=== PATIENT | female | born 1960 | race Caucasian/White ===

== ENCOUNTER 2017-07-05 14:11 | Inpatient (IN) ==
[~2017-07-05 14:11] MED LIST: Adenosine 90 MG/30 ML MLS IV ONE; SODIUM CHLORIDE IV ONE
--- NOTE | 2017-07-05 14:42 | Emergency Department Note ---
Addendum entered and electronically signed by Gautam Montesinos DO 07/05/17 17:04: Insert in medical decision making as repeat electrocardiogram at 16:37 This electrocardiogram is unchanged from the previous one performed today. Also place and medical decision making: Aspirin was not given as this patient has a previous episode of throat swelling. She has taken her Plavix today Original Note: Disposition Clinical Impression: CHF (congestive heart failure) Qualifiers: Congestive heart failure type: unspecified congestive heart failure type Congestive heart failure chronicity: unspecified congestive heart failure chronicity Qualified Code(s): I50.9 - Heart failure, unspecified Chest pain Qualifiers: Chest pain type: unspecified Qualified Code(s): R07.9 - Chest pain, unspecified Disposition: Admitted As Inpatient Chest Pain HPI - General Chief Complaint: ED Chest Pain Stated Complaint: CP Time Seen by Provider: 07/05/17 14:17 Source: patient Limitations: no limitations Vital Signs Reviewed: Yes Nursing Notes Reviewed: Yes - History of Present Illness HPI Narrative: 57 year old female passenger pressure breast cancer COPD, type 2 diabetes mellitus, history of heart attacks, presents to the presents to the emergency department with chest pressure and shortness of breath for the past 3 days. Patient states that she was on the phone with her physician this morning discussing a previous infection in her left hand, and he told her to come to the emergency department with her chest pressure and shortness of breath. Patient states that she has never had a COPD exacerbation before, but she is on a lot of inhalers. She denies being on any oxygen via nasal cannula at home. Patient admits to cough, but denies fever, sputum production, hemoptysis. Patient denies any unilateral leg swelling, previous DVT. Severity scale (1-10): 5 - Related Data Home Medications Medication Instructions Recorded Confirmed Albuterol Sulfate [Albuterol 2 puff IH Q4H PRN 03/21/15 07/05/17 Inhaler] Cholecalciferol (Vitamin D3) 50,000 unit PO WE 03/21/15 07/05/17 [Optimal D3] Ipratropium/Albuterol Sulfate 2 puff IH DAILY 03/21/15 07/05/17 [Combivent Respimat Inhal [place]] Loratadine [Claritin] 10 mg PO DAILY 03/21/15 07/05/17 Nitroglycerin [Nitrostat] 0.4 mg SL Q5M PRN 03/21/15 07/05/17 Sertraline [Zoloft] 50 mg PO DAILY 03/21/15 07/05/17 Albuterol Neb [Proventil Neb] 2.5 mg IH Q6H PRN 03/30/16 07/05/17 Cholecalciferol (D-3) [Vitamin D] 1,000 unit PO DAILY 03/30/16 07/05/17 Nicotine Patch [Nicoderm] 21 mg TD DAILY 03/30/16 07/05/17 Topiramate [Topamax] 50 mg PO HS 03/30/16 07/05/17 Budesonide/Formoterol 160/4.5 2 puff IH BIDR 08/06/16 07/05/17 [Symbicort 160/4.5] Clopidogrel [Plavix] 75 mg PO DAILY 08/06/16 07/05/17 EPINEPHrine [Epipen] 0.3 mg IM ONCE PRN 08/06/16 07/05/17 Lisinopril/Hydrochlorothiazide 1 each PO DAILY 08/06/16 07/05/17 [Zestoretic 20-12.5 mg Tablet] Pregabalin [Lyrica] 150 mg PO BID 08/06/16 07/05/17 Alogliptin Benzoate [Alogliptin] 25 mg PO DAILY 07/05/17 07/05/17 Fluticasone/Vilanterol [Breo 1 each IH DAILY 07/05/17 07/05/17 Ellipta 100-25 Mcg INH] Insulin Glargine,Hum.rec.anlog 80 units SQ BID 07/05/17 07/05/17 [Toujeshayna Solostar] Insulin LISPRO [Humalog Kwikpen 35 unit SQ TIDWM 07/05/17 07/05/17 U-100] Levothyroxine [Synthroid] 50 mcg PO DAILY 07/05/17 07/05/17 Lidocaine Patch [Lidoderm 5% patch] 1 each TP DAILY 07/05/17 07/05/17 Metformin HCl [Metformin HCl ER] 500 mg PO BID 07/05/17 07/05/17 Metoprolol Succinate 100 mg PO DAILY 07/05/17 07/05/17 Nortriptyline HCl 75 mg PO HS 07/05/17 07/05/17 OxyCODONE/APAP 5/325 [Percocet 1 each PO DAILY PRN 07/05/17 07/05/17 5/325 MG] Sulfamethoxazole/Trimeth DS 1 each PO BID 07/05/17 07/05/17 [Bactrim DS] Previous Rx's Medication Instructions Recorded Omeprazole [PriLOSEC] 20 mg PO DAILY #30 capsule. 05/08/15 Cyclobenzaprine HCl 10 mg PO TID PRN #30 tablet 08/08/16 Promethazine [Phenergan] 12.5 mg PO Q6HR PRN #20 tablet 08/08/16 Exemestane [Aromasin] 25 mg PO DAILY #30 tablet 06/03/17 Allergies Allergy/AdvReac Type Severity Reaction Status Date / Time aspirin Allergy Hives Verified 06/03/17 10:33 Penicillins [PCN] Allergy Hives Verified 06/03/17 10:33 venom-honey bee Allergy Anaphylaxis Verified 06/03/17 10:33 [bee venom (honey bee)] Chest Pain PMH - Past Medical History Medical history: Reports: cancer, diabetes, TIA Surgical history: Reports: cancer surgery, non-contributory, other, hysterectomy , breast surgery Psychiatric history: Reports: anxiety, depression DEPARTMENT SUPERVISOR history: Reports: no DEPARTMENT SUPERVISOR history - Social History Smoking Status: Current every day smoker Alcohol use: Reports: none Drug use: Reports: none Physical Exam General: 57-year-old elderly female who appears to be mildly dyspneic Head: autraumatic, EOMI, no conjuncitval pallor, no scleral icterus, Mouth: oral mucous membranes moist Neck: neck soft, trachea midline Chest:: Equal chest wall rise Lungs: Mild rales and wheezes throughout Heart: normal heart sounds, tachycardic and normal rhythm, Abdomen: soft, non-tender, no rigidity, no guarding, no rebdound tenderness Lower Extremities: no pedal edema, calves non-tender Integumentary: Skin warm, dry, and intact Neuro: Alert Psych: normal affect, normal mood - General Limitations: no limitations General appearance: alert, in no apparent distress Course Vital Signs Temperature 97.5 F L 07/05/17 14:13 Pulse Rate 124 07/05/17 14:13 Respiratory Rate 18 07/05/17 14:13 Blood Pressure 111/77 07/05/17 14:13 O2 Sat by Pulse Oximetry 98 07/05/17 14:13 Temperature 97.5 F L 07/05/17 14:13 Pulse Rate 131 07/05/17 17:54 Respiratory Rate 25 07/05/17 17:54 Blood Pressure 135/86 07/05/17 17:54 O2 Sat by Pulse Oximetry 96 07/05/17 17:54 Oxygen Delivery Oxygen Delivery Nasal Cannula Chest Pain - MDM Narrative Medical decision making narrative: 57-year-old female presents to the emergency department with concern for worsening chest pain or shortness of breath for the last 3 days. Electrocardiogram was obtained and revealed nonspecific ST changes noted in the lateral leads that were new from her previous electrocardiogram performed in July 2016. Patient does have a leukocytosis of 16. Patient did have a recent infection in her left hand, but it looks well on exam. She also is tachycardic here as well, But that afebrile I cannot explain this. Chest x- ray reveals bilateral pleural effusions consistent with congestive heart failure. On exam, patient did not have any bilateral pitting edema. However, she did have a hepatojugular reflux consistent with CHF. Lung exam for wi revealed mild wheezes. I have administered 125 mg of Solu-Medrol as well as 3 duo nebs for this patient as she has COPD and there may be a component of exacerbation.. Patient is not on nasal cannula at home. She had an oxygen saturation here of 94% on room air. We have provided 20 mg of Lasix IV for this patient as she is not on any diuresis at home. There was initial concern for pulmonary embolus as this patient has a distant history of breast cancer in 2012, she was tachycardic, and had some component of pleuritic chest pain. However, she was low risk according to the well's criteria so we obtained a d- dimer. This d-dimer was less than the age adjusted as it was 89. There is some concern that there may be an element of viral myocarditis here as his patient has had a viral syndrome over the last few days, was tachycardic and has some nonspecific ST-T changes with the chest pressure. I cannot confirm that diagnosis at this time. I discussed this with the hospitalist and she agreed to accept the admission. I spoke with the patient and daughter at bedside and they agreed as well. Patient did mention some possible thyroid nodules. We are obtaining a TSH. This lab is still pending at time of admission Chest X-Ray 07/05/17 14:16 IMPRESSION: Findings suggest congestive heart failure D/ / Angel Mckeon MD / Angel Mckeon MD Interpreting Provider: Angel Mckeon MD Vital Signs Temperature 97.5 F L 07/05/17 14:13 Pulse Rate 124 07/05/17 14:13 Respiratory Rate 18 07/05/17 14:13 Blood Pressure 111/77 07/05/17 14:13 O2 Sat by Pulse Oximetry 98 07/05/17 14:13 Temperature 97.5 F L 07/05/17 14:13 Pulse Rate 126 07/05/17 15:21 Respiratory Rate 24 07/05/17 15:53 Blood Pressure 120/89 07/05/17 15:21 O2 Sat by Pulse Oximetry 94 07/05/17 15:53 Oxygen Delivery Oxygen Delivery Nasal Cannula - Medical Records Medical records reviewed: Yes I reviewed the patient's medical records. - Lab Data Lab results reviewed: Yes I reviewed the patient's lab results. Result diagrams: 07/05/17 15:00 07/05/17 15:00 Lab Results 07/05/17 07/05/17 07/05/17 Range/Units 15:00 15:00 15:00 WBC 8.9 (4.3-11.1) K/mcL RBC 5.00 H (3.82-4.97) M/mcL Hgb 16.0 H (11.5-15.4) g/dL Hct 47.9 H (35.3-44.9) % MCV 95.8 (83.0-100.0) fL MCH 32.0 (28.0-33.3) pg MCHC 33.4 (31.6-35.5) g/dL RDW 12.9 (11.5-14.5) % Plt Count 199 (140-400) K/mcL MPV 10.6 (9.4-12.4) fL Immature Gran % 0.4 (0-4) % Seg Neutrophils % 78.2 % Lymphocytes % 17.3 % Monocytes % 3.6 % Eosinophils % 0.2 % Basophils % 0.3 % Neutrophils # 7.0 (1.6-8.9) K/mcL Lymphocytes # 1.5 (0.6-4.6) K/mcL Monocytes # 0.3 (0.0-1.3) K/mcL Eosinophils # 0.0 (0.0-0.6) K/mcL Basophils # 0.0 (0.0-0.2) K/mcL D-Dimer (0-500) ng/mLFEU Sodium 137 (136-145) mEq/L Potassium 4.0 (3.5-4.5) mEq/L Chloride 103 (98-109) mEq/L Carbon Dioxide 21 (19-29) mEq/L BUN 13 (7-20) mg/dL Creatinine 0.74 (0.57-1.11) mg/dL Est GFR ( Amer) > 60 (> 60) Est GFR (Non-Af Amer) > 60 (> 60) BUN/Creatinine Ratio 18 (6-26) Glucose 267 H (70-99) mg/dL Calculated Osmolality 293 (280-300) Calcium 10.2 (8.6-10.8) mg/dL Troponin I 0.02 (0-0.03) ng/mL B-Natriuretic Peptide (0-100) pg/mL TSH 3.124 (0.350-4.840) mcIU/mL 07/05/17 07/05/17 Range/Units 15:00 15:00 WBC (4.3-11.1) K/mcL RBC (3.82-4.97) M/mcL Hgb (11.5-15.4) g/dL Hct (35.3-44.9) % MCV (83.0-100.0) fL MCH (28.0-33.3) pg MCHC (31.6-35.5) g/dL RDW (11.5-14.5) % Plt Count (140-400) K/mcL MPV (9.4-12.4) fL Immature Gran % (0-4) % Seg Neutrophils % % Lymphocytes % % Monocytes % % Eosinophils % % Basophils % % Neutrophils # (1.6-8.9) K/mcL Lymphocytes # (0.6-4.6) K/mcL Monocytes # (0.0-1.3) K/mcL Eosinophils # (0.0-0.6) K/mcL Basophils # (0.0-0.2) K/mcL D-Dimer 572 H (0-500) ng/mLFEU Sodium (136-145) mEq/L Potassium (3.5-4.5) mEq/L Chloride (98-109) mEq/L Carbon Dioxide (19-29) mEq/L BUN (7-20) mg/dL Creatinine (0.57-1.11) mg/dL Est GFR ( Amer) (> 60) Est GFR (Non-Af Amer) (> 60) BUN/Creatinine Ratio (6-26) Glucose (70-99) mg/dL Calculated Osmolality (280-300) Calcium (8.6-10.8) mg/dL Troponin I (0-0.03) ng/mL B-Natriuretic Peptide 581 H (0-100) pg/mL TSH (0.350-4.840) mcIU/mL - EKG Data EKG attestation: Yes I reviewed and interpreted this EKG. EKG results narrative: 14:35 Ventricular rate 126 beats per minute, MI interval 139 ms, QRS duration 100 106 , QT 370 ms, QTC 382 ms, left axis deviation. Sinus tachycardia with a ventricular rate of 126 bpm. T-wave flattening in lead 1, mild ST depression in V6 of 1 mm. Heart Score - Score History: Moderately Suspicious EKG: Non Specific repolarisation Disturbance Age: 45-65 Risk Factors: Equal/Greater than 3 risk factor or history of atherosclerotic disease Troponin: Less than normal limit HEART Score Total: 5 Attestation Statement - Attestation Attestation: I examined this patient and my medical decision-making was reviewed with the Resident Physician. I agree with the documented findings, disposition and treatment plan as described.
[2017-07-05] MEDS ORDERED: 0.9 % Sodium Chloride 1,000 ML IVC ONE (14:44)
[2017-07-05 15:21] LABS: BUN/Creatinine Ratio 18 (6-26); Blood Urea Nitrogen 13 mg/dL (7-20); Calcium 10.2 mg/dL (8.6-10.8); Carbon Dioxide 21 mEq/L (19-29); Chloride 103 mEq/L (98-109); Glucose 267 mg/dL (70-99); Osmolality,Calculated 293 (280-300); Sodium 137 mEq/L (136-145); eGFR For African Americans > 60 (> 60); eGFR For Non-African Americans > 60 (> 60)
[2017-07-05 15:23] LABS: Basophils % 0.3 %; Eosinophils % 0.2 %; Hematocrit 47.9 % (35.3-44.9); Immature Granulocytes % 0.4 % (0-4); Lymphocytes # 1.5 K/mcL (0.6-4.6); Lymphocytes % 17.3 %; Mean Corpuscular HGB Conc 33.4 g/dL (31.6-35.5); Mean Corpuscular Volume 95.8 fL (83.0-100.0); Mean Platelet Volume 10.6 fL (9.4-12.4); Monocytes # 0.3 K/mcL (0.0-1.3); Monocytes % 3.6 %; Platelet Count 199 K/mcL (140-400); Red Cell Distribution Width 12.9 % (11.5-14.5); Segmented Neutrophils % 78.2 %
[2017-07-05] MEDS ORDERED: Ipratropium/Albuterol Neb 3 ML IH ONE ×2 (15:23→15:43)
[2017-07-05] MEDS ORDERED: methylPREDNISolone 125 MG/2 ML VIAL IVP ONE (15:44)
[2017-07-05] MEDS ORDERED: Furosemide 20 MG/2 ML VIAL IVP ONE (16:05)
[2017-07-05 17:19] LABS: Thyroid Stimulating Hormone 3.124 mcIU/mL (0.350-4.840)
[2017-07-05] MEDS ORDERED: *HR* LORazepam 2 MG/ML VIAL IVP STA (17:56)
[2017-07-05] MEDS ORDERED: Nitroglycerin 0.4 MG TAB.SUBL SL PRN (19:31)
[2017-07-05] MEDS ORDERED: D5% in Water 1,000 ML IVC PRN (19:40)
[2017-07-05] MEDS ORDERED: Dextrose Gel 15 GM PO PRN ×2 (19:40)
[2017-07-05] MEDS ORDERED: *HR* Dextrose 50 % in Water (Syg) 50 ML SYRINGE IVP PRN (19:40)
[2017-07-05] MEDS ORDERED: Albuterol 2.5 MG/3 ML NEBULIZER IH PRN (19:42)
[2017-07-05] MEDS ORDERED: *HR* Enoxaparin 80 MG/0.8 ML SYRINGE SQ SCH (20:00)
[2017-07-05] MEDS ORDERED: Naloxone 0.4 MG/ML INJ IVP PRN (20:03)
[2017-07-05] MEDS ORDERED: Ondansetron 4 MG/2 ML VIAL IVP PRN (20:03)
[2017-07-05] MEDS ORDERED: Acetaminophen 325 MG TABLET PO PRN (20:03)
--- NOTE | 2017-07-05 20:18 | Internal Med History&Physical ---
<Erica Perez - Last Filed: 07/05/17 20:36> Date of Encounter: 07/05/17 Time of Encounter: 20:13 Assessment and Plan (1) CHF (congestive heart failure) Current visit: Yes Status: Acute 1 patient has had 3 days of increasing shortness of breath despite the use of her inhalers states she has had history of coronary disease, with cardiac catheterization several years ago. Chest x-ray does show some pulmonary vascular congestion as well as cardiomegaly. BNP is elevated at 581 patient's of orthopnea and hypoxia. We will continue cardiac monitoring We will diurese patient overnight Continuous oxygen Monitor intake output daily weight Low-sodium diet Food restriction 1500 mL's Obtain cardiac echo Consult cardiology Qualifiers: Congestive heart failure type: unspecified congestive heart failure type Congestive heart failure chronicity: unspecified congestive heart failure chronicity Qualified Code(s): I50.9 - Heart failure, unspecified (2) Chest pain Current visit: Yes Status: Acute 1 patient has been experiencing substernal chest pain radiates to her left breast. First troponin was 0.02 we will continue to trend 2 continue cardiac monitoring 3 continue with Plavix statin beta manuel 4 check lipid profile in a.m. 5 obtain cardiac echo 2 we will start patient on Lovenox 1 mg/kg-PE precautionary unable to obtain a VQ scan or CTA due to patient unable to lie flat-once respiratory status improves we will obtain CTA rule out PE Qualifiers: Chest pain type: unspecified Qualified Code(s): R07.9 - Chest pain, unspecified (3) COPD (chronic obstructive pulmonary disease) Current visit: No Status: Chronic 1 . Patient has been experiencing shortness of breath with past 3 days despite the use of her inhalers. 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 Rivera is a 57 year old female past medical history of breast cancer or COPD type 2 diabetes CAD no stent placements. According to the patient she has been experiencing increasing shortness of breath as well as midsternal chest pressure that radiates to her left breast. Chest pressure there is no aggravating or relieving factors. Shortness of breath is worse on exertion. She does admit to orthopnea She does use inhalers however she is not on any home oxygen. She admits to a cough but denies any sputum production or hemoptysis fevers chills nausea vomiting or diarrhea. She denies any lower extremity swelling or previous history of DVT. She presented to the ER with the above complaints lap work did reveal a BNP of 581 Restoril lap work this unremarkable. Chest x-ray does show cardiomegaly with vascular congestion and bilateral pleural effusions. She has been admitted for further workup and evaluation presently patient appears anxious with SPO2 94% on 2 L she is tachycardic I did review this case with Dr. Yeh agrees with plan. Past Med Surg Social Fam HX - Past Medical History Medical history: cancer, diabetes, TIA Psychiatric history: anxiety, depression - Past Surgical History Surgical History: cancer surgery, non-contributory, other, hysterectomy, breast surgery - Social History Smoking Status: Current every day smoker Smokeless Tobacco Status: No Alcohol use: none Drug use: none - Family History Mother Hx Family Cardiac Disorders: Yes Hx Family Cancer: Yes Internal Medicine - H&P: Meds Albuterol Sulfate [Albuterol Inhaler] 2 puff IH Q4H PRN 03/21/15 [History] Cholecalciferol (Vitamin D3) [Optimal D3] 50,000 unit PO WE 03/21/15 [History] Ipratropium/Albuterol Sulfate [Combivent Respimat Inhal [place]] 2 puff IH DAILY 03/21/15 [History] Loratadine [Claritin] 10 mg PO DAILY 03/21/15 [History] Nitroglycerin [Nitrostat] 0.4 mg SL Q5M PRN 03/21/15 [History] Sertraline [Zoloft] 50 mg PO DAILY 03/21/15 [History] Omeprazole [PriLOSEC] 20 mg PO DAILY #30 capsule. 05/08/15 [Rx] Albuterol Neb [Proventil Neb] 2.5 mg IH Q6H PRN 03/30/16 [History] Cholecalciferol (D-3) [Vitamin D] 1,000 unit PO DAILY 03/30/16 [History] Nicotine Patch [Nicoderm] 21 mg TD DAILY 03/30/16 [History] Topiramate [Topamax] 50 mg PO HS 03/30/16 [History] Budesonide/Formoterol 160/4.5 [Symbicort 160/4.5] 2 puff IH BIDR 08/06/16 [ History] Clopidogrel [Plavix] 75 mg PO DAILY 08/06/16 [History] EPINEPHrine [Epipen] 0.3 mg IM ONCE PRN 08/06/16 [History] Lisinopril/Hydrochlorothiazide [Zestoretic 20-12.5 mg Tablet] 1 each PO DAILY [History] Pregabalin [Lyrica] 150 mg PO BID 08/06/16 [History] Cyclobenzaprine HCl 10 mg PO TID PRN #30 tablet 08/08/16 [Rx] Promethazine [Phenergan] 12.5 mg PO Q6HR PRN #20 tablet 08/08/16 [Rx] Exemestane [Aromasin] 25 mg PO DAILY #30 tablet 06/03/17 [Rx] Alogliptin Benzoate [Alogliptin] 25 mg PO DAILY 07/05/17 [History] Fluticasone/Vilanterol [Breo Ellipta 100-25 Mcg INH] 1 each IH DAILY 07/05/17 [ History] Insulin Glargine,Hum.rec.anlog [Toujeo Solostar] 80 units SQ BID 07/05/17 [ History] Insulin LISPRO [Humalog Kwikpen U-100] 35 unit SQ TIDWM 07/05/17 [History] Levothyroxine [Synthroid] 50 mcg PO DAILY 07/05/17 [History] Lidocaine Patch [Lidoderm 5% patch] 1 each TP DAILY 07/05/17 [History] Metformin HCl [Metformin HCl ER] 500 mg PO BID 07/05/17 [History] Metoprolol Succinate 100 mg PO DAILY 07/05/17 [History] Nortriptyline HCl 75 mg PO HS 07/05/17 [History] OxyCODONE/APAP 5/325 [Percocet 5/325 MG] 1 each PO DAILY PRN 07/05/17 [History] Sulfamethoxazole/Trimeth DS [Bactrim DS] 1 each PO BID 07/05/17 [History] 3 Allergy/AdvReac Type Severity Reaction Status Date / Time aspirin Allergy Hives Verified 06/03/17 10:33 Penicillins [PCN] Allergy Hives Verified 06/03/17 10:33 venom-honey bee Allergy Anaphylaxis Verified 06/03/17 10:33 [bee venom (honey bee)] All Systems PM: A 10-system review of systems was performed and is negative for pertinent findings except as documented above in the HPI. - Constitutional Constitutional: no chills, no fever(s), no night sweats - EENT Eyes: no change in vision, no discharge, no pain, no photophobia Nose, mouth and throat: no dysphagia, no nasal discharge, no neck pain, no sore throat - Cardiovascular Cardiovascular ROS IM: chest pain, dyspnea, dyspnea on exertion - Respiratory Respiratory: cough, dyspnea - Gastrointestinal Gastrointestinal: no abdominal pain, no diarrhea, no hematemesis, no hematochezia, no melena, no nausea, no vomiting - Genitourinary Genitourinary: no change in urinary stream, no dysuria, no flank pain, no hematuria - Musculoskeletal Musculoskeletal ROS IM: no numbness, no tingling - Integumentary Integumentary IM: as per HPI - Neurological Neurological ROS: no confusion, no convulsions, no focal weakness, no numbness, no tingling, no tremor(s) - Hematologic/Lymphatic Hematologic/Lymphatic: no easy bruising - Constitutional Vitals: Temp Pulse Resp BP Pulse Ox 97.5 F L 123 24 118/84 92 07/05/17 14:13 07/05/17 19:13 07/05/17 19:13 07/05/17 19:13 07/05/17 19:13 General appearance: Present: A&O X 3, answers questions appropriately - Head Head exam: Present: atraumatic, normocephalic - Eye Eye exam: Present: PERRL, conjuntiva pink, sclera anicteric Pupils: Present: PERRL - Neck Neck exam general surgery: Present: supple, trachea midline. Absent: lymphadenopathy - Respiratory Respiratory exam: Present: rales. Absent: accessory muscle use, rhonchi, wheezes - Cardiovascular Cardiovascular exam: Present: RRR, +S1, +S2. Absent: diastolic murmur, gallop, rubs, systolic murmur - GI/Abdominal GI/Abdominal exam: Present: normal bowel sounds, soft, no peritoneal signs. Absent: distended, tenderness - Extremities Exam Extremities exam: Present: warm, radial pulses palpable and symmetrical. Absent : calf tenderness, cyanotic, pedal edema - Neurological Exam Neurological exam: Present: CN II-XII intact, oriented X3, no focal deficits. Absent: pronater drift, facial droop, speech deficit - Skin Skin exam: Present: dry, intact Internal Med - H&P Results - Labs CBC & Chem 7: 07/05/17 15:00 07/05/17 15:00 - EKG Data EKG shows normal: sinus rhythm Rate: tachycardia - EKG Data Prior EKG available for review: yes When compared to previous EKG: there is no significant change - Diagnostic Studies Chest x-ray Additional comments: Chest X-Ray 07/05/17 14:16 IMPRESSION: Findings suggest congestive heart failure D/ / Angel Mckeon MD / Angel Mckeon MD Interpreting Provider: Angel Mckeon MD <Guevara Yeh - Last Filed: 07/05/17 22:15> Date of Encounter: 07/05/17 Internal Medicine - H&P: HPI History of present illness: Ms. Rivera is a 57 year old female All Systems PM: A 10-system review of systems was performed and is negative for pertinent findings except as documented above in the HPI. - Constitutional Vitals: Temp Pulse Resp BP Pulse Ox 97.8 F 123 17 127/85 92 07/05/17 20:38 07/05/17 20:38 07/05/17 20:38 07/05/17 20:38 07/05/17 20:38 Internal Med - H&P Results - Labs CBC & Chem 7: 07/05/17 15:00 07/05/17 15:00 Labs: Cardiac Enzymes 07/05/17 Range/Units 20:41 Troponin I 0.02 (0-0.03) ng/mL - Attending Attestation I have personally performed a face to face evaluation on this patient. I have reviewed and agree with the care plan. History and Exam by me shows: 57 y/o female presents with worsening dyspnea. Unable to lie flat. No prior history. Also having some tachycardia. Exam Moderate distress upright Unable to lie flat Heart tachy Crackles noted Agree with assessment and plan as above.
[2017-07-05] MEDS ORDERED: Insulin LISPRO 300 UNITS/3 ML VIAL SQ SCH (21:00)
[2017-07-05] MEDS ORDERED: Insulin DETEMIR 100 UNIT/ML X5UNITS SQ SCH (21:00)
[2017-07-05] MEDS: Furosemide 20 MG/2 ML VIAL IVP SCH (22:42)
[2017-07-05] MEDS: *HR* HYDROcodone/Acet 5/325 mg TABLET PO PRN (23:37)
[2017-07-05] MEDS: Topiramate 25 MG TABLET PO SCH (23:37)
[2017-07-05] MEDS: Pregabalin 75 MG CAPSULE PO SCH (23:37)
[2017-07-05] MEDS: Budesonide/Formoterol 160/4.5 MDI IH SCH (23:42)
[2017-07-05] MEDS: Ipratropium/Albuterol Neb 3 ML IH SCH (23:42)
[2017-07-06] MEDS: *HR* Enoxaparin 80 MG/0.8 ML SYRINGE SQ SCH ×3 (00:33→16:53)
[2017-07-06] MEDS ORDERED: Insulin LISPRO 300 UNITS/3 ML VIAL SQ ONE ×2 (02:21→03:59)
[2017-07-06] MEDS: Ipratropium/Albuterol Neb 3 ML IH SCH ×6 (03:48→23:26)
[2017-07-06 04:01] LABS: Basophils % 0.4 %; Immature Granulocytes % 0.6 % (0-4); Lymphocytes # 0.7 K/mcL (0.6-4.6); Lymphocytes % 14.3 %; Monocytes # 0.1 K/mcL (0.0-1.3); Monocytes % 2.4 %; Neutrophils # 4.2 K/mcL (1.6-8.9); Platelet Count 171 K/mcL (140-400); Red Blood Count 4.47 M/mcL (3.82-4.97); Red Cell Distribution Width 12.6 % (11.5-14.5); Segmented Neutrophils % 82.3 %
[2017-07-06 04:02] LABS: Hemoglobin 14.3 g/dL (11.5-15.4)
[2017-07-06 04:21] LABS: BUN/Creatinine Ratio 19 (6-26); Blood Urea Nitrogen 15 mg/dL (7-20); Calcium 9.1 mg/dL (8.6-10.8); Carbon Dioxide 19 mEq/L (19-29); Chloride 104 mEq/L (98-109); Chol/HDL Ratio 5.3 (0-4.9); Cholesterol 213 mg/dL (< 200); Glucose 465 mg/dL (70-99); HDL Cholesterol 40 mg/dL (40-59); LDL Cholesterol,Calculated 124 mg/dL (0-99); Magnesium 1.9 mg/dL (1.6-2.6); Osmolality,Calculated 305 (280-300); Sodium 137 mEq/L (136-145); Triglycerides 246 mg/dL (< 150); eGFR For African Americans > 60 (> 60); eGFR For Non-African Americans > 60 (> 60)
[2017-07-06 04:25] LABS: Potassium 4.2 mEq/L (3.5-4.5)
[2017-07-06] MEDS ORDERED: Insulin LISPRO 300 UNITS/3 ML VIAL SQ SCH (07:30)
[2017-07-06] MEDS: Budesonide/Formoterol 160/4.5 MDI IH SCH ×2 (07:39→19:35)
[2017-07-06] MEDS: Cholecalciferol (D-3) 1,000 UNIT TABLET PO SCH (08:16)
--- NOTE | 2017-07-06 08:16 | Cardiology Consult Note ---
<Juliette Hahn - Last Filed: 07/06/17 12:11> Date of Encounter: 07/06/17 Time of Encounter: 09:00 Assessment and Plan (1) Dyspnea Current Visit: Yes Status: Acute Presented with chest pressure, sob, coughing for 3 days. Admits to increase sweating but denies fever, chills, N/V, arm pain, jaw pain. Patient f/u with a longitudinal float operator Dr. Faulkner in [place]. Vitals: tachycardia, afebrile. Labs: negative Troponin negative x 3, BNP 581 CXR: Cardiomegaly. Pulmonary vascular congestion and pulmonary edema. Evidence for bilateral pleural effusions. EKG shows nonspecific ST changes that are seen on previous EKG 07/2016. Echo 12/2015: LVEF 50%. Low normal LV systolic function. The basal and mid inferior overton appear mildly hypokinetic although not all myocardial segments were well visualized. Consider repeat Limited study with Definity for further evaluation.Cath 2001: no PCI. Questionable etiology for dyspnea, most likely multifactorial of CHF and COPD exacerbation. Echo results are pending, will await results for further recommendations. Continue Lasix 20mg BID daily. Patient has not seen a longitudinal float operator for at least 5 years. His name was Dr. Faulkner but she is unsure at which hospital her previous cath was at. Discussed with medical office secretary to see if we can obtain records. Plan: -awaiting echo results -continue Lasix 20mg BID -continue telemetry -continue BB - adding lipitor 40mg po daily - awaiting records. Qualifiers: Dyspnea type: shortness of breath Qualified Code(s): R06.02 - Shortness of breath; R06.00 - Dyspnea, unspecified; R06.01 - Orthopnea (2) Chest pain Current Visit: Yes Status: Acute Presented with chest pressure, sob, coughing for 3 days. Troponin negative x 3. EKG unchanged from previous EKG 07/2016. Awaiting echo no need for further cardiac testing at this time. Qualifiers: Chest pain type: unspecified Qualified Code(s): R07.9 - Chest pain, unspecified (3) Tachycardia Current Visit: Yes Status: Acute Chronic tachycardia dating back in eCW records to 2012. Most likely from pulmonary medications. Continue current dose of BB. Will continue to telemetry. (4) Hyperlipidemia Current Visit: Yes Status: Acute Mixed hyperlipidemia. ASCVD risk 17.8% in the next [address] patient on Lipitor 40mg. Qualifiers: Hyperlipidemia type: mixed hyperlipidemia Qualified Code(s): E78.2 - Mixed hyperlipidemia Discussion w patient/family: The assessment and plan as outlined above was discussed with the patient and/or family members who expressed understanding and agreement. All questions were answered. Thank you for involving us in the care of your patient. Please call with any questions. History of Present Illness Consult date: 07/05/17 Requesting physician: Erica Perez Consult reason: CHF Chief complaint: chest pressure and SOB History of present illness: Ms. Rivera is a 57 year old female pmh of breast cancer, COPD, DM2, CAD without stents (last cath in [place] ~6 years ago), TIA on plavix, presented to the ED with chest pressure, sob, coughing for 3 days. Admits to increase sweating but denies fever, chills, N/V, arm pain, jaw pain. Patient admits to orthopnea with 6 pillows, typically uses 3 pillows and PND. Patient does not check weight daily but there has been no change in weight per last e[facility] weight and now. Patient has COPD and has not missed any medications. Home medications include BB and ASHISH/HCTZ. Cardiac testing: Carotid duplex 07/2016: bilateral carotid arteries normal throughout. Echo 12/2015: LVEF 50%. Low normal LV systolic function. The basal and mid inferior overton appear mildly hypokinetic although not all myocardial segments were well visualized. Consider repeat Limited study with Definity for further evaluation. Nuc Stress 10/2012: Perfusion imaging was negative for ischemia or infarct. There is a small sized persistent perfusion defect which is mild in severity in the anterior wall with normal wall motion. This is consistent with breast attenuation artifact. Cath 2002: no PCI. Past Med Surg Social Fam HX - Past Medical History Medical history: cancer, diabetes, TIA Psychiatric history: anxiety, depression - Past Surgical History Surgical History: cancer surgery, non-contributory, other, hysterectomy, breast surgery - Social History Smoking Status: Current every day smoker Smokeless Tobacco Status: No Alcohol use: none Drug use: none - Family History Mother Living Status: Cause of : Fall at senior living Hx Family Cardiac Disorders: Yes Hx Family Respiratory Disorders: Yes (COPD, Emphysema, Asthma) Hx Family Cancer: Yes Hx Family GI Disorders: No Hx Family Genitourinary Disorders: No Hx Family Endocrine Disorder: Yes (DM, Thyroid) Hx Family Musculoskeletal Disorders: No Hx Family Neuromuscular Disorders: No Hx Family Neurologic Disorders: No Hx Family HEENT Disorders: No Hx Family Autoimmune Disorders: No Hx Family Reproductive Disorders: No Hx Family Psychosocial Disorders: No Hx Family Medical Disorders: No Medications and Allergies Albuterol Sulfate [Albuterol Inhaler] 2 puff IH Q4H PRN 03/21/15 [History] Cholecalciferol (Vitamin D3) [Optimal D3] 50,000 unit PO WE 03/21/15 [History] Ipratropium/Albuterol Sulfate [Combivent Respimat Inhal [place]] 2 puff IH DAILY 03/21/15 [History] Loratadine [Claritin] 10 mg PO DAILY 03/21/15 [History] Nitroglycerin [Nitrostat] 0.4 mg SL Q5M PRN 03/21/15 [History] Sertraline [Zoloft] 50 mg PO DAILY 03/21/15 [History] Omeprazole [PriLOSEC] 20 mg PO DAILY #30 capsule. 05/08/15 [Rx] Albuterol Neb [Proventil Neb] 2.5 mg IH Q6H PRN 03/30/16 [History] Cholecalciferol (D-3) [Vitamin D] 1,000 unit PO DAILY 03/30/16 [History] Nicotine Patch [Nicoderm] 21 mg TD DAILY 03/30/16 [History] Topiramate [Topamax] 50 mg PO HS 03/30/16 [History] Budesonide/Formoterol 160/4.5 [Symbicort 160/4.5] 2 puff IH BIDR 08/06/16 [ History] Clopidogrel [Plavix] 75 mg PO DAILY 08/06/16 [History] EPINEPHrine [Epipen] 0.3 mg IM ONCE PRN 08/06/16 [History] Lisinopril/Hydrochlorothiazide [Zestoretic 20-12.5 mg Tablet] 1 each PO DAILY [History] Pregabalin [Lyrica] 150 mg PO BID 08/06/16 [History] Cyclobenzaprine HCl 10 mg PO TID PRN #30 tablet 08/08/16 [Rx] Promethazine [Phenergan] 12.5 mg PO Q6HR PRN #20 tablet 08/08/16 [Rx] Exemestane [Aromasin] 25 mg PO DAILY #30 tablet 06/03/17 [Rx] Alogliptin Benzoate [Alogliptin] 25 mg PO DAILY 07/05/17 [History] Fluticasone/Vilanterol [Breo Ellipta 100-25 Mcg INH] 1 each IH DAILY 07/05/17 [ History] Insulin Glargine,Hum.rec.anlog [Toujeo Solostar] 80 units SQ BID 07/05/17 [ History] Insulin LISPRO [Humalog Kwikpen U-100] 35 unit SQ TIDWM 07/05/17 [History] Levothyroxine [Synthroid] 50 mcg PO DAILY 07/05/17 [History] Lidocaine Patch [Lidoderm 5% patch] 1 each TP DAILY 07/05/17 [History] Metformin HCl [Metformin HCl ER] 500 mg PO BID 07/05/17 [History] Metoprolol Succinate 100 mg PO DAILY 07/05/17 [History] Nortriptyline HCl 75 mg PO HS 07/05/17 [History] OxyCODONE/APAP 5/325 [Percocet 5/325 MG] 1 each PO DAILY PRN 07/05/17 [History] Sulfamethoxazole/Trimeth DS [Bactrim DS] 1 each PO BID 07/05/17 [History] 3 Allergy/AdvReac Type Severity Reaction Status Date / Time aspirin Allergy Hives Verified 06/03/17 10:33 Penicillins [PCN] Allergy Hives Verified 06/03/17 10:33 venom-honey bee Allergy Anaphylaxis Verified 06/03/17 10:33 [bee venom (honey bee)] All Systems Review: A 10-system review of systems was performed and is negative for pertinent findings except as documented above in the HPI. Physical Examination Vital Signs, Last 4 Hours Temp Pulse Resp BP Pulse Ox 07/06/17 08:03 97.4 F L 116 24 108/70 94 07/06/17 07:39 20 94 Results 07/06/17 03:47 07/06/17 03:47 Lab Results 07/05/17 07/06/17 07/06/17 20:41 03:47 03:47 WBC 5.1 Hgb 14.3 D Hct 42.0 Plt Count 171 Sodium Potassium Chloride Carbon Dioxide BUN Creatinine Glucose Calcium Magnesium Troponin I 0.02 0.01 07/06/17 03:47 WBC Hgb Hct Plt Count Sodium 137 Potassium 4.2 Chloride 104 Carbon Dioxide 19 BUN 15 Creatinine 0.80 Glucose 465 H Calcium 9.1 Magnesium 1.9 Troponin I Consult Discharge Plan - Plan Referrals: Angel Jimenez DO [Primary Care Provider] - <Yumiko Moulton - Last Filed: 07/06/17 12:38> Date of Encounter: 07/06/17 - Attending Attestation I examined this patient and my medical decision-making was reviewed with the Resident Physician. I agree with the documented findings, disposition and treatment plan. Ms. Rivera presented with CP, SOB and cough. She admits to having a fever at home but has been afebrile here. Troponins negative x3. ECG with nonspecific ST abnormalities, no significant change from prior. PLAN: 1. Dyspnea: Recommend IV lasix, check echo. Probably multifactorial. Prior EF from 2015 was normal with wall motion abnormality. 2. Chest Pain: Check echo, start statin and continue aspirin. Consider stress testing when clinical status improves - can be done as outpatient. 3. Tachycardia: Long history of elevated heart rates - seen in outpatient medical records as far back as 2012. Suspect secondary to pulmonary inhalers. Continue telemetry. Patient on BB. Consider outpatient holter. Assessment and Plan Discussion w patient/family: The assessment and plan as outlined above was discussed with the patient and/or family members who expressed understanding and agreement. All questions were answered. Thank you for involving us in the care of your patient. Please call with any questions. History of Present Illness History of present illness: Ms. Rivera is a 57 year old female All Systems Review: A 10-system review of systems was performed and is negative for pertinent findings except as documented above in the HPI. Physical Examination Vital Signs, Last 4 Hours Temp Pulse Resp BP Pulse Ox 07/06/17 11:41 97.4 F L 120 20 113/78 95 07/06/17 11:08 20 94 Results 07/06/17 03:47 07/06/17 03:47 Lab Results 07/05/17 07/06/17 07/06/17 20:41 03:47 03:47 WBC 5.1 Hgb 14.3 D Hct 42.0 Plt Count 171 Sodium Potassium Chloride Carbon Dioxide BUN Creatinine Glucose Calcium Magnesium Troponin I 0.02 0.01 07/06/17 03:47 WBC Hgb Hct Plt Count Sodium 137 Potassium 4.2 Chloride 104 Carbon Dioxide 19 BUN 15 Creatinine 0.80 Glucose 465 H Calcium 9.1 Magnesium 1.9 Troponin I
[2017-07-06] MEDS: Nicotine 21 MG PATCH.TD24 TD SCH (08:17)
[2017-07-06] MEDS: Loratadine 10 MG TABLET PO SCH (08:17)
[2017-07-06] MEDS: Pregabalin 75 MG CAPSULE PO SCH ×2 (08:17→22:02)
[2017-07-06] MEDS: predniSONE 20 MG TABLET PO SCH (08:17)
[2017-07-06] MEDS: Insulin LISPRO 300 UNITS/3 ML VIAL SQ SCH ×5 (08:18→22:00)
[2017-07-06] MEDS: Furosemide 20 MG/2 ML VIAL IVP SCH ×3 (08:18→16:59)
[2017-07-06] MEDS ORDERED: (Exemestane [Aromasin] 25 MG) PO SCH (09:00)
[2017-07-06] MEDS ORDERED: NON-FORMULARY MEDICATION 1 EACH EACH (Ipratropium/Albuterol Sulfate [Combivent Respimat In IH SCH (09:00)
[2017-07-06] MEDS ORDERED: Fluticasone/Vilanterol [Breo Ellipta 100-25 Mcg Inh IH SCH (09:00)
[2017-07-06] MEDS ORDERED: EXEMESTANE 25 MG PO SCH (09:00)
[2017-07-06] MEDS: Metoprolol XL (24 HR) Succ 50 MG TAB.ER.24H PO SCH (09:21)
[2017-07-06] MEDS: Insulin DETEMIR 100 UNIT/ML X5UNITS SQ SCH ×2 (10:36→22:02)
--- NOTE | 2017-07-06 13:07 | Electrocardiograph Report ---
[place] [address] Test Date: 2017-07-05 Pat Name: Virginia Rivera Department: 103 Room: 2A24 Gender: F [employer] Supervisor: : 1960 Requested By: Esau Edwards Order Number: [id number] Reading MD: Osbaldo Perkins MD Measurements Intervals [place] Rate: 126 P: 63 UT: 139 QRS: -3 QRSD: 101 T: 88 QT: 307 QTc: 382 Interpretive Statements SINUS TACHYCARDIA Poor R wave progression Electronically Signed On 07-06-2017 13:05:10 EST by Osbaldo Perkins MD
--- NOTE | 2017-07-06 13:11 | Electrocardiograph Report ---
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
[2017-07-06] MEDS ORDERED: Perflutren Lipid Microsphere 1.3 ML in 0.9 % Sodium Chloride 8.7 ML IVP ONE (13:47)
[2017-07-06] MEDS ORDERED: Perflutren Lipid Microsphere 2 ML VIAL ONE (13:59)
--- NOTE | 2017-07-06 17:09 | Internal Med Progress Note ---
Date of Encounter: 07/06/17 Time of Encounter: 17:07 - Assessment and plan (1) Acute systolic (congestive) heart failure Current Visit: Yes Status: Acute Assessment and plan: Reviewed 2 D Echo showed severe LV dysfunction with LVEF 15 %, as well global hypokinesia Spoke to Dr. Pace..Placed pt on NPO after mid night.. for possible LHC In AM Cont IV lasix Cont Metoprolol, Statin, Plavix (2) Acute respiratory failure with hypoxia Current Visit: Yes Status: Acute Assessment and plan: Due to CHF exacerbation Improving Cont O2 + Duoneb (3) Dyslipidemia Current Visit: No Status: Chronic Assessment and plan: on statin (4) COPD (chronic obstructive pulmonary disease) Current Visit: No Status: Chronic Assessment and plan: Not in exacerbation Cont duoneb and O2 Qualifiers: COPD type: unspecified COPD Qualified Code(s): J44.9 - Chronic obstructive pulmonary disease, unspecified (5) Diabetes mellitus Current Visit: No Status: Chronic Assessment and plan: on ISS + Levemir still uncontrolled BS.. 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 transplanted heart: knik heart Associated angina: without angina Qualified Code(s): I25.10 - Atherosclerotic heart disease of knik coronary artery without angina pectoris - Subjective Interval history: Ms. Rivera is a 57 year old female past medical history of breast cancer or COPD type 2 diabetes CAD no stent placements. According to the patient she has been experiencing increasing shortness of breath as well as midsternal chest pressure that radiates to her left breast. Pt was admitted here for acute CHF exacerbation. She was started on IV lasix, her SOB seems to be better now. Still on 2 lit O2. Denied any CP now - Constitutional Vitals: Temp Pulse Resp BP Pulse Ox 97.3 F L 95 20 124/61 95 07/06/17 14:56 07/06/17 14:56 07/06/17 15:42 07/06/17 14:56 07/06/17 15:42 General appearance: Present: A&O X 3, answers questions appropriately - Head Head exam: Present: atraumatic, normal inspection - Respiratory Respiratory exam: Present: decreased breath sounds, rales (Mild), wheezes. Absent: respiratory distress, rhonchi - Cardiovascular Cardiovascular exam: Present: RRR, +S1, +S2. Absent: systolic murmur - GI/Abdominal GI/Abdominal exam: Present: normal bowel sounds, soft. Absent: rebound, rigid, tenderness - Extremities Exam Extremities exam: Absent: calf tenderness, pedal edema, tenderness - Back Exam Back exam: Absent: CVA tenderness (L), CVA tenderness (R) Internal Medicine: Result - Labs CBC & Chem 7: 07/06/17 03:47 07/06/17 03:47 Labs: Short CBC 07/06/17 Range/Units 03:47 WBC 5.1 (4.3-11.1) K/mcL Hgb 14.3 D (11.5-15.4) g/dL Hct 42.0 (35.3-44.9) % Plt Count 171 (140-400) K/mcL Neutrophils # 4.2 (1.6-8.9) K/mcL BMP 07/06/17 03:47 Sodium 137 Potassium 4.2 Chloride 104 Carbon Dioxide 19 BUN 15 Creatinine 0.80 Glucose 465 H Calcium 9.1 Cardiac Enzymes 07/05/17 07/06/17 Range/Units 20:41 03:47 Troponin I 0.02 0.01 (0-0.03) ng/mL - ABG Interpretation ABG results: PT/INR, D-dimer D-Dimer 572 ng/mLFEU (0-500) H 07/05/17 15:00 - Impressions Impressions Echocardiogram 07/06/17 20:06 Impressions: LVEF 15%. Severely dilated left ventricle. Severe global left ventricular systolic dysfunction. There is no LV thrombus. Indeterminate diastolic function. Mildly dilated right ventricle with hypokinesis. Severely dilated left atrium. Mild mitral regurgitation. Mild-moderate pulmonary hypertension. Estimated RVSP is 42-47 mmHg, including an estimated RA pressure of 15-20 mmHg. Ordering provider notified via [place]. Left Ventricular Wall Motion: Rest Echo Findings The apex, apical inferior, mid inferior, basal inferior, apical anterior, mid anterior, basal anterior, apical septal, mid inferior septal, basal inferior septal, apical lateral, mid anterior lateral, basal anterior lateral, mid anterior septal, mid inferior lateral, basal anterior septal and basal inferior lateral overton were hypokinetic. Findings: Study Quality * Technically adequate exam. ECG Findings * Sinus tachycardia. Left Ventricle * LVEF 15%. * Severely dilated left ventricle. * Severe global left ventricular systolic dysfunction. * There is no LV thrombus. * Indeterminate diastolic function. Right Ventricle * Mildly dilated right ventricle. * Mild right ventricular hypokinesis. Left Atrium * Severely dilated left atrium. Right Atrium * Mildly dilated right atrium. Aortic Valve * Trileaflet aortic valve with normal function. * No aortic regurgitation. * No aortic stenosis. Mitral Valve * No mitral stenosis. * Mild mitral regurgitation. * Normal mitral valve structure. Tricuspid Valve * Normal tricuspid valve structure and function. * Trace tricuspid regurgitation. * Mild-moderate pulmonary hypertension. * Estimated RVSP is 42-47 mmHg. * Estimated RA pressure is 15-20 mmHg. Pulmonic Valve * Normal pulmonic valve structure and function. * Trace pulmonic regurgitation. Aorta * Normally sized aortic root. Pericardium * The pericardium appears normal. IVC * Dilated inferior vena cava with < 50% collapse. Pulmonary Artery * Normal visualized portions of the main pulmonary artery. Consult Discharge Plan - Plan Referrals: Angel Jimenez DO [Primary Care Provider] -
[2017-07-06] MEDS: Topiramate 25 MG TABLET PO SCH (22:03)
[2017-07-07] MEDS: Ipratropium/Albuterol Neb 3 ML IH SCH ×6 (03:42→23:15)
[2017-07-07] MEDS: *HR* Enoxaparin 80 MG/0.8 ML SYRINGE SQ SCH ×2 (05:38→17:50)
[2017-07-07 05:59] LABS: BUN/Creatinine Ratio 47 (6-26); Calcium 9.1 mg/dL (8.6-10.8); Carbon Dioxide 26 mEq/L (19-29); Chloride 105 mEq/L (98-109); Glucose 118 mg/dL (70-99); Magnesium 1.7 mg/dL (1.6-2.6); Osmolality,Calculated 299 (280-300); Sodium 141 mEq/L (136-145); eGFR For African Americans > 60 (> 60); eGFR For Non-African Americans > 60 (> 60)
[2017-07-07 06:00] LABS: Blood Urea Nitrogen 29 mg/dL (7-20); Potassium 3.1 mEq/L (3.5-4.5)
[2017-07-07] MEDS: Budesonide/Formoterol 160/4.5 MDI IH SCH ×2 (07:24→20:39)
[2017-07-07] MEDS: Pregabalin 75 MG CAPSULE PO SCH ×2 (09:25→20:04)
[2017-07-07] MEDS: predniSONE 20 MG TABLET PO SCH (09:25)
[2017-07-07] MEDS: Furosemide 20 MG/2 ML VIAL IVP SCH ×2 (09:25→17:51)
[2017-07-07] MEDS: Loratadine 10 MG TABLET PO SCH (09:25)
[2017-07-07] MEDS: Insulin DETEMIR 100 UNIT/ML X5UNITS SQ SCH ×2 (09:26→20:04)
[2017-07-07] MEDS: Cholecalciferol (D-3) 1,000 UNIT TABLET PO SCH (09:26)
[2017-07-07] MEDS: Nicotine 21 MG PATCH.TD24 TD SCH (09:26)
[2017-07-07] MEDS: Insulin LISPRO 300 UNITS/3 ML VIAL SQ SCH ×7 (09:27→20:05)
[2017-07-07] MEDS: Metoprolol XL (24 HR) Succ 50 MG TAB.ER.24H PO SCH ×2 (09:48→20:04)
[2017-07-07] MEDS: Patient Taking Own Medication 1 EACH PO SCH (09:48)
[2017-07-07 10:42] LABS: INR 1.1; Prothrombin Time 11.8 Seconds (9.4-12.1)
[2017-07-07] MEDS ORDERED: 0.9 % Sodium Chloride 1,000 ML ONE ×3 (11:24→12:51)
[2017-07-07] MEDS ORDERED: *HR* Midazolam HCl 2 MG/2 ML VIAL ONE (11:24)
[2017-07-07] MEDS ORDERED: *HR* Heparin 10,000 UNIT/10 ML VIAL ONE (11:24)
[2017-07-07] MEDS ORDERED: Heparin 1,000 UNITS/500 mL NS 500 ML ONE (11:24)
[2017-07-07] MEDS ORDERED: *HR* Dextrose 50 % in Water (Syg) 50 ML SYRINGE ONE (11:24)
[2017-07-07] MEDS ORDERED: Nitroglycerin 1,000 MCG/10 ML VIAL IV ONE (11:25)
--- NOTE | 2017-07-07 11:28 | Cardiology Progress Note ---
<Juliette Hahn - Last Filed: 07/07/17 11:22> Date of Encounter: 07/07/17 Time of Encounter: 09:00 Assessment and Plan (1) Acute systolic (congestive) heart failure Current Visit: Yes Status: Acute Presented with chest pressure, sob, coughing for 3 days. Admits to increase sweating but denies fever, chills, N/V, arm pain, jaw pain. Patient f/u with a eyeglass lens grinder Dr. Faulkner in [place]. Vitals: tachycardia, afebrile. Labs: negative Troponin negative x 3, BNP 581 CXR: Cardiomegaly. Pulmonary vascular congestion and pulmonary edema. Evidence for bilateral pleural effusions. EKG shows nonspecific ST changes that are seen on previous EKG 07/2016. Echo 12/2015: LVEF 50%. Low normal LV systolic function. The basal and mid inferior overton appear mildly hypokinetic although not all myocardial segments were well visualized. Consider repeat Limited study with Definity for further evaluation.Cath 2001: no PCI. Patient has not seen a eyeglass lens grinder for at least 5 years. His name was Dr. Faulkner but she is unsure at which hospital her previous cath was at. Discussed with assistant corporate secretary to see if we can obtain records but records are still not here. New echo results show LVEF 15%.Severely dilated left ventricle.Severe global left ventricular systolic dysfunction.There is no LV thrombus.Indeterminate diastolic function. Mildly dilated right ventricle with hypokinesis.Severely dilated left atrium.Mild mitral regurgitation.Mild-moderate pulmonary hypertension. Estimated RVSP is 42-47 mmHg, including an estimated RA pressure of 15-20 mmHg. New onset systolic CHF as echo showed EF 15% which is a change from EF 50% in 2016. Will obtain LHC today. Plan: - LHC today, pending further recommendations -continue Lasix 20mg BID -continue telemetry -continue BB and ASA - adding lipitor 40mg po daily - awaiting records - will need f/u with cardiology in 2-3 weeks (2) Chest pain Current Visit: Yes Status: Acute Presented with chest pressure, sob, coughing for 3 days. Troponin negative x 3. EKG unchanged from previous EKG 07/2016. LHC today as echo showed EF =15% and global hypokinesis. Qualifiers: Chest pain type: unspecified Qualified Code(s): R07.9 - Chest pain, unspecified (3) Tachycardia Current Visit: Yes Status: Acute Chronic tachycardia dating back in e[facility] records to 2012. Most likely from pulmonary medications. Continue current dose of BB. Will continue to telemetry. (4) Hyperlipidemia Current Visit: Yes Status: Acute Mixed hyperlipidemia. ASCVD risk 17.8% in the next [address] patient on Lipitor 40mg. Qualifiers: Hyperlipidemia type: mixed hyperlipidemia Qualified Code(s): E78.2 - Mixed hyperlipidemia Discussion w patient/family: The assessment and plan as outlined above was discussed with the patient and/or family members who expressed understanding and agreement. All questions were answered. Thank you for involving us in the care of your patient. Please call with any questions. Subjective Principal diagnosis: CHF Interval history: Patient states that she is still having SOB and chest pressure today. Objective Vital Signs, Last 4 Hours Resp Pulse Ox 07/07/17 07:24 18 97 General: Conversant, No Apparent Distress HEENT: Atraumatic, Normocephaly, Mucus Membranes Moist Cardiac: Reg Rate and Rhythm, Normal S1 and S2, No Murmur Lungs: Normal Breath Sounds Neuro: Alert and responsive, No focal deficits noted Abdomen: Soft, Non-Tender Skin: No rashes noted on visualized skin Musculoskeletal: No Chest Wall Tenderness Extremities: No Cyanosis, No Edema, Normal Pulses, Other (+ clubbing ) Results 07/06/17 03:47 07/07/17 05:35 Lab Results 07/07/17 07/07/17 05:35 10:15 INR 1.1 Sodium 141 Potassium 3.1 L D Chloride 105 Carbon Dioxide 26 BUN 29 H D Creatinine 0.62 Glucose 118 H Calcium 9.1 Magnesium 1.7 Consult Discharge Plan - Plan Referrals: Angel Jimenez DO [Primary Care Provider] - <Yumiko Moulton - Last Filed: 07/07/17 13:42> Date of Encounter: 07/07/17 Assessment and Plan Discussion w patient/family: I examined this patient and my medical decision-making was reviewed with the Resident Physician. I agree with the documented findings, disposition and treatment plan. Ms. Rivera's echo demonstrated newly reduced LV systolic function, EF 15% with a severely dilated LV. Given new findings, a LHC was recommended. Patient has since undergone LHC which demonstrated (preliminary) nonobstructive CAD, essentially a nonischemic cardiomyopathy. DDx may include tachycardia induced. Looking back, HR's have been elevated in the 110-120's range since 2013. Average heart rate over last 24h is 117bpm. Presuming this may be from her beta agonists for COPD. Given borderline blood pressures, would not recommend uptitrating her beta manuel. May consider pulmonary consult for help in management. Will also discuss with EP. Recommend continuing diuresis with careful watch on blood pressure and renal function. Continue antiplatelet agent and statin. Results 07/06/17 03:47 07/07/17 05:35 Lab Results 07/07/17 07/07/17 05:35 10:15 INR 1.1 Sodium 141 Potassium 3.1 L D Chloride 105 Carbon Dioxide 26 BUN 29 H D Creatinine 0.62 Glucose 118 H Calcium 9.1 Magnesium 1.7
--- NOTE | 2017-07-07 12:23 | Pre-Sedation Evaluation ---
Pre-sedation evaluation - Pre-sedation checklist Date of procedure: 07/07/17 Procedure: left heart cath possible Recent Vitals: Last Vital Signs Temp 97.7 F 07/07/17 07:16 Pulse 115 07/07/17 07:16 Resp 18 07/07/17 07:24 BP 101/62 07/07/17 07:16 Pulse Ox 97 07/07/17 07:24 H&P (including ROS) documented in medical record: Yes Previous reaction to sedatives/anesthetics: No Dietary Status: NPO 6 hours prior to procedure Airway Assessment: Patient can open mouth completely, TMJ function normal Dentition: No loose teeth or bridges Possible difficult airway: No ASA Classification *see protocol: CLASS III-Severe systemic disease Plan of Care: Pt appropriate candidate for procedure/moderate/conscious sedation , Risks/benefits of procedure/sedation discussed w/ patient/family, If not NPO; Risk of intake outweiged by necessity to perform procedure
[2017-07-07] MEDS ORDERED: *HR* Bivalirudin 250 MG VIAL IVC ONE (12:39)
[2017-07-07] MEDS ORDERED: NACL 0.2% IVC SCH (14:00)
[2017-07-07] MEDS ORDERED: D10 IVC SCH (14:00)
--- NOTE | 2017-07-07 14:57 | Internal Med Progress Note ---
Date of Encounter: 07/07/17 Time of Encounter: 14:54 - Assessment and plan (1) Acute systolic (congestive) heart failure Current Visit: Yes Status: Acute Assessment and plan: Reviewed 2 D Echo showed severe LV dysfunction with LVEF 15 %, as well global hypokinesia Went for [facility] today..will f/u on final report will hold tonight Lasix Cont Metoprolol, Statin, Plavix (2) Acute respiratory failure with hypoxia Current Visit: Yes Status: Acute Assessment and plan: Due to CHF exacerbation and mild COPD exacerbation Improving Cont O2 + Duoneb May need home O2 eval before she goes home (3) Dyslipidemia Current Visit: No Status: Chronic Assessment and plan: on statin (4) COPD (chronic obstructive pulmonary disease) Current Visit: No Status: Chronic Assessment and plan: in Mild exacerbation start tapering PO steroids Cont duoneb and O2 May need home O2 eval Qualifiers: COPD type: unspecified COPD Qualified Code(s): J44.9 - Chronic obstructive pulmonary disease, unspecified (5) Diabetes mellitus Current Visit: No Status: Chronic Assessment and plan: on ISS + Levemir Added meal time Insulin coverage y/d Qualifiers: Diabetes mellitus type: type 2 Diabetes mellitus complication status: with unspecified complications Diabetes mellitus termite technician insulin use: with termite technician use Qualified Code(s): E11.8 - Type 2 diabetes mellitus with unspecified complications; Z79.4 - senior care (current) use of insulin (6) Hypoglycemia associated with diabetes Current Visit: Yes Status: Acute Assessment and plan: Accidentally she received around 37 U Regular Insulin this morning prior to cardiac cath and her BS are running little low so changed meal time dose D50 1 amp and D5 75 cc/hr x 4 hrs and cont frequent Accu checks Resumed diet (7) CAD (coronary artery disease) Current Visit: No Status: Chronic Assessment and plan: Resumed all home meds Qualifiers: Coronary Disease-Associated Artery/Lesion type: [place] artery [place] vs. transplanted heart: [place] heart Associated angina: without angina Qualified Code(s): I25.10 - Atherosclerotic heart disease of [place] coronary artery without angina pectoris - Subjective Interval history: Ms. Rivera is a 57 year old female past medical history of breast cancer or COPD type 2 diabetes CAD no stent placements. According to the patient she has been experiencing increasing shortness of breath as well as midsternal chest pressure that radiates to her left breast. Pt was admitted here for acute CHF exacerbation. She was started on IV lasix, her SOB seems to be better now. Still on 4 lit O2. Denied any CP now..Just came back from [facility] - Constitutional Vitals: Temp Pulse Resp BP Pulse Ox 97.7 F 115 18 101/62 97 07/07/17 07:16 07/07/17 07:16 07/07/17 07:24 07/07/17 07:16 07/07/17 07:24 General appearance: Present: A&O X 3, answers questions appropriately - Head Head exam: Present: atraumatic, normal inspection - Neck Neck exam general surgery: Present: supple - Respiratory Respiratory exam: Present: decreased breath sounds, wheezes (moderate). Absent : rales, respiratory distress, rhonchi - Cardiovascular Cardiovascular exam: Present: RRR, +S1, +S2. Absent: systolic murmur - GI/Abdominal GI/Abdominal exam: Present: normal bowel sounds, soft. Absent: rebound, rigid, tenderness - Extremities Exam Extremities exam: Absent: calf tenderness, pedal edema, tenderness - Back Exam Back exam: Absent: CVA tenderness (L), CVA tenderness (R) - Neurological Exam Neurological exam: Present: alert, oriented X3 Internal Medicine: Result - Labs CBC & Chem 7: 07/06/17 03:47 07/07/17 05:35 Labs: BMP 07/07/17 05:35 Sodium 141 Potassium 3.1 L D Chloride 105 Carbon Dioxide 26 BUN 29 H D Creatinine 0.62 Glucose 118 H Calcium 9.1 - ABG Interpretation ABG results: PT/INR, D-dimer PT 11.8 Seconds (9.4-12.1) 07/07/17 10:15 D-Dimer 572 ng/mLFEU (0-500) H 07/05/17 15:00 - Impressions Impressions Echocardiogram 07/06/17 20:06 Impressions: LVEF 15%. Severely dilated left ventricle. Severe global left ventricular systolic dysfunction. There is no LV thrombus. Indeterminate diastolic function. Mildly dilated right ventricle with hypokinesis. Severely dilated left atrium. Mild mitral regurgitation. Mild-moderate pulmonary hypertension. Estimated RVSP is 42-47 mmHg, including an estimated RA pressure of 15-20 mmHg. Ordering provider notified via Vocera. Left Ventricular Wall Motion: Rest Echo Findings The apex, apical inferior, mid inferior, basal inferior, apical anterior, mid anterior, basal anterior, apical septal, mid inferior septal, basal inferior septal, apical lateral, mid anterior lateral, basal anterior lateral, mid anterior septal, mid inferior lateral, basal anterior septal and basal inferior lateral overton were hypokinetic. Findings: Study Quality * Technically adequate exam. ECG Findings * Sinus tachycardia. Left Ventricle * LVEF 15%. * Severely dilated left ventricle. * Severe global left ventricular systolic dysfunction. * There is no LV thrombus. * Indeterminate diastolic function. Right Ventricle * Mildly dilated right ventricle. * Mild right ventricular hypokinesis. Left Atrium * Severely dilated left atrium. Right Atrium * Mildly dilated right atrium. Aortic Valve * Trileaflet aortic valve with normal function. * No aortic regurgitation. * No aortic stenosis. Mitral Valve * No mitral stenosis. * Mild mitral regurgitation. * Normal mitral valve structure. Tricuspid Valve * Normal tricuspid valve structure and function. * Trace tricuspid regurgitation. * Mild-moderate pulmonary hypertension. * Estimated RVSP is 42-47 mmHg. * Estimated RA pressure is 15-20 mmHg. Pulmonic Valve * Normal pulmonic valve structure and function. * Trace pulmonic regurgitation. Aorta * Normally sized aortic root. Pericardium * The pericardium appears normal. IVC * Dilated inferior vena cava with < 50% collapse. Pulmonary Artery * Normal visualized portions of the main pulmonary artery. Consult Discharge Plan - Plan Referrals: Angel Jimenez DO [Primary Care Provider] -
[2017-07-07] MEDS ORDERED: Insulin LISPRO 300 UNITS/3 ML VIAL SQ SCH (15:00)
[2017-07-07] MEDS: Topiramate 25 MG TABLET PO SCH (20:04)
[2017-07-08 03:42] LABS: BUN/Creatinine Ratio 38 (6-26); Blood Urea Nitrogen 27 mg/dL (7-20); Carbon Dioxide 26 mEq/L (19-29); Chloride 103 mEq/L (98-109); Glucose 174 mg/dL (70-99); Magnesium 1.9 mg/dL (1.6-2.6); Osmolality,Calculated 297 (280-300); Potassium 4.1 mEq/L (3.5-4.5); Sodium 139 mEq/L (136-145); eGFR For African Americans > 60 (> 60); eGFR For Non-African Americans > 60 (> 60)
[2017-07-08] MEDS: Ipratropium/Albuterol Neb 3 ML IH SCH ×6 (03:53→23:45)
[2017-07-08] MEDS: *HR* Enoxaparin 80 MG/0.8 ML SYRINGE SQ SCH (05:30)
--- NOTE | 2017-07-08 06:28 | Invasive Diagnostic Lab Proc ---
Name: Virginia Rivera Date of Study: 07/07/2017 Date: 1960 Ht: 66.9in Medical Record#: [id number] Age: 57 Wt: 172.84lb Gender: Female BSA: 1.9 Order #: [id number] BMI: 27.13 Physicians Procedure Physician: Ole Faulkner DO Referring MD: Referring MD: Staff Name Position Time In Jayro Judy RT (R) Monitor 12:23 PM Wilmer Dial RT (R) Scrub 12:23 PM Praneeth Parson RN Sales And Customer Relations Rep 12:23 PM Indications Indication Cardiomyopathy Procedures Performed Procedure L HRT ARTERY/VENTRICLE ANGIO IV Doppler BLD Flow 1st Vessel Pre-Procedure Checklist Informed consent is complete signed and on chart. H&P is on chart. ID band is on and ID verified with patient. Patient NPO for procedure The procedure was described for the patient and questions were answered. Blood Pressure: 101/62 ECG is on chart. Rhythm: NSR Plan of Care Patient will tolerate the procedure without complications. Adequate level of comfort will be maintained. Hemodynamics will remain stable Patient will recover from procedure without complications. Respiratory function will be maintained. Cardiac rhythm will remain stable. Patient temperature will be maintained. Patient and/or family have verbalized understanding of the procedure. Patient Education Chief Complaint/Reason for Test: Cardiac Cath Developmental Category: Adult (18-64 years) Developmentally Appropriate for Age: Yes Learning Barriers: None Education Needs: Procedure Education Method: Verbal Information Taught: Cardiac Cath Educational Evaluation: Able to repeat information Intravenous Access Time IV Size Location DC'd Fluid/Drip Rate Units RN 12:02 PM 20g 1 08/25" Patent On Arrival Lt Arm 0.9NaCl 25 ml/hr Nnaette Romero RN Allergies Penicillins PCN,CODIENE, ASA venom-honey bee bee venom (honey bee) PCN (penicillin) aspirin Codeine Morphine Vital Signs Time BP (mmHg) HR (bpm) O2 Sat. RR (bpm) LOC 12:03 PM 101 / 62 115 97 % 18 5 = Fully awake and oriented or at pre-proc level 12:24 PM / % 5 = Fully awake and oriented or at pre-proc level 12:24 PM / % 4 = Oriented but drowsy 12:40 PM / % 4 = Oriented but drowsy 12:22 PM 97 / 55 112 96 % 15 12:27 PM 95 / 60 109 96 % 14 12:32 PM 98 / 51 107 93 % 13 12:37 PM 87 / 46 108 93 % 14 12:42 PM 97 / 51 105 93 % 13 12:47 PM 83 / 51 105 93 % 13 12:48 PM 85 / 51 104 93 % 13 12:52 PM 99 / 56 108 95 % 20 12:57 PM 104 / 48 108 93 % 21 01:02 PM 96 / 57 109 94 % 13 Procedural Medications Time Medication Dose Units Method Given By 11:43 AM D50 11:50 AM D50 12:24 PM Oxygen 4 L/min nasal cannula Praneeth Parson RN 12:24 PM Versed 1 mg Intravenous Praneeth Parson RN 12:31 PM Lidocaine 2% 10 ml Subcutaneous Ole Faulkner DO 12:43 PM Angiomax 0.75mg/kg bolus: 12 ml Intravenous Praneeth Parson RN 12:44 PM Angiomax 1.75mg/kg/hr: 28 ml Intravenous Praneeth Parson RN 12:46 PM Adenosine 150 mcg/kg/min Intravenous Ole Faulkner DO 12:57 PM Angiomax 1.75mg/kg/hr: ml Dc'd Praneeth Parson RN ASA Classification: CLASS III- Severe systemic disease (i.e. prior AMI, diabetes with vascular complications, morbid obesity) Tamir Score Preprocedure Postprocedure Activity 2- Moves 4 extremities sustained head lift Activity 2- Moves 4 extremities sustained head lift Circulation 2- SBP +/= 20 points of pre-anesthetic level Circulation 2- SBP +/= 20 points of pre-anesthetic level Consciousness 2- Awake and alert oriented x 3 Consciousness 2- Awake and alert oriented x 3 O2 Saturation 1- Needs O2 inhalation to maintain O2 saturation of 90% O2 Saturation 2- Able to maintain O2 satruation of 92% on room air Respiratory 2- Able to deep breathe and cough well Respiratory 2- Able to deep breathe and cough well Total Score 9 Total Score 10 Contrast Agent: Isovue Fluoro Dose: 345 mGy Procedure Log Time Note Enter By 11:21 AM recieved call from Jodi ORTEZ that patient received her insulin this am and to recheck patients blood sugar. Checked blood sugar 53. Notified Dr. Faulkner and orders received roel 11:24 AM Time: 11:24 D50 1/2 amp Intravenous Given by Nanette Romero RN 11:45 AM rechecked blood sugar up to 87. roel 11:50 AM Time: 11:50 D50 1/2 amp Intravenous Given by Nanette Romero RN 12:17 PM Pt arrived to labor relations teacher 2 at 12:16 twilson 12:17 PM Physician arrived 12:17 twilson 12:17 PM Meet and greet completed twilson 12:17 PM Sign in performed according to hospital policy. twilson 12:17 PM Procedure start 12:17 twilson 12:17 PM CathStat 12:17 PM [ Start or Stop Vital ] 12:21 PM Vitals capture started with the following parameters, Patient=Adult, Interval=5 min, Initial Khmadpvt=122 mmHg, Deflation Rate=5 mmHg, Cuff placed on Right Arm 12:22 PM GW=619 bpm, NIBP=97/55 mmhg, SpO2=96.0 %, Resp=15 B/min 12:23 PM Recorded ECG: YG=517 Condition=Condition 1 12:23 PM Judy Dial RT (R) Position: Monitor Time in: 12:23 twilson 12:23 PM Wilmer Dial RT (R) Position: Scrub Time in: 12:23 twilson 12:23 PM Praneeth Parson RN Position: Sales And Customer Relations Rep Time in: 12:23 twilson 12:23 PM Patient charges- Angio tray pack, Navilyst 3mm J, Pulse Oximetry and ACIST tubing and transducer twilson 12:23 PM Case Delayed no twilson 12:24 PM Hair removed from procedure site in procedure lab using clippers. Bilateral groin prepped with Chloraprep by Judy Dial (R), safety strap applied then patient was draped. Skin intact. twilson 12:24 PM Time: 12:24 Oxygen on at 4 L/min per nasal cannula by Praneeth Parson RN twilson 12:24 PM Time: 12:24 Versed 1 mg Intravenous Given by Praneeth Parson RN twilson 12:24 PM Time: 12:24 Patient comfortable and pain free: Yes twilson 12:24 PM Time: 12:24LOC: 5 = Fully awake and oriented or at pre-proc level twilson 12:26 PM ASA Class CLASS III- Severe systemic disease (i.e. prior AMI, diabetes with vascular complications, morbid obesity) twilson 12:27 PM VE=889 bpm, NIBP=95/60 mmhg, SpO2=96.0 %, Resp=14 B/min 12:28 PM Pressure channel 1 zeroed. 12:28 PM Pressure channel 1 zeroed. 12:31 PM Sign in performed according to hospital policy. twilson 12:31 PM Time: 12:31 10 ml Lidocaine 2% to right groin Subcutaneous Given by Ole Faulkner DO twilson 12:32 PM VA=501 bpm, NIBP=98/51 mmhg, SpO2=93.0 %, Resp=13 B/min 12:33 PM Micro-Introducer Kit utilized for sheath placement twilson 12:34 PM Access obtained by percutaneous puncture. 6Fr 10cm Terumo [place] sheath placed in right Femoral artery. [id number] twilson 12:34 PM 6Fr FR 4 catheter inserted over the wire DNC twilson 12:35 PM Recorded Pressure: LV, HR=98, Condition=Condition 1 (Left Ventricle) LV 70/4/7 12:35 PM Recorded Pressure: LV, Ao, MS=206, Condition=Condition 1 (Left Ventricle) LV 89/12/19, (Aorta) Ao 84/46/65 12:35 PM Catheter selectively placed in left ventricle, wire removed, intact. twilson 12:35 PM Bolus angiogram of left Ventricle complete:hand injection twilson 12:36 PM RCA angiography performed in multiple views. twilson 12:36 PM Catheter removed twilson 12:36 PM 6Fr FL 4 catheter inserted over the wire DNC twilson 12:36 PM Wire removed, intact. twilson 12:37 PM Coronary Dominance: right twilson 12:37 PM UP=086 bpm, NIBP=87/46 mmhg, SpO2=93.0 %, Resp=14 B/min 12:37 PM Recorded Pressure: Ao, YK=668, Condition=Condition 1 (Aorta) Ao 72/49/57 12:37 PM Recorded Pressure: Ao, CR=621, Condition=Condition 1 (Aorta) Ao 75/50/60 12:38 PM Recorded Pressure: Ao, NT=907, Condition=Condition 1 (Aorta) Ao 77/48/60 12:39 PM LCA angiography performed in multiple views. twilson 12:39 PM Wire reinserted and catheter removed twilson 12:40 PM Time: 12:24LOC: 4 = Oriented but drowsy twilson 12:40 PM Time: 12:24 Patient comfortable and pain free: Yes twilson 12:40 PM preparing for FFR twilson 12:41 PM 6Fr JL4 Runway guide catheter was used to cannulate the PCI vessel successfully. reused? No twilson 12:41 PM .014 Choice Extra Support 300cm guide wire across target lesion- successful. reused? No twilson 12:42 PM BA=676 bpm, NIBP=97/51 mmhg, SpO2=93.0 %, Resp=13 B/min 12:43 PM 500cc saline bolus twilson 12:43 PM Recorded Pressure: Ao, OY=766, Condition=Condition 1 (Aorta) Ao 81/52/63 12:44 PM Time: 12:43 Angiomax 0.75mg/kg bolus: 12 ml Intravenous Given by Praneeth Parson RN Moe pump twilson 12:44 PM Time: 12:44 Angiomax 1.75mg/kg/hr: 28 ml Intravenous Given by Praneeth Parson RN Moe pump twilson 12:46 PM ACIST Navvus Catheter advanced to target lesion. twilson 12:47 PM AD=739 bpm, NIBP=83/51 mmhg, SpO2=93.0 %, Resp=13 B/min 12:47 PM NIBP STAT measurement started. 12:48 PM ZP=238 bpm, NIBP=85/51 mmhg, SpO2=93.0 %, Resp=13 B/min 12:48 PM Recorded Pressure: Ao, FP=375, Condition=Condition 1 (Aorta) Ao 82/58/68 12:49 PM Time: 12:46 Adenosine 150 mcg/kg/min administered Intravenous by Ole Faulkner DO twilson 12:51 PM NIBP STAT measurement started. 12:52 PM VH=736 bpm, NIBP=99/56 mmhg, SpO2=95.0 %, Resp=20 B/min 12:52 PM FFR Measurement: 0.84 twilson 12:54 PM Flow Wire removed intact twilson 12:54 PM Guidewire removed, intact. twilson 12:55 PM Bolus angiogram right femoral artery hand injection twilson 12:55 PM Time: 12:40 Patient comfortable and pain free: Yes twilson 12:55 PM Time: 12:40LOC: 4 = Oriented but drowsy twilson 12:55 PM Guide catheter removed, intact. twilson 12:56 PM Procedure completed at 12:56 twilson 12:56 PM Sign out completed: Radiation Dose 345 mGy Fluoro Time: 2.6 Isovue 370 - 200ml contrast ml given by Ole Faulkner DO. Complications: NoneCardiac Rehab Consult needed: NoConfirmed administered medications: Yes twilson 12:56 PM Isovue 370 - 200ml,1 Bottle(s) used. twilson 12:56 PM Arterial sheath pulled, Angio-seal closure device used and was Successful [id number] S/N. twilson 12:57 PM Post ECG NSR twilson 12:57 PM WB=253 bpm, SHUA=063/48 mmhg, SpO2=93.0 %, Resp=21 B/min 12:58 PM Time: 12:57 Angiomax 1.75mg/kg/hr: ml Dc'd Given by Praneeth Parson RN Moe pump twilson 12:58 PM 12:58 Post Pulses Bilateral DP & PT 2+ twilson 12:58 PM 12:58 Post Pulses Bilateral radial 2+ twilson 12:59 PM Information taught Cardiac Cath, Flowire, and Angioseal twilson 12:59 PM Education needs Procedure, Plan of Care, and Responsibilities of Patient in Care twilson 12:59 PM Learning barriers :None twilson 12:59 PM Education Methods Verbal twilson 12:59 PM Education evaluation Able to repeat information twilson 12:59 PM Site status No bleeding/hematoma - Rt Groin as reported by Wilmer Dial RT (R) at 12:59 twilson 12:59 PM Opsite applied twilson 12:59 PM Delay to floor No twilson 01:02 PM GV=679 bpm, NIBP=96/57 mmhg, SpO2=94.0 %, Resp=13 B/min 01:05 PM Lesion found in Mid LAD. Pre Stenosis: 60 Pre CIARA Flow: twilson 01:07 PM Mid/Distal Left Anterior Descending Coronary Artery and diagonal branches with 60% stenosis. If graft is supplying this area, 0 % stenosis twilson 01:08 PM Report given to Jodi ORTEZ Pt taken to 2A Room #24. 13:08 twilson 01:09 PM Patient out of room: 13:08 twilson 01:09 PM Family placed in consult room. twilson Complications Complication None Hemodynamics Pressures Site Systolic/A Wave Diastolic/V Wave Mean LV 70 4 7 LV 89 12 19 AO 84 46 65 AO 72 49 57 AO 75 50 60 AO 77 48 60 AO 81 52 63 AO 82 58 68 Post Procedure Information Rhythm: NSR Post procedural instructions were given Closure Device Time Device Success/Fail 07/07/2017 1:00:00 PM Angio-Seal VIP Successful Site Checks Time Location Status Staff Sheath In? Note 12:59 PM Rt Groin No bleeding/hematoma Wilmer Dial RT (R) Pulses Time Site Pre-Procedure Post-Procedure Note 07/07/2017 12:02:00 PM Bilateral radial 2+ 07/07/2017 12:03:00 PM Bilateral DP & PT 2+ 12:58:00 PM Bilateral DP & PT 2+ 12:58:00 PM Bilateral radial 2+ Updated by Judy Dial RT (R) on 07/07/2017 1:10:13 PM electronically signed on 07/07/2017 1:11:30 PM with status of Final
[2017-07-08] MEDS: Budesonide/Formoterol 160/4.5 MDI IH SCH ×2 (08:00→20:03)
[2017-07-08] MEDS: Furosemide 20 MG/2 ML VIAL IVP SCH ×2 (08:52→19:49)
[2017-07-08] MEDS: Pregabalin 75 MG CAPSULE PO SCH ×2 (08:52→21:41)
[2017-07-08] MEDS: Insulin LISPRO 300 UNITS/3 ML VIAL SQ SCH ×7 (08:52→21:41)
[2017-07-08] MEDS: Loratadine 10 MG TABLET PO SCH (08:53)
[2017-07-08] MEDS: predniSONE 20 MG TABLET PO SCH (08:53)
[2017-07-08] MEDS: Metoprolol XL (24 HR) Succ 50 MG TAB.ER.24H PO SCH (08:53)
[2017-07-08] MEDS: Cholecalciferol (D-3) 1,000 UNIT TABLET PO SCH (08:53)
[2017-07-08] MEDS: Nicotine 21 MG PATCH.TD24 TD SCH (08:54)
[2017-07-08] MEDS: Insulin DETEMIR 100 UNIT/ML X5UNITS SQ SCH ×2 (08:54→21:41)
[2017-07-08] MEDS: Patient Taking Own Medication 1 EACH PO SCH (09:17)
--- NOTE | 2017-07-08 10:04 | Cardiology Progress Note ---
<Juliette Hahn - Last Filed: 07/08/17 10:43> Date of Encounter: 07/08/17 Time of Encounter: 08:00 Assessment and Plan (1) Acute systolic (congestive) heart failure Current Visit: Yes Status: Acute Presented with chest pressure, sob, coughing for 3 days. Admits to increase sweating but denies fever, chills, N/V, arm pain, jaw pain. Patient f/u with a telecommunications field technician Dr. Faulkner in [place]. Vitals: tachycardia, afebrile. Labs: negative Troponin negative x 3, BNP 581 CXR: Cardiomegaly. Pulmonary vascular congestion and pulmonary edema. Evidence for bilateral pleural effusions. EKG shows nonspecific ST changes that are seen on previous EKG 07/2016. Echo 12/2015: LVEF 50%. Low normal LV systolic function. The basal and mid inferior overton appear mildly hypokinetic although not all myocardial segments were well visualized. Consider repeat Limited study with Definity for further evaluation.Cath 2001: no PCI. Patient has not seen a telecommunications field technician for at least 5 years. His name was Dr. Faulkner but she is unsure at which hospital her previous cath was at. Discussed with stenographer secretary to see if we can obtain records but records are still not here. New echo results show LVEF 15%.Severely dilated left ventricle.Severe global left ventricular systolic dysfunction.There is no LV thrombus.Indeterminate diastolic function. Mildly dilated right ventricle with hypokinesis.Severely dilated left atrium.Mild mitral regurgitation.Mild-moderate pulmonary hypertension. Estimated RVSP is 42-47 mmHg, including an estimated RA pressure of 15-20 mmHg. LHC showed EF 20%, 60% stenosis in the mid LAD. Medical management. LHC showed non-obstructive CAD, medical management recommended. Possible decrease in EF 2/2 prolonged tachycardia. Discussed with EP and considering starting Ivadbradine 5mg bid which can help lower HR without decreasing BP. Formal consult in for EP to see today. Plan: - CXR today to access pulmonary congestion - repeat BNP -consider decrease Lasix after CXR results -continue telemetry -continue BB and Plavix - adding lipitor 40mg po daily - will need f/u with cardiology in 2-3 weeks (2) Chest pain Current Visit: Yes Status: Acute Presented with chest pressure, sob, coughing for 3 days. Troponin negative x 3. EKG unchanged from previous EKG 07/2016. Echo showed EF =15% and global hypokinesis. [facility] non-obstructive CAD. Medical management. Chest pain currently resolved. Qualifiers: Chest pain type: unspecified Qualified Code(s): R07.9 - Chest pain, unspecified (3) Tachycardia Current Visit: Yes Status: Acute Chronic tachycardia dating back in [facility] records to 2012. Most likely from pulmonary medications. Continue current dose of BB. Will continue telemetry. EP consult today. (4) Hyperlipidemia Current Visit: Yes Status: Acute Mixed hyperlipidemia. ASCVD risk 17.8% in the next [address] patient on Lipitor 40mg. Qualifiers: Hyperlipidemia type: mixed hyperlipidemia Qualified Code(s): E78.2 - Mixed hyperlipidemia Discussion w patient/family: The assessment and plan as outlined above was discussed with the patient and/or family members who expressed understanding and agreement. All questions were answered. Thank you for involving us in the care of your patient. Please call with any questions. Subjective Principal diagnosis: CHF Interval history: Patient states that she is feeling better today. She states that she is not having chest pain any more and it is easier to breath. Objective Vital Signs, Last 4 Hours Temp Pulse Resp BP Pulse Ox 07/08/17 08:12 97.4 F L 116 20 114/58 96 07/08/17 08:01 17 99 General: Conversant, No Apparent Distress Cardiac: Reg Rate and Rhythm, Normal S1 and S2, No Murmur Lungs: Normal Breath Sounds, Other (+ wheezing ) Neuro: Alert and responsive, No focal deficits noted Abdomen: Non-Tender Skin: No rashes noted on visualized skin Musculoskeletal: No Chest Wall Tenderness Extremities: No Cyanosis, No Edema, Normal Pulses, Other (+ clubbing ) Results 07/06/17 03:47 07/08/17 03:00 Lab Results 07/07/17 07/08/17 10:15 03:00 INR 1.1 Sodium 139 Potassium 4.1 D Chloride 103 Carbon Dioxide 26 BUN 27 H Creatinine 0.71 Glucose 174 H Calcium 9.0 Magnesium 1.9 Consult Discharge Plan - Plan Referrals: Angel Jimenez DO [Primary Care Provider] - 07/18/17 10:00 am <Yumiko Moulton - Last Filed: 07/08/17 11:25> Date of Encounter: 07/08/17 Assessment and Plan Discussion w patient/family: I examined this patient and my medical decision-making was reviewed with the Resident Physician. I agree with the documented findings, disposition and treatment plan. Ms. Rivera presented with acute systolic heart failure, newly reduced LV systolic function and underwent LHC. This demonstrated nonobstructive CAD. She denies chest pain. She continues to be short of breath with walking to and from the bathroom and requiring supplemental oxygen (not previously on O2). In part, this could be related to COPD. She appears euvolemic on exam. Recommend checking CXR and obtaining BNP to help guide diuretic management. BUN starting to rise. Continue antiplatelet agent, statin and BB. Will add on low dose ACEI (careful watch on BP - running low). Otherwise, we have recommended EP consult due to persistent sinus tachycardia, noted elevated HR (100-130's) since 2012. Objective Vital Signs, Last 4 Hours Temp Pulse Resp BP Pulse Ox 07/08/17 08:12 97.4 F L 116 20 114/58 96 07/08/17 08:01 17 99 Results 07/06/17 03:47 07/08/17 03:00 Lab Results 07/08/17 03:00 Sodium 139 Potassium 4.1 D Chloride 103 Carbon Dioxide 26 BUN 27 H Creatinine 0.71 Glucose 174 H Calcium 9.0 Magnesium 1.9
--- NOTE | 2017-07-08 12:30 | Internal Med Progress Note ---
Date of Encounter: 07/08/17 Time of Encounter: 12:28 - Assessment and plan (1) Acute systolic (congestive) heart failure Current Visit: Yes Status: Acute Assessment and plan: Reviewed 2 D Echo showed severe LV dysfunction with LVEF 15 %, as well global hypokinesia LHC - showed 60% stenosis in mid LAD, EF 20% Her Cardiomyopathy mostly non ischemic, could be triggered by her chronic tachycardia too Cont Lasix..will switch to PO today BNP trending down Cont Metoprolol, Statin, Plavix For sinus tachycardia consulted EP cardiology also Card recommend to start her on Ivadbradine 5mg BID (2) Acute respiratory failure with hypoxia Current Visit: Yes Status: Acute Assessment and plan: Due to CHF exacerbation and mild COPD exacerbation Improving Cont O2 + Duoneb May need home O2 eval before she goes home No signs of PE.. No need of therapeutic lovenox. (3) Dyslipidemia Current Visit: No Status: Chronic Assessment and plan: on statin (4) COPD (chronic obstructive pulmonary disease) Current Visit: No Status: Chronic Assessment and plan: in Mild exacerbation start tapering PO steroids Cont duoneb and O2 May need home O2 eval Qualifiers: COPD type: unspecified COPD Qualified Code(s): J44.9 - Chronic obstructive pulmonary disease, unspecified (5) Diabetes mellitus Current Visit: No Status: Chronic Assessment and plan: on ISS + Levemir Added meal time Insulin coverage y/d Qualifiers: Diabetes mellitus type: type 2 Diabetes mellitus complication status: with unspecified complications Diabetes mellitus bed bug exterminator insulin use: with bed bug exterminator use Qualified Code(s): E11.8 - Type 2 diabetes mellitus with unspecified complications; Z79.4 - watermaster (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 transplanted heart: [place] heart Associated angina: without angina Qualified Code(s): I25.10 - Atherosclerotic heart disease of [place] coronary artery without angina pectoris - Subjective Interval history: Ms. Rivera is a 57 year old female past medical history of breast cancer or COPD type 2 diabetes CAD no stent placements. According to the patient she has been experiencing increasing shortness of breath as well as midsternal chest pressure that radiates to her left breast. Pt was admitted here for acute CHF exacerbation. She was started on IV lasix, her SOB seems to be better now. Now on 2 lit O2. Denied any CP now..No events over night. - Constitutional Vitals: Temp Pulse Resp BP Pulse Ox 97.7 F 116 24 118/81 97 07/08/17 11:32 07/08/17 11:32 07/08/17 11:32 07/08/17 11:32 07/08/17 11:32 General appearance: Present: A&O X 3, answers questions appropriately - Head Head exam: Present: atraumatic, normal inspection - Neck Neck exam general surgery: Present: supple - Respiratory Respiratory exam: Present: decreased breath sounds, wheezes (mild). Absent: rales, respiratory distress, rhonchi - Cardiovascular Cardiovascular exam: Present: +S1, +S2, tachycardia - GI/Abdominal GI/Abdominal exam: Present: soft. Absent: rebound, rigid, tenderness - Extremities Exam Extremities exam: Present: pedal edema (1+). Absent: calf tenderness, tenderness - Back Exam Back exam: Absent: CVA tenderness (L), CVA tenderness (R) - Neurological Exam Neurological exam: Present: alert, oriented X3 - Psychiatric Psychiatric exam: Present: normal affect, normal mood Internal Medicine: Result - Labs CBC & Chem 7: 07/06/17 03:47 07/08/17 03:00 Labs: BMP 07/08/17 03:00 Sodium 139 Potassium 4.1 D Chloride 103 Carbon Dioxide 26 BUN 27 H Creatinine 0.71 Glucose 174 H Calcium 9.0 - ABG Interpretation ABG results: PT/INR, D-dimer PT 11.8 Seconds (9.4-12.1) 07/07/17 10:15 D-Dimer 572 ng/mLFEU (0-500) H 07/05/17 15:00 - Impressions Impressions Chest X-Ray 07/08/17 10:43 IMPRESSION: CHF with moderate pleural effusions D/ / Rodri Graves MD / Rodri Graves MD Interpreting Provider: Rodri Graves MD Consult Discharge Plan - Plan Referrals: Angel Jimenez DO [Primary Care Provider] - 07/18/17 10:00 am
--- NOTE | 2017-07-08 12:34 | Electrophysiology Consult Note ---
Date of Encounter: 07/08/17 Time of Encounter: 12:32 Assessment and Plan (1) Non-ischemic cardiomyopathy Current Visit: Yes Status: Acute Per EP: -Admitted with acute CHF and noted to have non-ischemic cardiomyopathy. -LVEF 20%. -Being managed by cardiology and primary service. (2) Sinus tachycardia Current Visit: Yes Status: Chronic Per EP: -Has chronic sinus tachycardia. -ECW reviewed with HRs documented as 110-130s for the past several years. -ECG with sinus tachycardia, HR 129. -On toprol 100mg daily. -BP 110 systolic. -TTE with LVEF 15%. -Per discussion with Dr.John Kaur, do not suspect cardiomyopathy related to sinus tachycardia. -Unable to uptitrate beta manuel due to BP. -Per discussion with Dr.John Kaur, can consider addition of corlanor 5mg BID, however this medication is not available from inpatient pharmacy. Patient concerned regarding cost of medication. Batista check sent. Discussion w patient/family: The assessment and plan as outlined above was discussed with the patient who expressed understanding and agreement. All questions were answered. Thank you for involving us in the care of your patient. Please call with any questions. Discussed and reviewed with Dr.John Kaur History of Present Illness Consult date: 07/08/17 Requesting physician: Juliette Hahn Consult reason: sinus tachycardia Chief complaint: shortness of breath History of present illness: Ms. Rivera is a 57 year old female with a relevant past medical history of DM , new diagnosis of non-ischemic cardiomyopathy, CHF, and tachycardia. Patient was admitted to [facility] with complaints of increase shortness of breath. Patient noted to have new cardiomyopathy. EP has been asked to see and evaluate patient for persistent sinus tachycardia. Patient states she has been tachycardic "for several years." Patient states she feels palpitations and can feel her "heart racing." Past Med Surg Social Fam HX - Past Medical History Attestation: Yes The following information was validated with the patient. Source: patient, old records reviewed Medical history: cancer, diabetes, TIA Psychiatric history: anxiety, depression - Past Surgical History Surgical History: cancer surgery, non-contributory, other, hysterectomy, breast surgery - Social History Smoking Status: Current every day smoker Smokeless Tobacco Status: No Alcohol use: none Drug use: none - Family History Mother Living Status: Cause of : Fall at halfway Hx Family Cardiac Disorders: Yes Hx Family Respiratory Disorders: Yes (COPD, Emphysema, Asthma) Hx Family Cancer: Yes Hx Family GI Disorders: No Hx Family Genitourinary Disorders: No Hx Family Endocrine Disorder: Yes (DM, Thyroid) Hx Family Musculoskeletal Disorders: No Hx Family Neuromuscular Disorders: No Hx Family Neurologic Disorders: No Hx Family HEENT Disorders: No Hx Family Autoimmune Disorders: No Hx Family Reproductive Disorders: No Hx Family Psychosocial Disorders: No Hx Family Medical Disorders: No Medications and Allergies Albuterol Sulfate [Albuterol Inhaler] 2 puff IH Q4H PRN 03/21/15 [History] Cholecalciferol (Vitamin D3) [Optimal D3] 50,000 unit PO WE 03/21/15 [History] Ipratropium/Albuterol Sulfate [Combivent Respimat Inhal [place]] 2 puff IH DAILY 03/21/15 [History] Loratadine [Claritin] 10 mg PO DAILY 03/21/15 [History] Nitroglycerin [Nitrostat] 0.4 mg SL Q5M PRN 03/21/15 [History] Sertraline [Zoloft] 50 mg PO DAILY 03/21/15 [History] Omeprazole [PriLOSEC] 20 mg PO DAILY #30 capsule. 05/08/15 [Rx] Albuterol Neb [Proventil Neb] 2.5 mg IH Q6H PRN 03/30/16 [History] Cholecalciferol (D-3) [Vitamin D] 1,000 unit PO DAILY 03/30/16 [History] Nicotine Patch [Nicoderm] 21 mg TD DAILY 03/30/16 [History] Topiramate [Topamax] 50 mg PO HS 03/30/16 [History] Budesonide/Formoterol 160/4.5 [Symbicort 160/4.5] 2 puff IH BIDR 08/06/16 [ History] Clopidogrel [Plavix] 75 mg PO DAILY 08/06/16 [History] EPINEPHrine [Epipen] 0.3 mg IM ONCE PRN 08/06/16 [History] Lisinopril/Hydrochlorothiazide [Zestoretic 20-12.5 mg Tablet] 1 each PO DAILY [History] Pregabalin [Lyrica] 150 mg PO BID 08/06/16 [History] Cyclobenzaprine HCl 10 mg PO TID PRN #30 tablet 08/08/16 [Rx] Promethazine [Phenergan] 12.5 mg PO Q6HR PRN #20 tablet 08/08/16 [Rx] Exemestane [Aromasin] 25 mg PO DAILY #30 tablet 06/03/17 [Rx] Alogliptin Benzoate [Alogliptin] 25 mg PO DAILY 07/05/17 [History] Fluticasone/Vilanterol [Breo Ellipta 100-25 Mcg INH] 1 each IH DAILY 07/05/17 [ History] Insulin Glargine,Hum.rec.anlog [Toujeo Solostar] 80 units SQ BID 07/05/17 [ History] Insulin LISPRO [Humalog Kwikpen U-100] 35 unit SQ TIDWM 07/05/17 [History] Levothyroxine [Synthroid] 50 mcg PO DAILY 07/05/17 [History] Lidocaine Patch [Lidoderm 5% patch] 1 each TP DAILY 07/05/17 [History] Metformin HCl [Metformin HCl ER] 500 mg PO BID 07/05/17 [History] Metoprolol Succinate 100 mg PO DAILY 07/05/17 [History] Nortriptyline HCl 75 mg PO HS 07/05/17 [History] OxyCODONE/APAP 5/325 [Percocet 5/325 MG] 1 each PO DAILY PRN 07/05/17 [History] Sulfamethoxazole/Trimeth DS [Bactrim DS] 1 each PO BID 07/05/17 [History] 3 Allergy/AdvReac Type Severity Reaction Status Date / Time aspirin Allergy Hives Verified 06/03/17 10:33 Penicillins [PCN] Allergy Hives Verified 06/03/17 10:33 venom-honey bee Allergy Anaphylaxis Verified 06/03/17 10:33 [bee venom (honey bee)] All Systems Review: A 10-system review of systems was performed and is negative for pertinent findings except as documented above in the HPI. - Cardiovascular Cardiovascular: as per HPI, palpitations, rapid heart rate Physical Examination Vital Signs, Last 4 Hours Temp Pulse Resp BP Pulse Ox 07/08/17 11:32 97.7 F 116 24 118/81 97 07/08/17 11:23 18 95 General: Conversant, Other (Conversational dyspnea noted. ) HEENT: Atraumatic, Normocephaly, Mucus Membranes Moist Neck: No JVD, Normal carotid pulses Cardiac: Normal S1 and S2, No Murmur, Other (Tachycardic. ) Lungs: Other (Expiratory wheezes noted throughout) Neuro: Alert and responsive, No focal deficits noted Abdomen: Soft, Non-Tender Skin: No rashes noted on visualized skin Musculoskeletal: No Chest Wall Tenderness Extremities: No Clubbing, No Cyanosis, No Edema, Normal Pulses Results 07/06/17 03:47 07/08/17 03:00 Lab Results Impressions Chest X-Ray 07/08/17 10:43 IMPRESSION: CHF with moderate pleural effusions D/ / Rodri Graves MD / Rodri Graves MD Interpreting Provider: Rodri Graves MD Active Medications Acetaminophen (Tylenol) 650 mg PO Q6HR PRN PRN Reason: Mild Pain (1-3) Stop: 01/04/18 20:04 Hydrocodone Bitart/Acetaminophen ([place] 5-325 Mg) 1 tab PO Q4HR PRN PRN Reason: Moderate Pain (4-6) Stop: 01/04/18 20:04 Last Admin: 07/05/17 23:37 Dose: 1 tab Albuterol Sulfate (Proventil Neb) 2.5 mg IH Q2H PRN PRN Reason: Shortness Of Breath/Wheezing Stop: 01/04/18 19:43 Albuterol/Ipratropium (Duoneb) 3 ml IH [id number] LING Stop: 01/05/18 00:01 Last Admin: 07/08/17 11:23 Dose: 3 ml Atorvastatin Calcium (Lipitor) 40 mg PO HS [facility] Stop: 01/05/18 21:01 Last Admin: 07/07/17 20:04 Dose: 40 mg Budesonide/Formoterol Fumarate (Symbicort) 2 puff IH BIDR [facility]ING PRN Reason: Protocol Stop: 01/04/18 22:01 Last Admin: 07/08/17 08:00 Dose: 2 puff Clopidogrel Bisulfate (Plavix) 75 mg PO DAILY [facility] Stop: 01/05/18 09:01 Last Admin: 07/08/17 08:53 Dose: 75 mg Cyclobenzaprine HCl (Flexeril) 10 mg PO TID PRN PRN Reason: Muscle Spasm Stop: 01/04/18 19:32 Dextrose/Water (Dextrose 50% (Syg)) 25 ml IVP AD PRN PRN Reason: Hypoglycemia Stop: 01/04/18 19:41 Last Admin: 07/07/17 14:32 Dose: 25 ml Furosemide (Lasix) 20 mg IVP BIDDIURETIC [facility] Stop: 01/05/18 08:31 Last Admin: 07/08/17 08:52 Dose: 20 mg Glucagon (Glucagen) 1 mg IM ONCE PRN PRN Reason: Hypoglycemia Stop: 01/04/18 19:41 Glucose (Gluctose) 15 gm PO ONCE PRN PRN Reason: Hypoglycemia Stop: 01/04/18 19:41 Glucose (Gluctose) 30 gm PO ONCE PRN PRN Reason: Hypoglycemia Stop: 01/04/18 19:41 Dextrose (Dextrose 5%) 1,000 mls @ 100 mls/hr IVC .Q10H PRN PRN Reason: HYPOGLYCEMIA Stop: 01/04/18 19:41 Last Admin: 07/07/17 14:35 Dose: 100 mls/hr Insulin Detemir (Levemir) 50 unit SQ BID [facility] Stop: 01/05/18 09:01 Last Admin: 07/08/17 08:54 Dose: 50 unit Insulin Human Lispro (Humalog) 0 units SQ HS [facility] PRN Reason: Protocol Stop: 01/04/18 21:01 Last Admin: 07/07/17 20:05 Dose: 6 units Insulin Human Lispro (Humalog) 0 units SQ TIDAC [facility] PRN Reason: Protocol Stop: 01/05/18 07:31 Last Admin: 07/08/17 08:52 Dose: 8 units Insulin Human Lispro (Humalog) 15 units SQ TIDWM [facility] Stop: 01/06/18 17:01 Last Admin: 07/08/17 08:52 Dose: 15 units Levothyroxine Sodium (Synthroid) 50 mcg PO DAILY@0630 [facility] Stop: 01/05/18 08:18 Last Admin: 07/08/17 05:29 Dose: 50 mcg Lisinopril (Zestril) 2.5 mg PO DAILY [facility] PRN Reason: Protocol Stop: 01/08/18 09:01 Loratadine (Claritin) 10 mg PO DAILY [facility] PRN Reason: Protocol Stop: 01/05/18 09:01 Last Admin: 07/08/17 08:53 Dose: 10 mg Metoprolol Succinate (Toprol Xl) 100 mg PO DAILY [facility] Stop: 01/05/18 09:01 Last Admin: 07/08/17 08:53 Dose: 100 mg Naloxone HCl (Narcan) 0.4 mg IVP Q2MIN PRN PRN Reason: Opioid Reversal Stop: 01/04/18 20:04 Nicotine (Nicoderm) 21 mg TD DAILY [facility] PRN Reason: Protocol Stop: 01/05/18 09:01 Last Admin: 07/08/17 08:54 Dose: 21 mg Nitroglycerin (Nitroglycerin) 0.4 mg SL Q5M PRN PRN Reason: Chest Pain Stop: 01/04/18 19:32 Nortriptyline HCl (Pamelor) 75 mg PO HS [facility] Stop: 01/04/18 21:01 Last Admin: 07/07/17 20:04 Dose: 75 mg Omeprazole (Prilosec) 20 mg PO 0630 [facility] PRN Reason: Protocol Stop: 01/05/18 06:31 Last Admin: 07/08/17 05:29 Dose: 20 mg Ondansetron HCl (Zofran) 4 mg IVP Q8HR PRN PRN Reason: Nausea And Vomiting Stop: 01/04/18 20:04 Pharmacy Profile Note (Patient Taking Own Medication) 1 each PO DAILY [facility] Stop: 01/05/18 09:01 Last Admin: 07/08/17 09:17 Dose: Not Given Prednisone (Prednisone) 40 mg PO DAILY [facility] Stop: 01/05/18 09:01 Last Admin: 07/08/17 08:53 Dose: 40 mg Pregabalin (Lyrica) 150 mg PO BID [facility] Stop: 01/04/18 21:01 Last Admin: 07/08/17 08:52 Dose: 150 mg Sertraline HCl (Zoloft) 50 mg PO DAILY [facility] Stop: 01/05/18 09:01 Last Admin: 07/08/17 08:53 Dose: 50 mg Topiramate (Topamax) 50 mg PO [facility] Stop: 01/04/18 21:01 Last Admin: 07/07/17 20:04 Dose: 50 mg Vitamin D (Vitamin D) 1,000 unit PO DAILY [facility] Stop: 01/05/18 09:01 Last Admin: 07/08/17 08:53 Dose: 1,000 unit Laboratory Tests 07/05/17 07/08/17 15:00 03:00 Potassium 4.1 D Creatinine 0.71 Magnesium 1.9 TSH 3.124 - Imaging and Cardiology Chest Xray: report reviewed Echo: report reviewed Cardiac cath: report reviewed - EKG Interpretation EKG results cardiology: personally reviewed (ECG with sinus tachycardia.), other (Telemetry reviewed with average HR previous 12 hours noted to be 115, sinus tachycardia.) Consult Discharge Plan - Plan Referrals: Angel Jimenez DO [Primary Care Provider] - 07/18/17 10:00 am
--- NOTE | 2017-07-08 18:17 | Electrocardiograph Report ---
[place] [id number] Test Date: 2017-07-07 Pat Name: Virginia Rivera Department: 112 Room: 2A24 Gender: F Diet Therapist: LIZET : 1960 Requested By: Latanya Sánchez Order Number: [id number] Reading MD: Osbaldo Perkins MD Measurements Intervals [place] Rate: 129 P: 65 NH: 129 QRS: -5 QRSD: 102 T: 91 QT: 303 QTc: 379 Interpretive Statements SINUS TACHYCARDIA Poor R wave progression Electronically Signed On 07-08-2017 18:16:26 EST by Osbaldo Perkins MD
[2017-07-08] MEDS: Topiramate 25 MG TABLET PO SCH (21:41)
[2017-07-09] MEDS: *HR* HYDROcodone/Acet 5/325 mg TABLET PO PRN (00:05)
[2017-07-09 04:29] LABS: Basophils % 0.1 %; Eosinophils % 0.3 %; Hematocrit 39.4 % (35.3-44.9); Hemoglobin 13.1 g/dL (11.5-15.4); Immature Granulocytes % 0.6 % (0-4); Lymphocytes # 2.5 K/mcL (0.6-4.6); Lymphocytes % 35.5 %; Mean Corpuscular HGB Conc 33.2 g/dL (31.6-35.5); Mean Corpuscular Hemoglobin 32.2 pg (28.0-33.3); Mean Corpuscular Volume 96.8 fL (83.0-100.0); Mean Platelet Volume 11.1 fL (9.4-12.4); Monocytes # 0.5 K/mcL (0.0-1.3); Monocytes % 6.8 %; Neutrophils # 3.9 K/mcL (1.6-8.9); Platelet Count 157 K/mcL (140-400); Red Blood Count 4.07 M/mcL (3.82-4.97); Red Cell Distribution Width 12.9 % (11.5-14.5); Segmented Neutrophils % 56.7 %
[2017-07-09 04:41] LABS: BUN/Creatinine Ratio 49 (6-26); Carbon Dioxide 25 mEq/L (19-29); Chloride 105 mEq/L (98-109); Glucose 230 mg/dL (70-99); Magnesium 1.8 mg/dL (1.6-2.6); Osmolality,Calculated 302 (280-300); Potassium 3.8 mEq/L (3.5-4.5); Sodium 138 mEq/L (136-145); eGFR For African Americans > 60 (> 60); eGFR For Non-African Americans > 60 (> 60)
[2017-07-09 04:42] LABS: Blood Urea Nitrogen 38 mg/dL (7-20)
[2017-07-09] MEDS: Ipratropium/Albuterol Neb 3 ML IH SCH ×3 (04:51→11:08)
[2017-07-09] MEDS: Budesonide/Formoterol 160/4.5 MDI IH SCH (07:20)
[2017-07-09] MEDS: predniSONE 20 MG TABLET PO SCH (08:04)
[2017-07-09] MEDS: Metoprolol XL (24 HR) Succ 50 MG TAB.ER.24H PO SCH (08:04)
[2017-07-09] MEDS: Loratadine 10 MG TABLET PO SCH (08:04)
[2017-07-09] MEDS: Cholecalciferol (D-3) 1,000 UNIT TABLET PO SCH (08:05)
[2017-07-09] MEDS: Nicotine 21 MG PATCH.TD24 TD SCH (08:05)
[2017-07-09] MEDS: Pregabalin 75 MG CAPSULE PO SCH (08:05)
[2017-07-09] MEDS: Insulin LISPRO 300 UNITS/3 ML VIAL SQ SCH ×2 (08:06)
[2017-07-09] MEDS: Patient Taking Own Medication 1 EACH PO SCH (08:08)
[2017-07-09] MEDS: Insulin DETEMIR 100 UNIT/ML X5UNITS SQ SCH (08:08)
[2017-07-09] MEDS ORDERED: Furosemide 40 MG TABLET PO SCH (09:00)
--- NOTE | 2017-07-09 09:13 | Cardiology Progress Note ---
Date of Encounter: 07/09/17 Time of Encounter: 09:11 Assessment and Plan (1) Acute systolic (congestive) heart failure Current Visit: Yes Status: Acute On admission BNP 581. CXR with cardiomegaly, pulmonary vascular congestion and pulmonary edema. Evidence for bilateral pleural effusions. Echo during stay shows LVEF reduced to 15% (previously 50%).Severely dilated left ventricle.Severe global left ventricular systolic dysfunction.There is no LV thrombus.Indeterminate diastolic function. Mildly dilated right ventricle with hypokinesis.Severely dilated left atrium.Mild mitral regurgitation.Mild- moderate pulmonary hypertension. Estimated RVSP is 42-47 mmHg, including an estimated RA pressure of 15-20 mmHg. LHC showed EF 20%, 60% stenosis in the mid LAD. Medical management, no intervention warranted, nonobstructive CAD. Possible decrease in EF 2/2 prolonged tachycardia. Discussed with EP and considering starting Ivadbradine 5mg bid which can help lower HR without decreasing BP. However, not carried by inpt pharmacy and pt reports she is unable to afford any more medications. Sent to her outpt pharmacy. If affordable to her, can start. CXR repeated yesterday--moderate bilateral pleural effusions. BNP decreased to 395. Transitioned to PO Lasix 40mg daily. Cardiology signing off. Reconsult PRN. Follow-up in 1-2 weeks with cardiology. (2) Tachycardia Current Visit: Yes Status: Acute Chronic tachycardia dating back in [facility] records to 2012. Most likely from pulmonary medications. Continue current dose of BB. EP recommended Ivadbradine 5mg bid which can help lower HR without decreasing BP. However, not carried by inpt pharmacy and pt reports she is unable to afford any more medications. Sent to her outpt pharmacy. If affordable to her, can start. (3) Non-ischemic cardiomyopathy Current Visit: Yes Status: Acute Admitted with acute CHF and noted to have non-ischemic cardiomyopathy. LVEF 20% . Continue BB and ACEi. Recheck echo as outpt in 3 months. If EF remains <35%, consider ICD as outpt. Discussion w patient/family: The assessment and plan as outlined above was discussed with the patient and/or family members who expressed understanding and agreement. All questions were answered. Thank you for involving us in the care of your patient. Please call with any questions. I will discuss all the above with Dr. Zysek and make changes as necessary. Subjective Principal diagnosis: CHF Interval history: Pt reports dyspnea is improved. Denies chest pain. Objective Vital Signs, Last 4 Hours Temp Pulse Resp BP Pulse Ox 07/09/17 07:40 97.4 F L 110 16 94/63 96 07/09/17 07:20 17 95 07/09/17 05:15 97.6 F 111 20 97/68 94 Vital Signs Temp Pulse Resp BP Pulse Ox 07/09/17 07:40 97.4 F L 110 16 94/63 96 07/09/17 07:20 17 95 07/09/17 05:15 97.6 F 111 20 97/68 94 07/09/17 04:51 18 95 07/09/17 00:48 97.6 F 106 18 99/66 95 07/08/17 23:45 20 99 07/08/17 21:52 94 07/08/17 21:37 120/80 07/08/17 21:05 98.3 F 117 22 99/63 94 07/08/17 20:03 95 07/08/17 15:57 98.1 F 113 20 100/68 95 07/08/17 15:20 17 99 07/08/17 11:32 97.7 F 116 24 118/81 97 07/08/17 11:23 18 95 Intake and Output 07/08/17 07/09/17 07/09/17 23:59 07:59 15:59 Intake Total 720 / 720 120 / 120 360 / 360 Output Total 600 / 600 300 / 300 Balance 120 / 120 -180 / -180 360 / 360 Intake: Oral 720 / 720 120 / 120 360 / 360 Output: Urine 600 / 600 300 / 300 Other: Meal Coffee Breakfast Percent of Meal Consumed 75% 60% # Voids 0 0 Weight 78.4 kg Blood Glucose* 235 176 Patient Weight 07/09/17 23:59 Weight 78.4 kg General: Conversant, No Apparent Distress HEENT: Atraumatic, Normocephaly, Mucus Membranes Moist Neck: No JVD, Normal carotid pulses Cardiac: Reg Rate and Rhythm, Normal S1 and S2, No Murmur Lungs: Normal Breath Sounds, No Wheeze, Rales, Rhonchi Neuro: Alert and responsive, No focal deficits noted Abdomen: Soft, Non-Tender Skin: No rashes noted on visualized skin Musculoskeletal: No Chest Wall Tenderness Extremities: No Clubbing, No Cyanosis, No Edema, Normal Pulses Results 07/09/17 04:15 07/09/17 04:15 Lab Results 07/08/17 07/09/17 07/09/17 03:00 04:15 04:15 WBC 6.9 Hgb 13.1 Hct 39.4 Plt Count 157 Sodium 138 Potassium 3.8 Chloride 105 Carbon Dioxide 25 BUN 38 H D Creatinine 0.77 Glucose 230 H Calcium 9.0 Magnesium 1.8 B-Natriuretic Peptide 395 H Short CBC 07/09/17 Range/Units 04:15 WBC 6.9 (4.3-11.1) K/mcL Hgb 13.1 (11.5-15.4) g/dL Hct 39.4 (35.3-44.9) % Plt Count 157 (140-400) K/mcL Neutrophils # 3.9 (1.6-8.9) K/mcL BMP 07/09/17 Range/Units 04:15 Sodium 138 (136-145) mEq/L Potassium 3.8 (3.5-4.5) mEq/L Chloride 105 (98-109) mEq/L Carbon Dioxide 25 (19-29) mEq/L BUN 38 H D (7-20) mg/dL Creatinine 0.77 (0.57-1.11) mg/dL Glucose 230 H (70-99) mg/dL Calcium 9.0 (8.6-10.8) mg/dL Impressions Chest X-Ray 07/08/17 10:43 IMPRESSION: CHF with moderate pleural effusions D/ / Rodri Graves MD / Rodri Graves MD Interpreting Provider: Rodri Graves MD Active Medications Acetaminophen (Tylenol) 650 mg PO Q6HR PRN PRN Reason: Mild Pain (1-3) Stop: 01/04/18 20:04 Hydrocodone Bitart/Acetaminophen ([place] 5-325 Mg) 1 tab PO Q4HR PRN PRN Reason: Moderate Pain (4-6) Stop: 01/04/18 20:04 Last Admin: 07/09/17 00:05 Dose: 1 tab Albuterol Sulfate (Proventil Neb) 2.5 mg IH Q2H PRN PRN Reason: Shortness Of Breath/Wheezing Stop: 01/04/18 19:43 Albuterol/Ipratropium (Duoneb) 3 ml IH [id number] [facility] Stop: 01/05/18 00:01 Last Admin: 07/09/17 07:20 Dose: 3 ml Atorvastatin Calcium (Lipitor) 40 mg PO HS [facility] Stop: 01/05/18 21:01 Last Admin: 07/08/17 21:41 Dose: 40 mg Budesonide/Formoterol Fumarate (Symbicort) 2 puff IH BIDR [facility] PRN Reason: Protocol Stop: 01/04/18 22:01 Last Admin: 07/09/17 07:20 Dose: 2 puff Clopidogrel Bisulfate (Plavix) 75 mg PO DAILY [facility] Stop: 01/05/18 09:01 Last Admin: 07/09/17 08:05 Dose: 75 mg Cyclobenzaprine HCl (Flexeril) 10 mg PO TID PRN PRN Reason: Muscle Spasm Stop: 01/04/18 19:32 Dextrose/Water (Dextrose 50% (Syg)) 25 ml IVP AD PRN PRN Reason: Hypoglycemia Stop: 01/04/18 19:41 Last Admin: 07/07/17 14:32 Dose: 25 ml Furosemide (Lasix) 40 mg PO DAILY [facility] Stop: 01/08/18 09:01 Last Admin: 07/09/17 08:04 Dose: 40 mg Glucagon (Glucagen) 1 mg IM ONCE PRN PRN Reason: Hypoglycemia Stop: 01/04/18 19:41 Glucose (Gluctose) 15 gm PO ONCE PRN PRN Reason: Hypoglycemia Stop: 01/04/18 19:41 Glucose (Gluctose) 30 gm PO ONCE PRN PRN Reason: Hypoglycemia Stop: 01/04/18 19:41 Dextrose (Dextrose 5%) 1,000 mls @ 100 mls/hr IVC .Q10H PRN PRN Reason: HYPOGLYCEMIA Stop: 01/04/18 19:41 Last Admin: 07/07/17 14:35 Dose: 100 mls/hr Insulin Detemir (Levemir) 50 unit SQ BID [facility] Stop: 01/05/18 09:01 Last Admin: 07/09/17 08:08 Dose: 50 unit Insulin Human Lispro (Humalog) 0 units SQ HS [facility] PRN Reason: Protocol Stop: 01/04/18 21:01 Last Admin: 07/08/17 21:41 Dose: 5 units Insulin Human Lispro (Humalog) 0 units SQ TIDAC [facility] PRN Reason: Protocol Stop: 01/05/18 07:31 Last Admin: 07/09/17 08:06 Dose: 6 units Insulin Human Lispro (Humalog) 15 units SQ TIDWM [facility] Stop: 01/06/18 17:01 Last Admin: 07/09/17 08:06 Dose: 15 units Levothyroxine Sodium (Synthroid) 50 mcg PO DAILY@0630 [facility] Stop: 01/05/18 08:18 Last Admin: 07/09/17 05:38 Dose: 50 mcg Lisinopril (Zestril) 2.5 mg PO DAILY [facility] PRN Reason: Protocol Stop: 01/08/18 09:01 Last Admin: 07/09/17 08:05 Dose: 2.5 mg Loratadine (Claritin) 10 mg PO DAILY [facility] PRN Reason: Protocol Stop: 01/05/18 09:01 Last Admin: 07/09/17 08:04 Dose: 10 mg Metoprolol Succinate (Toprol Xl) 100 mg PO DAILY [facility] Stop: 01/05/18 09:01 Last Admin: 07/09/17 08:04 Dose: 100 mg Naloxone HCl (Narcan) 0.4 mg IVP Q2MIN PRN PRN Reason: Opioid Reversal Stop: 01/04/18 20:04 Nicotine (Nicoderm) 21 mg TD DAILY [facility] PRN Reason: Protocol Stop: 01/05/18 09:01 Last Admin: 07/09/17 08:05 Dose: 21 mg Nitroglycerin (Nitroglycerin) 0.4 mg SL Q5M PRN PRN Reason: Chest Pain Stop: 01/04/18 19:32 Nortriptyline HCl (Pamelor) 75 mg PO HS [facility] Stop: 01/04/18 21:01 Last Admin: 07/08/17 21:41 Dose: 75 mg Omeprazole (Prilosec) 20 mg PO 0630 [facility] PRN Reason: Protocol Stop: 01/05/18 06:31 Last Admin: 07/09/17 05:38 Dose: 20 mg Ondansetron HCl (Zofran) 4 mg IVP Q8HR PRN PRN Reason: Nausea And Vomiting Stop: 01/04/18 20:04 Pharmacy Profile Note (Patient Taking Own Medication) 1 each PO DAILY [facility] Stop: 01/05/18 09:01 Last Admin: 07/09/17 08:08 Dose: Not Given Prednisone (Prednisone) 40 mg PO DAILY [facility] Stop: 01/05/18 09:01 Last Admin: 07/09/17 08:04 Dose: 40 mg Pregabalin (Lyrica) 150 mg PO BID [facility] Stop: 01/04/18 21:01 Last Admin: 07/09/17 08:05 Dose: 150 mg Sertraline HCl (Zoloft) 50 mg PO DAILY [facility] Stop: 01/05/18 09:01 Last Admin: 07/09/17 08:04 Dose: 50 mg Topiramate (Topamax) 50 mg PO HS [facility] Stop: 01/04/18 21:01 Last Admin: 07/08/17 21:41 Dose: 50 mg Vitamin D (Vitamin D) 1,000 unit PO DAILY [facility] Stop: 01/05/18 09:01 Last Admin: 07/09/17 08:05 Dose: 1,000 unit Consult Discharge Plan - Plan Referrals: Angel Jimenez DO [Primary Care Provider] - 07/18/17 10:00 am
[2017-07-09] MEDS ORDERED: predniSONE 20 MG TABLET PO SCH (10:31)
--- NOTE | 2017-07-09 11:34 | Discharge Summary ---
Date of Encounter: 07/09/17 Time of Encounter: 11:29 - Discharge Diagnosis (1) Acute systolic (congestive) heart failure Priority: Primary Status: Acute (2) Acute respiratory failure with hypoxia Priority: Primary Status: Acute (3) Dyslipidemia Priority: Secondary Status: Chronic (4) COPD (chronic obstructive pulmonary disease) Priority: Secondary Status: Chronic Qualifiers: COPD type: unspecified COPD Qualified Code(s): J44.9 - Chronic obstructive pulmonary disease, unspecified (5) Diabetes mellitus Priority: Secondary Status: Chronic Qualifiers: Diabetes mellitus type: type 2 Diabetes mellitus complication status: with unspecified complications Diabetes mellitus assisted insulin use: with assisted use Qualified Code(s): E11.8 - Type 2 diabetes mellitus with unspecified complications; 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 transplanted heart: [place] heart Associated angina: without angina Qualified Code(s): I25.10 - Atherosclerotic heart disease of [place] coronary artery without angina pectoris (8) Sinus tachycardia Priority: Secondary Status: Chronic - Discharge Medications Prescriptions: Atorvastatin [Lipitor] 40 mg PO HS #30 tablet Furosemide [Lasix] 40 mg PO DAILY #30 tablet Ivabradine HCl [Corlanor] 5 mg PO BID #60 tablet Lisinopril [Zestril] 2.5 mg PO DAILY #30 tablet predniSONE [PredniSONE] 40 mg PO DAILY #10 tablet Home Medications: Albuterol Sulfate [Albuterol Inhaler] 2 puff IH Q4H PRN 03/21/15 [History] Cholecalciferol (Vitamin D3) [Optimal D3] 50,000 unit PO WE 03/21/15 [History] Ipratropium/Albuterol Sulfate [Combivent Respimat Inhal [place]] 2 puff IH DAILY 03/21/15 [History] Loratadine [Claritin] 10 mg PO DAILY 03/21/15 [History] Nitroglycerin [Nitrostat] 0.4 mg SL Q5M PRN 03/21/15 [History] Sertraline [Zoloft] 50 mg PO DAILY 03/21/15 [History] Omeprazole [PriLOSEC] 20 mg PO DAILY #30 capsule. 05/08/15 [Rx] Albuterol Neb [Proventil Neb] 2.5 mg IH Q6H PRN 03/30/16 [History] Cholecalciferol (D-3) [Vitamin D] 1,000 unit PO DAILY 03/30/16 [History] Nicotine Patch [Nicoderm] 21 mg TD DAILY 03/30/16 [History] Topiramate [Topamax] 50 mg PO HS 03/30/16 [History] Budesonide/Formoterol 160/4.5 [Symbicort 160/4.5] 2 puff IH BIDR 08/06/16 [ History] Clopidogrel [Plavix] 75 mg PO DAILY 08/06/16 [History] EPINEPHrine [Epipen] 0.3 mg IM ONCE PRN 08/06/16 [History] Pregabalin [Lyrica] 150 mg PO BID 08/06/16 [History] Cyclobenzaprine HCl 10 mg PO TID PRN #30 tablet 08/08/16 [Rx] Promethazine [Phenergan] 12.5 mg PO Q6HR PRN #20 tablet 08/08/16 [Rx] Exemestane [Aromasin] 25 mg PO DAILY #30 tablet 06/03/17 [Rx] Alogliptin Benzoate [Alogliptin] 25 mg PO DAILY 07/05/17 [History] Levothyroxine [Synthroid] 50 mcg PO DAILY 07/05/17 [History] Lidocaine Patch [Lidoderm 5% patch] 1 each TP DAILY 07/05/17 [History] Metformin HCl [Metformin HCl ER] 500 mg PO BID 07/05/17 [History] Metoprolol Succinate 100 mg PO DAILY 07/05/17 [History] Nortriptyline HCl 75 mg PO HS 07/05/17 [History] OxyCODONE/APAP 5/325 [Percocet 5/325 MG] 1 each PO DAILY PRN 07/05/17 [History] Atorvastatin [Lipitor] 40 mg PO HS #30 tablet 07/09/17 [Rx] Furosemide [Lasix] 40 mg PO DAILY #30 tablet 07/09/17 [Rx] Insulin Glargine,Hum.rec.anlog [Toujeo Solostar] 50 units SQ BID #0 07/09/17 [Rx ] Insulin LISPRO [Humalog Kwikpen U-100] 15 unit SQ TIDWM #0 07/09/17 [Rx] Ivabradine HCl [Corlanor] 5 mg PO BID #60 tablet 07/09/17 [Rx] Lisinopril [Zestril] 2.5 mg PO DAILY #30 tablet 07/09/17 [Rx] predniSONE [PredniSONE] 40 mg PO DAILY #10 tablet 07/09/17 [Rx] Allergies/Adverse Reactions: 3 Allergy/AdvReac Type Severity Reaction Status Date / Time aspirin Allergy Hives Verified 06/03/17 10:33 Penicillins [PCN] Allergy Hives Verified 06/03/17 10:33 venom-honey bee Allergy Anaphylaxis Verified 06/03/17 10:33 [bee venom (honey bee)] Procedures/tests Complete & Pending: Procedures Performed prior 72 hours Category Date Time Status CL Cardiac Catheterization [CL] Routine Quality Compliance Consultant 07/07/17 11:31 Completed ECG 12 lead ECG [ECG] Routine Y 07/07/17 18:58 Completed EV echocardiogram w enhance Routine Y 07/06/17 20:06 Completed Date of admission: 07/05/17 20:03 Primary care physician: Angel Jimenez DO Consults: 07/05/17 20:30 Consult to Cardiology [CONS] Routine Comment: Consulting Provider: Cardiology Isabelle Reason for Consult: chf Time Notified: 20:30 Call Completed: No 07/05/17 20:41 Consult to Monomer Purification Operator [CONS] Routine Reason for SW Consult: Family verbalizes they need help with O2 set up at home 07/08/17 10:20 Consult to Electrophysiology (EP) [CONS] Routine Consulting Provider: Electrophysiology Isabelle Reason for Consult: decrease EF with chronic tachycardia Time Notified: 10:21 Call Completed: Yes - Patient Status Disposition: Home Health Service Condition: Good Overall status at discharge: patient is back to baseline - Discharge Instructions Follow Up With: Angel Jimenez DO [Primary Care Provider] - 07/18/17 10:00 am Jason Kaur MD [Partnered Physician] - Additional Instructions: need to f/u with investment representative in 1 week - Diet and Activity Activity: increase activity as tolerated, wear oxygen at all times Diet: low salt diet Hospital course: Ms. Rivera is a 57 year old female past medical history of breast cancer or COPD type 2 diabetes CAD no stent placements. According to the patient she has been experiencing increasing shortness of breath as well as midsternal chest pressure that radiates to her left breast. Pt was admitted here for acute CHF exacerbation. She was started on IV lasix, her SOB seems to be improving slowly. She did have 2 D Echo which showed severe LV dysfunction with LVEF 15 % , as well global hypokinesia. She did go for LHC which came back as 60% stenosis in mid LAD, EF 20% . She does have non ischemic cardiomyopathy with unclear etiology. She does have chronic sinus tachycardia too, her EP investment representative does not think Tachycardia is causing her cardiomyopathy.however he recommend add another medication Cloranol 5mg PO bid for better HR control, since we are not able to advance her Metoprolol due to low BP issues. He recommend to f/u with them as an out pt in one week. If her LVEF does not improve, he may consider doing ACID implantation. He did not recommend any Life Vest at this moment. Now on 2 lit O2. Denied any CP now..No events over night. Will arrange for home O2 - Time Spent with Patient Total time spent providing and/or coordinating discharge services: - Constitutional Vitals: Temp Pulse Resp BP Pulse Ox 97.4 F L 110 16 94/63 96 07/09/17 07:40 07/09/17 07:40 07/09/17 07:40 07/09/17 07:40 07/09/17 07:40 General appearance: Present: A&O X 3, answers questions appropriately - Head Head exam: Present: atraumatic, normal inspection - Neck Neck exam general surgery: Present: supple - Respiratory Respiratory exam: Present: decreased breath sounds, wheezes (mild). Absent: rales, respiratory distress, rhonchi - Cardiovascular Cardiovascular exam: Present: +S1, +S2, tachycardia. Absent: systolic murmur - GI/Abdominal GI/Abdominal exam: Present: soft. Absent: rebound, rigid, tenderness - Extremities Exam Extremities exam: Absent: calf tenderness, pedal edema, tenderness - Back Exam Back exam: Absent: CVA tenderness (L), CVA tenderness (R) - Psychiatric Psychiatric exam: Present: normal affect, normal mood
--- NOTE | 2017-07-09 11:36 | Physician Discharge Referral ---
Home Health/Hosp Referral Info Transfer to: Home Health Provider in Charge Post Discharge: PCP - Diagnosis (1) Acute systolic (congestive) heart failure Status: Acute (2) Acute respiratory failure with hypoxia Status: Acute (3) Dyslipidemia Status: Chronic (4) COPD (chronic obstructive pulmonary disease) Status: Chronic (5) Diabetes mellitus Status: Chronic (6) Hypoglycemia associated with diabetes Status: Acute (7) CAD (coronary artery disease) Status: Chronic (8) Sinus tachycardia Status: Chronic - Respiratory Orders Smoking Cessation: Smoking cessation has been advised. For more information, call the [place] Tobacco Quit Line at 4-211-YVQK-NOW. - Services Needed Following services are medically necessary services: Nursing - Transfer Medications Prescriptions: Atorvastatin [Lipitor] 40 mg PO HS #30 tablet Furosemide [Lasix] 40 mg PO DAILY #30 tablet Ivabradine HCl [Corlanor] 5 mg PO BID #60 tablet Lisinopril [Zestril] 2.5 mg PO DAILY #30 tablet predniSONE [PredniSONE] 40 mg PO DAILY #10 tablet Home Medications: Albuterol Sulfate [Albuterol Inhaler] 2 puff IH Q4H PRN 03/21/15 [History] Cholecalciferol (Vitamin D3) [Optimal D3] 50,000 unit PO WE 03/21/15 [History] Ipratropium/Albuterol Sulfate [Combivent Respimat Inhal [place]] 2 puff IH DAILY 03/21/15 [History] Loratadine [Claritin] 10 mg PO DAILY 03/21/15 [History] Nitroglycerin [Nitrostat] 0.4 mg SL Q5M PRN 03/21/15 [History] Sertraline [Zoloft] 50 mg PO DAILY 03/21/15 [History] Omeprazole [PriLOSEC] 20 mg PO DAILY #30 capsule. 05/08/15 [Rx] Albuterol Neb [Proventil Neb] 2.5 mg IH Q6H PRN 03/30/16 [History] Cholecalciferol (D-3) [Vitamin D] 1,000 unit PO DAILY 03/30/16 [History] Nicotine Patch [Nicoderm] 21 mg TD DAILY 03/30/16 [History] Topiramate [Topamax] 50 mg PO HS 03/30/16 [History] Budesonide/Formoterol 160/4.5 [Symbicort 160/4.5] 2 puff IH BIDR 08/06/16 [ History] Clopidogrel [Plavix] 75 mg PO DAILY 08/06/16 [History] EPINEPHrine [Epipen] 0.3 mg IM ONCE PRN 08/06/16 [History] Pregabalin [Lyrica] 150 mg PO BID 08/06/16 [History] Cyclobenzaprine HCl 10 mg PO TID PRN #30 tablet 08/08/16 [Rx] Promethazine [Phenergan] 12.5 mg PO Q6HR PRN #20 tablet 08/08/16 [Rx] Exemestane [Aromasin] 25 mg PO DAILY #30 tablet 06/03/17 [Rx] Alogliptin Benzoate [Alogliptin] 25 mg PO DAILY 07/05/17 [History] Levothyroxine [Synthroid] 50 mcg PO DAILY 07/05/17 [History] Lidocaine Patch [Lidoderm 5% patch] 1 each TP DAILY 07/05/17 [History] Metformin HCl [Metformin HCl ER] 500 mg PO BID 07/05/17 [History] Metoprolol Succinate 100 mg PO DAILY 07/05/17 [History] Nortriptyline HCl 75 mg PO HS 07/05/17 [History] OxyCODONE/APAP 5/325 [Percocet 5/325 MG] 1 each PO DAILY PRN 07/05/17 [History] Atorvastatin [Lipitor] 40 mg PO HS #30 tablet 07/09/17 [Rx] Furosemide [Lasix] 40 mg PO DAILY #30 tablet 07/09/17 [Rx] Insulin Glargine,Hum.rec.anlog [Toujeo Solostar] 50 units SQ BID #0 07/09/17 [Rx ] Insulin LISPRO [Humalog Kwikpen U-100] 15 unit SQ TIDWM #0 07/09/17 [Rx] Ivabradine HCl [Corlanor] 5 mg PO BID #60 tablet 07/09/17 [Rx] Lisinopril [Zestril] 2.5 mg PO DAILY #30 tablet 07/09/17 [Rx] predniSONE [PredniSONE] 40 mg PO DAILY #10 tablet 07/09/17 [Rx] Allergies/Adverse Reactions: 3 Allergy/AdvReac Type Severity Reaction Status Date / Time aspirin Allergy Hives Verified 06/03/17 10:33 Penicillins [PCN] Allergy Hives Verified 06/03/17 10:33 venom-honey bee Allergy Anaphylaxis Verified 06/03/17 10:33 [bee venom (honey bee)] Certification: Further, I certify that my clinical findings support that this patient is homebound (i.e. absences from home require considerable and taxing effort and are for medical reasons or baptism services or infrequently or short duration when for other reasons) because: Homebound Reason: Patient requires assistance of a person or device to safely leave home Attestation: My signature below is to certify that this patient is under my care and that I, or nurse practitioner, or a physician's accounting assistant working with me, has a face-to -face encounter with this patient.
[2017-07-09 15:21] VITALS: BP 102/70
== END 2017-07-09 16:50 | disposition home health service (06) | DRG 192 ==
LOC: EMEROO 14:11 → 2ANU 14:11
PROVIDERS: ADMIT Internal Medicine; ATTEND Family Medicine

== ENCOUNTER 2017-07-11 16:10 | Inpatient (IN) ==
--- NOTE | 2017-07-11 17:17 | Emergency Department Note ---
Disposition Clinical Impression: Diabetes mellitus, CAD (coronary artery disease), CHF (congestive heart failure ), Acute kidney injury, Lactic acidosis, Pleural effusion, Abnormal EKG, Elevated troponin Disposition: Admitted As Inpatient Referrals: Angel Jimenez DO [Primary Care Provider] - Forms: ED Satisfaction Letter General Adult HPI - General Chief complaint: ED Weakness Stated complaint: AMS/weakness Source: patient Limitations: no limitations - History of Present Illness HPI Narrative: 57-year-old female reports emergency department with family members with concerns for general weakness. The patient was admitted to the hospital recently and had a cardiac catheterization in which no stents were placed. The patient was discharged last week and felt well until last evening where she became progressively weaker. There is no history of facial droop or slurred speech or unilateral arm or leg weakness or numbness. She reports she fell but did not hurt herself. There is no history of acute head pain neck pain or back pain. There has been no coldness blueness numbness or weakness of the arms or legs. No bleeding or swelling at the catheter site. No abdominal pain vomiting or diarrhea. No acute chest pain or shortness of breath. No syncope noted. The patient describes generalized weakness and cannot get up and go. She is a type II diabetic. There is no history of fever. No urinary symptoms noted. Pain Scale: 0 - Related Data Home Medications Medication Instructions Recorded Confirmed Albuterol Sulfate [Albuterol 2 puff IH Q4H PRN 03/21/15 07/11/17 Inhaler] Cholecalciferol (Vitamin D3) 50,000 unit PO WE 03/21/15 07/11/17 [Optimal D3] Ipratropium/Albuterol Sulfate 2 puff IH DAILY 03/21/15 07/11/17 [Combivent Respimat Inhal Ballinger] Loratadine [Claritin] 10 mg PO DAILY 03/21/15 07/11/17 Nitroglycerin [Nitrostat] 0.4 mg SL Q5M PRN 03/21/15 07/11/17 Sertraline [Zoloft] 50 mg PO DAILY 03/21/15 07/11/17 Albuterol Neb [Proventil Neb] 2.5 mg IH Q6H PRN 03/30/16 07/11/17 Cholecalciferol (D-3) [Vitamin D] 1,000 unit PO DAILY 03/30/16 07/11/17 Nicotine Patch [Nicoderm] 21 mg TD DAILY 03/30/16 07/11/17 Topiramate [Topamax] 50 mg PO HS 03/30/16 07/11/17 Budesonide/Formoterol 160/4.5 2 puff IH BIDR 08/06/16 07/11/17 [Symbicort 160/4.5] Clopidogrel [Plavix] 75 mg PO DAILY 08/06/16 07/11/17 EPINEPHrine [Epipen] 0.3 mg IM ONCE PRN 08/06/16 07/11/17 Pregabalin [Lyrica] 150 mg PO BID 08/06/16 07/11/17 Alogliptin Benzoate [Alogliptin] 25 mg PO DAILY 07/05/17 07/11/17 Levothyroxine [Synthroid] 50 mcg PO DAILY 07/05/17 07/11/17 Lidocaine Patch [Lidoderm 5% patch] 1 each TP DAILY 07/05/17 07/11/17 Metformin HCl [Metformin HCl ER] 500 mg PO BID 07/05/17 07/11/17 Metoprolol Succinate 100 mg PO DAILY 07/05/17 07/11/17 Nortriptyline HCl 75 mg PO HS 07/05/17 07/11/17 OxyCODONE/APAP 5/325 [Percocet 1 each PO DAILY PRN 07/05/17 07/11/17 5/325 MG] predniSONE [PredniSONE] See Taper PO DAILY 07/11/17 07/11/17 Previous Rx's Medication Instructions Recorded Omeprazole [PriLOSEC] 20 mg PO DAILY #30 capsule. 05/08/15 Cyclobenzaprine HCl 10 mg PO TID PRN #30 tablet 08/08/16 Promethazine [Phenergan] 12.5 mg PO Q6HR PRN #20 tablet 08/08/16 Exemestane [Aromasin] 25 mg PO DAILY #30 tablet 06/03/17 Atorvastatin [Lipitor] 40 mg PO HS #30 tablet 07/09/17 Furosemide [Lasix] 40 mg PO DAILY #30 tablet 07/09/17 Insulin Glargine,Hum.rec.anlog 50 units SQ BID #0 07/09/17 [Toumargo Solostar] Insulin LISPRO [Humalog Kwikpen 15 unit SQ TIDWM #0 07/09/17 U-100] Ivabradine HCl [Corlanor] 5 mg PO BID #60 tablet 07/09/17 Lisinopril [Zestril] 2.5 mg PO DAILY #30 tablet 07/09/17 Allergies Allergy/AdvReac Type Severity Reaction Status Date / Time aspirin Allergy Hives Verified 07/11/17 16:14 Penicillins [PCN] Allergy Hives Verified 07/11/17 16:14 venom-honey bee Allergy Anaphylaxis Verified 07/11/17 16:14 [bee venom (honey bee)] All systems ED: reviewed and negative except as stated. 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 history - Social History Smoking Status: Current every day smoker Smokeless Tobacco Status: No Alcohol use: Reports: none Drug use: Reports: none Physical Exam - General Limitations: no limitations General appearance: alert, in no apparent distress - Head Head exam: atraumatic, normocephalic, normal inspection - Eye Eye exam: Present: normal appearance, PERRL, EOMI - ENT ENT exam: normal exam, normal oropharynx, mucous membranes dry, TM's normal bilaterally, normal external ear exam - Neck Neck exam: Present: normal inspection, full ROM, trachea midline - Chest Chest inspection: Present: symmetric chest wall rise. Absent: tenderness - Respiratory Respiratory exam: Present: normal lung sounds bilaterally. Absent: respiratory distress, wheezes, accessory muscle use, prolonged expiratory phase - Cardiovascular Cardiovascular exam: Present: regular rate, normal rhythm, normal heart sounds - Abdominal Exam Abdominal exam: Present: soft, Non-Tender, normal bowel sounds. Absent: tenderness, distention, guarding, rebound, rigidity - Extremities Exam Extremities exam: Present: normal inspection, full ROM, normal capillary refill , other (Right femoral catheter site reveals no evidence of active bleeding or marked swelling. Not appreciate cellulitis). Absent: tenderness, pedal edema, joint swelling, calf tenderness - Expanded Lower Extremity Exam Lower leg exam: Absent: Homans' sign Neurovascular/Tendon exam: Present: normal capillary refill. Absent: pulse deficit, motor deficit, sensory deficit, tendon deficit, extremity cold to touch , pallor - Back Exam Back exam: Present: normal inspection, full ROM. Absent: tenderness, CVA tenderness (R), CVA tenderness (L), vertebral tenderness - Neurological Exam Neurological exam: Present: alert, oriented X3, CN II-XII intact. Absent: motor sensory deficit - Psychiatric Psychiatric exam: Present: normal affect, normal mood - Skin Skin exam: Present: warm, dry, intact, normal color. Absent: rash, cyanosis, diaphoresis, erythema, pallor, mottled Course Vital Signs Temperature 97.5 F L 07/11/17 16:14 Pulse Rate 99 07/11/17 16:14 Respiratory Rate 20 07/11/17 16:14 Blood Pressure 103/51 07/11/17 16:14 O2 Sat by Pulse Oximetry 97 07/11/17 16:14 Temperature 97.5 F L 07/11/17 16:14 Pulse Rate 79 07/11/17 17:39 Respiratory Rate 19 07/11/17 17:39 Blood Pressure 108/59 07/11/17 17:39 O2 Sat by Pulse Oximetry 99 07/11/17 17:39 Oxygen Delivery Oxygen Delivery Room Air Medical Decision Making - MDM Narrative Medical decision making narrative: Patient is elderly and appears to have acute kidney injury, her EKG is notably abnormal, she also has an abnormal elevation in her troponin level. She is allergic to aspirin. She has a history of CHF, her lactic acid is elevated, x- ray suggestive of pleural effusions but also mentions infiltrates. Blood cultures were sent. Antibiotics ordered. Judicious fluid replacement was ordered, concerns for CHF and overload are significant. The patient may be acidotic simply secondary to her diabetes or dehydration, sepsis with potential pneumonitis is also a consideration. The patient is currently stable not experiencing chest pain. She is allergic to aspirin. Based on the patient's multiple comorbidities, as well as multiple abnormal findings, I thought it be appropriate to admit the patient to the hospital. I discussed the case with the hospitalist on-call who has accepted the patient for admission. The patient is currently stable. - Lab Data Lab results reviewed: Yes I reviewed the patient's lab results. Result diagrams: 07/11/17 17:53 07/11/17 17:50 Lab Results 07/11/17 07/11/17 07/11/17 Range/Units 17:50 17:53 17:53 WBC 12.5 H D (4.3-11.1) K/mcL RBC 4.36 (3.82-4.97) M/mcL Hgb 13.8 (11.5-15.4) g/dL Hct 42.4 (35.3-44.9) % MCV 97.2 (83.0-100.0) fL MCH 31.7 (28.0-33.3) pg MCHC 32.5 (31.6-35.5) g/dL RDW 12.9 (11.5-14.5) % Plt Count 167 (140-400) K/mcL MPV 11.3 (9.4-12.4) fL Immature Gran % 0.4 (0-4) % Seg Neutrophils % 86.7 % Lymphocytes % 6.9 % Monocytes % 5.8 % Eosinophils % 0.0 % Basophils % 0.2 % Neutrophils # 10.8 H (1.6-8.9) K/mcL Lymphocytes # 0.9 (0.6-4.6) K/mcL Monocytes # 0.7 (0.0-1.3) K/mcL Eosinophils # 0.0 (0.0-0.6) K/mcL Basophils # 0.0 (0.0-0.2) K/mcL Sodium 136 (136-145) mEq/L Potassium 4.8 H D (3.5-4.5) mEq/L Chloride 99 (98-109) mEq/L Carbon Dioxide 21 (19-29) mEq/L BUN 55 H D (7-20) mg/dL Creatinine 2.20 H D (0.57-1.11) mg/dL Est GFR ( Amer) 28 L (> 60) Est GFR (Non-Af Amer) 23 L (> 60) BUN/Creatinine Ratio 25 (6-26) Glucose 300 H (70-99) mg/dL Calculated Osmolality 308 H (280-300) Lactic Acid 3.0 H (0.5-2.2) mmol/L Calcium 8.5 L (8.6-10.8) mg/dL Phosphorus 8.5 H (2.3-4.7) mg/dL Magnesium 1.9 (1.6-2.6) mg/dL Total Bilirubin 0.8 (0.2-1.2) mg/dL Direct Bilirubin 0.4 (0.0-0.5) mg/dL Indirect Bilirubin 0.4 (0.0-1.2) mg/dL AST 14 (5-34) Units/L ALT 23 (0-55) Units/L Alkaline Phosphatase 104 (38-126) Units/L Ammonia (18-72) mcmol/L Troponin I (0-0.03) ng/mL C-Reactive Protein 159 H (Less than 5) mg/L B-Natriuretic Peptide (0-100) pg/mL Serum Total Protein 6.3 (6.0-8.3) g/dL Albumin 3.1 L (3.5-5.0) g/dL Globulin 3.2 (2.4-3.5) g/dL Albumin/Globulin Ratio 1.0 L (1.1-2.2) Urine Color (Yellow) Urine Clarity (Clear) Urine pH (5.0-8.0) pH Units Ur Specific Gaffney (1.010-1.025) Urine Protein (Neg-Trace) mg/dL Urine Glucose (UA) (Normal) mg/dL Urine Ketones (Negative) mg/dL Urine Blood (Negative) Urine Nitrite (Negative) Urine Bilirubin (Negative) Urine Urobilinogen (Normal) mg/dL Ur Leukocyte Esterase (Negative) Ur Culture Indicated? (NO) Salicylates < 5.0 L (15-30) mg/dL Urine Opiates Screen (Jkrqbs=559) ng/mL Acetaminophen < 1.0 L (10-30) mcg/mL Ur Barbiturates Screen (Bzeyhk=766) ng/mL Ur Phencyclidine Scrn (Cutoff=25) ng/mL Ur Amphetamines Screen (Kkngif=2399) ng/mL U Benzodiazepines Scrn (Txcntx=036) ng/mL Urine Cocaine Screen (Cutoff= 300) ng/mL U Marijuana (THC) Screen (Cutoff = 50) ng/mL Ethyl Alcohol < 10 (0-10) mg/dL 07/11/17 07/11/17 07/11/17 Range/Units 17:53 17:53 17:53 WBC (4.3-11.1) K/mcL RBC (3.82-4.97) M/mcL Hgb (11.5-15.4) g/dL Hct (35.3-44.9) % MCV (83.0-100.0) fL MCH (28.0-33.3) pg MCHC (31.6-35.5) g/dL RDW (11.5-14.5) % Plt Count (140-400) K/mcL MPV (9.4-12.4) fL Immature Gran % (0-4) % Seg Neutrophils % % Lymphocytes % % Monocytes % % Eosinophils % % Basophils % % Neutrophils # (1.6-8.9) K/mcL Lymphocytes # (0.6-4.6) K/mcL Monocytes # (0.0-1.3) K/mcL Eosinophils # (0.0-0.6) K/mcL Basophils # (0.0-0.2) K/mcL Sodium (136-145) mEq/L Potassium (3.5-4.5) mEq/L Chloride (98-109) mEq/L Carbon Dioxide (19-29) mEq/L BUN (7-20) mg/dL Creatinine (0.57-1.11) mg/dL Est GFR ( Amer) (> 60) Est GFR (Non-Af Amer) (> 60) BUN/Creatinine Ratio (6-26) Glucose (70-99) mg/dL Calculated Osmolality (280-300) Lactic Acid (0.5-2.2) mmol/L Calcium (8.6-10.8) mg/dL Phosphorus (2.3-4.7) mg/dL Magnesium (1.6-2.6) mg/dL Total Bilirubin (0.2-1.2) mg/dL Direct Bilirubin (0.0-0.5) mg/dL Indirect Bilirubin (0.0-1.2) mg/dL AST (5-34) Units/L ALT (0-55) Units/L Alkaline Phosphatase (38-126) Units/L Ammonia 26 (18-72) mcmol/L Troponin I 0.22 H* (0-0.03) ng/mL C-Reactive Protein (Less than 5) mg/L B-Natriuretic Peptide 652 H (0-100) pg/mL Serum Total Protein (6.0-8.3) g/dL Albumin (3.5-5.0) g/dL Globulin (2.4-3.5) g/dL Albumin/Globulin Ratio (1.1-2.2) Urine Color (Yellow) Urine Clarity (Clear) Urine pH (5.0-8.0) pH Units Ur Specific Gaffney (1.010-1.025) Urine Protein (Neg-Trace) mg/dL Urine Glucose (UA) (Normal) mg/dL Urine Ketones (Negative) mg/dL Urine Blood (Negative) Urine Nitrite (Negative) Urine Bilirubin (Negative) Urine Urobilinogen (Normal) mg/dL Ur Leukocyte Esterase (Negative) Ur Culture Indicated? (NO) Salicylates (15-30) mg/dL Urine Opiates Screen (Zmwlww=378) ng/mL Acetaminophen (10-30) mcg/mL Ur Barbiturates Screen (Xgozdp=714) ng/mL Ur Phencyclidine Scrn (Cutoff=25) ng/mL Ur Amphetamines Screen (Hdqkzg=5447) ng/mL U Benzodiazepines Scrn (Mxaomi=237) ng/mL Urine Cocaine Screen (Cutoff= 300) ng/mL U Marijuana (THC) Screen (Cutoff = 50) ng/mL Ethyl Alcohol (0-10) mg/dL 07/11/17 07/11/17 Range/Units 19:24 19:24 WBC (4.3-11.1) K/mcL RBC (3.82-4.97) M/mcL Hgb (11.5-15.4) g/dL Hct (35.3-44.9) % MCV (83.0-100.0) fL MCH (28.0-33.3) pg MCHC (31.6-35.5) g/dL RDW (11.5-14.5) % Plt Count (140-400) K/mcL MPV (9.4-12.4) fL Immature Gran % (0-4) % Seg Neutrophils % % Lymphocytes % % Monocytes % % Eosinophils % % Basophils % % Neutrophils # (1.6-8.9) K/mcL Lymphocytes # (0.6-4.6) K/mcL Monocytes # (0.0-1.3) K/mcL Eosinophils # (0.0-0.6) K/mcL Basophils # (0.0-0.2) K/mcL Sodium (136-145) mEq/L Potassium (3.5-4.5) mEq/L Chloride (98-109) mEq/L Carbon Dioxide (19-29) mEq/L BUN (7-20) mg/dL Creatinine (0.57-1.11) mg/dL Est GFR ( Amer) (> 60) Est GFR (Non-Af Amer) (> 60) BUN/Creatinine Ratio (6-26) Glucose (70-99) mg/dL Calculated Osmolality (280-300) Lactic Acid (0.5-2.2) mmol/L Calcium (8.6-10.8) mg/dL Phosphorus (2.3-4.7) mg/dL Magnesium (1.6-2.6) mg/dL Total Bilirubin (0.2-1.2) mg/dL Direct Bilirubin (0.0-0.5) mg/dL Indirect Bilirubin (0.0-1.2) mg/dL AST (5-34) Units/L ALT (0-55) Units/L Alkaline Phosphatase (38-126) Units/L Ammonia (18-72) mcmol/L Troponin I (0-0.03) ng/mL C-Reactive Protein (Less than 5) mg/L B-Natriuretic Peptide (0-100) pg/mL Serum Total Protein (6.0-8.3) g/dL Albumin (3.5-5.0) g/dL Globulin (2.4-3.5) g/dL Albumin/Globulin Ratio (1.1-2.2) Urine Color Dark Yellow (Yellow) Urine Clarity Clear (Clear) Urine pH 5.5 (5.0-8.0) pH Units Ur Specific Gaffney 1.021 (1.010-1.025) Urine Protein Negative (Neg-Trace) mg/dL Urine Glucose (UA) Normal (Normal) mg/dL Urine Ketones Negative (Negative) mg/dL Urine Blood Negative (Negative) Urine Nitrite Negative (Negative) Urine Bilirubin Negative (Negative) Urine Urobilinogen Normal (Normal) mg/dL Ur Leukocyte Esterase Negative (Negative) Ur Culture Indicated? NO (NO) Salicylates (15-30) mg/dL Urine Opiates Screen Negative (Eghvor=862) ng/mL Acetaminophen (10-30) mcg/mL Ur Barbiturates Screen Negative (Uhvahj=706) ng/mL Ur Phencyclidine Scrn Negative (Cutoff=25) ng/mL Ur Amphetamines Screen Negative (Pvftre=2131) ng/mL U Benzodiazepines Scrn Negative (Bjxola=548) ng/mL Urine Cocaine Screen Negative (Cutoff= 300) ng/mL U Marijuana (THC) Screen Negative (Cutoff = 50) ng/mL Ethyl Alcohol (0-10) mg/dL - Radiology Data Radiology results reviewed: Yes I reviewed the patient's radiology results.
[2017-07-11 18:07] LABS: Basophils % 0.2 %; Hematocrit 42.4 % (35.3-44.9); Hemoglobin 13.8 g/dL (11.5-15.4); Immature Granulocytes % 0.4 % (0-4); Lymphocytes # 0.9 K/mcL (0.6-4.6); Lymphocytes % 6.9 %; Mean Corpuscular HGB Conc 32.5 g/dL (31.6-35.5); Mean Corpuscular Hemoglobin 31.7 pg (28.0-33.3); Mean Corpuscular Volume 97.2 fL (83.0-100.0); Mean Platelet Volume 11.3 fL (9.4-12.4); Monocytes # 0.7 K/mcL (0.0-1.3); Monocytes % 5.8 %; Neutrophils # 10.8 K/mcL (1.6-8.9); Platelet Count 167 K/mcL (140-400); Red Blood Count 4.36 M/mcL (3.82-4.97); Red Cell Distribution Width 12.9 % (11.5-14.5); Segmented Neutrophils % 86.7 %
[2017-07-11 18:25] LABS: Alanine Aminotransferase 23 Units/L (0-55); Albumin 3.1 g/dL (3.5-5.0); Alkaline Phosphatase 104 Units/L (38-126); Aspartate Amino Transferase 14 Units/L (5-34); BUN/Creatinine Ratio 25 (6-26); Bilirubin,Direct 0.4 mg/dL (0.0-0.5); Bilirubin,Indirect 0.4 mg/dL (0.0-1.2); Bilirubin,Total 0.8 mg/dL (0.2-1.2); Calcium 8.5 mg/dL (8.6-10.8); Carbon Dioxide 21 mEq/L (19-29); Chloride 99 mEq/L (98-109); Globulin 3.2 g/dL (2.4-3.5); Glucose 300 mg/dL (70-99); Magnesium 1.9 mg/dL (1.6-2.6); Osmolality,Calculated 308 (280-300); Phosphorous 8.5 mg/dL (2.3-4.7); Potassium 4.8 mEq/L (3.5-4.5); Sodium 136 mEq/L (136-145); Total Protein 6.3 g/dL (6.0-8.3); eGFR For African Americans 28 (> 60); eGFR For Non-African Americans 23 (> 60)
[2017-07-11 18:39] LABS: Acetaminophen < 1.0 mcg/mL (10-30); Blood Urea Nitrogen 55 mg/dL (7-20); Ethanol < 10 mg/dL (0-10); Salicylate < 5.0 mg/dL (15-30)
[2017-07-11 18:55] LABS: C-Reactive Protein 159 mg/L (Less than 5)
[2017-07-11 19:35] LABS: Bilirubin,Urine Negative (Negative); Blood,Urine Negative (Negative); Clarity,Urine Clear (Clear); Color,Urine Dark Yellow (Yellow); Glucose,Urine (UA) Normal (Normal); Ketones,Urine Negative (Negative); Leukocyte Esterase,Urine Negative (Negative); Nitrite,Urine Negative (Negative); PH,Urine 5.5 pH Units (5.0-8.0); Protein,Urine Negative (Neg-Trace); Specific Gravity,Urine 1.021 (1.010-1.025); Urobilinogen,Urine Normal (Normal)
[2017-07-11 19:41] LABS: Amphetamine Screen,Urine Negative ng/mL (Cutoff=1000); Barbiturate Screen,Urine Negative ng/mL (Cutoff=200); Benzodiazepines Screen,Urine Negative ng/mL (Cutoff=200); Cannabinoid Screen,Urine Negative ng/mL (Cutoff = 50); Cocaine Screen,Urine Negative ng/mL (Cutoff= 300); Opiate Screen,Urine Negative ng/mL (Cutoff=300); Phencyclidine Screen,Urine Negative ng/mL (Cutoff=25)
[2017-07-11] MEDS ORDERED: Levofloxacin 750 MG/150 ML 750 MG/150 ML BAG IVPB ONE (19:57)
[2017-07-11] MEDS: 0.9 % Sodium Chloride 1,000 ML IVC SCH ×2 (20:35→23:15)
[2017-07-11] MEDS ORDERED: Naloxone 0.4 MG/ML INJ IVP PRN (21:20)
[2017-07-11] MEDS ORDERED: *HR* HYDROmorphone (PF) 1 MG/ML SYRINGE IVP PRN (21:20)
[2017-07-11] MEDS ORDERED: *HR* HYDROcodone/Acet 5/325 mg TABLET PO PRN (21:20)
[2017-07-11] MEDS ORDERED: Ondansetron 4 MG/2 ML VIAL IVP PRN (21:20)
[2017-07-11] MEDS ORDERED: Acetaminophen 325 MG TABLET PO PRN (21:20)
[2017-07-11] MEDS ORDERED: Norepinephrine 4 MG in D5% in Water 250 ML IVC SCH (21:30)
--- NOTE | 2017-07-11 22:08 | Internal Med History&Physical ---
Date of Encounter: 07/12/17 Time of Encounter: 22:03 Assessment and Plan (1) Cardiogenic shock Current visit: Yes Status: Acute Patient with continuous hypotension, EF 20%, DENISSE, lactic acidosis Levophed infusion started via central line, titrate to MAP >65 Cardiology eval (2) Acute kidney injury Current visit: Yes Status: Acute Multifactorial, Suspect DELFIN, ATN from hypotension Patient had LHC recently with use of ARB/Lasix/for CHF as well as Metformin for DM She has also had poor oral intake Continue with gentle hydration and repeat Chem am Patient is CHF with EF of 20% and is high risk for worsening pulm edema, hypoxia resp arrest Obtain renal USS Strict I/O Hold all nephrotoxins Consult renal (3) Lactic acidosis Current visit: Yes Status: Acute Possibly due to dehydration, as well as episodes of hypotension Repeat lactate after gentle hydration Abdomen is not acute (4) Elevated troponin Current visit: Yes Status: Acute Admitting trop 0.22 No chest pain EKG is not ischemic Consult cardiology (5) CHF (congestive heart failure) Current visit: Yes Status: Acute Patient with elevated BNP, Pulm edema and effusions on CXR as well as DENISSE and Lactic acidosis Suspicion for cardiogenic shock Hold lasix/ACEI/BB Consult cardiology as patient is high risk and recent cath showed 60% mid LAD occulsion Continue Statin/Plavix has allergies to ASA Qualifiers: Congestive heart failure type: systolic Congestive heart failure chronicity : acute on chronic Qualified Code(s): I50.23 - Acute on chronic systolic ( congestive) heart failure (6) Non-ischemic cardiomyopathy Current visit: Yes Status: Chronic As above (7) Dyslipidemia Current visit: Yes Status: Chronic Continue home meds (8) COPD (chronic obstructive pulmonary disease) Current visit: Yes Status: Chronic Not in exacerbation at this time, patient is on prednsione taper, continue same Duonebs prn Hold antibiotics Qualifiers: COPD type: unspecified COPD Qualified Code(s): J44.9 - Chronic obstructive pulmonary disease, unspecified (9) Diabetes mellitus Current visit: Yes Status: Chronic Hold po meds SSI AD diet FS ACHS Qualifiers: Diabetes mellitus type: type 2 Diabetes mellitus complication status: with unspecified complications 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 transplanted heart: [place] heart Associated angina: without angina Qualified Code(s): I25.10 - Atherosclerotic heart disease of [place] coronary artery without angina pectoris Internal Medicine - H&P: HPI Chief complaint: Weakness, fall Admitted From: Home Plans for Post Hospital Care: Home History of present illness: Ms. Rivera is a 57 year old female with multiple medical co-morbidities She was recently discharged following a diagnosis of CHF with EF 20%, Non- ishcemic CMP s/p C with 60% mid LAD occlusion without intervention, Acute resp failure with hypoxia She represents following a fall at home in the early hrs of this morning, patient reports she has been feeling progressively weaker since discharge and she fell and was unable to get up due to feeling weak. She reports she has been complaint with her medications but unable to procure the Ivadrabine. She has also had poor oral intake and has been unable to tolerate po. She denied CP, undue shortness of breath, abdominal pain, nausea, vomiting or diarrhea. She denies symptoms ROS is otherwise unremarkable She is extremely lethargic in the ER and clinically dehydrated with lactic acidosis and DENISSE.-Suspect DELFIN. She is also high risk due to low EF and CXR findings of pulm edema with effusions, she is receiving IVF at time of review She continues to be hypotensive during eval She is seen at bedside with her sons-POA She is full code Admit to ICU for cardiogenic shock Past Med Surg Social Fam HX - Past Medical History Medical history: cancer, CHF, diabetes, TIA Psychiatric history: anxiety, depression - Past Surgical History Surgical History: cancer surgery, non-contributory, other, hysterectomy, breast surgery - Social History Smoking Status: Current every day smoker Smokeless Tobacco Status: No Alcohol use: none Drug use: none - Family History Mother Living Status: Hx Family Cardiac Disorders: Yes Hx Family Respiratory Disorders: Yes (COPD, Emphysema, Asthma) Hx Family Cancer: Yes Hx Family GI Disorders: No Hx Family Endocrine Disorder: Yes (DM, Thyroid) Hx Family Neuromuscular Disorders: No Hx Family Neurologic Disorders: No Hx Family HEENT Disorders: No Hx Family Autoimmune Disorders: No Internal Medicine - H&P: Meds Albuterol Sulfate [Albuterol Inhaler] 2 puff IH Q4H PRN 03/21/15 [History] Cholecalciferol (Vitamin D3) [Optimal D3] 50,000 unit PO WE 03/21/15 [History] Ipratropium/Albuterol Sulfate [Combivent Respimat Inhal Graham] 2 puff IH DAILY 03/21/15 [History] Loratadine [Claritin] 10 mg PO DAILY 03/21/15 [History] Nitroglycerin [Nitrostat] 0.4 mg SL Q5M PRN 03/21/15 [History] Sertraline [Zoloft] 50 mg PO DAILY 03/21/15 [History] Omeprazole [PriLOSEC] 20 mg PO DAILY #30 capsule. 05/08/15 [Rx] Albuterol Neb [Proventil Neb] 2.5 mg IH Q6H PRN 03/30/16 [History] Cholecalciferol (D-3) [Vitamin D] 1,000 unit PO DAILY 03/30/16 [History] Nicotine Patch [Nicoderm] 21 mg TD DAILY 03/30/16 [History] Topiramate [Topamax] 50 mg PO HS 03/30/16 [History] Budesonide/Formoterol 160/4.5 [Symbicort 160/4.5] 2 puff IH BIDR 08/06/16 [ History] Clopidogrel [Plavix] 75 mg PO DAILY 08/06/16 [History] EPINEPHrine [Epipen] 0.3 mg IM ONCE PRN 08/06/16 [History] Pregabalin [Lyrica] 150 mg PO BID 08/06/16 [History] Cyclobenzaprine HCl 10 mg PO TID PRN #30 tablet 08/08/16 [Rx] Promethazine [Phenergan] 12.5 mg PO Q6HR PRN #20 tablet 08/08/16 [Rx] Exemestane [Aromasin] 25 mg PO DAILY #30 tablet 06/03/17 [Rx] Alogliptin Benzoate [Alogliptin] 25 mg PO DAILY 07/05/17 [History] Levothyroxine [Synthroid] 50 mcg PO DAILY 07/05/17 [History] Lidocaine Patch [Lidoderm 5% patch] 1 each TP DAILY 07/05/17 [History] Metformin HCl [Metformin HCl ER] 500 mg PO BID 07/05/17 [History] Metoprolol Succinate 100 mg PO DAILY 07/05/17 [History] Nortriptyline HCl 75 mg PO HS 07/05/17 [History] OxyCODONE/APAP 5/325 [Percocet 5/325 MG] 1 each PO DAILY PRN 07/05/17 [History] Atorvastatin [Lipitor] 40 mg PO HS #30 tablet 07/09/17 [Rx] Furosemide [Lasix] 40 mg PO DAILY #30 tablet 07/09/17 [Rx] Insulin Glargine,Hum.rec.anlog [Toujeo Solostar] 50 units SQ BID #0 07/09/17 [Rx ] Insulin LISPRO [Humalog Kwikpen U-100] 15 unit SQ TIDWM #0 07/09/17 [Rx] Ivabradine HCl [Corlanor] 5 mg PO BID #60 tablet 07/09/17 [Rx] Lisinopril [Zestril] 2.5 mg PO DAILY #30 tablet 07/09/17 [Rx] predniSONE [PredniSONE] See Taper PO DAILY 07/11/17 [History] 3 Allergy/AdvReac Type Severity Reaction Status Date / Time aspirin Allergy Hives Verified 07/11/17 16:14 Penicillins [PCN] Allergy Hives Verified 07/11/17 16:14 venom-honey bee Allergy Anaphylaxis Verified 07/11/17 16:14 [bee venom (honey bee)] All Systems PM: A 10-system review of systems was performed and is negative for pertinent findings except as documented above in the HPI. - Constitutional Constitutional: as per HPI - EENT Eyes: as per HPI Ears: as per HPI Nose, mouth and throat: as per HPI - Cardiovascular Cardiovascular ROS IM: as per HPI - Respiratory Respiratory: as per HPI - Gastrointestinal Gastrointestinal: as per HPI - Genitourinary Genitourinary: as per HPI - Musculoskeletal Musculoskeletal ROS IM: as per HPI - Integumentary Integumentary IM: as per HPI - Neurological Neurological ROS: as per HPI - Hematologic/Lymphatic Hematologic/Lymphatic: as per HPI - Constitutional Vitals: Temp Pulse Resp BP Pulse Ox 97.5 F L 97 18 135/99 99 07/11/17 16:14 07/11/17 21:46 07/11/17 21:46 07/11/17 21:46 07/11/17 21:46 VSS. tachycardic. BP WNL Gen: Lethargic, chronically ill-looking HEENT: Dry oral mucosa ++, sclera anicteric, conjunctiva is not pale Chest: Chest is CTAB at this time Heart: S1, S2 only, no m/g/r Abdomen: Mild generalized tenderness, no rebound, no guarding, BS present in all quadrants, no palpably enlarged organs Extremities: Cold extremities, well prefused, no pedal edema Neuro: Alert, awake, oriented X3, moves all extremities equally, no facial droop , no speech deficits Internal Med - H&P Results - Labs CBC & Chem 7: 07/11/17 17:53 07/11/17 17:50 Labs: Leukocytosis with left shift, , mild hyperkalemia, Cr 2.20*(baseline 0.8-1.0), Lactate 2.7. Trop 0.22, CRP 159. UA is normal, Utox is negative. CXR showed mild pulm edema and pleural effusion.
[2017-07-11] MEDS ORDERED: Albuterol 2.5 MG/3 ML NEBULIZER IH PRN (22:23)
[2017-07-11] MEDS ORDERED: Ipratropium/Albuterol Neb 3 ML IH PRN (22:25)
[2017-07-11] MEDS ORDERED: *HR* Dextrose 50 % in Water (Syg) 50 ML SYRINGE IVP PRN (22:25)
[2017-07-11] MEDS ORDERED: D5% in Water 1,000 ML IVC PRN (22:25)
[2017-07-11] MEDS ORDERED: Dextrose Gel 15 GM PO PRN ×2 (22:25)
[2017-07-11] MEDS: *HR* Heparin 5,000 UNIT/ML VIAL SQ SCH (23:15)
--- NOTE | 2017-07-12 00:58 | Procedure Note ---
Date of procedure: 07/12/17 Pre-op diagnosis: Shock-cardiogenic Post-op diagnosis: same Procedure: R IJ CVC placement Time out performed Consent obtained Procedure performed under sterile conditions, by SUSHIL abarca Resident: Yariel Hou Attending: Joel Owen time-out was completed verifying correct patient, procedure, site, positioning , and special equipment if applicable. The patient was placed in a dependent position appropriate for central line placement based on the vein to be cannulated. The patients right neck was prepped and draped in sterile fashion. 1 % Lidocaine was used to anesthetize the surrounding skin area. A triple lumen Cordis catheter was introduced into the the R internal jugular using the Seldinger technique and under ultrasound guidance. The catheter was threaded smoothly over the guide wire and appropriate blood return was obtained. Each lumen of the catheter was evacuated of air and flushed with sterile saline. The catheter was then sutured in place to the skin and a sterile dressing applied. Perfusion to the extremity distal to the point of catheter insertion was checked and found to be adequate. Estimated Blood Loss: 4cc The patient tolerated the procedure well and there were no complications. CXR obtained to confirm placement Anesthesia: local Pathology: none sent Condition: critical Disposition: ICU
[2017-07-12 01:37] LABS: Calcium 7.7 mg/dL (8.6-10.8); Potassium 4.3 mEq/L (3.5-4.5)
[2017-07-12 04:35] LABS: Hematocrit 39.3 % (35.3-44.9); Immature Granulocytes % 0.8 % (0-4); Lymphocytes % 11.4 %; Mean Corpuscular HGB Conc 33.1 g/dL (31.6-35.5); Mean Corpuscular Hemoglobin 31.9 pg (28.0-33.3); Mean Corpuscular Volume 96.3 fL (83.0-100.0); Mean Platelet Volume 11.3 fL (9.4-12.4); Platelet Count 169 K/mcL (140-400); Red Blood Count 4.08 M/mcL (3.82-4.97); Red Cell Distribution Width 12.9 % (11.5-14.5); Segmented Neutrophils % 81.6 %
[2017-07-12 04:36] LABS: Basophils % 0.2 %; Lymphocytes # 1.5 K/mcL (0.6-4.6); Monocytes # 0.8 K/mcL (0.0-1.3); Neutrophils # 10.5 K/mcL (1.6-8.9)
[2017-07-12] MEDS ORDERED: Insulin LISPRO 300 UNITS/3 ML VIAL SQ ONE (04:40)
[2017-07-12 04:43] LABS: Calcium 7.7 mg/dL (8.6-10.8)
[2017-07-12] MEDS: *HR* Heparin 5,000 UNIT/ML VIAL SQ SCH ×3 (06:15→20:17)
[2017-07-12] MEDS: Budesonide/Formoterol 160/4.5 MDI IH SCH ×2 (08:04→20:41)
[2017-07-12] MEDS: Insulin LISPRO 300 UNITS/3 ML VIAL SQ SCH ×3 (08:05→17:05)
--- NOTE | 2017-07-12 08:41 | Pulmonology Consult Note ---
<Crissy Hu M - Last Filed: 07/12/17 14:49> Date of Encounter: 07/12/17 Medications and Allergies Albuterol Sulfate [Albuterol Inhaler] 2 puff IH Q4H PRN 03/21/15 [History] Cholecalciferol (Vitamin D3) [Optimal D3] 50,000 unit PO WE 03/21/15 [History] Ipratropium/Albuterol Sulfate [Combivent Respimat Inhal [place]] 2 puff IH DAILY 03/21/15 [History] Loratadine [Claritin] 10 mg PO DAILY 03/21/15 [History] Nitroglycerin [Nitrostat] 0.4 mg SL Q5M PRN 03/21/15 [History] Sertraline [Zoloft] 50 mg PO DAILY 03/21/15 [History] Omeprazole [PriLOSEC] 20 mg PO DAILY #30 capsule. 05/08/15 [Rx] Albuterol Neb [Proventil Neb] 2.5 mg IH Q6H PRN 03/30/16 [History] Cholecalciferol (D-3) [Vitamin D] 1,000 unit PO DAILY 03/30/16 [History] Nicotine Patch [Nicoderm] 21 mg TD DAILY 03/30/16 [History] Topiramate [Topamax] 50 mg PO HS 03/30/16 [History] Budesonide/Formoterol 160/4.5 [Symbicort 160/4.5] 2 puff IH BIDR 08/06/16 [ History] Clopidogrel [Plavix] 75 mg PO DAILY 08/06/16 [History] EPINEPHrine [Epipen] 0.3 mg IM ONCE PRN 08/06/16 [History] Pregabalin [Lyrica] 150 mg PO BID 08/06/16 [History] Cyclobenzaprine HCl 10 mg PO TID PRN #30 tablet 08/08/16 [Rx] Promethazine [Phenergan] 12.5 mg PO Q6HR PRN #20 tablet 08/08/16 [Rx] Exemestane [Aromasin] 25 mg PO DAILY #30 tablet 06/03/17 [Rx] Alogliptin Benzoate [Alogliptin] 25 mg PO DAILY 07/05/17 [History] Levothyroxine [Synthroid] 50 mcg PO DAILY 07/05/17 [History] Lidocaine Patch [Lidoderm 5% patch] 1 each TP DAILY 07/05/17 [History] Metformin HCl [Metformin HCl ER] 500 mg PO BID 07/05/17 [History] Metoprolol Succinate 100 mg PO DAILY 07/05/17 [History] Nortriptyline HCl 75 mg PO HS 07/05/17 [History] OxyCODONE/APAP 5/325 [Percocet 5/325 MG] 1 each PO DAILY PRN 07/05/17 [History] Atorvastatin [Lipitor] 40 mg PO HS #30 tablet 07/09/17 [Rx] Furosemide [Lasix] 40 mg PO DAILY #30 tablet 07/09/17 [Rx] Insulin Glargine,Hum.rec.anlog [Toujeo Solostar] 50 units SQ BID #0 07/09/17 [Rx ] Insulin LISPRO [Humalog Kwikpen U-100] 15 unit SQ TIDWM #0 07/09/17 [Rx] Ivabradine HCl [Corlanor] 5 mg PO BID #60 tablet 07/09/17 [Rx] Lisinopril [Zestril] 2.5 mg PO DAILY #30 tablet 07/09/17 [Rx] predniSONE [PredniSONE] See Taper PO DAILY 07/11/17 [History] 3 Allergy/AdvReac Type Severity Reaction Status Date / Time aspirin Allergy Hives Verified 07/11/17 16:14 Penicillins [PCN] Allergy Hives Verified 07/11/17 16:14 venom-honey bee Allergy Anaphylaxis Verified 07/11/17 16:14 [bee venom (honey bee)] All Systems: A 10-system review of systems was performed and is negative for pertinent findings except as documented above in the HPI. Physical Examination Vital Signs: Vital Signs, Last 4 Hours Temp Pulse Resp BP Pulse Ox 07/12/17 11:30 112 21 92/66 96 07/12/17 11:29 99.9 F H Results - Laboratory Findings CBC and BMP: 07/12/17 04:00 07/12/17 04:00 Abnormal lab findings: Abnormal lab results WBC 12.8 K/mcL (4.3-11.1) H 07/12/17 04:00 Neutrophils # 10.5 K/mcL (1.6-8.9) H 07/12/17 04:00 Sodium 135 mEq/L (136-145) L 07/12/17 04:00 BUN 59 mg/dL (7-20) H 07/12/17 04:00 Creatinine 2.19 mg/dL (0.57-1.11) H 07/12/17 04:00 Est GFR ( Amer) 28 (> 60) L 07/12/17 04:00 Est GFR (Non-Af Amer) 23 (> 60) L 07/12/17 04:00 BUN/Creatinine Ratio 27 (6-26) H 07/12/17 04:00 Glucose 288 mg/dL (70-99) H 07/12/17 04:00 POC Glucose 181 (58-89) H 07/12/17 11:05 Calculated Osmolality 307 (280-300) H 07/12/17 04:00 Lactic Acid 2.5 mmol/L (0.5-2.2) H 07/12/17 01:15 Uric Acid 9.3 mg/dL (2.6-6.0) H 07/12/17 04:00 Calcium 7.7 mg/dL (8.6-10.8) L 07/12/17 04:00 Phosphorus 8.5 mg/dL (2.3-4.7) H 07/11/17 17:50 Creatine Kinase 271 Units/L (29-168) H 07/12/17 04:00 Troponin I 0.19 ng/mL (0-0.03) H* 07/12/17 01:15 C-Reactive Protein 159 mg/L (Less than 5) H 07/11/17 17:50 B-Natriuretic Peptide 652 pg/mL (0-100) H 07/11/17 17:53 Albumin 3.1 g/dL (3.5-5.0) L 07/11/17 17:50 Albumin/Globulin Ratio 1.0 (1.1-2.2) L 07/11/17 17:50 Salicylates < 5.0 mg/dL (15-30) L 07/11/17 17:50 Acetaminophen < 1.0 mcg/mL (10-30) L 07/11/17 17:50 - Clinical Findings Intake & Output: Intake & Output 07/11/17 07/12/17 07/12/17 23:59 07:59 15:59 Intake Total 1075 / 1075 86 / 86 Output Total 700 / 700 325 / 325 375 / 375 Balance 375 / 375 -239 / -239 -375 / -375 Consult Discharge Plan - Plan Referrals: Angel Jimenez DO [Primary Care Provider] - - Attending Attestation I examined this patient and my medical decision-making was reviewed with the Resident Physician. I agree with the documented findings, disposition and treatment plan as described except to the extent set forth below. Patient seen and examined. Labs, radiology, chart personally reviewed. 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 I am not convinced patient has COPD exacerbation and she needs to be on bronchodilators and taper steroid. Cardiovascular: Patient with shock and I suspect combination of cardiac/ hypovolemic in nature and patient been seen by micro computer specialist and appreciate input. Patient will have gentle hydration due to her low ejection fraction. Patient might benefit from more inotropic vasopressors, however we will wait for cardiology attending recommendations. GI: Nutrition per dietary and GI prophylaxis per routine Heme: DVT prophylaxis per routine ID: There is no evidence of obvious source of infection, however patient is in shock and broad-spectrum coverage of antibiotics with cultures to be on the safe side and also lactic acid is borderline. So sepsis remain in the differential diagnosis. Renal; urine out put and renal funtion reviewed. Nephrology's input is appreciated. One multivitamin patient will have small gentle bolus hydration for shock. Endorcine: blood glucose is monitored Lines: all lines checked and no evidence of infections Skin: skin care to prevent pressure ulcers per nursing routine care I spent 35 min of Critical Care time with this patient. It involved decision making of high complexity to assess, manipulate, and support vital organ system failure and/or to prevent further life threatening deterioration of the patient' s condition. The time involved in the performance of separately reportable procedures was not counted toward critical care time. <Lata Major - Last Filed: 07/12/17 16:39> Date of Encounter: 07/12/17 Time of Encounter: 08:40 Assessment and Plan (1) Shock Current Visit: Yes Status: Acute Shock of unclear etiology. Sepsis versus cardiogenic versus hypovolemia. -Appreciate cardiology recommendations of gentle hydration. -We will keep the patient on Levophed. No dopamine at this time. -Hold Lasix and diuretics. -Continue to monitor I's and O's. -Will start the patient on a renally dosed dose of Levaquin for broad-spectrum coverage. --We will order B LE doppler US to r/o DVT. Some concern for PE as patient is tachycardic and SOB. We will avoid CT PE protocol at this point as patient has an DENISSE. (2) Dilated cardiomyopathy Current Visit: Yes Status: Acute Left heart catheter shows nonischemic dilated cardiomyopathy of uncertain etiology recent echo shows LVEF of 15-20%. Electrophysiology at last visit recommended ACID implantation and medical treatment with corlanor. Patient has chronic tachycardia as well which EP does not think is contributing to patient' s heart failure. -BNP 652 -Chest x-ray mild pulmonary edema which is improving from previous chest x-ray. -Appreciate cardiology recommendations. (3) CHF (congestive heart failure) Current Visit: Yes Status: Acute Patient with elevated BNP, pulmonary edema and effusions on chest x-ray as well as AK I and lactic acidosis. -Continue to follow cardiology recommendations. -Continue to hold Lasix/ASHISH inhibitor/beta manuel -Continue statin and Plavix. Qualifiers: Congestive heart failure type: systolic Congestive heart failure chronicity : acute on chronic Qualified Code(s): I50.23 - Acute on chronic systolic ( congestive) heart failure (4) Acute kidney injury Current Visit: Yes Status: Acute Patient with creatinine of 2.2 on admission which is stable today at 2.19. -Consult nephrology. Appreciate their recommendations. -Contrast-induced nephropathy less likely. Suspect ATN from hypotension. -Follow-up renal ultrasound. -Renal dose Levaquin and avoid nephrotoxic agents. -Continue to follow nephrology recommendations. (5) Elevated troponin Current Visit: Yes Status: Acute Patient's troponin 0.22 on admission. -Atypical chest pain. -EKG is not concerning for ischemia. -We will follow cardiology recommendations. (6) Dyslipidemia Current Visit: Yes Status: Chronic Continue home medications. (7) COPD (chronic obstructive pulmonary disease) Current Visit: Yes Status: Chronic Patient was on a prednisone taper upon discharge from the hospital for a presumed COPD exacerbation. -Continue steroid taper. -Continue duo nebs. Qualifiers: COPD type: unspecified COPD Qualified Code(s): J44.9 - Chronic obstructive pulmonary disease, unspecified (8) Diabetes mellitus Current Visit: Yes Status: Chronic Hold by mouth medications -Sliding-scale insulin -AD diet -FS before meals at bedtime Qualifiers: Diabetes mellitus type: type 2 Diabetes mellitus complication status: with unspecified complications Diabetes mellitus correction insulin use: with correction use Qualified Code(s): E11.8 - Type 2 diabetes mellitus with unspecified complications; Z79.4 - terminal carman (current) use of insulin; Z79.4 - detention ( current) use of insulin; Z79.4 - detention (current) use of insulin; Z79.4 - terminal carman (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 Qualifiers: Coronary Disease-Associated Artery/Lesion type: douglas artery [place] vs. transplanted heart: douglas heart Associated angina: without angina Qualified Code(s): I25.10 - Atherosclerotic heart disease of douglas coronary artery without angina pectoris (10) DVT prophylaxis Current Visit: No Status: Acute History of Present Illness Consult date: 07/12/17 Requesting physician: Mode Owen Reason for consult: dyspnea, other (hypotension) Chief complaint: Fatigue, SOB History of present illness: Ms. Torres is a 57-year-old female with past medical history of recent diagnosis of nonischemic dilated cardiomyopathy, coronary artery disease without stents, chronic tachycardia, COPD, diabetes, and a remote history of breast cancer. She presented to [facility] yesterday for weakness and a fall. The patient was recently admitted to the hospital on July 05 for chest pain, shortness of breath, and weakness. During this admission she received an echocardiogram and a [facility] which demonstrated an LVEF of 15-20% without major vascular occlusions. She was discharged home on July 09. Patient said she felt very weak after being discharged home including feeling wobbly. She stated she fell while trying to get into bed and was unable to pull herself up. She reports continued right-sided chest pain with radiation to her right shoulder since the time of her discharge. She states she is having shortness of breath. She denies any fever, chills, nausea or vomiting, dysuria, hematuria, melena, or hematochezia. She denies cough. Chest x-ray on admission shows mild pulmonary edema which is improved from previous image. Patient was found to have an DENISSE. She does have an adynamic troponin file. Her lactic acid was 2.5. Echocardiogram on July 06 shows LVEF 15%, inferior left ventricle dilatation, severe global left ventricle dysfunction, and mild to moderate pulmonary hypertension. LHC on July 07 shows LVEF of 20%, and 60% mid LAD occlusion with no other significant disease. EKG shows sinus tach with poor R-wave progression. Past Med Surg Social Fam HX - Past Medical History Attestation: Yes The following information was validated with the patient. Source: patient Medical history: cancer, CHF, diabetes, TIA Psychiatric history: anxiety, depression - Past Surgical History Surgical History: cancer surgery, non-contributory, other, hysterectomy, breast surgery - Social History Smoking Status: Current every day smoker Smokeless Tobacco Status: No Alcohol use: none Drug use: none - Family History Mother Living Status: Hx Family Cardiac Disorders: Yes Hx Family Respiratory Disorders: Yes (COPD, Emphysema, Asthma) Hx Family Cancer: Yes Hx Family GI Disorders: No Hx Family Endocrine Disorder: Yes (DM, Thyroid) Hx Family Neuromuscular Disorders: No Hx Family Neurologic Disorders: No Hx Family HEENT Disorders: No Hx Family Autoimmune Disorders: No All Systems: A 10-system review of systems was performed and is negative for pertinent findings except as documented above in the HPI. - Constitutional Constitutional: as per HPI, fatigue, weakness, no chills, no fever(s), no headache(s) - EENT Nose, mouth and throat: as per HPI, no nasal congestion, no nasal discharge, no sinus pain, no sinus pressure, no sore throat - Cardiovascular Cardiovascular: chest pain, chest pain at rest, chest pain with activity, dyspnea, dyspnea on exertion, radiating pain, no claudication, no diaphoresis, no edema, no radiating jaw, neck or arm pain, no leg edema, no lightheadedness, no orthopnea, no palpitations, no pedal edema - Respiratory Respiratory: no cough, no hemoptysis, no chest congestion - Gastrointestinal Gastrointestinal: no abdominal pain, no cramping, no diarrhea, no hematemesis, no hematochezia, no loose stools, no melena, no nausea, no vomiting - Genitourinary Genitourinary: no hematuria, no urinary frequency - Musculoskeletal Musculoskeletal: muscle weakness, no myalgias - Neurological Neurological: as per HPI Physical Examination Vital Signs: Vital Signs, Last 4 Hours Temp Pulse Resp BP Pulse Ox 07/12/17 08:05 20 98 07/12/17 07:32 99.2 F 07/12/17 07:30 107 20 91/61 96 07/12/17 06:00 105 16 76/51 07/12/17 05:00 105 16 79/54 General appearance: alert, lethargic Eyes: nonicteric ENT: oropharynx dry Neck: supple Effort: normal Inspection: normal Auscultation: bilateral: diminished breath sounds, rhonchi (mild) Cardiovascular: other (Tachycardia, no murmurs rubs or gallops) Integumentary: normal, other (Patient has an area of abraded skin on her left hand which is well healing. No surrounding erythema or drainage. The area is in between her and pointer finger.) Extremities: no cyanosis, no edema, no clubbing, pulses normal Musculoskeletal: no deformities Gait: normal posture normal mental status Results - Laboratory Findings CBC and BMP: 07/12/17 04:00 07/12/17 04:00 Abnormal lab findings: Abnormal lab results WBC 12.8 K/mcL (4.3-11.1) H 07/12/17 04:00 Neutrophils # 10.5 K/mcL (1.6-8.9) H 07/12/17 04:00 Sodium 135 mEq/L (136-145) L 07/12/17 04:00 BUN 59 mg/dL (7-20) H 07/12/17 04:00 Creatinine 2.19 mg/dL (0.57-1.11) H 07/12/17 04:00 Est GFR ( Amer) 28 (> 60) L 07/12/17 04:00 Est GFR (Non-Af Amer) 23 (> 60) L 07/12/17 04:00 BUN/Creatinine Ratio 27 (6-26) H 07/12/17 04:00 Glucose 288 mg/dL (70-99) H 07/12/17 04:00 POC Glucose 248 (58-89) H 07/12/17 07:07 Calculated Osmolality 307 (280-300) H 07/12/17 04:00 Lactic Acid 2.5 mmol/L (0.5-2.2) H 07/12/17 01:15 Calcium 7.7 mg/dL (8.6-10.8) L 07/12/17 04:00 Phosphorus 8.5 mg/dL (2.3-4.7) H 07/11/17 17:50 Troponin I 0.19 ng/mL (0-0.03) H* 07/12/17 01:15 C-Reactive Protein 159 mg/L (Less than 5) H 07/11/17 17:50 B-Natriuretic Peptide 652 pg/mL (0-100) H 07/11/17 17:53 Albumin 3.1 g/dL (3.5-5.0) L 07/11/17 17:50 Albumin/Globulin Ratio 1.0 (1.1-2.2) L 07/11/17 17:50 Salicylates < 5.0 mg/dL (15-30) L 07/11/17 17:50 Acetaminophen < 1.0 mcg/mL (10-30) L 07/11/17 17:50 - Clinical Findings Intake & Output: Intake & Output 07/11/17 07/12/17 07/12/17 23:59 07:59 15:59 Intake Total 1075 / 1075 86 / 86 Output Total 700 / 700 325 / 325 Balance 375 / 375 -239 / -239
[2017-07-12] MEDS ORDERED: predniSONE 20 MG TABLET PO SCH (09:00)
[2017-07-12] MEDS ORDERED: Pregabalin 75 MG CAPSULE PO SCH (09:00)
[2017-07-12] MEDS: Cholecalciferol (D-3) 1,000 UNIT TABLET PO SCH (09:29)
[2017-07-12] MEDS: Nicotine 21 MG PATCH.TD24 TD SCH (09:29)
[2017-07-12] MEDS ORDERED: 0.9 % Sodium Chloride 250 ML IVC ONE (09:41)
--- NOTE | 2017-07-12 09:50 | Cardiology Consult Note ---
<Angel Jimenez - Last Filed: 07/13/17 08:10> Date of Encounter: 07/13/17 Time of Encounter: 08:15 Assessment and Plan (1) Shock Current Visit: Yes Status: Acute Shock of unclear etiology, likely sepsis with hypovolemia, unlikely cardiogenic SIRS Criteria: Tachycardia, hypotension, tachypnea, borderline temp, WBC 12.8 on prednisone, no known source of infection Blood pressure remains low on NS 125mls/hr and 7mcg levofed drip EKG demonstrates no acute changes suggestive of massive cardiac decompensation from previous visit We will give 250ml NS Bolus, check orthostatics, continue to measure strict I's/ Os Agree with continued hydration, levofed. Hold Lasix Code(s): R57.9 - Shock, unspecified (2) Dilated cardiomyopathy Current Visit: Yes Status: Acute Non-ischemic dilated cardiomyopathy of uncertain etiology On recent admission, patient was found to have new LVEF 15-20%, was discharged on medical management BNP 652, CXR mild pulmonary edema Troponins 0.19 and adynamic, elevation likely secondary to demand ischemia from shock/DENISSE The patient appears clinically hypovolemic, which may explain tachycardia Recommend strict I/O and daily weights. Discussion w patient/family: The assessment and plan as outlined above was discussed with the patient and/or family members who expressed understanding and agreement. All questions were answered. Thank you for involving us in the care of your patient. Please call with any questions. History of Present Illness Consult date: 07/12/17 Requesting physician: Mode Owen Consult reason: Cardiogenic shock Chief complaint: Weakness and fall History of present illness: Ms. Rivera is a 57 year old female with history of newly diagnosed non- ischemic dilated cardiomyopathy, CAD w/o stents, chronic tachycardia, COPD, DM2 and remote Breast Ca who presented to the ED for weakness and fall in the past day. The patient was admitted to the hospital on 07/05 for chest pain, SOB and weakness. At that time she received an echocardiogram and C which demonstrated LVEF 15-20% without major vascular occlusions. She was discharged home on 07/09. Yesterday, the patient was feeling very weak, and says that her legs were feeling wobbly. While trying to get into bed, she fell and was unable to pull herself up. She says that this has never happened before. She admits to continued chest pain/pressure since time of discharge which is intermittent, and is generally associated with shortness of breath. She admits also to what she believes were short periods of unconsciousness around the time of the fall. She is having continued chest discomfort and shortness of breath. She denies any history of fever, chills, nausea, vomiting, or urinary changes. CXR on Admission showed mild pulmonary edema. DENISSE present with BUN/Cr 59/2.19, Trops adynamic, lactic acid 2.5. Echocardiogram 07/06 shows LVEF 15%, severe LV dilatation, severe global LV dysfunction, mild-mod pulmonary HTN 42-47. LHC shows LVEF 20%, 60% mid LAD occlusion with no other significant disease. EKG shows sinus tach with poor R wave progression. Past Med Surg Social Fam HX - Past Medical History Medical history: cancer, CHF, diabetes, TIA Psychiatric history: anxiety, depression - Past Surgical History Surgical History: cancer surgery, non-contributory, other, hysterectomy, breast surgery - Social History Smoking Status: Current every day smoker Smokeless Tobacco Status: No Alcohol use: none Drug use: none - Family History Mother Living Status: Hx Family Cardiac Disorders: Yes Hx Family Respiratory Disorders: Yes (COPD, Emphysema, Asthma) Hx Family Cancer: Yes Hx Family GI Disorders: No Hx Family Endocrine Disorder: Yes (DM, Thyroid) Hx Family Neuromuscular Disorders: No Hx Family Neurologic Disorders: No Hx Family HEENT Disorders: No Hx Family Autoimmune Disorders: No Medications and Allergies Albuterol Sulfate [Albuterol Inhaler] 2 puff IH Q4H PRN 03/21/15 [History] Cholecalciferol (Vitamin D3) [Optimal D3] 50,000 unit PO WE 03/21/15 [History] Ipratropium/Albuterol Sulfate [Combivent Respimat Inhal [place]] 2 puff IH DAILY 03/21/15 [History] Loratadine [Claritin] 10 mg PO DAILY 03/21/15 [History] Nitroglycerin [Nitrostat] 0.4 mg SL Q5M PRN 03/21/15 [History] Sertraline [Zoloft] 50 mg PO DAILY 03/21/15 [History] Omeprazole [PriLOSEC] 20 mg PO DAILY #30 capsule. 05/08/15 [Rx] Albuterol Neb [Proventil Neb] 2.5 mg IH Q6H PRN 03/30/16 [History] Cholecalciferol (D-3) [Vitamin D] 1,000 unit PO DAILY 03/30/16 [History] Nicotine Patch [Nicoderm] 21 mg TD DAILY 03/30/16 [History] Topiramate [Topamax] 50 mg PO HS 03/30/16 [History] Budesonide/Formoterol 160/4.5 [Symbicort 160/4.5] 2 puff IH BIDR 08/06/16 [ History] Clopidogrel [Plavix] 75 mg PO DAILY 08/06/16 [History] EPINEPHrine [Epipen] 0.3 mg IM ONCE PRN 08/06/16 [History] Pregabalin [Lyrica] 150 mg PO BID 08/06/16 [History] Cyclobenzaprine HCl 10 mg PO TID PRN #30 tablet 08/08/16 [Rx] Promethazine [Phenergan] 12.5 mg PO Q6HR PRN #20 tablet 08/08/16 [Rx] Exemestane [Aromasin] 25 mg PO DAILY #30 tablet 06/03/17 [Rx] Alogliptin Benzoate [Alogliptin] 25 mg PO DAILY 07/05/17 [History] Levothyroxine [Synthroid] 50 mcg PO DAILY 07/05/17 [History] Lidocaine Patch [Lidoderm 5% patch] 1 each TP DAILY 07/05/17 [History] Metformin HCl [Metformin HCl ER] 500 mg PO BID 07/05/17 [History] Metoprolol Succinate 100 mg PO DAILY 07/05/17 [History] Nortriptyline HCl 75 mg PO HS 07/05/17 [History] OxyCODONE/APAP 5/325 [Percocet 5/325 MG] 1 each PO DAILY PRN 07/05/17 [History] Atorvastatin [Lipitor] 40 mg PO HS #30 tablet 07/09/17 [Rx] Furosemide [Lasix] 40 mg PO DAILY #30 tablet 07/09/17 [Rx] Insulin Glargine,Hum.rec.anlog [Toujeo Solostar] 50 units SQ BID #0 07/09/17 [Rx ] Insulin LISPRO [Humalog Kwikpen U-100] 15 unit SQ TIDWM #0 07/09/17 [Rx] Ivabradine HCl [Corlanor] 5 mg PO BID #60 tablet 07/09/17 [Rx] Lisinopril [Zestril] 2.5 mg PO DAILY #30 tablet 07/09/17 [Rx] predniSONE [PredniSONE] See Taper PO DAILY 07/11/17 [History] 3 Allergy/AdvReac Type Severity Reaction Status Date / Time aspirin Allergy Hives Verified 07/11/17 16:14 Penicillins [PCN] Allergy Hives Verified 07/11/17 16:14 Sulfa (Sulfonamide Allergy Hives Verified 07/12/17 18:37 Antibiotics) venom-honey bee Allergy Anaphylaxis Verified 07/11/17 16:14 [bee venom (honey bee)] - Constitutional Constitutional: anorexia, fatigue, lethargy, malaise, no chills, no fever(s), no frequent falls - EENT Eyes: no blurred vision, no loss of vision - Cardiovascular Cardiovascular: chest pain at rest, chest pain with exertion, dyspnea at rest, dyspnea on exertion, orthopnea, palpitations, syncope, no claudication, no leg edema - Respiratory Respiratory: cough, dyspnea - Gastrointestinal Gastrointestinal: no abdominal pain, no dysphagia, no nausea - Genitourinary Genitourinary: no dysuria, no hematuria - Musculoskeletal Musculoskeletal: abnormal gait, muscle weakness (generalized) - Integumentary Integumentary: no erythema, no rash - Neurological Neurological: syncope, no abnormal speech, no focal weakness - Psychiatric Psychiatric: no hallucinations Physical Examination Vital Signs, Last 4 Hours Temp Pulse Resp BP Pulse Ox 07/12/17 09:26 111 20 92/64 97 07/12/17 08:30 111 21 80/56 97 07/12/17 08:05 20 98 07/12/17 07:32 99.2 F 07/12/17 07:30 107 20 91/61 96 07/12/17 06:00 105 16 76/51 General: Conversant, No Apparent Distress HEENT: Atraumatic, Normocephaly, Mucus Membranes Moist Neck: No JVD, Normal carotid pulses Cardiac: Reg Rate and Rhythm, Normal S1 and S2, No Murmur, Other (Distant heart sounds) Lungs: Other (Mild dffuse wheezes noted) Neuro: Alert and responsive, No focal deficits noted Abdomen: Soft, Other (Mild tenderness to palpation that is generalized, mild distension. No rebound tenderness or guarding.) Skin: No rashes noted on visualized skin Musculoskeletal: Other (Tenderness to palpation over sternum) Extremities: No Clubbing, No Cyanosis, No Edema, Normal Pulses Results 07/13/17 04:11 07/13/17 04:11 Lab Results 07/12/17 07/12/17 07/12/17 01:15 01:15 04:00 WBC 12.8 H Hgb 13.0 Hct 39.3 Plt Count 169 Sodium 135 L Potassium 4.3 Chloride 100 Carbon Dioxide 21 BUN 58 H Creatinine 2.48 H Glucose 320 H Calcium 7.7 L Troponin I 0.19 H* 07/12/17 04:00 WBC Hgb Hct Plt Count Sodium 135 L Potassium 4.0 Chloride 102 Carbon Dioxide 22 BUN 59 H Creatinine 2.19 H Glucose 288 H Calcium 7.7 L Troponin I Consult Discharge Plan - Plan Referrals: Angel Jimenez DO [Primary Care Provider] - <Ole Faulkner - Last Filed: 07/13/17 12:06> Date of Encounter: 07/13/17 - Attending Attestation I examined this patient and my medical decision-making was reviewed with the Resident Physician. I agree with the documented findings, disposition and treatment plan as described except to the extent set forth below. IMP: 1. Hypotension, unclear etiology, appears more likely hypovolemia and possible sepsis than cardiogenic shock. She is responding to fluid boluses, no acute EKG changes to suggest ischemia, minimal troponin elevation most consistent with demand ischemia, not climbing, would continue sequential troponin x 1, replace fluid and monitor blood pressure response, wean pressors as able, monitor cultures pending. 2. Severe dilated non-ischemic cardiomyopathy, trivial CAD, last EF 15 to 20% by echo, Assessment and Plan Discussion w patient/family: The assessment and plan as outlined above was discussed with the patient and/or family members who expressed understanding and agreement. All questions were answered. Thank you for involving us in the care of your patient. Please call with any questions. History of Present Illness History of present illness: Ms. Rivera is a 57 year old female All Systems Review: A 10-system review of systems was performed and is negative for pertinent findings except as documented above in the HPI. Physical Examination Vital Signs, Last 4 Hours Temp Pulse Resp BP Pulse Ox 07/12/17 22:00 109 16 83/60 94 07/12/17 21:02 106 14 87/58 96 07/12/17 20:43 18 96 07/12/17 20:20 98.7 F 109 07/12/17 20:00 109 17 109/70 97 Results 07/13/17 04:11 07/13/17 04:11 Lab Results 07/12/17 07/12/17 07/12/17 01:15 01:15 04:00 WBC 12.8 H Hgb 13.0 Hct 39.3 Plt Count 169 Sodium 135 L Potassium 4.3 Chloride 100 Carbon Dioxide 21 BUN 58 H Creatinine 2.48 H Glucose 320 H Calcium 7.7 L Troponin I 0.19 H* 07/12/17 04:00 WBC Hgb Hct Plt Count Sodium 135 L Potassium 4.0 Chloride 102 Carbon Dioxide 22 BUN 59 H Creatinine 2.19 H Glucose 288 H Calcium 7.7 L Troponin I
--- NOTE | 2017-07-12 12:14 | Nephrology Consult Note ---
Date of Encounter: 07/12/17 Time of Encounter: 10:00 Assessment and Plan (1) Acute kidney injury Current Visit: Yes Status: Acute Elevated SCr in the setting of shock likely cardiogenic and recent LHC though contrast nephropathy less likely Agree with cardiac optimization Will check urine for sodium and creatinine Will check urine eosinophils Will check CPK and uric acid levels No acute indication for RAIL DIRECTOR at this time Agree with holding nephrotoxins agents if possible (2) Shock Current Visit: Yes Status: Acute Continue pressor support per primary team History of Present Illness - Reason for Consult Consult date: 07/12/17 Acute Kidney Injury Requesting physician: Mode Owen - History of Present Illness 57 y o female with PMH of DM and CHF with EF of 20% recently dischraged on tuesday this weekrnd returning s/p fall with generalized weakness. She is s/p LHC during previous hospital stay with 60% LAD with no intrevention. She was noted hypotensive on presentation and is currently on pressor support. Renal consulted for worsening renal function with SCr at 2.2, GFR 20. Previous SCr noted at 0.77, GFR >60 as of 07/09/17 on discharge. Pt seen and examined feeling alittle better and denies any chest pain or SOB. Past Med Surg Social Fam HX - Past Medical History Medical history: cancer, CHF, diabetes, TIA Psychiatric history: anxiety, depression - Past Surgical History Surgical History: cancer surgery, non-contributory, other, hysterectomy, breast surgery - Social History Smoking Status: Current every day smoker Smokeless Tobacco Status: No Alcohol use: none Drug use: none - Family History Mother Living Status: Hx Family Cardiac Disorders: Yes Hx Family Respiratory Disorders: Yes (COPD, Emphysema, Asthma) Hx Family Cancer: Yes Hx Family GI Disorders: No Hx Family Endocrine Disorder: Yes (DM, Thyroid) Hx Family Neuromuscular Disorders: No Hx Family Neurologic Disorders: No Hx Family HEENT Disorders: No Hx Family Autoimmune Disorders: No Medications and Allergies Albuterol Sulfate [Albuterol Inhaler] 2 puff IH Q4H PRN 03/21/15 [History] Cholecalciferol (Vitamin D3) [Optimal D3] 50,000 unit PO WE 03/21/15 [History] Ipratropium/Albuterol Sulfate [Combivent Respimat Inhal [place]] 2 puff IH DAILY 03/21/15 [History] Loratadine [Claritin] 10 mg PO DAILY 03/21/15 [History] Nitroglycerin [Nitrostat] 0.4 mg SL Q5M PRN 03/21/15 [History] Sertraline [Zoloft] 50 mg PO DAILY 03/21/15 [History] Omeprazole [PriLOSEC] 20 mg PO DAILY #30 capsule. 05/08/15 [Rx] Albuterol Neb [Proventil Neb] 2.5 mg IH Q6H PRN 03/30/16 [History] Cholecalciferol (D-3) [Vitamin D] 1,000 unit PO DAILY 03/30/16 [History] Nicotine Patch [Nicoderm] 21 mg TD DAILY 03/30/16 [History] Topiramate [Topamax] 50 mg PO HS 03/30/16 [History] Budesonide/Formoterol 160/4.5 [Symbicort 160/4.5] 2 puff IH BIDR 08/06/16 [ History] Clopidogrel [Plavix] 75 mg PO DAILY 08/06/16 [History] EPINEPHrine [Epipen] 0.3 mg IM ONCE PRN 08/06/16 [History] Pregabalin [Lyrica] 150 mg PO BID 08/06/16 [History] Cyclobenzaprine HCl 10 mg PO TID PRN #30 tablet 08/08/16 [Rx] Promethazine [Phenergan] 12.5 mg PO Q6HR PRN #20 tablet 08/08/16 [Rx] Exemestane [Aromasin] 25 mg PO DAILY #30 tablet 06/03/17 [Rx] Alogliptin Benzoate [Alogliptin] 25 mg PO DAILY 07/05/17 [History] Levothyroxine [Synthroid] 50 mcg PO DAILY 07/05/17 [History] Lidocaine Patch [Lidoderm 5% patch] 1 each TP DAILY 07/05/17 [History] Metformin HCl [Metformin HCl ER] 500 mg PO BID 07/05/17 [History] Metoprolol Succinate 100 mg PO DAILY 07/05/17 [History] Nortriptyline HCl 75 mg PO HS 07/05/17 [History] OxyCODONE/APAP 5/325 [Percocet 5/325 MG] 1 each PO DAILY PRN 07/05/17 [History] Atorvastatin [Lipitor] 40 mg PO HS #30 tablet 07/09/17 [Rx] Furosemide [Lasix] 40 mg PO DAILY #30 tablet 07/09/17 [Rx] Insulin Glargine,Hum.rec.anlog [Toujeo Solostar] 50 units SQ BID #0 07/09/17 [Rx ] Insulin LISPRO [Humalog Kwikpen U-100] 15 unit SQ TIDWM #0 07/09/17 [Rx] Ivabradine HCl [Corlanor] 5 mg PO BID #60 tablet 07/09/17 [Rx] Lisinopril [Zestril] 2.5 mg PO DAILY #30 tablet 07/09/17 [Rx] predniSONE [PredniSONE] See Taper PO DAILY 07/11/17 [History] 3 Allergy/AdvReac Type Severity Reaction Status Date / Time aspirin Allergy Hives Verified 07/11/17 16:14 Penicillins [PCN] Allergy Hives Verified 07/11/17 16:14 venom-honey bee Allergy Anaphylaxis Verified 07/11/17 16:14 [bee venom (honey bee)] Review of Systems All Systems: reviewed and no additional remarkable complaints except as stated ( 10 systems reviewed as noted in HPI) Exam - Vital Signs Vital signs: Initial Vital Signs Temp Pulse Resp BP Pulse Ox 97.5 F L 99 20 103/51 97 07/11/17 16:14 07/11/17 16:14 07/11/17 16:14 07/11/17 16:14 07/11/17 16:14 Vital Signs - Last 8 Hours Temp Pulse Resp BP Pulse Ox 07/12/17 11:30 112 21 92/66 96 07/12/17 11:29 99.9 F H 07/12/17 10:30 112 20 98/67 96 07/12/17 09:26 111 20 92/64 97 07/12/17 08:30 111 21 80/56 97 07/12/17 08:05 20 98 07/12/17 07:32 99.2 F 07/12/17 07:30 107 20 91/61 96 07/12/17 06:00 105 16 76/51 07/12/17 05:00 105 16 79/54 07/12/17 04:29 99.6 F Intake and Output 07/11/17 07/12/1707/12/17 23:59 07:59 15:59 Intake Total 1075 / 1075 86 / 86 Output Total 700 / 700 325 / 325 375 / 375 Balance 375 / 375 -239 / -239 -375 / -375 Intake: IV Fluids 1075 / 1075 86 / 86 0.9 % Sodium Chloride 1,000 ML 1000 / 1000 @ 125 mls/hr IVC .Q8H LING Rx#: [id number] Levophed 4 MG In Dextrose 5% 75 / 75 86 / 86 250 ML @ 5 MCG/MIN 19.05 mls/hr IVC CONT LING Rx#:[id number] Output: Catheter 700 / 700 325 / 325 375 / 375 Other: Blood Glucose* 276 248 186 - General Appearance General appearance: well-developed, well-nourished (appears confortable) EENT: ATNC, mucous membranes moist Neck: no JVD, supple Additional Comments: slightly decreased BS bases bilat Cardiology: no edema, normal S1, normal S2 Gastrointestinal: no tenderness, no guarding Integumentary: warm and dry Neurologic: no focal deficit Musculoskeletal: no deformities Psychiatric: mood/affect appropriate Results - Lab Results 07/12/17 04:00 07/12/17 04:00 Most recent lab results Calcium 7.7 mg/dL (8.6-10.8) L 07/12/17 04:00 Phosphorus 8.5 mg/dL (2.3-4.7) H 07/11/17 17:50 Magnesium 1.9 mg/dL (1.6-2.6) 07/11/17 17:50 Consult Discharge Plan - Plan Referrals: Angel Jimenez DO [Primary Care Provider] -
[2017-07-12] MEDS: Norepinephrine 4 MG in D5% in Water 250 ML IVC SCH (12:15)
[2017-07-12 12:38] LABS: Uric Acid 9.3 mg/dL (2.6-6.0)
--- NOTE | 2017-07-12 14:21 | Electrocardiograph Report ---
[place] [id number] Test Date: 2017-07-11 Pat Name: Virginia Rivera Department: 104 Room: [facility] Gender: F Career Transition Specialist: : 1960 Requested By: Jose Santoyo Order Number: [id number] Reading MD: Sena Kaur Measurements Intervals [employer] Rate: 97 P: 50 MD: 146 QRS: -29 QRSD: 110 T: 208 QT: 387 QTc: 442 Interpretive Statements SINUS RHYTHM BORDERLINE LEFT AXIS DEVIATION ST DEVIATION AND MODERATE T-WAVE ABNORMALITY, CONSIDER LATERAL ISCHEMIA Electronically Signed On 07-12-2017 14:20:03 EST by Sena Kaur
[2017-07-12] MEDS ORDERED: Levofloxacin 750 MG/150 ML 750 MG/150 ML BAG IVPB SCH (16:00)
[2017-07-12] MEDS: Pregabalin 75 MG CAPSULE PO SCH (20:18)
[2017-07-12] MEDS ORDERED: Insulin DETEMIR 100 UNIT/ML X5UNITS SQ SCH (21:00)
[2017-07-12] MEDS ORDERED: Insulin LISPRO 300 UNITS/3 ML VIAL SQ SCH (21:00)
[2017-07-12] MEDS ORDERED: Topiramate 25 MG TABLET PO SCH (21:00)
[2017-07-12 21:07] LABS: Protein/Creatinine Ratio,Urine 0.31 mg/mg (0-0.20)
[2017-07-13 04:33] LABS: Hematocrit 37.3 % (35.3-44.9); Hemoglobin 12.2 g/dL (11.5-15.4); Mean Corpuscular HGB Conc 32.7 g/dL (31.6-35.5); Mean Corpuscular Hemoglobin 31.5 pg (28.0-33.3); Mean Corpuscular Volume 96.4 fL (83.0-100.0); Mean Platelet Volume 11.1 fL (9.4-12.4); Platelet Count 137 K/mcL (140-400); Red Blood Count 3.87 M/mcL (3.82-4.97); Red Cell Distribution Width 12.6 % (11.5-14.5)
[2017-07-13 04:51] LABS: BUN/Creatinine Ratio 44 (6-26); Calcium 8.1 mg/dL (8.6-10.8); Carbon Dioxide 24 mEq/L (19-29); Chloride 103 mEq/L (98-109); Glucose 133 mg/dL (70-99); Osmolality,Calculated 289 (280-300); Potassium 3.2 mEq/L (3.5-4.5); Sodium 135 mEq/L (136-145); eGFR For African Americans > 60 (> 60); eGFR For Non-African Americans > 60 (> 60)
[2017-07-13 04:55] LABS: Blood Urea Nitrogen 33 mg/dL (7-20)
[2017-07-13 05:30] LABS: Platelet Estimate Slight Decrease (Normal)
[2017-07-13 05:31] LABS: Hypersegmented Neutrophils Present (Not Present)
[2017-07-13 05:32] LABS: Reactive Lymphocytes Present (Not Present)
[2017-07-13 05:36] LABS: Lymphocytes # 1.6 K/mcL (0.6-4.6); Monocytes # 0.5 K/mcL (0.0-1.3); Neutrophils # 6.4 K/mcL (1.6-8.9)
[2017-07-13] MEDS: *HR* Heparin 5,000 UNIT/ML VIAL SQ SCH ×3 (05:41→21:54)
[2017-07-13] MEDS: Budesonide/Formoterol 160/4.5 MDI IH SCH ×2 (07:44→22:11)
[2017-07-13] MEDS: Pregabalin 75 MG CAPSULE PO SCH ×2 (08:21→21:53)
[2017-07-13] MEDS: Cholecalciferol (D-3) 1,000 UNIT TABLET PO SCH (08:21)
[2017-07-13] MEDS: Nicotine 21 MG PATCH.TD24 TD SCH (08:22)
[2017-07-13] MEDS: Insulin LISPRO 300 UNITS/3 ML VIAL SQ SCH ×4 (08:23→21:54)
[2017-07-13] MEDS ORDERED: predniSONE 20 MG TABLET PO SCH (09:00)
[2017-07-13] MEDS ORDERED: Levofloxacin 750 MG/150 ML 750 MG/150 ML BAG IVPB SCH (09:00)
--- NOTE | 2017-07-13 09:28 | Pulmonology Progress Note ---
<Crissy Hu M - Last Filed: 07/13/17 12:18> Date of Encounter: 07/13/17 Objective PUL Vital signs: Last Vital Signs Temp 98.2 F 07/13/17 07:37 Pulse 120 07/13/17 10:00 Resp 20 07/13/17 10:00 BP 94/67 07/13/17 10:00 Pulse Ox 97 07/13/17 09:00 General appearance: no acute distress Eyes: nonicteric ENT: oropharynx moist Neck: supple Effort: normal Auscultation: bilateral: clear Percussion: bilateral: not dull Cardiovascular: regular rate and rhythm, murmur noted Gastrointestinal: normoactive bowel sounds Extremities: no cyanosis normal mental status, non-focal exam mood appropriate Results - Laboratory Findings CBC and BMP: 07/13/17 04:11 07/13/17 04:11 Abnormal lab findings: Abnormal lab results Plt Count 137 K/mcL (140-400) L 07/13/17 04:11 Band Neutrophils % 8.0 % (0-4) H 07/13/17 04:11 Metamyelocytes % 2.0 % (0) H 07/13/17 04:11 Hypersegmented Neuts Present (Not Present) A 07/13/17 04:11 Reactive Lymphocytes Present (Not Present) A 07/13/17 04:11 Platelet Estimate Slight Decrease (Normal) L 07/13/17 04:11 Sodium 135 mEq/L (136-145) L 07/13/17 04:11 Potassium 3.2 mEq/L (3.5-4.5) L 07/13/17 04:11 BUN 33 mg/dL (7-20) H D 07/13/17 04:11 BUN/Creatinine Ratio 44 (6-26) H 07/13/17 04:11 Glucose 133 mg/dL (70-99) H 07/13/17 04:11 POC Glucose 226 (58-89) H 07/13/17 11:11 Lactic Acid 2.5 mmol/L (0.5-2.2) H 07/12/17 01:15 Uric Acid 9.3 mg/dL (2.6-6.0) H 07/12/17 04:00 Calcium 8.1 mg/dL (8.6-10.8) L 07/13/17 04:11 Phosphorus 8.5 mg/dL (2.3-4.7) H 07/11/17 17:50 Creatine Kinase 271 Units/L (29-168) H 07/12/17 04:00 Troponin I 0.19 ng/mL (0-0.03) H* 07/12/17 01:15 C-Reactive Protein 159 mg/L (Less than 5) H 07/11/17 17:50 B-Natriuretic Peptide 652 pg/mL (0-100) H 07/11/17 17:53 Albumin 3.1 g/dL (3.5-5.0) L 07/11/17 17:50 Albumin/Globulin Ratio 1.0 (1.1-2.2) L 07/11/17 17:50 Protein/Creatinin Ratio 0.31 mg/mg (0-0.20) H 07/12/17 15:30 Salicylates < 5.0 mg/dL (15-30) L 07/11/17 17:50 Acetaminophen < 1.0 mcg/mL (10-30) L 07/11/17 17:50 - Clinical Findings Intake & Output: Intake & Output 07/12/17 07/13/17 07/13/17 23:59 07:59 15:59 Intake Total 79 / 79 Output Total 1050 / 1050 700 / 700 Balance -1050 / -1050 -621 / -621 Consult Discharge Plan - Plan Referrals: Angel Jimenez DO [Primary Care Provider] - - Attending Attestation I examined this patient and my medical decision-making was reviewed with the Resident Physician. I agree with the documented findings, disposition and treatment plan as described except to the extent set forth below. Patient seen and examined. Labs, radiology, chart personally reviewed. 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 Will need to follow up with cardiology and when she is more stable to resume her heart failure medications. GI: Nutrition per dietary and GI prophylaxis per routine Heme: DVT prophylaxis per routine ID: Stop antibiotics Renal; urine out put and renal funtion reviewed Endorcine: blood glucose is monitored Lines: all lines checked and no evidence of infections Skin: skin care to prevent pressure ulcers per nursing routine care Plan to transfer her out of ICU if she remained stable <Lata Major - Last Filed: 07/13/17 16:28> Date of Encounter: 07/13/17 Time of Encounter: 09:28 Assessment and Plan (1) Shock Current Visit: Yes Status: Acute Shock of unclear etiology. Sepsis first cardiogenic versus hypovolemia. -Cardiology recommending switch from norepinephrine 2 dobutamine for 48 hours. -Patient's heart rate trending down on dobutamine, and blood pressure trending upwards. We will continue this medication for 48 hours. -Continue to hold Lasix and diuretics, monitor I's and O's, and renalLY dosed Levaquin for broad-spectrum coverage. -Patient is stable for transferred to [facility]. (2) Dilated cardiomyopathy Current Visit: Yes Status: Acute Left heart catheterization shows nonischemic dilated cardiomyopathy of uncertain etiology. Recent echocardiogram shows LVEF of 15-20%. Electrophysiology at last visit recommended AICD implantation and medical treatment with corLANOR. Patient has chronic tachycardia which electrophysiology does not think is contributing to patient's heart failure. -BMP 652 -Chest x-ray with improvement from previous chest x-ray. -Appreciate cardiology recommendations. (3) CHF (congestive heart failure) Current Visit: Yes Status: Acute Patient with elevated BNP, pulmonary edema and effusions on chest x-ray, as well as AK I and lactic acidosis. -Hold Lasix, ASHISH inhibitor, beta manuel. -Continue statin and Plavix. Qualifiers: Congestive heart failure type: systolic Congestive heart failure chronicity : acute on chronic Qualified Code(s): I50.23 - Acute on chronic systolic ( congestive) heart failure (4) Acute kidney injury Current Visit: Yes Status: Acute Patient with creatinine of 2.2 on admission which has decreased today to 0.75. -Appreciate nephrology recommendations. -Renally dosed Levaquin and avoid nephrotoxic agents. (5) Elevated troponin Current Visit: Yes Status: Acute Patient's troponin 0.22 on admission. -Atypical chest pain. -EKG is not concerning for ischemia. -Follow cardiology recommendations. (6) Dyslipidemia Current Visit: Yes Status: Chronic Continue home medications. (7) COPD (chronic obstructive pulmonary disease) Current Visit: Yes Status: Chronic Continue prednisone taper for prior COPD exacerbation. -Continue duo nebs. 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 Qualifiers: Coronary Disease-Associated Artery/Lesion type: [place] artery [place] vs. transplanted heart: [place] heart Associated angina: without angina Qualified Code(s): I25.10 - Atherosclerotic heart disease of [place] coronary artery without angina pectoris (10) DVT prophylaxis Current Visit: No Status: Acute Subjective Principal diagnosis: Heart Failure Interval history: Patient much more comfortable after having bowel movements overnight. Has no complaints. Objective PUL Vital signs: Last Vital Signs Temp 98.2 F 07/13/17 07:37 Pulse 126 07/13/17 08:00 Resp 22 07/13/17 08:00 BP 108/66 07/13/17 08:00 Pulse Ox 99 07/13/17 08:00 General appearance: no acute distress (TachycaRDIA), alert Eyes: nonicteric ENT: oropharynx moist, oropharynx dry Effort: normal Auscultation: bilateral: clear, diminished breath sounds Cardiovascular: murmur noted, other Gastrointestinal: normoactive bowel sounds Extremities: no cyanosis, no edema Musculoskeletal: no deformities normal mental status, non-focal exam mood appropriate Results - Laboratory Findings CBC and BMP: 07/13/17 04:11 07/13/17 04:11 Abnormal lab findings: Abnormal lab results Plt Count 137 K/mcL (140-400) L 07/13/17 04:11 Band Neutrophils % 8.0 % (0-4) H 07/13/17 04:11 Metamyelocytes % 2.0 % (0) H 07/13/17 04:11 Hypersegmented Neuts Present (Not Present) A 07/13/17 04:11 Reactive Lymphocytes Present (Not Present) A 07/13/17 04:11 Platelet Estimate Slight Decrease (Normal) L 07/13/17 04:11 Sodium 135 mEq/L (136-145) L 07/13/17 04:11 Potassium 3.2 mEq/L (3.5-4.5) L 07/13/17 04:11 BUN 33 mg/dL (7-20) H D 07/13/17 04:11 BUN/Creatinine Ratio 44 (6-26) H 07/13/17 04:11 Glucose 133 mg/dL (70-99) H 07/13/17 04:11 POC Glucose 118 (58-89) H 07/13/17 07:10 Lactic Acid 2.5 mmol/L (0.5-2.2) H 07/12/17 01:15 Uric Acid 9.3 mg/dL (2.6-6.0) H 07/12/17 04:00 Calcium 8.1 mg/dL (8.6-10.8) L 07/13/17 04:11 Phosphorus 8.5 mg/dL (2.3-4.7) H 07/11/17 17:50 Creatine Kinase 271 Units/L (29-168) H 07/12/17 04:00 Troponin I 0.19 ng/mL (0-0.03) H* 07/12/17 01:15 C-Reactive Protein 159 mg/L (Less than 5) H 07/11/17 17:50 B-Natriuretic Peptide 652 pg/mL (0-100) H 07/11/17 17:53 Albumin 3.1 g/dL (3.5-5.0) L 07/11/17 17:50 Albumin/Globulin Ratio 1.0 (1.1-2.2) L 07/11/17 17:50 Protein/Creatinin Ratio 0.31 mg/mg (0-0.20) H 07/12/17 15:30 Salicylates < 5.0 mg/dL (15-30) L 07/11/17 17:50 Acetaminophen < 1.0 mcg/mL (10-30) L 07/11/17 17:50 - Clinical Findings Intake & Output: Intake & Output 07/12/17 07/13/17 07/13/17 23:59 07:59 15:59 Intake Total 79 / 79 Output Total 1050 / 1050 700 / 700 Balance -1050 / -1050 -621 / -621
[2017-07-13] MEDS ORDERED: Albumin Human 5% 25.0 GM/500 ML VIAL ONE (10:14)
--- NOTE | 2017-07-13 11:15 | Cardiology Progress Note ---
<Angel Jimenez - Last Filed: 07/13/17 16:19> Date of Encounter: 07/13/17 Time of Encounter: 10:00 Assessment and Plan (1) Shock Current Visit: Yes Status: Acute Shock of unclear etiology, likely sepsis with hypovolemia, unlikely cardiogenic EKG demonstrates no acute changes suggestive of massive cardiac decompensation from previous visit SIRS Criteria: Tachycardia, hypotension, tachypnea, borderline temp, no known source of infection Blood pressure remains low, MAP >60. Patient is not on IVF or Pressors Patient has negative fluid balance of 300ml We will add Dobutamine GTT titration for ionotrope action, continue for 48hr for potential cardiac toning, Monitor closely Recommend continue to hold Lasix, continue gentle hydration, medical management for heart failure Code(s): R57.9 - Shock, unspecified (2) Dilated cardiomyopathy Current Visit: Yes Status: Acute Non-ischemic dilated cardiomyopathy of uncertain etiology On recent admission, patient was found to have new LVEF 15-20%, was discharged on medical management BNP 652, CXR mild pulmonary edema Troponins 0.19 and adynamic, elevation likely secondary to demand ischemia from shock/DENISSE The patient appears clinically hypovolemic, which may explain tachycardia Recommend strict I/O and daily weights. Discussion w patient/family: The assessment and plan as outlined above was discussed with the patient and/or family members who expressed understanding and agreement. All questions were answered. Thank you for involving us in the care of your patient. Please call with any questions. Subjective Principal diagnosis: Heart Failure Interval history: The patient says that she is feeling much better than she was previously. She has been off of levofed since 4am without complication. Objective Vital Signs, Last 4 Hours Temp Pulse Resp BP Pulse Ox 07/13/17 10:00 120 20 94/67 07/13/17 09:00 121 20 84/52 97 07/13/17 08:00 126 22 108/66 99 07/13/17 07:45 22 98 07/13/17 07:37 98.2 F General: Conversant, No Apparent Distress HEENT: Atraumatic, Normocephaly, Mucus Membranes Moist Neck: No JVD, Normal carotid pulses Cardiac: Reg Rate and Rhythm, Normal S1 and S2, No Murmur Lungs: Normal Breath Sounds, No Wheeze, Rales, Rhonchi Neuro: Alert and responsive, No focal deficits noted Abdomen: Soft, Non-Tender Skin: No rashes noted on visualized skin Musculoskeletal: No Chest Wall Tenderness Extremities: No Clubbing, No Cyanosis, No Edema, Normal Pulses Results 07/13/17 04:11 07/13/17 04:11 Lab Results 07/12/17 07/13/17 07/13/17 04:00 04:11 04:11 WBC 8.7 Hgb 12.2 Hct 37.3 Plt Count 137 L Sodium 135 L 135 L Potassium 4.0 3.2 L Chloride 102 103 Carbon Dioxide 22 24 BUN 59 H 33 H D Creatinine 2.19 H 0.75 D Glucose 288 H 133 H Calcium 7.7 L 8.1 L Consult Discharge Plan - Plan Referrals: Angel Jimenez DO [Primary Care Provider] - <Ole Faulkner - Last Filed: 07/13/17 17:34> Date of Encounter: 07/13/17 Assessment and Plan (1) CHF (congestive heart failure) Current Visit: Yes Status: Acute I examined this patient and my medical decision-making was reviewed with the Resident Physician. I agree with the documented findings, disposition and treatment plan as described except to the extent set forth below. 1. Hypotension: has improved with gentle rehydration, I&O still (-) if can believe recorded fluid intake, would continue to hold lasix for now until blood pressure recovers 2. Acute on chronic systolic heart failure, CXR suggests mild pulmonary edema not evident on clinical exam, will start IV inotrope with Dobutamine at 5 mg continuous infusion for 48 to 72 hours, follow heart rate and blood pressure response. If able to improve bp, may see gentle diuresis from improved renal perfusion. , continue to monitor weights and I&O carefully. Will add aldactone when blood pressure allows. 3. NOn-ischemic cardiomyopathy, monitor as above, will consider life vest at discharge due to high risk sudden cardiac . Qualifiers: Congestive heart failure type: systolic Congestive heart failure chronicity : acute on chronic Qualified Code(s): I50.23 - Acute on chronic systolic ( congestive) heart failure Discussion w patient/family: The assessment and plan as outlined above was discussed with the patient and/or family members who expressed understanding and agreement. All questions were answered. Thank you for involving us in the care of your patient. Please call with any questions. Objective Vital Signs, Last 4 Hours Temp Pulse Resp BP Pulse Ox 07/13/17 17:05 97.8 F 07/13/17 15:00 114 18 131/87 97 07/13/17 14:00 118 17 109/74 98 Results 07/13/17 04:11 07/13/17 04:11 Lab Results 07/13/17 07/13/17 04:11 04:11 WBC 8.7 Hgb 12.2 Hct 37.3 Plt Count 137 L Sodium 135 L Potassium 3.2 L Chloride 103 Carbon Dioxide 24 BUN 33 H D Creatinine 0.75 D Glucose 133 H Calcium 8.1 L
[2017-07-13] MEDS: Norepinephrine 4 MG in D5% in Water 250 ML IVC SCH (14:12)
--- NOTE | 2017-07-13 16:25 | Nephrology Progress Note ---
Date of Encounter: 07/13/17 Time of Encounter: 16:00 - Assessment and Plan (1) Acute kidney injury Current Visit: Yes Status: Acute SCr normalized at 0.75, GFR >60 UOP good Will sign off, please reconsult prn (2) Shock Current Visit: Yes Status: Acute Resolved Subjective Principal diagnosis: Heart Failure Interval history: Pt seen and examined resting but arousable. family present at bedside and now off pressor Objective - Vital Signs Vital signs: Vital Signs Temp Pulse Resp BP Pulse Ox 07/13/17 15:00 114 18 131/87 97 07/13/17 14:00 118 17 109/74 98 07/13/17 13:00 121 22 98/70 96 07/13/17 12:00 120 20 95/70 97 07/13/17 11:38 98.1 F 07/13/17 11:00 116 22 89/58 97 07/13/17 10:00 120 20 94/67 97 07/13/17 09:00 121 20 84/52 97 07/13/17 08:00 126 22 108/66 99 07/13/17 07:45 22 98 07/13/17 07:37 98.2 F 07/13/17 06:10 118 22 88/54 98 07/13/17 05:00 115 18 81/60 97 07/13/17 04:42 97.7 F 07/13/17 04:10 112 22 85/53 96 07/13/17 03:00 111 18 96/49 98 07/13/17 02:00 110 17 85/58 99 07/13/17 01:00 106 17 91/59 99 07/13/17 00:28 105 07/13/17 00:14 97.6 F 07/13/17 00:00 105 16 86/56 94 07/12/17 23:00 112 18 82/62 95 07/12/17 22:00 109 16 83/60 94 07/12/17 21:02 106 14 87/58 96 07/12/17 20:43 18 96 07/12/17 20:20 98.7 F 109 07/12/17 20:00 109 17 109/70 97 07/12/17 19:00 109 23 92/65 97 07/12/17 18:27 110 20 90/69 96 07/12/17 17:30 110 20 103/73 98 07/12/17 16:30 107 19 102/69 96 Intake and Output 07/13/17 07/13/17 07/13/17 07:59 15:59 23:59 Intake Total 79 / 79 Output Total 700 / 700 150 / 150 Balance -621 / -621 -150 / -150 Intake: IV Fluids 79 / 79 Levophed 4 MG In Dextrose 5% 79 / 79 250 ML @ 8 MCG/MIN 30.48 mls/hr IVC CONT LING Rx#:[id number] Output: Catheter 700 / 700 150 / 150 Other: Meal Breakfast Percent of Meal Consumed 10% Stool Size Large Small Stool Consistency loose loose formed Stool Characteristics Normal for Patient Stool Color Brown Brown # Bowel Movements 2 Blood Glucose* 118 226 - Lab 07/13/17 04:11 07/13/17 04:11 Most recent lab results Calcium 8.1 mg/dL (8.6-10.8) L 07/13/17 04:11 Phosphorus 8.5 mg/dL (2.3-4.7) H 07/11/17 17:50 Magnesium 1.9 mg/dL (1.6-2.6) 07/11/17 17:50 Urine Creatinine 42 mg/dL 07/12/17 15:30 Urine Sodium 97.0 mEq/L 07/12/17 15:30 Urine Total Protein 13 mg/dL (1-14) 07/12/17 15:30 Consult Discharge Plan - Plan Referrals: Angel Jimenez DO [Primary Care Provider] -
[2017-07-13] MEDS ORDERED: Albuterol 2.5 MG/3 ML NEBULIZER IH PRN (18:33)
[2017-07-13] MEDS ORDERED: Dextrose Gel 15 GM PO PRN ×2 (18:33)
[2017-07-13] MEDS ORDERED: Ondansetron 4 MG/2 ML VIAL IVP PRN (18:33)
[2017-07-13] MEDS ORDERED: *HR* Dextrose 50 % in Water (Syg) 50 ML SYRINGE IVP PRN (18:33)
[2017-07-13] MEDS ORDERED: Ipratropium/Albuterol Neb 3 ML IH PRN (18:33)
[2017-07-13] MEDS ORDERED: D5% in Water 1,000 ML IVC PRN (18:33)
[2017-07-13] MEDS ORDERED: *HR* HYDROmorphone (PF) 1 MG/ML SYRINGE IVP PRN (18:33)
[2017-07-13] MEDS ORDERED: Acetaminophen 325 MG TABLET PO PRN (18:33)
[2017-07-13] MEDS ORDERED: Naloxone 0.4 MG/ML INJ IVP PRN (18:33)
[2017-07-13] MEDS ORDERED: *HR* HYDROcodone/Acet 5/325 mg TABLET PO PRN (18:33)
[2017-07-13] MEDS: Insulin DETEMIR 100 UNIT/ML X5UNITS SQ SCH (21:51)
[2017-07-13] MEDS: Topiramate 25 MG TABLET PO SCH (21:53)
[2017-07-14] MEDS: *HR* Heparin 5,000 UNIT/ML VIAL SQ SCH ×3 (06:12→21:09)
[2017-07-14 07:01] LABS: Hematocrit 35.2 % (35.3-44.9); Hemoglobin 11.6 g/dL (11.5-15.4); Mean Corpuscular Volume 97.2 fL (83.0-100.0); Platelet Count 112 K/mcL (140-400); Red Blood Count 3.62 M/mcL (3.82-4.97); Red Cell Distribution Width 12.7 % (11.5-14.5)
[2017-07-14 07:03] LABS: Alanine Aminotransferase 17 Units/L (0-55); Albumin 2.6 g/dL (3.5-5.0); Albumin/Globulin Ratio 0.7 (1.1-2.2); Alkaline Phosphatase 131 Units/L (38-126); Aspartate Amino Transferase 15 Units/L (5-34); BUN/Creatinine Ratio 26 (6-26); Bilirubin,Total 0.6 mg/dL (0.2-1.2); Calcium 8.6 mg/dL (8.6-10.8); Carbon Dioxide 23 mEq/L (19-29); Chloride 104 mEq/L (98-109); Globulin 3.6 g/dL (2.4-3.5); Glucose 126 mg/dL (70-99); Osmolality,Calculated 287 (280-300); Potassium 3.3 mEq/L (3.5-4.5); Sodium 137 mEq/L (136-145); Total Protein 6.2 g/dL (6.0-8.3); eGFR For African Americans > 60 (> 60); eGFR For Non-African Americans > 60 (> 60)
[2017-07-14 07:05] LABS: Blood Urea Nitrogen 17 mg/dL (7-20)
[2017-07-14] MEDS: Budesonide/Formoterol 160/4.5 MDI IH SCH ×2 (07:32→20:33)
[2017-07-14 07:43] LABS: Lymphocytes # 1.7 K/mcL (0.6-4.6); Neutrophils # 6.1 K/mcL (1.6-8.9)
[2017-07-14 07:44] LABS: Platelet Estimate Slight Decrease (Normal)
[2017-07-14] MEDS: Insulin LISPRO 300 UNITS/3 ML VIAL SQ SCH ×4 (08:14→21:10)
[2017-07-14] MEDS ORDERED: predniSONE 20 MG TABLET PO SCH (09:00)
[2017-07-14] MEDS ORDERED: predniSONE 10 MG TABLET PO SCH (09:00)
[2017-07-14] MEDS: Pregabalin 75 MG CAPSULE PO SCH ×2 (09:17→21:08)
[2017-07-14] MEDS: Nicotine 21 MG PATCH.TD24 TD SCH (09:17)
[2017-07-14] MEDS: Cholecalciferol (D-3) 1,000 UNIT TABLET PO SCH (09:18)
--- NOTE | 2017-07-14 09:50 | Cardiology Progress Note ---
Date of Encounter: 07/14/17 Time of Encounter: 09:45 Assessment and Plan (1) Shock Current Visit: Yes Status: Acute Normotensive. Tachycardic likely 2/2 low stroke volume from severe systolic CHF (nonischemic). Stop dobutamine, continue low dose BB. Patient is not requiring any oxygen at this point. (2) CAD (coronary artery disease) Current Visit: Yes Status: Chronic Moderate CAD by recent [facility]. Continue antiplatelet therapy if able. BB once hypotension resolves. Statin. Qualifiers: Coronary Disease-Associated Artery/Lesion type: [place] artery [place] vs. transplanted heart: [place] heart Associated angina: without angina Qualified Code(s): I25.10 - Atherosclerotic heart disease of [place] coronary artery without angina pectoris (3) Acute systolic (congestive) heart failure Current Visit: No Status: Acute DC dobutamine, patient is approaching euvolemia, does not require any oxygen. low dose EBM BB and ACEI Discussion w patient/family: The assessment and plan as outlined above was discussed with the patient and/or family members who expressed understanding and agreement. All questions were answered. Thank you for involving us in the care of your patient. Please call with any questions. Subjective Principal diagnosis: Heart Failure Interval history: Denies chest/jaw/arm discomfort, dyspnea or palpitations. Objective Vital Signs, Last 4 Hours Temp Pulse Resp BP Pulse Ox 07/14/17 09:21 120 19 123/78 97 07/14/17 08:00 116 19 135/83 98 07/14/17 07:33 15 99 07/14/17 07:32 97.8 F 07/14/17 06:00 112 16 95/55 97 Results 07/14/17 06:39 07/14/17 06:39 Lab Results 07/14/17 07/14/17 06:39 06:39 WBC 7.8 Hgb 11.6 Hct 35.2 L Plt Count 112 L Sodium 137 Potassium 3.3 L Chloride 104 Carbon Dioxide 23 BUN 17 D Creatinine 0.65 Glucose 126 H Calcium 8.6 Total Bilirubin 0.6 AST 15 ALT 17 Alkaline Phosphatase 131 H Consult Discharge Plan - Plan Referrals: Angel Jimenez DO [Primary Care Provider] -
[2017-07-14] MEDS ORDERED: Levofloxacin 750 MG/150 ML 750 MG/150 ML BAG IVPB SCH (11:00)
--- NOTE | 2017-07-14 11:06 | Pulmonology Progress Note ---
Date of Encounter: 07/14/17 Time of Encounter: 07:30 Assessment and Plan (1) CHF (congestive heart failure) Current Visit: Yes Status: Chronic Reviewed cardiology recommendations and agree, I'd defer management of her heart failure and medications management to cardiology team. Qualifiers: Congestive heart failure type: systolic Congestive heart failure chronicity : acute on chronic Qualified Code(s): I50.23 - Acute on chronic systolic ( congestive) heart failure (2) Shock Current Visit: Yes Status: Resolved Patient is feeling better on dobutamine and that makes me think her blood pressure is most likely related to her congestive heart failure. Replace electrolytes and check TSH (3) COPD (chronic obstructive pulmonary disease) Current Visit: Yes Status: Chronic Continue bronchodilators and stop antibiotic and systemic steroid Qualifiers: COPD type: unspecified COPD Qualified Code(s): J44.9 - Chronic obstructive pulmonary disease, unspecified Subjective Principal diagnosis: Heart Failure Interval history: Patient was started on dobutamine and she is feeling better. She denies any complaint. Objective PUL Vital signs: Last Vital Signs Temp 97.8 F 07/14/17 07:32 Pulse 121 07/14/17 10:00 Resp 23 07/14/17 10:00 BP 77/60 07/14/17 10:00 Pulse Ox 95 07/14/17 10:00 General appearance: no acute distress Eyes: nonicteric ENT: oropharynx moist Neck: supple, no JVD Effort: normal Auscultation: bilateral: rales Percussion: bilateral: not dull Cardiovascular: regular rate and rhythm Gastrointestinal: normoactive bowel sounds, non-distended Extremities: no cyanosis, no edema normal mental status, non-focal exam mood appropriate Results - Laboratory Findings CBC and BMP: 07/14/17 06:39 07/14/17 06:39 Abnormal lab findings: Abnormal lab results RBC 3.62 M/mcL (3.82-4.97) L 07/14/17 06:39 Hct 35.2 % (35.3-44.9) L 07/14/17 06:39 Plt Count 112 K/mcL (140-400) L 07/14/17 06:39 Band Neutrophils % 18.0 % (0-4) H 07/14/17 06:39 Metamyelocytes % 2.0 % (0) H 07/13/17 04:11 Hypersegmented Neuts Present (Not Present) A 07/13/17 04:11 Reactive Lymphocytes Present (Not Present) A 07/13/17 04:11 Platelet Estimate Slight Decrease (Normal) L 07/14/17 06:39 Potassium 3.3 mEq/L (3.5-4.5) L 07/14/17 06:39 Glucose 126 mg/dL (70-99) H 07/14/17 06:39 POC Glucose 123 (58-89) H 07/14/17 07:08 Lactic Acid 2.5 mmol/L (0.5-2.2) H 07/12/17 01:15 Uric Acid 9.3 mg/dL (2.6-6.0) H 07/12/17 04:00 Phosphorus 8.5 mg/dL (2.3-4.7) H 07/11/17 17:50 Alkaline Phosphatase 131 Units/L (38-126) H 07/14/17 06:39 Creatine Kinase 271 Units/L (29-168) H 07/12/17 04:00 Troponin I 0.19 ng/mL (0-0.03) H* 07/12/17 01:15 C-Reactive Protein 159 mg/L (Less than 5) H 07/11/17 17:50 B-Natriuretic Peptide 652 pg/mL (0-100) H 07/11/17 17:53 Albumin 2.6 g/dL (3.5-5.0) L 07/14/17 06:39 Globulin 3.6 g/dL (2.4-3.5) H 07/14/17 06:39 Albumin/Globulin Ratio 0.7 (1.1-2.2) L 07/14/17 06:39 Protein/Creatinin Ratio 0.31 mg/mg (0-0.20) H 07/12/17 15:30 Salicylates < 5.0 mg/dL (15-30) L 07/11/17 17:50 Acetaminophen < 1.0 mcg/mL (10-30) L 07/11/17 17:50 - Clinical Findings Intake & Output: Intake & Output 07/13/17 07/14/17 07/14/17 23:59 07:59 15:59 Intake Total 250 / 250 360 / 360 Balance 250 / 250 360 / 360 Consult Discharge Plan - Plan Referrals: Angel Jimenez DO [Primary Care Provider] -
[2017-07-14] MEDS: Insulin DETEMIR 100 UNIT/ML X5UNITS SQ SCH (21:09)
[2017-07-14] MEDS: Topiramate 25 MG TABLET PO SCH (21:09)
[2017-07-15 03:21] LABS: Basophils % 0.1 %; Eosinophils % 0.1 %; Hematocrit 35.2 % (35.3-44.9); Hemoglobin 11.7 g/dL (11.5-15.4); Immature Granulocytes % 0.6 % (0-4); Lymphocytes # 1.9 K/mcL (0.6-4.6); Lymphocytes % 20.8 %; Mean Corpuscular HGB Conc 33.2 g/dL (31.6-35.5); Mean Corpuscular Hemoglobin 31.8 pg (28.0-33.3); Mean Corpuscular Volume 95.7 fL (83.0-100.0); Mean Platelet Volume 11.3 fL (9.4-12.4); Monocytes # 0.5 K/mcL (0.0-1.3); Monocytes % 5.5 %; Neutrophils # 6.5 K/mcL (1.6-8.9); Platelet Count 120 K/mcL (140-400); Red Blood Count 3.68 M/mcL (3.82-4.97); Red Cell Distribution Width 12.7 % (11.5-14.5); Segmented Neutrophils % 72.9 %
[2017-07-15 03:37] LABS: Alanine Aminotransferase 25 Units/L (0-55); Albumin 2.3 g/dL (3.5-5.0); Albumin/Globulin Ratio 0.7 (1.1-2.2); Alkaline Phosphatase 236 Units/L (38-126); Aspartate Amino Transferase 26 Units/L (5-34); BUN/Creatinine Ratio 24 (6-26); Bilirubin,Direct 0.3 mg/dL (0.0-0.5); Bilirubin,Indirect 0.2 mg/dL (0.0-1.2); Bilirubin,Total 0.5 mg/dL (0.2-1.2); Blood Urea Nitrogen 14 mg/dL (7-20); Calcium 8.2 mg/dL (8.6-10.8); Carbon Dioxide 20 mEq/L (19-29); Chloride 107 mEq/L (98-109); Globulin 3.4 g/dL (2.4-3.5); Glucose 180 mg/dL (70-99); Osmolality,Calculated 287 (280-300); Potassium 3.4 mEq/L (3.5-4.5); Sodium 136 mEq/L (136-145); Total Protein 5.7 g/dL (6.0-8.3); eGFR For African Americans > 60 (> 60); eGFR For Non-African Americans > 60 (> 60)
[2017-07-15] MEDS: *HR* Heparin 5,000 UNIT/ML VIAL SQ SCH ×3 (06:31→21:08)
[2017-07-15] MEDS: Pregabalin 75 MG CAPSULE PO SCH ×2 (08:13→21:07)
[2017-07-15] MEDS: Cholecalciferol (D-3) 1,000 UNIT TABLET PO SCH (08:13)
[2017-07-15] MEDS: Spironolactone 25 MG TABLET PO SCH (08:13)
[2017-07-15] MEDS: Nicotine 21 MG PATCH.TD24 TD SCH (08:14)
[2017-07-15] MEDS: Insulin LISPRO 300 UNITS/3 ML VIAL SQ SCH ×4 (08:15→21:08)
--- NOTE | 2017-07-15 08:55 | Cardiology Progress Note ---
Date of Encounter: 07/16/17 Time of Encounter: 08:55 Assessment and Plan (1) Shock Current Visit: Yes Status: Resolved Patient remains hypotensive off of pressors BP 91-111/59-87, MAP 71, HR 109-111, O2 94% on room air Appears comfortable without acute distress Code(s): R57.9 - Shock, unspecified (2) CHF (congestive heart failure) Current Visit: Yes Status: Chronic Acute systolic CHF, hypotensive off pressors Patient appears euvolemic, +170 fluid balance, -2kg since admission Optimal medical management challenging due to continued hypotension Add BB, Aldactone, ASHISH-I in low doses as tolerated by BP Qualifiers: Congestive heart failure type: systolic Congestive heart failure chronicity : acute on chronic Qualified Code(s): I50.23 - Acute on chronic systolic ( congestive) heart failure (3) Dilated cardiomyopathy Current Visit: Yes Status: Acute Non-ischemic dilated cardiomyopathy of uncertain etiology On recent admission, patient was found to have new LVEF 15-20%, was discharged on medical management See note above regarding optimal medical management Intervention with Life vest/AICD not indicated in this patient as there is no ischemic component Discussion w patient/family: The assessment and plan as outlined above was discussed with the patient and/or family members who expressed understanding and agreement. All questions were answered. Thank you for involving us in the care of your patient. Please call with any questions. Subjective Principal diagnosis: Heart Failure Interval history: The patient is resting comfortably in bed at time of examination. She is breathing room air, and appears to be in no acute distress. She says that she is having mild chest pain that is constant and is not new, and that she is feeling generally weak. Otherwise she has no acute complaints. Objective Vital Signs, Last 4 Hours Temp Pulse Resp BP Pulse Ox 07/15/17 07:30 109 07/15/17 07:15 98.5 F 109 19 94/59 94 General: Conversant, No Apparent Distress HEENT: Atraumatic, Normocephaly, Mucus Membranes Moist Neck: No JVD, Normal carotid pulses Cardiac: Reg Rate and Rhythm (Tachycardic), Normal S1 and S2, No Murmur Lungs: Other (Bibasilar crackles heard on auscultation) Neuro: Alert and responsive, No focal deficits noted Abdomen: Soft, Non-Tender Skin: No rashes noted on visualized skin Musculoskeletal: No Chest Wall Tenderness Extremities: No Clubbing, No Cyanosis, No Edema, Normal Pulses Results 07/15/17 03:01 07/16/17 08:08 Lab Results 07/15/17 07/15/17 03:01 03:01 WBC 8.9 Hgb 11.7 Hct 35.2 L Plt Count 120 L Sodium 136 Potassium 3.4 L Chloride 107 Carbon Dioxide 20 BUN 14 Creatinine 0.59 Glucose 180 H Calcium 8.2 L Total Bilirubin 0.5 AST 26 ALT 25 Alkaline Phosphatase 236 H Consult Discharge Plan - Plan Referrals: Angel Jimenez DO [Primary Care Provider] -
--- NOTE | 2017-07-15 10:56 | Internal Med Progress Note ---
<Dave Lyn - Last Filed: 07/15/17 10:57> Date of Encounter: 07/15/17 Time of Encounter: 10:30 - Assessment and plan (1) Cardiogenic shock Current Visit: Yes Status: Acute (2) CAD (coronary artery disease) Current Visit: Yes Status: Chronic Qualifiers: Coronary Disease-Associated Artery/Lesion type: [place] artery [place] vs. transplanted heart: [place] heart Associated angina: without angina Qualified Code(s): I25.10 - Atherosclerotic heart disease of [place] coronary artery without angina pectoris (3) Acute systolic (congestive) heart failure Current Visit: No Status: Acute - Subjective Interval history: Patient was seen and examined at bedside this morning. Patient reports that she feels better than she did on admission. She denies having any shortness of breath or chest pain. She still has some residual weakness, but she states that it is improving. Patient slept well last night. She has no complaints at this time. - Constitutional Vitals: Temp Pulse Resp BP Pulse Ox 98.5 F 109 19 94/59 94 07/15/17 07:15 07/15/17 07:30 07/15/17 07:15 07/15/17 07:15 07/15/17 07:15 - Head Head exam: Present: atraumatic, normocephalic - Eye Eye exam: Present: PERRL, conjuntiva pink, sclera anicteric Pupils: Present: PERRL - Neck Neck exam general surgery: Present: supple, trachea midline. Absent: lymphadenopathy - Respiratory Respiratory exam: Present: CTAB. Absent: accessory muscle use, rales, rhonchi, wheezes - Cardiovascular Cardiovascular exam: Present: RRR, +S1, +S2. Absent: diastolic murmur, gallop, rubs, systolic murmur - Skin Skin exam: Present: dry, intact Internal Medicine: Result - Labs CBC & Chem 7: 07/15/17 03:01 07/15/17 03:01 Labs: Short CBC 07/15/17 Range/Units 03:01 WBC 8.9 (4.3-11.1) K/mcL Hgb 11.7 (11.5-15.4) g/dL Hct 35.2 L (35.3-44.9) % Plt Count 120 L (140-400) K/mcL Neutrophils # 6.5 (1.6-8.9) K/mcL [facility] 07/15/17 03:01 Sodium 136 Potassium 3.4 L Chloride 107 Carbon Dioxide 20 BUN 14 Creatinine 0.59 Glucose 180 H Calcium 8.2 L Liver Function 07/15/17 Range/Units 03:01 Total Bilirubin 0.5 (0.2-1.2) mg/dL Direct Bilirubin 0.3 (0.0-0.5) mg/dL AST 26 (5-34) Units/L ALT 25 (0-55) Units/L Alkaline Phosphatase 236 H (38-126) Units/L Albumin 2.3 L (3.5-5.0) g/dL Consult Discharge Plan - Plan Referrals: Angel Jimenez DO [Primary Care Provider] - <Yunior Blackwell - Last Filed: 07/15/17 13:03> Date of Encounter: 07/15/17 - Constitutional Vitals: Temp Pulse Resp BP Pulse Ox 98.4 F 114 20 120/84 95 07/15/17 11:25 07/15/17 11:25 07/15/17 11:25 07/15/17 11:25 07/15/17 11:25 Internal Medicine: Result - Labs CBC & Chem 7: 07/15/17 03:01 07/15/17 03:01 Labs: Short CBC 07/15/17 Range/Units 03:01 WBC 8.9 (4.3-11.1) K/mcL Hgb 11.7 (11.5-15.4) g/dL Hct 35.2 L (35.3-44.9) % Plt Count 120 L (140-400) K/mcL Neutrophils # 6.5 (1.6-8.9) K/mcL [facility] 07/15/17 03:01 Sodium 136 Potassium 3.4 L Chloride 107 Carbon Dioxide 20 BUN 14 Creatinine 0.59 Glucose 180 H Calcium 8.2 L Liver Function 07/15/17 Range/Units 03:01 Total Bilirubin 0.5 (0.2-1.2) mg/dL Direct Bilirubin 0.3 (0.0-0.5) mg/dL AST 26 (5-34) Units/L ALT 25 (0-55) Units/L Alkaline Phosphatase 236 H (38-126) Units/L Albumin 2.3 L (3.5-5.0) g/dL - Attending Attestation I independently reviewed and examined this patient. I agree with the findings, assessment, and plan of Dr. Lyn. Congestive heart failure management as per cardiology services. Their input is appreciated. Patient appears to be improved overall. No obvious infection identified. Continue to closely monitor.
[2017-07-15] MEDS: Budesonide/Formoterol 160/4.5 MDI IH SCH ×2 (11:57→20:05)
[2017-07-15] MEDS: Topiramate 25 MG TABLET PO SCH (21:06)
[2017-07-15] MEDS: Insulin DETEMIR 100 UNIT/ML X5UNITS SQ SCH (21:07)
[2017-07-16] MEDS: *HR* Heparin 5,000 UNIT/ML VIAL SQ SCH ×3 (06:19→20:24)
[2017-07-16] MEDS: Spironolactone 25 MG TABLET PO SCH (07:49)
[2017-07-16] MEDS: Pregabalin 75 MG CAPSULE PO SCH ×2 (07:49→20:25)
[2017-07-16] MEDS: Cholecalciferol (D-3) 1,000 UNIT TABLET PO SCH (07:49)
[2017-07-16] MEDS: Insulin LISPRO 300 UNITS/3 ML VIAL SQ SCH ×4 (07:49→20:29)
[2017-07-16] MEDS: Nicotine 21 MG PATCH.TD24 TD SCH (07:54)
[2017-07-16 08:32] LABS: BUN/Creatinine Ratio 23 (6-26); Blood Urea Nitrogen 13 mg/dL (7-20); Calcium 8.7 mg/dL (8.6-10.8); Carbon Dioxide 18 mEq/L (19-29); Chloride 106 mEq/L (98-109); Glucose 185 mg/dL (70-99); Osmolality,Calculated 291 (280-300); Potassium 3.3 mEq/L (3.5-4.5); Sodium 138 mEq/L (136-145); eGFR For African Americans > 60 (> 60); eGFR For Non-African Americans > 60 (> 60)
[2017-07-16] MEDS ORDERED: *HR* HYDROcodone/Acet 10/325 mg TABLET PO PRN (09:10)
--- NOTE | 2017-07-16 09:10 | Cardiology Progress Note ---
Date of Encounter: 07/16/17 Time of Encounter: 08:30 Assessment and Plan (1) Non-ischemic cardiomyopathy Current Visit: Yes Status: Chronic Per cardiology: -Known non-ischemic cardiomyopathy. -ON beta manuel and aldactone. -BP 100-110s systolic. -Euvolemic on exam. -LHC 06/2017 with non-obstructive CAD. -TTE 06/2017 with LVEF 15%, global hypokinesis. -BP improved today. Will add low dose claus inhibitor. -Will continue to monitor. (2) Acute systolic (congestive) heart failure Current Visit: No Status: Acute Per cardiology: -Euvolemic on exam today. -WEight has decreased 3.2kg since admission. -No longer requireing O2. -Will continue to monitor. Discussion w patient/family: The assessment and plan as outlined above was discussed with the patient who expressed understanding and agreement. All questions were answered. Thank you for involving us in the care of your patient. Please call with any questions. Discussed and reviewed with . Subjective Principal diagnosis: Heart Failure Interval history: Patient states she feels ok today. States shortness of breath has improved. Objective Vital Signs, Last 4 Hours Temp Pulse Resp BP Pulse Ox 07/16/17 07:42 116 07/16/17 06:43 98.3 F 114 18 116/90 94 General: Conversant, No Apparent Distress HEENT: Atraumatic, Normocephaly, Mucus Membranes Moist Neck: No JVD, Normal carotid pulses Cardiac: Normal S1 and S2, No Murmur, Other (Tachycardic) Lungs: Normal Breath Sounds, No Wheeze, Rales, Rhonchi Neuro: Alert and responsive, No focal deficits noted Abdomen: Soft, Non-Tender Skin: No rashes noted on visualized skin Musculoskeletal: No Chest Wall Tenderness Extremities: No Clubbing, No Cyanosis, No Edema, Normal Pulses Results 07/15/17 03:01 07/16/17 08:08 Lab Results Active Medications Acetaminophen (Tylenol) 650 mg PO Q6HR PRN PRN Reason: Mild Pain (1-3) Stop: 01/10/18 21:21 Hydrocodone Bitart/Acetaminophen ([place] 5-325 Mg) 1 tab PO Q4HR PRN PRN Reason: Moderate Pain (4-6) Stop: 01/10/18 21:21 Albuterol Sulfate (Proventil Neb) 2.5 mg IH Q6H PRN; Protocol PRN Reason: Shortness Of Breath Stop: 01/10/18 22:24 Albuterol/Ipratropium (Duoneb) 3 ml IH [id number] PRN PRN Reason: Shortness Of Breath/Wheezing Stop: 01/10/18 22:26 Atorvastatin Calcium (Lipitor) 40 mg PO HS [facility] Stop: 01/11/18 21:01 Last Admin: 07/15/17 21:07 Dose: 40 mg Budesonide/Formoterol Fumarate (Symbicort) 2 puff IH BIDR LING PRN Reason: Protocol Stop: 01/11/18 10:01 Last Admin: 07/15/17 20:05 Dose: 2 puff Clopidogrel Bisulfate (Plavix) 75 mg PO DAILY [facility] Stop: 01/11/18 09:01 Last Admin: 07/16/17 07:48 Dose: 75 mg Dextrose/Water (Dextrose 50% (Syg)) 25 ml IVP AD PRN PRN Reason: Hypoglycemia Stop: 01/10/18 22:26 Glucagon (Glucagen) 1 mg IM ONCE PRN PRN Reason: Hypoglycemia Stop: 01/10/18 22:26 Glucose (Gluctose) 15 gm PO ONCE PRN PRN Reason: Hypoglycemia Stop: 01/10/18 22:26 Glucose (Gluctose) 30 gm PO ONCE PRN PRN Reason: Hypoglycemia Stop: 01/10/18 22:26 Heparin Sodium (Porcine) (Heparin) 5,000 unit SQ Q8HCO [facility] Stop: 01/12/18 22:01 Last Admin: 07/16/17 06:19 Dose: 5,000 unit Hydromorphone HCl (Dilaudid) 0.5 mg IVP Q4HR PRN PRN Reason: Severe Pain (7-10) Stop: 01/10/18 21:21 Dextrose (Dextrose 5%) 1,000 mls @ 100 mls/hr IVC .Q10H PRN PRN Reason: HYPOGLYCEMIA Stop: 01/10/18 22:26 Insulin Detemir (Levemir) 12 unit 0.15 unit/kg (12 unit) SQ HS [facility] Stop: 01/11/18 21:01 Last Admin: 07/15/17 21:07 Dose: 12 unit Insulin Human Lispro (Humalog) 0 units SQ TIDAC LING PRN Reason: Protocol Stop: 01/11/18 07:31 Last Admin: 07/16/17 07:49 Dose: 2 units Insulin Human Lispro (Humalog) 0 units SQ HS [facility] PRN Reason: Protocol Stop: 01/11/18 21:01 Last Admin: 07/15/17 21:08 Dose: 3 units Levothyroxine Sodium (Synthroid) 50 mcg PO 0630 [facility] Stop: 01/11/18 06:31 Last Admin: 07/16/17 06:19 Dose: 50 mcg Lidocaine HCl (Lidoderm 5% Patch) 1 each TP DAILY [facility] Stop: 01/11/18 09:01 Last Admin: 07/16/17 07:52 Dose: 1 each Lisinopril (Zestril) 2.5 mg PO DAILY [facility] PRN Reason: Protocol Stop: 01/15/18 09:16 Metoprolol Tartrate (Lopressor) 12.5 mg PO BID [facility] Stop: 01/14/18 13:31 Last Admin: 07/16/17 07:48 Dose: 12.5 mg Naloxone HCl (Narcan) 0.4 mg IVP Q2MIN PRN PRN Reason: Opioid Reversal Stop: 01/10/18 21:21 Nicotine (Nicoderm) 21 mg TD DAILY [facility] PRN Reason: Protocol Stop: 01/11/18 09:01 Last Admin: 07/16/17 07:54 Dose: 21 mg Nortriptyline HCl (Pamelor) 75 mg PO HS [facility] Stop: 01/11/18 21:01 Last Admin: 07/15/17 21:05 Dose: 75 mg Omeprazole (Prilosec) 20 mg PO 0630 [facility] PRN Reason: Protocol Stop: 01/11/18 06:31 Last Admin: 07/16/17 06:19 Dose: 20 mg Ondansetron HCl (Zofran) 4 mg IVP Q8HR PRN PRN Reason: Nausea And Vomiting Stop: 01/10/18 21:21 Pregabalin (Lyrica) 75 mg PO BID [facility] Stop: 01/11/18 09:01 Last Admin: 07/16/17 07:49 Dose: 75 mg Sertraline HCl (Zoloft) 50 mg PO DAILY [facility] Stop: 01/11/18 09:01 Last Admin: 07/16/17 07:48 Dose: 50 mg Spironolactone (Aldactone) 12.5 mg PO DAILY [facility] Stop: 01/14/18 09:01 Last Admin: 07/16/17 07:49 Dose: 12.5 mg Topiramate (Topamax) 50 mg PO HS [facility] Stop: 01/11/18 21:01 Last Admin: 07/15/17 21:06 Dose: 50 mg Vitamin D (Vitamin D) 1,000 unit PO DAILY [facility] Stop: 01/11/18 09:01 Last Admin: 07/16/17 07:49 Dose: 1,000 unit Laboratory Tests 07/15/17 07/16/17 03:01 08:08 Hgb 11.7 Creatinine 0.57 - Imaging and Cardiology Chest Xray: report reviewed Echo: report reviewed Cardiac cath: report reviewed - EKG Interpretation EKG results cardiology: other (Telemetry reviewed with average HR previous 12 hours noted to be 112, sinus tachycardia. PVCs and PACs noted.) Consult Discharge Plan - Plan Referrals: Angel Jimenez DO [Primary Care Provider] -
[2017-07-16] MEDS ORDERED: *HR* HYDROcodone/Acet 5/325 mg TABLET PO PRN (09:14)
[2017-07-16] MEDS: Budesonide/Formoterol 160/4.5 MDI IH SCH ×2 (10:26→20:42)
--- NOTE | 2017-07-16 13:32 | Internal Med Progress Note ---
<Yunior Blackwell - Last Filed: 07/16/17 16:08> Date of Encounter: 07/16/17 - Constitutional Vitals: Temp Pulse Resp BP Pulse Ox 97.5 F L 111 20 93/66 92 07/16/17 15:49 07/16/17 15:49 07/16/17 15:49 07/16/17 15:49 07/16/17 15:49 Internal Medicine: Result - Labs CBC & Chem 7: 07/15/17 03:01 07/16/17 08:08 Labs: BMP 07/16/17 08:08 Sodium 138 Potassium 3.3 L Chloride 106 Carbon Dioxide 18 L BUN 13 Creatinine 0.57 Glucose 185 H Calcium 8.7 Consult Discharge Plan - Plan Referrals: Angel Jimenez DO [Primary Care Provider] - - Attending Attestation I independently examined and interviewed this pt. I agree with the findings, assessment and plan of Dr. kinney, medical coordinator pesticide use. PT continues to improve. Plans for poss ASHISH inhibitor if BP allows. Cardiology input noted and appreciated. Antic dc tomorrow if continues to do well. Increase activity. <David Kinney - Last Filed: 07/16/17 16:32> Date of Encounter: 07/16/17 Time of Encounter: 13:00 - Assessment and plan (1) Cardiogenic shock Current Visit: Yes Status: Acute Assessment and plan: BP has been low 100s / 70s, improved from prior O2 sat 94% on RA HR = 112 Appears comfortable without acute distress (2) CAD (coronary artery disease) Current Visit: Yes Status: Chronic Assessment and plan: Followed by cardiology. Moderate CAD by recent [facility]. Continue antiplatelet therapy if able. BB once hypotension resolves. Statin Qualifiers: Coronary Disease-Associated Artery/Lesion type: [place] artery [place] vs. transplanted heart: [place] heart Associated angina: without angina Qualified Code(s): I25.10 - Atherosclerotic heart disease of [place] coronary artery without angina pectoris (3) Acute systolic (congestive) heart failure Current Visit: No Status: Acute Assessment and plan: Cardiology following, appreciate recommendations: Euvolemic on exam Weight has decreased 3.2kg since admission No longer requiring O2 (4) Non-ischemic cardiomyopathy Current Visit: Yes Status: Chronic Assessment and plan: Per cardiology: -Known non-ischemic cardiomyopathy. -ON beta manuel and aldactone. -BP 100-110s systolic. -Euvolemic on exam. -LHC 06/2017 with non-obstructive CAD. -TTE 06/2017 with LVEF 15%, global hypokinesis. -Low dose ashish inhibitor added -Will continue to monitor - Subjective Interval history: Patient recently discharged with CHF EF = 20%, nonischemic CMP S/P LHC with 60% mid LAD occlusion without intervention, acute respiratory failure with hypoxia. She is here this admission following a fall at home, progressive weakness and difficulty tolerating oral intake. Dehydration with lactic acidosis and DENISSE, hypotension. She was admitted to the ICU for cardiogenic shock. Patient was seen and evaluated at bedside today. She is lying in bed in no acute distress, she feels like her breathing is seen initially improved relative to time of presentation. She is having a mild amount of chest pain but this is also improved and denies new complaints - Constitutional Vitals: Temp Pulse Resp BP Pulse Ox 97.5 F L 102 16 104/70 93 07/16/17 11:22 07/16/17 11:25 07/16/17 11:22 07/16/17 11:22 07/16/17 11:22 General appearance: Present: cooperative, pleasant, no acute distress, answers questions appropriately - Respiratory Respiratory exam: Present: wheezes (Mild and diffuse). Absent: accessory muscle use, rales, rhonchi - Cardiovascular Cardiovascular exam: Present: RRR, +S1, +S2. Absent: diastolic murmur, gallop, rubs, systolic murmur - Skin Skin exam: Present: dry, intact Internal Medicine: Result - Labs CBC & Chem 7: 07/15/17 03:01 07/16/17 08:08 Labs: BMP 07/16/17 08:08 Sodium 138 Potassium 3.3 L Chloride 106 Carbon Dioxide 18 L BUN 13 Creatinine 0.57 Glucose 185 H Calcium 8.7
[2017-07-16] MEDS: Topiramate 25 MG TABLET PO SCH (20:25)
[2017-07-16] MEDS: Insulin DETEMIR 100 UNIT/ML X5UNITS SQ SCH (20:25)
[2017-07-17] MEDS: *HR* Heparin 5,000 UNIT/ML VIAL SQ SCH (05:41)
[2017-07-17 06:28] LABS: Basophils % 0.5 %; Eosinophils % 0.3 %; Hematocrit 37.1 % (35.3-44.9); Hemoglobin 12.4 g/dL (11.5-15.4); Immature Granulocytes % 1.2 % (0-4); Lymphocytes # 1.8 K/mcL (0.6-4.6); Lymphocytes % 23.9 %; Mean Corpuscular HGB Conc 33.4 g/dL (31.6-35.5); Mean Corpuscular Hemoglobin 31.7 pg (28.0-33.3); Mean Corpuscular Volume 94.9 fL (83.0-100.0); Mean Platelet Volume 11.2 fL (9.4-12.4); Monocytes # 0.6 K/mcL (0.0-1.3); Neutrophils # 5.1 K/mcL (1.6-8.9); Platelet Count 127 K/mcL (140-400); Red Blood Count 3.91 M/mcL (3.82-4.97); Red Cell Distribution Width 12.9 % (11.5-14.5); Segmented Neutrophils % 66.1 %
[2017-07-17 06:34] LABS: BUN/Creatinine Ratio 20 (6-26); Blood Urea Nitrogen 11 mg/dL (7-20); Calcium 8.4 mg/dL (8.6-10.8); Carbon Dioxide 20 mEq/L (19-29); Chloride 107 mEq/L (98-109); Glucose 185 mg/dL (70-99); Osmolality,Calculated 286 (280-300); Potassium 3.6 mEq/L (3.5-4.5); Sodium 136 mEq/L (136-145); eGFR For African Americans > 60 (> 60); eGFR For Non-African Americans > 60 (> 60)
[2017-07-17] MEDS: Nicotine 21 MG PATCH.TD24 TD SCH (08:06)
[2017-07-17] MEDS: Insulin LISPRO 300 UNITS/3 ML VIAL SQ SCH ×2 (08:07→11:38)
[2017-07-17] MEDS: Cholecalciferol (D-3) 1,000 UNIT TABLET PO SCH (08:08)
[2017-07-17] MEDS: Pregabalin 75 MG CAPSULE PO SCH (08:09)
[2017-07-17] MEDS: Spironolactone 25 MG TABLET PO SCH (08:09)
--- NOTE | 2017-07-17 10:16 | Cardiology Progress Note ---
Date of Encounter: 07/17/17 Time of Encounter: 09:00 Assessment and Plan (1) Non-ischemic cardiomyopathy Current Visit: Yes Status: Chronic Per cardiology: -Known non-ischemic cardiomyopathy. -ON beta manuel, claus inhibitor, and aldactone. -BP 100-110s systolic. -Euvolemic on exam. -[facility] 06/2017 with non-obstructive CAD. -TTE 06/2017 with LVEF 15%, global hypokinesis. -Can consider changing lopressor to toprol in outpatient setting pending BP trend. -Recommend patient keep HR and BP log once discahrged. -Patient is stable from cardiac standpoint for discharge. -Will follow closely in outpatient setting. Follow up set. (2) Acute systolic (congestive) heart failure Current Visit: No Status: Acute Per cardiology: -Euvolemic on exam today. -WEight has decreased 3.2kg since admission. -No longer requireing O2, states only needed at night last night. -CHF education given to patient. Pateint educated to call cardiology for weight gain, increased shortness of breath, or increased edema. Patient states understanding. -Will continue to monitor in outpateint setting. Discussion w patient/family: The assessment and plan as outlined above was discussed with the patient who expressed understanding and agreement. All questions were answered. Thank you for involving us in the care of your patient. Please call with any questions. Discussed and reviewed with . Subjective Principal diagnosis: Heart Failure Interval history: Patient states she feels ok today. States shortness of breath has improved. Patient states she only needed her O2 at bedtime last night. Objective Vital Signs, Last 4 Hours Temp Pulse Resp BP Pulse Ox 07/17/17 08:05 114 07/17/17 07:36 98.2 F 108 20 107/73 96 General: Conversant, No Apparent Distress HEENT: Atraumatic, Normocephaly, Mucus Membranes Moist Neck: No JVD, Normal carotid pulses Cardiac: Normal S1 and S2, No Murmur, Other (Tachycardic) Lungs: Normal Breath Sounds, No Wheeze, Rales, Rhonchi Neuro: Alert and responsive, No focal deficits noted Abdomen: Soft, Non-Tender Skin: No rashes noted on visualized skin Musculoskeletal: No Chest Wall Tenderness Extremities: No Clubbing, No Cyanosis, No Edema, Normal Pulses Results 07/17/17 06:13 07/17/17 06:13 Lab Results Active Medications Acetaminophen (Tylenol) 650 mg PO Q6HR PRN PRN Reason: Mild Pain (1-3) Stop: 01/10/18 21:21 Hydrocodone Bitart/Acetaminophen ([place] 5-325 Mg) 1 tab PO Q4HR PRN PRN Reason: Pain Stop: 01/15/18 09:15 Albuterol Sulfate (Proventil Neb) 2.5 mg IH Q6H PRN; Protocol PRN Reason: Shortness Of Breath Stop: 01/10/18 22:24 Albuterol/Ipratropium (Duoneb) 3 ml IH [id number] PRN PRN Reason: Shortness Of Breath/Wheezing Stop: 01/10/18 22:26 Atorvastatin Calcium (Lipitor) 40 mg PO HS [facility] Stop: 01/11/18 21:01 Last Admin: 07/16/17 20:26 Dose: 40 mg Budesonide/Formoterol Fumarate (Symbicort) 2 puff IH BIDR LING PRN Reason: Protocol Stop: 01/11/18 10:01 Last Admin: 07/16/17 20:42 Dose: 2 puff Clopidogrel Bisulfate (Plavix) 75 mg PO DAILY [facility] Stop: 01/11/18 09:01 Last Admin: 07/17/17 08:09 Dose: 75 mg Dextrose/Water (Dextrose 50% (Syg)) 25 ml IVP AD PRN PRN Reason: Hypoglycemia Stop: 01/10/18 22:26 Glucagon (Glucagen) 1 mg IM ONCE PRN PRN Reason: Hypoglycemia Stop: 01/10/18 22:26 Glucose (Gluctose) 15 gm PO ONCE PRN PRN Reason: Hypoglycemia Stop: 01/10/18 22:26 Glucose (Gluctose) 30 gm PO ONCE PRN PRN Reason: Hypoglycemia Stop: 01/10/18 22:26 Heparin Sodium (Porcine) (Heparin) 5,000 unit SQ Q8HCO [facility] Stop: 01/12/18 22:01 Last Admin: 07/17/17 05:41 Dose: 5,000 unit Hydromorphone HCl (Dilaudid) 0.5 mg IVP Q4HR PRN PRN Reason: Severe Pain (7-10) Stop: 01/10/18 21:21 Dextrose (Dextrose 5%) 1,000 mls @ 100 mls/hr IVC .Q10H PRN PRN Reason: HYPOGLYCEMIA Stop: 01/10/18 22:26 Insulin Detemir (Levemir) 12 unit 0.15 unit/kg (12 unit) SQ HS [facility] Stop: 01/11/18 21:01 Last Admin: 07/16/17 20:25 Dose: 12 unit Insulin Human Lispro (Humalog) 0 units SQ TIDAC [facility] PRN Reason: Protocol Stop: 01/11/18 07:31 Last Admin: 07/17/17 08:07 Dose: 2 units Insulin Human Lispro (Humalog) 0 units SQ HS [facility] PRN Reason: Protocol Stop: 01/11/18 21:01 Last Admin: 07/16/17 20:29 Dose: 4 units Levothyroxine Sodium (Synthroid) 50 mcg PO 0630 [facility] Stop: 01/11/18 06:31 Last Admin: 07/17/17 05:42 Dose: 50 mcg Lidocaine HCl (Lidoderm 5% Patch) 1 each TP DAILY [facility] Stop: 01/11/18 09:01 Last Admin: 07/17/17 08:06 Dose: 1 each Lisinopril (Zestril) 2.5 mg PO DAILY [facility] PRN Reason: Protocol Stop: 01/15/18 09:16 Last Admin: 07/17/17 08:08 Dose: 2.5 mg Metoprolol Tartrate (Lopressor) 12.5 mg PO BID [facility] Stop: 01/14/18 13:31 Last Admin: 07/17/17 08:09 Dose: 12.5 mg Naloxone HCl (Narcan) 0.4 mg IVP Q2MIN PRN PRN Reason: Opioid Reversal Stop: 01/10/18 21:21 Nicotine (Nicoderm) 21 mg TD DAILY [facility] PRN Reason: Protocol Stop: 01/11/18 09:01 Last Admin: 07/17/17 08:06 Dose: 21 mg Nortriptyline HCl (Pamelor) 75 mg PO HS [facility] Stop: 01/11/18 21:01 Last Admin: 07/16/17 20:25 Dose: 75 mg Omeprazole (Prilosec) 20 mg PO 0630 [facility] PRN Reason: Protocol Stop: 01/11/18 06:31 Last Admin: 07/17/17 05:41 Dose: 20 mg Ondansetron HCl (Zofran) 4 mg IVP Q8HR PRN PRN Reason: Nausea And Vomiting Stop: 01/10/18 21:21 Last Admin: 07/16/17 22:19 Dose: 4 mg Potassium Chloride (Potassium Chloride) 40 meq PO BID [facility] Stop: 01/16/18 06:19 Last Admin: 07/17/17 09:41 Dose: Not Given Pregabalin (Lyrica) 75 mg PO BID [facility] Stop: 01/11/18 09:01 Last Admin: 07/17/17 08:09 Dose: 75 mg Sertraline HCl (Zoloft) 50 mg PO DAILY [facility] Stop: 01/11/18 09:01 Last Admin: 07/17/17 08:08 Dose: 50 mg Spironolactone (Aldactone) 12.5 mg PO DAILY [facility] Stop: 01/14/18 09:01 Last Admin: 07/17/17 08:09 Dose: 12.5 mg Topiramate (Topamax) 50 mg PO HS [facility] Stop: 01/11/18 21:01 Last Admin: 07/16/17 20:25 Dose: 50 mg Vitamin D (Vitamin D) 1,000 unit PO DAILY [facility] Stop: 01/11/18 09:01 Last Admin: 07/17/17 08:08 Dose: 1,000 unit Laboratory Tests 07/17/17 07/17/17 06:13 06:13 Hgb 12.4 Creatinine 0.56 L - Imaging and Cardiology Chest Xray: report reviewed Echo: report reviewed Cardiac cath: report reviewed - EKG Interpretation EKG results cardiology: other (Telemetry reviewed with average HR previous 12 hours noted to be 111, sinus tachycardia. PVCs and PACs noted.) Consult Discharge Plan - Plan Referrals: Angel Jimenez DO [Primary Care Provider] -
[2017-07-17] MEDS: Budesonide/Formoterol 160/4.5 MDI IH SCH (10:27)
[2017-07-17 11:10] VITALS: BP 90/59
--- NOTE | 2017-07-17 12:18 | Discharge Summary ---
<GregoriaDavidslick Ortiz - Last Filed: 07/17/17 13:47> Date of Encounter: 07/17/17 Time of Encounter: 12:04 - Discharge Diagnosis (1) Cardiogenic shock Priority: Primary Status: Acute (2) Acute systolic (congestive) heart failure Priority: Primary Status: Acute (3) CAD (coronary artery disease) Priority: Secondary Status: Chronic Qualifiers: Coronary Disease-Associated Artery/Lesion type: rosebud artery [place] vs. transplanted heart: rosebud heart Associated angina: without angina Qualified Code(s): I25.10 - Atherosclerotic heart disease of [place] coronary artery without angina pectoris (4) Non-ischemic cardiomyopathy Priority: Secondary Status: Chronic - Discharge Medications Prescriptions: Lisinopril [Zestril] 2.5 mg PO DAILY #30 tablet Metoprolol [Lopressor] 12.5 mg PO BID #30 tablet Spironolactone [Aldactone] 12.5 mg PO DAILY #30 tablet Home Medications: Albuterol Sulfate [Albuterol Inhaler] 2 puff IH Q4H PRN 03/21/15 [History] Cholecalciferol (Vitamin D3) [Optimal D3] 50,000 unit PO WE 03/21/15 [History] Ipratropium/Albuterol Sulfate [Combivent Respimat Inhal [place]] 2 puff IH DAILY 03/21/15 [History] Loratadine [Claritin] 10 mg PO DAILY 03/21/15 [History] Nitroglycerin [Nitrostat] 0.4 mg SL Q5M PRN 03/21/15 [History] Sertraline [Zoloft] 50 mg PO DAILY 03/21/15 [History] Omeprazole [PriLOSEC] 20 mg PO DAILY #30 capsule. 05/08/15 [Rx] Albuterol Neb [Proventil Neb] 2.5 mg IH Q6H PRN 03/30/16 [History] Cholecalciferol (D-3) [Vitamin D] 1,000 unit PO DAILY 03/30/16 [History] Nicotine Patch [Nicoderm] 21 mg TD DAILY 03/30/16 [History] Topiramate [Topamax] 50 mg PO HS 03/30/16 [History] Budesonide/Formoterol 160/4.5 [Symbicort 160/4.5] 2 puff IH BIDR 08/06/16 [ History] Clopidogrel [Plavix] 75 mg PO DAILY 08/06/16 [History] EPINEPHrine [Epipen] 0.3 mg IM ONCE PRN 08/06/16 [History] Pregabalin [Lyrica] 150 mg PO BID 08/06/16 [History] Cyclobenzaprine HCl 10 mg PO TID PRN #30 tablet 08/08/16 [Rx] Promethazine [Phenergan] 12.5 mg PO Q6HR PRN #20 tablet 08/08/16 [Rx] Exemestane [Aromasin] 25 mg PO DAILY #30 tablet 06/03/17 [Rx] Alogliptin Benzoate [Alogliptin] 25 mg PO DAILY 07/05/17 [History] Levothyroxine [Synthroid] 50 mcg PO DAILY 07/05/17 [History] Lidocaine Patch [Lidoderm 5% patch] 1 each TP DAILY 07/05/17 [History] Metformin HCl [Metformin HCl ER] 500 mg PO BID 07/05/17 [History] Nortriptyline HCl 75 mg PO HS 07/05/17 [History] OxyCODONE/APAP 5/325 [Percocet 5/325 MG] 1 each PO DAILY PRN 07/05/17 [History] Atorvastatin [Lipitor] 40 mg PO HS #30 tablet 07/09/17 [Rx] Furosemide [Lasix] 40 mg PO DAILY #30 tablet 07/09/17 [Rx] Insulin Glargine,Hum.rec.anlog [Toujeo Solostar] 50 units SQ BID #0 07/09/17 [Rx ] Insulin LISPRO [Humalog Kwikpen U-100] 15 unit SQ TIDWM #0 07/09/17 [Rx] Ivabradine HCl [Corlanor] 5 mg PO BID #60 tablet 07/09/17 [Rx] predniSONE [PredniSONE] See Taper PO DAILY 07/11/17 [History] Lisinopril [Zestril] 2.5 mg PO DAILY #30 tablet 07/17/17 [Rx] Metoprolol [Lopressor] 12.5 mg PO BID #30 tablet 07/17/17 [Rx] Spironolactone [Aldactone] 12.5 mg PO DAILY #30 tablet 07/17/17 [Rx] Allergies/Adverse Reactions: 3 Allergy/AdvReac Type Severity Reaction Status Date / Time aspirin Allergy Hives Verified 07/11/17 16:14 Penicillins [PCN] Allergy Hives Verified 07/11/17 16:14 Sulfa (Sulfonamide Allergy Hives Verified 07/12/17 18:37 Antibiotics) venom-honey bee Allergy Anaphylaxis Verified 07/11/17 16:14 [bee venom (honey bee)] Date of admission: 07/11/17 21:20 Primary care physician: Angel Jimenez DO Consults: 07/12/17 00:51 Consult to Critical Care [CONS] Stat Consulting Provider: Pulm Crit [facility] [place] Reason for Consult: Cardiogenic shock on pressors Call Completed: No 07/12/17 00:52 Consult to Cardiology [CONS] Routine Comment: Consulting Provider: Cardiology [place] Reason for Consult: Cardiogenic shock Call Completed: No 07/12/17 00:53 Consult to Nephrology [CONS] Routine Consulting Provider: Kidney [place]/PRAFUL/JUAN/JASMINE Reason for Consult: DENISSE, cardiogenic shock Call Completed: No Discharging clinician: Yunior Blackwell Anticipated date of discharge: 07/17/17 - Patient Status Disposition: Home, Self-Care Condition: Fair Functional capacity at discharge: independent ambulation Overall status at discharge: patient is progressing back to baseline - Discharge Instructions Instructions: Metoprolol (By mouth), Spironolactone (By mouth), Lisinopril (By mouth), Heart Failure (GEN) Follow Up With: Marlene Redding COACH BUILDER [Advanced Practice Nurse] - (CARDIOLOGY OFFICE WILL CALL YOU WITH FOLLOW UP APPOINTMENT) Angel Jimenez DO [Primary Care Provider] - (REQUEST SENT 07/17/17. OFFICE WILL CALL YOU WITH FOLLOW UP APPOINTMENT) - Diet and Activity Activity: increase activity as tolerated Diet: advance to your usual diet Interval History: Patient was seen and examined at bedside this morning. She states she is doing "good" and requests that she go home today. Her shortness of breath and weakness are significantly improved relative to time of presentation Hospital course: Ms. Rivera is a 57 year old female who had a recent prior admission to [facility] for acute respiratory failure with hypoxia, nonischemic cardiomyopathy status post [facility] with 60% mid LAD occlusion without intervention, and CHF echocardiogram showing ejection fraction of 20%. She returned to the hospital shortly thereafter and has been with us from 07/11-07/17/17 after a fall at home and subsequent progressive weakness and difficulty tolerating oral intake. She was found to be dehydrated with lactic acidosis and acute kidney injury as well as hypotension. She was initially admitted to the ICU for cardiogenic shock where she was stabilized. Ms. Rivera has been recovering well over the past several days, vital signs stable, and was seen by cardiology this morning who believes she is stable for discharge. She tolerated ASHISH inhibitor and Aldactone well and appeared euvolemic on discharge. Can consider changing Lopressor to Toprol in the outpatient setting pending her blood pressure trend. Patient was advised to maintain a log of her blood pressure and heart rate and bring this to her follow-up cardiology appointment - Time Spent with Patient Total time spent providing and/or coordinating discharge services: Greater than 30 minutes - Constitutional Vitals: Temp Pulse Resp BP Pulse Ox 98.0 F 111 20 90/59 95 07/17/17 11:03 07/17/17 11:40 07/17/17 11:03 07/17/17 11:03 07/17/17 11:40 General appearance: Present: cooperative, pleasant, no acute distress, answers questions appropriately - Head Head exam: Present: atraumatic, normocephalic - Respiratory Respiratory exam: Present: CTAB. Absent: accessory muscle use, rales, rhonchi, wheezes - Cardiovascular Cardiovascular exam: Present: +S1, +S2, tachycardia. Absent: diastolic murmur, systolic murmur - GI/Abdominal GI/Abdominal exam: Present: normal bowel sounds, soft, no peritoneal signs. Absent: distended, tenderness - Extremities Exam Extremities exam: Present: warm, radial pulses palpable and symmetrical. Absent : cyanotic, pedal edema - Neurological Exam Neurological exam: Present: alert, oriented X3, no focal deficits <Yunior Blackwell - Last Filed: 07/17/17 15:17> Date of Encounter: 07/17/17 Date of admission: 07/11/17 21:20 Primary care physician: Angel Jimenez DO Consults: 07/12/17 00:51 Consult to Critical Care [CONS] Stat Consulting Provider: Pulm Crit Care & Sleep [place] Reason for Consult: Cardiogenic shock on pressors Call Completed: No 07/12/17 00:52 Consult to Cardiology [CONS] Routine Comment: Consulting Provider: Cardiology [place] Reason for Consult: Cardiogenic shock Call Completed: No 07/12/17 00:53 Consult to Nephrology [CONS] Routine Consulting Provider: Kidney Isabelle/PRAFUL/JUAN/JASMINE Reason for Consult: DENISSE, cardiogenic shock Call Completed: No Hospital course: Ms. Rivera is a 57 year old female - Time Spent with Patient Total time spent providing and/or coordinating discharge services: - Constitutional Vitals: Temp Pulse Resp BP Pulse Ox 98.0 F 111 20 90/59 95 07/17/17 11:03 07/17/17 11:40 07/17/17 11:03 07/17/17 11:03 07/17/17 11:40 - Attending Attestation I performed an indep exam and history of this pt. I agree with the findings, assessment and plan of Dr. Kinney, registered medical assistant. We also discussed the case with cardiology. Pt stbale for dc with close follow up. Please see dc summary for full details. My input is reflected in this as we discussed the case in detail. Pt did tolerate ASHISH Inhibitor and aldactone, and will need close monitoring of her renal fxn. cardiology follow up arrnaged. CHF discharge instructions provided. 33 min spent on dc and coord of care.
--- NOTE | 2017-07-17 15:03 | Physician Discharge Referral ---
Home Health/Hosp Referral Info Transfer to: Home Health Attending Provider: shanita Provider in Charge Post Discharge: PCP - Diagnosis (1) Cardiogenic shock Priority: Primary Status: Acute (2) Acute systolic (congestive) heart failure Priority: Primary Status: Acute (3) CAD (coronary artery disease) Priority: Secondary Status: Chronic (4) Non-ischemic cardiomyopathy Priority: Secondary Status: Chronic - Respiratory Orders Oxygen / L per min (2L per minute) Smoking Cessation: Smoking cessation has been advised. For more information, call the [place] Tobacco Quit Line at 7-990-QAUB-NOW. - Diet/Nutrition Diet/Nutrition Orders: Regular - Activity Activity Orders: Up ad sanchez - Services Needed Following services are medically necessary services: Nursing, Physical Therapy, Occupational Therapy - Transfer Medications Prescriptions: Lisinopril [Zestril] 2.5 mg PO DAILY #30 tablet Metoprolol [Lopressor] 12.5 mg PO BID #30 tablet Spironolactone [Aldactone] 12.5 mg PO DAILY #30 tablet Home Medications: Albuterol Sulfate [Albuterol Inhaler] 2 puff IH Q4H PRN 03/21/15 [History] Cholecalciferol (Vitamin D3) [Optimal D3] 50,000 unit PO WE 03/21/15 [History] Ipratropium/Albuterol Sulfate [Combivent Respimat Inhal [place]] 2 puff IH DAILY 03/21/15 [History] Loratadine [Claritin] 10 mg PO DAILY 03/21/15 [History] Nitroglycerin [Nitrostat] 0.4 mg SL Q5M PRN 03/21/15 [History] Sertraline [Zoloft] 50 mg PO DAILY 03/21/15 [History] Omeprazole [PriLOSEC] 20 mg PO DAILY #30 capsule. 05/08/15 [Rx] Albuterol Neb [Proventil Neb] 2.5 mg IH Q6H PRN 03/30/16 [History] Cholecalciferol (D-3) [Vitamin D] 1,000 unit PO DAILY 03/30/16 [History] Nicotine Patch [Nicoderm] 21 mg TD DAILY 03/30/16 [History] Topiramate [Topamax] 50 mg PO HS 03/30/16 [History] Budesonide/Formoterol 160/4.5 [Symbicort 160/4.5] 2 puff IH BIDR 08/06/16 [ History] Clopidogrel [Plavix] 75 mg PO DAILY 08/06/16 [History] EPINEPHrine [Epipen] 0.3 mg IM ONCE PRN 08/06/16 [History] Pregabalin [Lyrica] 150 mg PO BID 08/06/16 [History] Cyclobenzaprine HCl 10 mg PO TID PRN #30 tablet 08/08/16 [Rx] Promethazine [Phenergan] 12.5 mg PO Q6HR PRN #20 tablet 08/08/16 [Rx] Exemestane [Aromasin] 25 mg PO DAILY #30 tablet 06/03/17 [Rx] Alogliptin Benzoate [Alogliptin] 25 mg PO DAILY 07/05/17 [History] Levothyroxine [Synthroid] 50 mcg PO DAILY 07/05/17 [History] Lidocaine Patch [Lidoderm 5% patch] 1 each TP DAILY 07/05/17 [History] Metformin HCl [Metformin HCl ER] 500 mg PO BID 07/05/17 [History] Nortriptyline HCl 75 mg PO HS 07/05/17 [History] OxyCODONE/APAP 5/325 [Percocet 5/325 MG] 1 each PO DAILY PRN 07/05/17 [History] Atorvastatin [Lipitor] 40 mg PO HS #30 tablet 07/09/17 [Rx] Furosemide [Lasix] 40 mg PO DAILY #30 tablet 07/09/17 [Rx] Insulin Glargine,Hum.rec.anlog [Toujeo Solostar] 50 units SQ BID #0 07/09/17 [Rx ] Insulin LISPRO [Humalog Kwikpen U-100] 15 unit SQ TIDWM #0 07/09/17 [Rx] Ivabradine HCl [Corlanor] 5 mg PO BID #60 tablet 07/09/17 [Rx] predniSONE [PredniSONE] See Taper PO DAILY 07/11/17 [History] Lisinopril [Zestril] 2.5 mg PO DAILY #30 tablet 07/17/17 [Rx] Metoprolol [Lopressor] 12.5 mg PO BID #30 tablet 07/17/17 [Rx] Spironolactone [Aldactone] 12.5 mg PO DAILY #30 tablet 07/17/17 [Rx] Allergies/Adverse Reactions: 3 Allergy/AdvReac Type Severity Reaction Status Date / Time aspirin Allergy Hives Verified 07/11/17 16:14 Penicillins [PCN] Allergy Hives Verified 07/11/17 16:14 Sulfa (Sulfonamide Allergy Hives Verified 07/12/17 18:37 Antibiotics) venom-honey bee Allergy Anaphylaxis Verified 07/11/17 16:14 [bee venom (honey bee)] Certification: Further, I certify that my clinical findings support that this patient is homebound (i.e. absences from home require considerable and taxing effort and are for medical reasons or hoahaoism services or infrequently or short duration when for other reasons) because: Homebound Reason: Patient requires assistance of a person or device to safely leave home, Leaving home requires considerable and taxing effort due to condition Attestation: My signature below is to certify that this patient is under my care and that I, or nurse practitioner, or a physician's delivery assistant working with me, has a face-to -face encounter with this patient.
== END 2017-07-17 15:34 | disposition home or self-care (01) | DRG 194 ==
LOC: 2ANU 16:10 → EMEROO 16:10 → ICNU 22:09 → 2NNU 07-14 14:01
PROVIDERS: ADMIT Internal Medicine; ATTEND Pediatrics

== ENCOUNTER 2017-08-26 17:11 | Observation (INO) ==
--- NOTE | 2017-08-26 17:24 | Emergency Department Note ---
Disposition Clinical Impression: Acute exacerbation of congestive heart failure Disposition: Admitted As Inpatient Condition: Good General Adult HPI - General Chief complaint: ED Shortness of Breath/Dyspnea Stated complaint: EZEQUIEL Time Seen by Provider: 08/26/17 17:20 Source: patient Limitations: no limitations - History of Present Illness Pain Scale: 8 - Related Data Home Medications Medication Instructions Recorded Confirmed Albuterol Sulfate [Albuterol 2 puff IH Q4H PRN 03/21/15 08/26/17 Inhaler] Cholecalciferol (Vitamin D3) 50,000 unit PO WE 03/21/15 08/26/17 [Optimal D3] Ipratropium/Albuterol Sulfate 2 puff IH DAILY 03/21/15 08/26/17 [Combivent Respimat Inhal [place]] Loratadine [Claritin] 10 mg PO DAILY 03/21/15 08/26/17 Nitroglycerin [Nitrostat] 0.4 mg SL Q5M PRN 03/21/15 08/26/17 Sertraline [Zoloft] 50 mg PO DAILY 03/21/15 08/26/17 Albuterol Neb [Proventil Neb] 2.5 mg IH Q6H PRN 03/30/16 08/26/17 Topiramate [Topamax] 50 mg PO HS 03/30/16 08/26/17 Budesonide/Formoterol 160/4.5 2 puff IH BIDR 08/06/16 08/26/17 [Symbicort 160/4.5] Clopidogrel [Plavix] 75 mg PO DAILY 08/06/16 08/26/17 EPINEPHrine [Epipen] 0.3 mg IM ONCE PRN 08/06/16 08/26/17 Pregabalin [Lyrica] 150 mg PO BID 08/06/16 08/26/17 Alogliptin Benzoate [Alogliptin] 25 mg PO DAILY 07/05/17 08/26/17 Levothyroxine [Synthroid] 50 mcg PO QAM 07/05/17 08/26/17 Lidocaine Patch [Lidoderm 5% patch] 1 each TP DAILY 07/05/17 08/26/17 Metformin HCl [Metformin HCl ER] 500 mg PO BID 07/05/17 08/26/17 Nortriptyline HCl 75 mg PO HS 07/05/17 08/26/17 Insulin Glargine,Hum.rec.anlog 80 units SQ HS 08/26/17 08/26/17 [Toujeo Solostar] Insulin LISPRO [Humalog Kwikpen 0 unit SQ TIDWM 08/26/17 08/26/17 U-100] Metoprolol [Lopressor] 25 mg PO BID 08/26/17 08/26/17 Previous Rx's Medication Instructions Recorded Cyclobenzaprine HCl 10 mg PO TID PRN #30 tablet 08/08/16 Promethazine [Phenergan] 12.5 mg PO Q6HR PRN #20 tablet 08/08/16 Exemestane [Aromasin] 25 mg PO DAILY #30 tablet 06/03/17 Atorvastatin [Lipitor] 40 mg PO HS #30 tablet 07/09/17 Furosemide [Lasix] 40 mg PO DAILY #30 tablet 07/09/17 Ivabradine HCl [Corlanor] 5 mg PO BID #60 tablet 07/09/17 Lisinopril [Zestril] 2.5 mg PO DAILY #30 tablet 07/17/17 Spironolactone [Aldactone] 12.5 mg PO DAILY #30 tablet 07/17/17 Allergies Allergy/AdvReac Type Severity Reaction Status Date / Time aspirin Allergy Hives Verified 08/26/17 17:13 Penicillins [PCN] Allergy Hives Verified 08/26/17 17:13 Sulfa (Sulfonamide Allergy Hives Verified 08/26/17 17:13 Antibiotics) venom-honey bee Allergy Anaphylaxis Verified 08/26/17 17:13 [bee venom (honey bee)] Past Medical History - Past Medical History Medical history: Reports: cancer, CHF, COPD, diabetes, hyperlipidemia, hypertension, TIA Surgical history: Reports: cancer surgery, non-contributory, other, hysterectomy , breast surgery Psychiatric history: Reports: anxiety, depression 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 - Social History Smoking Status: Current every day smoker Smokeless Tobacco Status: No Alcohol use: Reports: none Drug use: Reports: none Physical Exam - General Limitations: no limitations General appearance: alert Course Vital Signs Temperature 97.9 F 08/26/17 17:13 Pulse Rate 99 08/26/17 17:13 Respiratory Rate 26 08/26/17 17:13 Blood Pressure 123/79 08/26/17 17:13 O2 Sat by Pulse Oximetry 96 08/26/17 17:13 Temperature 97.9 F 08/26/17 17:13 Pulse Rate 99 08/26/17 19:15 Respiratory Rate 16 08/26/17 21:05 Blood Pressure 122/77 08/26/17 21:05 O2 Sat by Pulse Oximetry 94 08/26/17 19:15 Oxygen Delivery Oxygen Delivery Room Air Medical Decision Making - Lab Data Result diagrams: 08/26/17 17:46 08/26/17 17:46 Lab Results 08/26/17 08/26/17 08/26/17 Range/Units 17:46 17:46 17:46 WBC 6.8 (4.3-11.1) K/mcL RBC 4.47 (3.82-4.97) M/mcL Hgb 13.6 (11.5-15.4) g/dL Hct 41.2 (35.3-44.9) % MCV 92.2 (83.0-100.0) fL MCH 30.4 (28.0-33.3) pg MCHC 33.0 (31.6-35.5) g/dL RDW 13.6 (11.5-14.5) % Plt Count 178 (140-400) K/mcL MPV 11.1 (9.4-12.4) fL Immature Gran % 0.4 (0-4) % Seg Neutrophils % 56.4 % Lymphocytes % 36.7 % Monocytes % 5.9 % Eosinophils % 0.3 % Basophils % 0.3 % Neutrophils # 3.8 (1.6-8.9) K/mcL Lymphocytes # 2.5 (0.6-4.6) K/mcL Monocytes # 0.4 (0.0-1.3) K/mcL Eosinophils # 0.0 (0.0-0.6) K/mcL Basophils # 0.0 (0.0-0.2) K/mcL Sodium 138 (136-145) mEq/L Potassium 3.0 L (3.5-5.1) mEq/L Chloride 106 (98-107) mEq/L Carbon Dioxide 24 (23-29) mEq/L BUN 13 (6-20) mg/dL Creatinine 0.55 L (0.60-1.20) mg/dL Est GFR ( Amer) > 60 (> 60) Est GFR (Non-Af Amer) > 60 (> 60) BUN/Creatinine Ratio 24 (6-26) Glucose 80 (70-105) mg/dL Calculated Osmolality 285 (280-300) Calcium 8.9 (8.6-10.3) mg/dL Troponin I < 0.03 (< 0.04) ng/mL B-Natriuretic Peptide (Less than 100) pg/mL 08/26/17 Range/Units 17:46 WBC (4.3-11.1) K/mcL RBC (3.82-4.97) M/mcL Hgb (11.5-15.4) g/dL Hct (35.3-44.9) % MCV (83.0-100.0) fL MCH (28.0-33.3) pg MCHC (31.6-35.5) g/dL RDW (11.5-14.5) % Plt Count (140-400) K/mcL MPV (9.4-12.4) fL Immature Gran % (0-4) % Seg Neutrophils % % Lymphocytes % % Monocytes % % Eosinophils % % Basophils % % Neutrophils # (1.6-8.9) K/mcL Lymphocytes # (0.6-4.6) K/mcL Monocytes # (0.0-1.3) K/mcL Eosinophils # (0.0-0.6) K/mcL Basophils # (0.0-0.2) K/mcL Sodium (136-145) mEq/L Potassium (3.5-5.1) mEq/L Chloride (98-107) mEq/L Carbon Dioxide (23-29) mEq/L BUN (6-20) mg/dL Creatinine (0.60-1.20) mg/dL Est GFR ( Amer) (> 60) Est GFR (Non-Af Amer) (> 60) BUN/Creatinine Ratio (6-26) Glucose (70-105) mg/dL Calculated Osmolality (280-300) Calcium (8.6-10.3) mg/dL Troponin I (< 0.04) ng/mL B-Natriuretic Peptide 1025 H (Less than 100) pg/mL Attestation Statement - Attestation Attestation: I examined this patient and my medical decision-making was reviewed with the Resident Physician. I agree with the documented findings, disposition and treatment plan as described except to the extent set forth below. [id number] time provided Patient arrives as a transfer from the residency clinic due to increasing dyspnea. She has a known history of CHF and COPD. She was recently admitted 2 months ago for similar symptoms. She is slightly tachypneic but otherwise in no acute distress at the time of my initial exam. Patient seen in conjunction with the resident physician Dr. Sawyer
[2017-08-26] MEDS ORDERED: Furosemide 40 MG/4 ML VIAL IVP ONE (17:28)
--- NOTE | 2017-08-26 17:32 | Emergency Department Note ---
Disposition Clinical Impression: Acute exacerbation of congestive heart failure Qualifiers: Congestive heart failure type: unspecified congestive heart failure type Qualified Code(s): I50.9 - Heart failure, unspecified Disposition: Admitted As Inpatient Condition: Good Forms: ED Satisfaction Letter Time of Disposition: 19:21 General Adult HPI - General Chief complaint: ED Shortness of Breath/Dyspnea Stated complaint: EZEQUIEL Time Seen by Provider: 08/26/17 17:20 Source: patient Limitations: no limitations Nursing Notes Reviewed: Yes Vital Signs Reviewed: Yes - History of Present Illness HPI Narrative: Patient is a 57-year-old female that presents to the emergency department after seeing her primary care physician. Says that she has been short of breath for the last couple of days and set a 10 pound weight gain over the last 3 days. She takes Lasix at home and took 60 of Lasix today and only lost a pound. She states that she has had to be admitted for CHF exacerbation in the past. She states that she is currently having chest pain in the center of her chest described as a squeezing sensation and rates as an 8 out of 10. She states the pain radiates into her neck. Pain Scale: 8 - Related Data Home Medications Medication Instructions Recorded Confirmed Albuterol Sulfate [Albuterol 2 puff IH Q4H PRN 03/21/15 07/11/17 Inhaler] Cholecalciferol (Vitamin D3) 50,000 unit PO WE 03/21/15 07/11/17 [Optimal D3] Ipratropium/Albuterol Sulfate 2 puff IH DAILY 03/21/15 07/11/17 [Combivent Respimat Inhal [place]] Loratadine [Claritin] 10 mg PO DAILY 03/21/15 07/11/17 Nitroglycerin [Nitrostat] 0.4 mg SL Q5M PRN 03/21/15 07/11/17 Sertraline [Zoloft] 50 mg PO DAILY 03/21/15 07/11/17 Albuterol Neb [Proventil Neb] 2.5 mg IH Q6H PRN 03/30/16 07/11/17 Topiramate [Topamax] 50 mg PO HS 03/30/16 07/11/17 Budesonide/Formoterol 160/4.5 2 puff IH BIDR 08/06/16 07/11/17 [Symbicort 160/4.5] Clopidogrel [Plavix] 75 mg PO DAILY 08/06/16 07/11/17 EPINEPHrine [Epipen] 0.3 mg IM ONCE PRN 08/06/16 07/11/17 Pregabalin [Lyrica] 150 mg PO BID 08/06/16 07/11/17 Alogliptin Benzoate [Alogliptin] 25 mg PO DAILY 07/05/17 07/11/17 Levothyroxine [Synthroid] 50 mcg PO DAILY 07/05/17 07/11/17 Lidocaine Patch [Lidoderm 5% patch] 1 each TP DAILY 07/05/17 07/11/17 Metformin HCl [Metformin HCl ER] 500 mg PO BID 07/05/17 07/11/17 Nortriptyline HCl 75 mg PO HS 07/05/17 07/11/17 Insulin Glargine,Hum.rec.anlog 80 units SQ HS 08/26/17 08/26/17 [[place] Solostemery] Insulin LISPRO [Humalog Kwikpen 0 unit SQ TIDWM 08/26/17 08/26/17 U-100] Metoprolol [Lopressor] 25 mg PO BID 08/26/17 08/26/17 Previous Rx's Medication Instructions Recorded Cyclobenzaprine HCl 10 mg PO TID PRN #30 tablet 08/08/16 Promethazine [Phenergan] 12.5 mg PO Q6HR PRN #20 tablet 08/08/16 Exemestane [Aromasin] 25 mg PO DAILY #30 tablet 06/03/17 Atorvastatin [Lipitor] 40 mg PO HS #30 tablet 07/09/17 Furosemide [Lasix] 40 mg PO DAILY #30 tablet 07/09/17 Ivabradine HCl [Corlanor] 5 mg PO BID #60 tablet 07/09/17 Lisinopril [Zestril] 2.5 mg PO DAILY #30 tablet 07/17/17 Spironolactone [Aldactone] 12.5 mg PO DAILY #30 tablet 07/17/17 Allergies Allergy/AdvReac Type Severity Reaction Status Date / Time aspirin Allergy Hives Verified 08/26/17 17:13 Penicillins [PCN] Allergy Hives Verified 08/26/17 17:13 Sulfa (Sulfonamide Allergy Hives Verified 08/26/17 17:13 Antibiotics) venom-honey bee Allergy Anaphylaxis Verified 08/26/17 17:13 [bee venom (honey bee)] All systems ED: reviewed and negative except as stated. 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 Absent: respiratory distress, wheezes - Cardiovascular Cardiovascular exam: Present: regular rate, normal rhythm, normal heart sounds, +S1, +S2 - Abdominal Exam Abdominal exam: Present: soft, tenderness, normal bowel sounds Abdominal tenderness: Present: diffuse, mild - Extremities Exam Extremities exam: Present: other (Mild swelling in bilateral lower extremities) - Neurological Exam Neurological exam: Present: alert, oriented X3 - Psychiatric Psychiatric exam: Present: normal affect, normal mood - Skin Skin exam: Present: warm, dry, intact Course Vital Signs Temperature 97.9 F 08/26/17 17:13 Pulse Rate 99 08/26/17 17:13 Respiratory Rate 08/26/17 17:13 Blood Pressure 123/79 08/26/17 17:13 O2 Sat by Pulse Oximetry 96 08/26/17 17:13 Temperature 97.9 F 08/26/17 17:13 Pulse Rate 99 08/26/17 17:13 Respiratory Rate 26 08/26/17 17:13 Blood Pressure 123/79 08/26/17 17:13 O2 Sat by Pulse Oximetry 96 08/26/17 17:13 Oxygen Delivery Oxygen Delivery Room Air Medical Decision Making - MDM Narrative Medical decision making narrative: Due to the patient having shortness of breath and chest pain we will order a CBC , BMP, BNP, troponin, chest x-ray, EKG to evaluate this patient's symptoms. We will also give the patient a dose of 40 IV Lasix. Chest x-ray showed a right pleural effusion and mild CHF per radiology read. Patient has a BNP of 1025. Potassium of 3.0. Troponin was negative, EKG showed sinus rhythm. The patient will need to be admitted to the hospital for CHF exacerbation. I called spoke to the hospitalist and they have accepted the patient to their service. The patient will be admitted to the hospital at this time. - Medical Records Medical records reviewed: Yes I reviewed the patient's medical records. - Lab Data Lab results reviewed: Yes I reviewed the patient's lab results. Result diagrams: 08/26/17 17:46 Lab Results 08/26/17 Range/Units 17:46 WBC 6.8 (4.3-11.1) K/mcL RBC 4.47 (3.82-4.97) M/mcL Hgb 13.6 (11.5-15.4) g/dL Hct 41.2 (35.3-44.9) % MCV 92.2 (83.0-100.0) fL MCH 30.4 (28.0-33.3) pg MCHC 33.0 (31.6-35.5) g/dL RDW 13.6 (11.5-14.5) % Plt Count 178 (140-400) K/mcL MPV 11.1 (9.4-12.4) fL Immature Gran % 0.4 (0-4) % Seg Neutrophils % 56.4 % Lymphocytes % 36.7 % Monocytes % 5.9 % Eosinophils % 0.3 % Basophils % 0.3 % Neutrophils # 3.8 (1.6-8.9) K/mcL Lymphocytes # 2.5 (0.6-4.6) K/mcL Monocytes # 0.4 (0.0-1.3) K/mcL Eosinophils # 0.0 (0.0-0.6) K/mcL Basophils # 0.0 (0.0-0.2) K/mcL - Radiology Data Radiology results reviewed: Yes I reviewed the patient's radiology results. Chest X-Ray 08/26/17 17:28 IMPRESSION: Mild CHF with right pleural effusion. D/ / Jorge Mittal MD / Jorge Mittal MD Interpreting Provider: Jorge Mittal MD - EKG Data EKG #1 EKG attestation: Yes I reviewed and interpreted this EKG. EKG results narrative: EKG showed a sinus rhythm at a rate of 98 bpm, DC interval 125, QRS duration 104 , QTC of 429. No STEMI noted on this EKG. This is compared to previous EKG on 07/11/17 which showed sinus rhythm at a rate of 97 beats per minute.
[2017-08-26 17:56] LABS: Basophils % 0.3 %; Eosinophils % 0.3 %; Hematocrit 41.2 % (35.3-44.9); Hemoglobin 13.6 g/dL (11.5-15.4); Immature Granulocytes % 0.4 % (0-4); Lymphocytes # 2.5 K/mcL (0.6-4.6); Lymphocytes % 36.7 %; Mean Corpuscular Hemoglobin 30.4 pg (28.0-33.3); Mean Corpuscular Volume 92.2 fL (83.0-100.0); Mean Platelet Volume 11.1 fL (9.4-12.4); Monocytes # 0.4 K/mcL (0.0-1.3); Monocytes % 5.9 %; Neutrophils # 3.8 K/mcL (1.6-8.9); Platelet Count 178 K/mcL (140-400); Red Blood Count 4.47 M/mcL (3.82-4.97); Red Cell Distribution Width 13.6 % (11.5-14.5); Segmented Neutrophils % 56.4 %
[2017-08-26 18:14] LABS: BUN/Creatinine Ratio 24 (6-26); Blood Urea Nitrogen 13 mg/dL (6-20); Calcium 8.9 mg/dL (8.6-10.3); Carbon Dioxide 24 mEq/L (23-29); Chloride 106 mEq/L (98-107); Glucose 80 mg/dL (70-105); Osmolality,Calculated 285 (280-300); Sodium 138 mEq/L (136-145); eGFR For African Americans > 60 (> 60); eGFR For Non-African Americans > 60 (> 60)
[2017-08-26] MEDS ORDERED: Nitroglycerin 0.4 MG TAB.SUBL SL PRN (20:02)
[2017-08-26] MEDS ORDERED: Ipratropium/Albuterol Neb 3 ML IH PRN (20:04)
[2017-08-26] MEDS ORDERED: *HR* Morphine 2 MG/ML SYRINGE IVP PRN (20:06)
[2017-08-26] MEDS ORDERED: Naloxone 0.4 MG/ML INJ IVP PRN (20:06)
[2017-08-26] MEDS ORDERED: Ondansetron 4 MG/2 ML VIAL IVP PRN (20:06)
[2017-08-26] MEDS ORDERED: D5% in Water 1,000 ML IVC PRN (20:06)
[2017-08-26] MEDS ORDERED: *HR* Dextrose 50 % in Water (Syg) 50 ML SYRINGE IVP PRN (20:06)
[2017-08-26] MEDS ORDERED: Acetaminophen 325 MG TABLET PO PRN (20:06)
[2017-08-26] MEDS ORDERED: *HR* OxyCODONE Immed Rel 5 MG TABLET PO PRN (20:06)
[2017-08-26] MEDS ORDERED: Dextrose Gel 15 GM/37.5 ML TUBE PO PRN ×2 (20:06)
--- NOTE | 2017-08-26 20:10 | Event Note ---
Date of Encounter: 08/26/17 Time of Encounter: 20:09 Additional past medical history CAD, COPD oxygen dependent using 2 L, diabetes type 2 insulin-dependent, breast cancer status post resection, TIA, hyperlipidemia, systolic CHF with an ejection fraction of 15%, shock in the past with dilated cardiomyopathy nonischemic 1. Acute on chronic systolic CHF exacerbation Strict I's and O's and daily weight, Lasix IV 40 mg twice a day 2. Hypokalemia, replete as needed 3. Diabetes continue insulin sliding scale 4. COPD oxygen dependent, no exacerbation, continue DuoNeb's 5. History of breast cancer 6. Tobacco use, smoking cessation counseling, nicotine patch Omeprazole for GI prophylaxis and subcutaneous heparin for DVT prophylaxis. The patient will be admitted for observation. Full code. Time spent on this admission 40 minutes.
--- NOTE | 2017-08-26 20:20 | Internal Med History&Physical ---
<Kendal Espinal - Last Filed: 08/26/17 20:21> Date of Encounter: 08/26/17 Time of Encounter: 20:21 Assessment and Plan (1) Acute on chronic systolic CHF (congestive heart failure) Current visit: Yes Status: Acute Patient appears comfortable and in no acute distress. O2 saturation at 94% on room air. Patient is afebrile. Chest x-ray showed a right pleural effusion and mild CHF. Patient has a BNP of 1025. Potassium of 3.0. Troponin was negative. EKG showed sinus rhythm with no acute ischemic changes. 1. Strict I's and O's and daily weight 2. Lasix IV 40 mg twice a day. 3. Continue to monitor the patient. Omeprazole for GI prophylaxis and subcutaneous heparin for DVT prophylaxis. The patient will be admitted for observation. Full code. Time spent on this admission 40 minutes. (2) Hypokalemia Current visit: Yes Status: Acute Potassium is 3.0 today. Will replete as needed. (3) History of breast cancer Current visit: Yes Status: Acute (4) Smoker Current visit: Yes Status: Acute (5) COPD (chronic obstructive pulmonary disease) Current visit: No Status: Chronic On 2L of oxygen at home. Will continue home medications. Qualifiers: COPD type: unspecified COPD Qualified Code(s): J44.9 - Chronic obstructive pulmonary disease, unspecified (6) Diabetes mellitus Current visit: Yes Status: Chronic Type 2 DM, insulin depended. Will continue insulin sliding scale. 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 Rivera is a 57 year old female with a past medical history of hypertension , CAD, COPD oxygen dependent using 2 L, diabetes type 2 insulin-dependent, breast cancer status post resection, TIA, hyperlipidemia, systolic CHF with an ejection fraction of 15%, shock in the past with dilated cardiomyopathy, and is a current smoker who presented to the ED from her PCP complaining of a 10 pound weight gain over the last three days, shortness of breath, and sternal chest pain. The patient stated that she has been taking her 20mg of lasix as prescribed. She has taken 40 mg of lasix yesterday and 60 mg of lasix today and has only dropped one pound. She admits she has urinary urgency and difficulty urinating. She states "I feel like I have to go and then I sit there and it just trickles". She denies any dysuria, hematuria, or vaginal discharge. The patient admits shortness of breath that has been worsening over the past two days. She admits that it is worse with walking and exertion and improves if she sit stills. She admits difficulty completing the "walk test" at her PCP office today. She describes her chest pain as a constant pain in her sternal chest that feels like heavy pressure. She admits that it radiates to her neck and back and is worse with walking and moving. She denies that it feels like her previous MIs. She also admits her abdomen is tender because it is full of fluids and she admits constipation. Her last bowel movement was two days ago. She denies any fevers, cough, headaches, vision changes, nausea and vomiting, diarrhea, blood in her stool, numbness or tingling, and any weaknesses. Past Med Surg Social Fam HX - Past Medical History Medical history: cancer, CHF, COPD, diabetes, hyperlipidemia, hypertension, TIA Psychiatric history: anxiety, depression - Past Surgical History Surgical History: cancer surgery, non-contributory, other, hysterectomy, breast surgery - Social History Smoking Status: Current every day smoker Smokeless Tobacco Status: No Alcohol use: none Drug use: none - Family History Mother Living Status: Hx Family Cardiac Disorders: Yes Hx Family Respiratory Disorders: Yes (COPD, Emphysema, Asthma) Hx Family Cancer: Yes Hx Family GI Disorders: No Hx Family Endocrine Disorder: Yes (DM, Thyroid) Hx Family Neuromuscular Disorders: No Hx Family Neurologic Disorders: No Hx Family HEENT Disorders: No Hx Family Autoimmune Disorders: No Internal Medicine - H&P: Meds Albuterol Sulfate [Albuterol Inhaler] 2 puff IH Q4H PRN 03/21/15 [History] Cholecalciferol (Vitamin D3) [Optimal D3] 50,000 unit PO WE 03/21/15 [History] Ipratropium/Albuterol Sulfate [Combivent Respimat Inhal [place]] 2 puff IH DAILY 03/21/15 [History] Loratadine [Claritin] 10 mg PO DAILY 03/21/15 [History] Nitroglycerin [Nitrostat] 0.4 mg SL Q5M PRN 03/21/15 [History] Sertraline [Zoloft] 50 mg PO DAILY 03/21/15 [History] Albuterol Neb [Proventil Neb] 2.5 mg IH Q6H PRN 03/30/16 [History] Topiramate [Topamax] 50 mg PO HS 03/30/16 [History] Budesonide/Formoterol 160/4.5 [Symbicort 160/4.5] 2 puff IH BIDR 08/06/16 [ History] Clopidogrel [Plavix] 75 mg PO DAILY 08/06/16 [History] EPINEPHrine [Epipen] 0.3 mg IM ONCE PRN 08/06/16 [History] Pregabalin [Lyrica] 150 mg PO BID 08/06/16 [History] Cyclobenzaprine HCl 10 mg PO TID PRN #30 tablet 08/08/16 [Rx] Promethazine [Phenergan] 12.5 mg PO Q6HR PRN #20 tablet 08/08/16 [Rx] Exemestane [Aromasin] 25 mg PO DAILY #30 tablet 06/03/17 [Rx] Alogliptin Benzoate [Alogliptin] 25 mg PO DAILY 07/05/17 [History] Levothyroxine [Synthroid] 50 mcg PO QAM 07/05/17 [History] Lidocaine Patch [Lidoderm 5% patch] 1 each TP DAILY 07/05/17 [History] Metformin HCl [Metformin HCl ER] 500 mg PO BID 07/05/17 [History] Nortriptyline HCl 75 mg PO HS 07/05/17 [History] Atorvastatin [Lipitor] 40 mg PO HS #30 tablet 07/09/17 [Rx] Furosemide [Lasix] 40 mg PO DAILY #30 tablet 07/09/17 [Rx] Ivabradine HCl [Corlanor] 5 mg PO BID #60 tablet 07/09/17 [Rx] Lisinopril [Zestril] 2.5 mg PO DAILY #30 tablet 07/17/17 [Rx] Spironolactone [Aldactone] 12.5 mg PO DAILY #30 tablet 07/17/17 [Rx] Insulin Glargine,Hum.rec.anlog [[place] Solostar] 80 units SQ HS 08/26/17 [ History] Insulin LISPRO [Humalog Kwikpen U-100] 0 unit SQ TIDWM 08/26/17 [History] Metoprolol [Lopressor] 25 mg PO BID 08/26/17 [History] 3 Allergy/AdvReac Type Severity Reaction Status Date / Time aspirin Allergy Hives Verified 08/26/17 17:13 Penicillins [PCN] Allergy Hives Verified 08/26/17 17:13 Sulfa (Sulfonamide Allergy Hives Verified 08/26/17 17:13 Antibiotics) venom-honey bee Allergy Anaphylaxis Verified 08/26/17 17:13 [bee venom (honey bee)] All Systems PM: A 10-system review of systems was performed and is negative for pertinent findings except as documented above in the HPI. - Constitutional Vitals: Temp Pulse Resp BP Pulse Ox 97.9 F 99 20 122/85 94 08/26/17 17:13 08/26/17 19:15 08/26/17 19:15 08/26/17 19:15 08/26/17 19:15 General appearance: Present: cooperative, A&O X 3, no acute distress - Head Head exam: Present: atraumatic, normocephalic - Eye Eye exam: Present: PERRL, conjuntiva pink, sclera anicteric Pupils: Present: PERRL - Neck Neck exam general surgery: Present: supple, trachea midline. Absent: lymphadenopathy, tenderness - Respiratory Respiratory exam: Present: wheezes (Expiratory wheezes in the bilateral lower lobes). Absent: accessory muscle use, rales, rhonchi - Cardiovascular Cardiovascular exam: Present: gallop, RRR, +S1, +S2. Absent: diastolic murmur, rubs, systolic murmur - GI/Abdominal GI/Abdominal exam: Present: distended, normal bowel sounds, soft, tenderness ( tender to palpation ), no peritoneal signs. Absent: pulsatile mass - Extremities Exam Extremities exam: Present: warm, radial pulses palpable and symmetrical. Absent : calf tenderness, cyanotic, pedal edema - Neurological Exam Neurological exam: Present: CN II-XII intact, oriented X3, no focal deficits. Absent: pronater drift, facial droop, speech deficit - Skin Skin exam: Present: dry, intact Internal Med - H&P Results - Labs CBC & Chem 7: 08/26/17 17:46 08/26/17 17:46 Labs: Short CBC 08/26/17 Range/Units 17:46 WBC 6.8 (4.3-11.1) K/mcL Hgb 13.6 (11.5-15.4) g/dL Hct 41.2 (35.3-44.9) % Plt Count 178 (140-400) K/mcL Neutrophils # 3.8 (1.6-8.9) K/mcL BMP 08/26/17 17:46 Sodium 138 Potassium 3.0 L Chloride 106 Carbon Dioxide 24 BUN 13 Creatinine 0.55 L Glucose 80 Calcium 8.9 Cardiac Enzymes 08/26/17 Range/Units 17:46 Troponin I < 0.03 (< 0.04) ng/mL - Impressions ITS Impressions Chest X-Ray 08/26/17 17:28 IMPRESSION: Mild CHF with right pleural effusion. D/ / Jorge Mittal MD / Jorge Mittal MD Interpreting Provider: Jorge Mittal MD <Alon Lorenzo H - Last Filed: 08/26/17 20:44> Date of Encounter: 08/26/17 Internal Medicine - H&P: HPI History of present illness: Ms. Rivera is a 57 year old female All Systems PM: A 10-system review of systems was performed and is negative for pertinent findings except as documented above in the HPI. - Constitutional Vitals: Temp Pulse Resp BP Pulse Ox 97.9 F 99 20 122/85 94 08/26/17 17:13 08/26/17 19:15 08/26/17 19:15 08/26/17 19:15 08/26/17 19:15 Internal Med - H&P Results - Labs CBC & Chem 7: 08/26/17 17:46 08/26/17 17:46 Labs: Short CBC 08/26/17 Range/Units 17:46 WBC 6.8 (4.3-11.1) K/mcL Hgb 13.6 (11.5-15.4) g/dL Hct 41.2 (35.3-44.9) % Plt Count 178 (140-400) K/mcL Neutrophils # 3.8 (1.6-8.9) K/mcL BMP 08/26/17 17:46 Sodium 138 Potassium 3.0 L Chloride 106 Carbon Dioxide 24 BUN 13 Creatinine 0.55 L Glucose 80 Calcium 8.9 Cardiac Enzymes 08/26/17 Range/Units 17:46 Troponin I < 0.03 (< 0.04) ng/mL - Impressions ITS Impressions Chest X-Ray 08/26/17 17:28 IMPRESSION: Mild CHF with right pleural effusion. D/ / Jorge Mittal MD / Jorge Mittal MD Interpreting Provider: Jorge Mittal MD - Attending Attestation Additional past medical history CAD, COPD oxygen dependent using 2 L, diabetes type 2 insulin-dependent, breast cancer status post resection, TIA, hyperlipidemia, systolic CHF with an ejection fraction of 15%, shock in the past with dilated cardiomyopathy nonischemic 1. Acute on chronic systolic CHF exacerbation Strict I's and O's and daily weight, Lasix IV 40 mg twice a day 2. Hypokalemia, replete as needed 3. Diabetes continue insulin sliding scale 4. COPD oxygen dependent, no exacerbation, continue DuoNeb's 5. History of breast cancer 6. Tobacco use, smoking cessation counseling, nicotine patch Omeprazole for GI prophylaxis and subcutaneous heparin for DVT prophylaxis. The patient will be admitted for observation. Full code. Time spent on this admission 40 minutes. I examined this patient and my medical decision-making was reviewed with the Resident Physician. I agree with the documented findings, disposition and treatment plan as described except to the extent set forth below.
[2017-08-27] MEDS: Pregabalin 75 MG CAPSULE PO SCH ×3 (00:04→21:48)
[2017-08-27] MEDS: Nicotine 21 MG PATCH.TD24 TD SCH ×2 (00:05→10:02)
[2017-08-27] MEDS: Topiramate 25 MG TABLET PO SCH ×2 (00:05→21:48)
[2017-08-27] MEDS: Furosemide 40 MG/4 ML VIAL IVP SCH ×3 (00:06→16:13)
[2017-08-27] MEDS: Insulin DETEMIR 100 UNIT/ML X5UNITS SQ SCH ×2 (00:06→21:49)
[2017-08-27] MEDS: *HR* Heparin 5,000 UNIT/ML VIAL SQ SCH ×4 (00:06→21:52)
[2017-08-27] MEDS: Insulin LISPRO 300 UNITS/3 ML VIAL SQ SCH ×5 (00:07→21:47)
[2017-08-27 01:50] LABS: Bilirubin,Urine Negative (Negative); Blood,Urine Negative (Negative); Clarity,Urine Cloudy (Clear); Color,Urine Yellow (Yellow); Glucose,Urine (UA) Normal (Normal); Ketones,Urine Negative (Negative); Leukocyte Esterase,Urine Trace (Negative); Nitrite,Urine Positive (Negative); PH,Urine 7.5 pH Units (5.0-8.0); Protein,Urine Negative (Neg-Trace); Urobilinogen,Urine Normal (Normal)
[2017-08-27 01:54] LABS: Bacteria,Urine Many per hpf (None-Few); Hyaline Casts,Urine None Seen per lpf (None-Few); RBC,Urine 0-3 per hpf (0-3); Squamous Epithelial Cell,Urine Moderate per lpf (None-Few)
[2017-08-27] MEDS ORDERED: 0.9 % Sodium Chloride 500 ML IVC SCH ×2 (05:45→06:04)
[2017-08-27 06:54] LABS: BUN/Creatinine Ratio 22 (6-26); Blood Urea Nitrogen 15 mg/dL (6-20); Calcium 8.8 mg/dL (8.6-10.3); Carbon Dioxide 27 mEq/L (23-29); Chloride 106 mEq/L (98-107); Glucose 139 mg/dL (70-105); Magnesium 1.6 mg/dL (1.6-2.6); Osmolality,Calculated 303 (280-300); Potassium 3.2 mEq/L (3.5-5.1); Sodium 145 mEq/L (136-145); eGFR For African Americans > 60 (> 60); eGFR For Non-African Americans > 60 (> 60)
[2017-08-27] MEDS: Nitrofurantoin (BID) 100 MG CAPSULE PO SCH ×2 (10:00→16:13)
[2017-08-27] MEDS: Spironolactone 25 MG TABLET PO SCH (10:01)
[2017-08-27] MEDS: (Exemestane [Aromasin] 25 MG) PO SCH (10:03)
[2017-08-27] MEDS ORDERED: MOM Conc 10 ML UD.LIQ PO ONE (14:47)
--- NOTE | 2017-08-27 14:48 | Internal Med Progress Note ---
Date of Encounter: 08/27/17 Time of Encounter: 09:20 - Assessment and plan (1) Acute on chronic systolic CHF (congestive heart failure) Current Visit: Yes Status: Acute Assessment and plan: Acute on chronic systolic congestive heart failure. Patient reports 11 pound weight gain in 3 days, difficulty breathing, paroxysmal nocturnal dyspnea. patient with diminished lung sounds in posterior bases, minimal extremity edema. Chest x-ray shows mild CHF with right pleural effusion. Patient is requiring supplemental oxygen at 2 L. BNP 1058. Continue telemetry and oxygen as needed. Strict I&O, daily weights, 1.5 L fluid restriction diet. Lasix 40 mg twice a day. Chest X-Ray 08/26/17 17:28 IMPRESSION: Mild CHF with right pleural effusion. D/ / Jorge Mittal MD / Jorge Mittal MD Interpreting Provider: Jorge Mittal MD (2) Hypothyroidism Current Visit: Yes Status: Acute Assessment and plan: Chronic. Continue home dose of Synthroid. Qualifiers: Hypothyroidism type: unspecified Qualified Code(s): E03.9 - Hypothyroidism , unspecified (3) Ischemic cardiomyopathy Current Visit: Yes Status: Acute Assessment and plan: Per patient history. Plan as above. Continue Lipitor, Plavix, beta manuel. (4) Hyperlipidemia Current Visit: No Status: Chronic Assessment and plan: Chronic. Continue home medications. Qualifiers: Hyperlipidemia type: unspecified Qualified Code(s): E78.5 - Hyperlipidemia , unspecified (5) Hypokalemia Current Visit: Yes Status: Acute Assessment and plan: Resolving. Continue supplementation. Labs in the morning. (6) History of breast cancer Current Visit: Yes Status: Acute Assessment and plan: Prior history. (7) Smoker Current Visit: Yes Status: Acute Assessment and plan: Patient is currently using nicotine patch for replacement therapy. States she would like to have prescription for home. (8) COPD (chronic obstructive pulmonary disease) Current Visit: Yes Status: Chronic Assessment and plan: Mild exacerbation. Continue home medications. Continue O2 as needed to maintain sats greater than 92%. Qualifiers: COPD type: unspecified COPD Qualified Code(s): J44.9 - Chronic obstructive pulmonary disease, unspecified (9) Diabetes mellitus Current Visit: Yes Status: Chronic Assessment and plan: A1c 9.1 April, will return on the morning. Continue sliding scale insulin, Accu-Cheks before meals at bedtime, diabetic diet. Qualifiers: Diabetes mellitus type: type 2 Diabetes mellitus complication status: with unspecified complications Diabetes mellitus fci insulin use: with fci use Qualified Code(s): E11.8 - Type 2 diabetes mellitus with unspecified complications; Z79.4 - terminologist (current) use of insulin; Z79.4 - prison ( current) use of insulin; Z79.4 - prison (current) use of insulin; Z79.4 - terminologist (current) use of insulin (10) UTI (urinary tract infection) Current Visit: Yes Status: Acute Assessment and plan: Urine collected was cloudy, positive for nitrates, trace leukocyte esterase and many bacteria. Culture is indicated and pending. Patient will be started on Rocephin 1 g IV daily, antibiotic will be narrowed once final culture and sensitivity is available. Qualifiers: Urinary tract infection type: acute cystitis Hematuria presence: without hematuria Qualified Code(s): N30.00 - Acute cystitis without hematuria (11) DVT prophylaxis Current Visit: No Status: Acute Assessment and plan: Heparin subcutaneous daily. - Time Spent With Patient less than 15 minutes - Subjective Interval history: Patient was seen and assessed at 9:20 AM. Patient was slow in responding to questions patient was filling out her menu for lunch. Patient states she has a current smoker with a nicotine patch now and would like one for home. Patient weighs 2 L oxygen at home when necessary, she is requiring here as well. Patient reports 11 pound weight gain in 3 days with difficulty breathing and paroxysmal nocturnal dyspnea. She also reports her last BM was 4 days ago with like something. She denies chest pain, headache or blurred vision, no abdominal pain, nausea, vomiting, diarrhea. - Constitutional Vitals: Temp Pulse Resp BP Pulse Ox 98.1 F 97 15 72/47 94 08/27/17 11:21 08/27/17 11:21 08/27/17 11:21 08/27/17 11:56 08/27/17 11:21 General appearance: Present: cooperative, A&O X 3, pleasant, no acute distress, answers questions appropriately - Head Head exam: Present: atraumatic, normal inspection, normocephalic - Eye Eye exam: Present: normal appearance, conjuntiva pink, sclera anicteric - Neck Neck exam general surgery: Present: normal inspection, supple, trachea midline. Absent: lymphadenopathy, tenderness - Respiratory Respiratory exam: Present: decreased breath sounds, CTAB. Absent: accessory muscle use, chest wall tenderness, rales, rhonchi, wheezes - Cardiovascular Cardiovascular exam: Present: RRR, +S1, +S2. Absent: diastolic murmur, gallop, rubs, systolic murmur - GI/Abdominal GI/Abdominal exam: Present: normal bowel sounds, soft, no peritoneal signs. Absent: distended, hepatomegaly, tenderness - Extremities Exam Extremities exam: Present: normal capillary refill, normal inspection, warm, radial pulses palpable and symmetrical. Absent: calf tenderness, cyanotic, pedal edema, tenderness - Neurological Exam Neurological exam: Present: alert, oriented X3, no focal deficits. Absent: facial droop, speech deficit - Skin Skin exam: Present: dry, intact, normal color, warm. Absent: rash Internal Medicine: Result - Labs CBC & Chem 7: 08/26/17 17:46 08/27/17 06:01 Labs: BMP 08/27/17 06:01 Sodium 145 Potassium 3.2 L Chloride 106 Carbon Dioxide 27 BUN 15 Creatinine 0.68 Glucose 139 H Calcium 8.8 Urine 08/27/17 Range/Units 01:10 Urine Color Yellow (Yellow) Urine Clarity Cloudy A (Clear) Urine pH 7.5 (5.0-8.0) pH Units Ur Specific [place] 1.010 (1.010-1.025) Urine Protein Negative (Neg-Trace) mg/dL Urine Glucose (UA) Normal (Normal) mg/dL Consult Discharge Plan - Plan Referrals: Angel Jimenez DO [Primary Care Provider] -
[2017-08-27] MEDS ORDERED: 0.9 % Sodium Chloride 500 ML IVC ONE (17:16)
[2017-08-28] MEDS ORDERED: 0.9 % Sodium Chloride 250 ML IVC ONE ×3 (02:41→09:17)
[2017-08-28 04:55] LABS: Basophils % 0.2 %; Eosinophils % 0.7 %; Immature Granulocytes % 0.2 % (0-4); Lymphocytes # 1.9 K/mcL (0.6-4.6); Lymphocytes % 42.5 %; Mean Corpuscular HGB Conc 32.2 g/dL (31.6-35.5); Mean Corpuscular Hemoglobin 30.4 pg (28.0-33.3); Mean Corpuscular Volume 94.2 fL (83.0-100.0); Mean Platelet Volume 11.5 fL (9.4-12.4); Monocytes # 0.3 K/mcL (0.0-1.3); Monocytes % 7.2 %; Neutrophils # 2.2 K/mcL (1.6-8.9); Platelet Count 135 K/mcL (140-400); Red Blood Count 3.82 M/mcL (3.82-4.97); Red Cell Distribution Width 13.6 % (11.5-14.5); Segmented Neutrophils % 49.2 %
[2017-08-28 05:03] LABS: Hemoglobin 11.6 g/dL (11.5-15.4)
[2017-08-28 05:09] LABS: Hemoglobin A1C 7.6 %
[2017-08-28 05:12] LABS: BUN/Creatinine Ratio 27 (6-26); Blood Urea Nitrogen 17 mg/dL (6-20); Calcium 8.3 mg/dL (8.6-10.3); Carbon Dioxide 27 mEq/L (23-29); Chloride 106 mEq/L (98-107); Glucose 96 mg/dL (70-105); Osmolality,Calculated 287 (280-300); Potassium 3.7 mEq/L (3.5-5.1); Sodium 138 mEq/L (136-145); eGFR For African Americans > 60 (> 60); eGFR For Non-African Americans > 60 (> 60)
[2017-08-28] MEDS: *HR* Heparin 5,000 UNIT/ML VIAL SQ SCH ×3 (06:26→20:35)
[2017-08-28] MEDS: Furosemide 40 MG/4 ML VIAL IVP SCH ×2 (07:20→12:19)
[2017-08-28] MEDS: Insulin LISPRO 300 UNITS/3 ML VIAL SQ SCH ×4 (10:03→20:35)
[2017-08-28] MEDS: Nicotine 21 MG PATCH.TD24 TD SCH (10:04)
[2017-08-28] MEDS: Spironolactone 25 MG TABLET PO SCH (10:04)
[2017-08-28] MEDS: Pregabalin 75 MG CAPSULE PO SCH ×2 (10:04→20:37)
[2017-08-28] MEDS: Nitrofurantoin (BID) 100 MG CAPSULE PO SCH (10:04)
[2017-08-28] MEDS: (Exemestane [Aromasin] 25 MG) PO SCH (10:05)
[2017-08-28] MEDS ORDERED: 0.9 % Sodium Chloride 500 ML IVC ONE (15:42)
--- NOTE | 2017-08-28 16:18 | Internal Med Progress Note ---
Date of Encounter: 08/28/17 Time of Encounter: 11:00 - Assessment and plan (1) Sepsis Current Visit: Yes Status: Acute Assessment and plan: -Patient is septic as she is hypotensive with tachycardia and urine cultures positive for gram-negative rods; requiring a baseline supplemental oxygenation. -IV Cipro started for acute cystitis in addition to continuing gentle fluid resuscitation; patient has received a total of 1250 cc of fluid so far. -Patient still hypotensive so an additional 500 mL given -Also order additional labs(lactic acid, LFTs and blood cultures) -Continue to monitor patient with every hour vitals with continuous pulse ox Qualifiers: Sepsis type: Escherichia coli Qualified Code(s): A41.51 - Sepsis due to Escherichia coli [E. coli] (2) Acute cystitis with positive culture Current Visit: Yes Status: Acute Assessment and plan: -Patient with gram-negative rods growing and urine culture -She was started on IV Cipro today (08/28/17); macrobid discontinued (3) Acute on chronic systolic CHF (congestive heart failure) Current Visit: Yes Status: Acute Assessment and plan: -Troponin was negative on admission but BNP was elevated at 1025. -Chest x-ray on admission showed mild CHF with right pulmonary effusion. -Patient with average BNP in the 500s since 06/2017; BNP 1025 on admission. -Echocardiogram on 06/2017 showed an LVEF of 50% with severely dilated left ventricle and severe global left ventricular systolic dysfunction in addition to mildly dilated right ventricle with hypokinesis. Echocardiogram also showed mild to moderate pulmonary hypertension. -IV Lasix was given on admission but has not been held given sepsis with hypotension; gentle IV fluid resuscitation as above -Will continue to monitor. (4) Dyslipidemia Current Visit: No Status: Chronic Assessment and plan: -Continue statin (5) COPD (chronic obstructive pulmonary disease) Current Visit: Yes Status: Chronic Assessment and plan: -No exacerbation suspected as patient on baseline O2 requirements -Continue duo nebs Qualifiers: COPD type: unspecified COPD Qualified Code(s): J44.9 - Chronic obstructive pulmonary disease, unspecified (6) Diabetes mellitus Current Visit: Yes Status: Chronic Assessment and plan: -Controlled; continue home long-acting insulin Qualifiers: Diabetes mellitus type: type 2 Diabetes mellitus complication status: with unspecified complications Diabetes mellitus snf insulin use: with snf use Qualified Code(s): E11.8 - Type 2 diabetes mellitus with unspecified complications; Z79.4 - snf (current) use of insulin; Z79.4 - hand mexican food maker ( current) use of insulin; Z79.4 - snf (current) use of insulin; Z79.4 - hand mexican food maker (current) use of insulin (7) Hypothyroidism Current Visit: Yes Status: Acute Assessment and plan: -Continue levothyroxine Qualifiers: Hypothyroidism type: unspecified Qualified Code(s): E03.9 - Hypothyroidism , unspecified (8) Hypertension Current Visit: Yes Status: Acute Assessment and plan: -Patient is hypotensive secondary to sepsis above therefore all blood pressure medications held Qualifiers: Hypertension type: essential hypertension Qualified Code(s): I10 - Essential (primary) hypertension (9) DVT prophylaxis Current Visit: No Status: Acute Assessment and plan: -Continue subcutaneous heparin - Subjective Interval history: Patient is septic as she is hypotensive with tachycardia and urine cultures positive for gram-negative rods; requiring a baseline supplemental oxygenation. IV Cipro started for acute cystitis in addition to continuing gentle fluid resuscitation; patient has received a total of 1250 cc of fluid so far. Patient is not fluid overloaded on exam as she does have stomach heart failure with LVEF of 15%. - Constitutional Vitals: Temp Pulse Resp BP Pulse Ox 98.0 F 106 16 96/66 96 08/28/17 15:17 08/28/17 15:54 08/28/17 15:17 08/28/17 15:54 08/28/17 15:17 General appearance: Present: cooperative, A&O X 3, pleasant, no acute distress, answers questions appropriately - Respiratory Respiratory exam: Present: CTAB. Absent: accessory muscle use, rales, rhonchi, wheezes - Cardiovascular Cardiovascular exam: Present: RRR, +S1, +S2. Absent: diastolic murmur, gallop, rubs, systolic murmur - Extremities Exam Extremities exam: Absent: pedal edema Internal Medicine: Result - Labs CBC & Chem 7: 08/28/17 03:59 08/28/17 03:59 Labs: Short CBC 08/28/17 Range/Units 03:59 WBC 4.5 (4.3-11.1) K/mcL Hgb 11.6 D (11.5-15.4) g/dL Hct 36.0 (35.3-44.9) % Plt Count 135 L (140-400) K/mcL Neutrophils # 2.2 (1.6-8.9) K/mcL BMP 08/28/17 03:59 Sodium 138 Potassium 3.7 Chloride 106 Carbon Dioxide 27 BUN 17 Creatinine 0.62 Glucose 96 Calcium 8.3 L Consult Discharge Plan - Plan Referrals: Angel Jimenez DO [Primary Care Provider] -
[2017-08-28 16:32] LABS: Albumin 3.4 g/dL (3.5-5.7); Albumin/Globulin Ratio 1.4 (1.1-2.2); Bilirubin,Direct 0.1 mg/dL (0.0-0.2); Bilirubin,Indirect 0.2 mg/dL (0.0-1.2); Bilirubin,Total 0.3 mg/dL (0.3-1.0); Globulin 2.4 g/dL (2.4-3.5); Total Protein 5.8 g/dL (6.4-8.9)
[2017-08-28] MEDS: Topiramate 25 MG TABLET PO SCH (20:37)
[2017-08-28] MEDS: Insulin DETEMIR 100 UNIT/ML X5UNITS SQ SCH (20:37)
[2017-08-29] MEDS: *HR* Heparin 5,000 UNIT/ML VIAL SQ SCH ×3 (05:38→21:49)
[2017-08-29] MEDS: Pregabalin 75 MG CAPSULE PO SCH ×2 (09:19→21:42)
[2017-08-29] MEDS: Insulin LISPRO 300 UNITS/3 ML VIAL SQ SCH ×4 (09:20→21:34)
[2017-08-29] MEDS: Spironolactone 25 MG TABLET PO SCH (09:20)
[2017-08-29] MEDS: Nicotine 21 MG PATCH.TD24 TD SCH (09:20)
[2017-08-29] MEDS: (Exemestane [Aromasin] 25 MG) PO SCH (09:21)
[2017-08-29] MEDS: Furosemide 40 MG/4 ML VIAL IVP SCH ×2 (09:46→19:41)
--- NOTE | 2017-08-29 10:10 | Electrocardiograph Report ---
[address] [address] Test Date: 2017-08-26 Pat Name: Virginia Rivera Department: 102 Room: 3B Gender: F Cash Application Clerk: Bernarda : 1960 Requested By: Esau Edwards Order Number: [id number] Reading MD: Osbaldo Perkins MD Measurements Intervals [place] Rate: 98 P: 62 MA: 125 QRS: -25 QRSD: 104 T: 60 QT: 373 QTc: 429 Interpretive Statements SINUS RHYTHM LEFT ATRIAL ENLARGEMENT BORDERLINE LEFT AXIS DEVIATION Electronically Signed On 08-29-2017 10:08:44 EST by Osbaldo Perkins MD
[2017-08-29 10:25] LABS: Basophils % 0.3 %; Eosinophils % 0.3 %; Hematocrit 39.2 % (35.3-44.9); Hemoglobin 12.6 g/dL (11.5-15.4); Immature Granulocytes % 0.3 % (0-4); Lymphocytes # 1.5 K/mcL (0.6-4.6); Lymphocytes % 40.9 %; Mean Corpuscular HGB Conc 32.1 g/dL (31.6-35.5); Mean Corpuscular Hemoglobin 30.4 pg (28.0-33.3); Mean Corpuscular Volume 94.5 fL (83.0-100.0); Mean Platelet Volume 11.2 fL (9.4-12.4); Monocytes # 0.2 K/mcL (0.0-1.3); Monocytes % 5.7 %; Neutrophils # 1.9 K/mcL (1.6-8.9); Platelet Count 122 K/mcL (140-400); Red Blood Count 4.15 M/mcL (3.82-4.97); Red Cell Distribution Width 13.6 % (11.5-14.5); Segmented Neutrophils % 52.5 %
[2017-08-29 11:20] LABS: BUN/Creatinine Ratio 23 (6-26); Blood Urea Nitrogen 15 mg/dL (6-20); Calcium 9.4 mg/dL (8.6-10.3); Carbon Dioxide 25 mEq/L (23-29); Chloride 106 mEq/L (98-107); Glucose 153 mg/dL (70-105); Osmolality,Calculated 288 (280-300); Potassium 4.7 mEq/L (3.5-5.1); Sodium 137 mEq/L (136-145); eGFR For African Americans > 60 (> 60); eGFR For Non-African Americans > 60 (> 60)
--- NOTE | 2017-08-29 18:48 | Internal Med Progress Note ---
Date of Encounter: 08/29/17 Time of Encounter: 11:00 - Assessment and plan (1) Sepsis Current Visit: Yes Status: Acute Assessment and plan: -Patient is septic as she is hypotensive with tachycardia and urine cultures positive for gram-negative rods; requiring a baseline supplemental oxygenation. -IV Cipro started for acute cystitis in addition to continuing gentle fluid resuscitation -Continue to monitor patient with every hour vitals with continuous pulse ox Qualifiers: Sepsis type: Escherichia coli Qualified Code(s): A41.51 - Sepsis due to Escherichia coli [E. coli] (2) Acute cystitis with positive culture Current Visit: Yes Status: Acute Assessment and plan: -Patient with gram-negative rods growing and urine culture -She was started on IV Cipro today (08/28/17); macrobid discontinued (3) Acute on chronic systolic CHF (congestive heart failure) Current Visit: Yes Status: Acute Assessment and plan: -Troponin was negative on admission but BNP was elevated at 1025. -Chest x-ray on admission showed mild CHF with right pulmonary effusion. -Patient with average BNP in the 500s since 06/2017; BNP 1025 on admission. -Echocardiogram on 06/2017 showed an LVEF of 50% with severely dilated left ventricle and severe global left ventricular systolic dysfunction in addition to mildly dilated right ventricle with hypokinesis. Echocardiogram also showed mild to moderate pulmonary hypertension. -IV Lasix was given on admission but has not been held given sepsis with hypotension; gentle IV fluid resuscitation as above -Will continue to monitor. (4) Dyslipidemia Current Visit: No Status: Chronic Assessment and plan: -Continue statin (5) COPD (chronic obstructive pulmonary disease) Current Visit: Yes Status: Chronic Assessment and plan: -No exacerbation suspected as patient on baseline O2 requirements -Continue duo nebs Qualifiers: COPD type: unspecified COPD Qualified Code(s): J44.9 - Chronic obstructive pulmonary disease, unspecified (6) Diabetes mellitus Current Visit: Yes Status: Chronic Assessment and plan: -Controlled; continue home long-acting insulin Qualifiers: Diabetes mellitus type: type 2 Diabetes mellitus complication status: with unspecified complications Diabetes mellitus regional intermodal truck driver insulin use: with detention use Qualified Code(s): E11.8 - Type 2 diabetes mellitus with unspecified complications; Z79.4 - jail (current) use of insulin; Z79.4 - jail ( current) use of insulin; Z79.4 - jail (current) use of insulin; Z79.4 - jail (current) use of insulin (7) Hypothyroidism Current Visit: Yes Status: Acute Assessment and plan: -Continue levothyroxine Qualifiers: Hypothyroidism type: unspecified Qualified Code(s): E03.9 - Hypothyroidism , unspecified (8) Hypertension Current Visit: Yes Status: Acute Assessment and plan: -Patient is hypotensive secondary to sepsis above therefore all blood pressure medications held Qualifiers: Hypertension type: essential hypertension Qualified Code(s): I10 - Essential (primary) hypertension (9) DVT prophylaxis Current Visit: No Status: Acute Assessment and plan: -Continue subcutaneous heparin - Subjective Interval history: Patient is septic and had been hypotensive with tachycardia but has responded to fluid resuscitation. Urine cultures positive for gram-negative rods; requiring a baseline supplemental oxygenation. IV Cipro started for acute cystitis Patient is not fluid overloaded on exam as she does have stomach heart failure with LVEF of 15%. - Constitutional Vitals: Temp Pulse Resp BP Pulse Ox 98.7 F 115 16 91/56 95 08/29/17 15:23 08/29/17 16:52 08/29/17 16:52 08/29/17 16:52 08/29/17 16:52 General appearance: Present: cooperative, A&O X 3, pleasant, no acute distress, answers questions appropriately Internal Medicine: Result - Labs CBC & Chem 7: 08/29/17 09:58 08/29/17 09:58 Labs: Short CBC 08/29/17 Range/Units 09:58 WBC 3.7 L (4.3-11.1) K/mcL Hgb 12.6 (11.5-15.4) g/dL Hct 39.2 (35.3-44.9) % Plt Count 122 L (140-400) K/mcL Neutrophils # 1.9 (1.6-8.9) K/mcL BMP 08/29/17 09:58 Sodium 137 Potassium 4.7 Chloride 106 Carbon Dioxide 25 BUN 15 Creatinine 0.64 Glucose 153 H Calcium 9.4 - Impressions Impressions Chest X-Ray 08/29/17 09:31 IMPRESSION: 1. Similar appearance of mild pulmonary edema. 2. Basilar atelectasis. D/ : / 08/29/2017 13:49:22 Cass Hernandez MD / rogerio Interpreting Provider: Cass Hernandez MD Consult Discharge Plan - Plan Referrals: Angel Jimenez DO [Primary Care Provider] -
[2017-08-29] MEDS: Topiramate 25 MG TABLET PO SCH (21:41)
[2017-08-29] MEDS: Insulin DETEMIR 100 UNIT/ML X5UNITS SQ SCH (21:42)
[2017-08-30] MEDS: *HR* Heparin 5,000 UNIT/ML VIAL SQ SCH ×3 (06:51→22:46)
[2017-08-30] MEDS: Furosemide 40 MG/4 ML VIAL IVP SCH ×2 (07:13→07:50)
[2017-08-30] MEDS: Spironolactone 25 MG TABLET PO SCH (07:13)
[2017-08-30] MEDS: Nicotine 21 MG PATCH.TD24 TD SCH (08:54)
[2017-08-30] MEDS: Pregabalin 75 MG CAPSULE PO SCH ×2 (08:55→20:48)
[2017-08-30] MEDS: cefTRIAXone 1,000 MG in Water for inj. (sterile) 20 ML 10 ML IVPB SCH (08:55)
[2017-08-30] MEDS: Insulin LISPRO 300 UNITS/3 ML VIAL SQ SCH ×4 (08:56→20:03)
[2017-08-30] MEDS: (Exemestane [Aromasin] 25 MG) PO SCH (09:09)
[2017-08-30] MEDS ORDERED: Furosemide 20 MG/2 ML VIAL IVP SCH (13:34)
--- NOTE | 2017-08-30 17:52 | Internal Med Progress Note ---
Date of Encounter: 08/30/17 Time of Encounter: 10:15 - Assessment and plan (1) Acute on chronic systolic CHF (congestive heart failure) Current Visit: Yes Status: Acute Assessment and plan: Chest x-ray done yesterday shows mild pulmonary edema. Patient not able to receive Lasix at her current dose due to low blood pressure. Will decrease dosage to 20 mg IV twice daily. Monitor blood pressure closely. High risk for complications. (2) Acute cystitis with positive culture Current Visit: Yes Status: Acute Assessment and plan: Urine culture growing Escherichia coli and senior office assistant to [place]. Will change antibiotic to ceftriaxone. (3) Diabetes mellitus Current Visit: Yes Status: Chronic Assessment and plan: Fairly controlled. Continue current insulin regimen Qualifiers: Diabetes mellitus type: type 2 Diabetes mellitus complication status: with unspecified complications Diabetes mellitus sensitometrist insulin use: with penitentiary use Qualified Code(s): E11.8 - Type 2 diabetes mellitus with unspecified complications; Z79.4 - office assistant receptionist (current) use of insulin; Z79.4 - office assistant receptionist ( current) use of insulin; Z79.4 - retirement (current) use of insulin; Z79.4 - office assistant receptionist (current) use of insulin (4) DVT prophylaxis Current Visit: No Status: Acute Assessment and plan: With subcutaneous heparin (5) Dyslipidemia Current Visit: Yes Status: Chronic Assessment and plan: Continue Lipitor (6) Hypothyroidism Current Visit: Yes Status: Chronic Assessment and plan: Continue levothyroxine. We will check TSH, free T3 and free T4 levels. Qualifiers: Hypothyroidism type: unspecified Qualified Code(s): E03.9 - Hypothyroidism , unspecified (7) Sepsis Current Visit: Yes Status: Acute Assessment and plan: Improving. Blood cultures are negative. Patient remains tachycardic which appears to be chronic for her. Will check free T3 free T4 levels. Patient also having chronic hypotension. Remains asymptomatic. Qualifiers: Sepsis type: Escherichia coli Qualified Code(s): A41.51 - Sepsis due to Escherichia coli [E. coli] - Subjective Interval history: Patient is lying in bed. Appears comfortable. Denies any chest pain. Does continue to have shortness of breath. No lower extremity swelling. No palpitations. - Constitutional Vitals: Temp Pulse Resp BP Pulse Ox 98.0 F 119 20 94/62 99 08/30/17 14:48 08/30/17 15:48 08/30/17 14:48 08/30/17 15:48 08/30/17 14:48 General appearance: Present: cooperative, A&O X 3, pleasant, no acute distress, answers questions appropriately - Neck Neck exam general surgery: Present: supple, trachea midline. Absent: lymphadenopathy - Respiratory Respiratory exam: Present: CTAB. Absent: accessory muscle use, rales, rhonchi, wheezes - Cardiovascular Cardiovascular exam: Present: RRR, +S1, +S2. Absent: diastolic murmur, gallop, rubs, systolic murmur - GI/Abdominal GI/Abdominal exam: Present: normal bowel sounds, soft, no peritoneal signs. Absent: distended, tenderness - Extremities Exam Extremities exam: Present: warm, radial pulses palpable and symmetrical. Absent : calf tenderness, cyanotic, pedal edema - Neurological Exam Neurological exam: Present: alert, oriented X3. Absent: facial droop, speech deficit - Skin Skin exam: Present: dry, intact Internal Medicine: Result - Labs CBC & Chem 7: 08/29/17 09:58 08/29/17 09:58 - Impressions Impressions Chest X-Ray 08/29/17 09:31 IMPRESSION: 1. Similar appearance of mild pulmonary edema. 2. Basilar atelectasis. D/ : / 08/29/2017 13:49:22 Cass Hernandez MD / rogerio Interpreting Provider: Cass Hernandez MD Consult Discharge Plan - Plan Referrals: Angel Jimenez DO [Primary Care Provider] -
--- NOTE | 2017-08-30 20:09 | Electrocardiograph Report ---
[place] [address] Test Date: 2017-08-30 Pat Name: Virginia Rivera Department: 113 Room: 3B Gender: F Family Development Specialist: EILEEN : 1960 Requested By: Afsaneh Paulson Order Number: [id number] Reading MD: Yumiko Moulton Measurements Intervals [place] Rate: 114 P: 59 MT: 141 QRS: -31 QRSD: 105 T: 90 QT: 341 QTc: 409 Interpretive Statements SINUS TACHYCARDIA LEFT AXIS DEVIATION NONSPECIFIC T-WAVE ABNORMALITY Electronically Signed On 08-30-2017 20:07:15 EST by Yumiko Moulton
[2017-08-30] MEDS: Topiramate 25 MG TABLET PO SCH (20:48)
[2017-08-30] MEDS: Insulin DETEMIR 100 UNIT/ML X5UNITS SQ SCH (20:49)
[2017-08-31 06:06] LABS: Thyroid Stimulating Hormone 1.665 mcIU/mL (0.340-5.600)
[2017-08-31 06:08] LABS: Triiodothyronine (T3) Free 2.96 pg/mL (2.50-3.90)
[2017-08-31] MEDS: *HR* Heparin 5,000 UNIT/ML VIAL SQ SCH ×3 (06:16→22:24)
[2017-08-31] MEDS: (Exemestane [Aromasin] 25 MG) PO SCH (10:21)
[2017-08-31] MEDS: Insulin LISPRO 300 UNITS/3 ML VIAL SQ SCH ×4 (10:24→22:24)
[2017-08-31] MEDS: Spironolactone 25 MG TABLET PO SCH (10:49)
[2017-08-31] MEDS: Nicotine 21 MG PATCH.TD24 TD SCH (10:55)
[2017-08-31] MEDS: cefTRIAXone 1,000 MG in Water for inj. (sterile) 20 ML 10 ML IVPB SCH (10:56)
[2017-08-31] MEDS: Pregabalin 75 MG CAPSULE PO SCH ×2 (10:56→22:25)
[2017-08-31] MEDS: Furosemide 20 MG TABLET PO SCH ×2 (11:33→15:52)
--- NOTE | 2017-08-31 16:18 | Internal Med Progress Note ---
Date of Encounter: 08/31/17 Time of Encounter: 08:20 - Assessment and plan (1) Acute on chronic systolic CHF (congestive heart failure) Current Visit: Yes Status: Acute Assessment and plan: Blood pressure remains on the lower side. Will change Lasix to 20 mg by mouth twice daily and hold it only if systolic blood pressure is less than 90. Reviewed prior records. Patient has been on metoprolol that was started during her last hospitalization. Given her tachycardia, we will start her on very small dose of long-acting metoprolol. High risk for complications. Will monitor closely. (2) Acute cystitis with positive culture Current Visit: Yes Status: Acute Assessment and plan: Continue ceftriaxone. (3) Diabetes mellitus Current Visit: Yes Status: Chronic Assessment and plan: Fairly controlled. Continue current insulin regimen Qualifiers: Diabetes mellitus type: type 2 Diabetes mellitus complication status: with unspecified complications Diabetes mellitus fdc insulin use: with fdc use Qualified Code(s): E11.8 - Type 2 diabetes mellitus with unspecified complications; Z79.4 - snf (current) use of insulin; Z79.4 - intermediate designer ( current) use of insulin; Z79.4 - intermediate designer (current) use of insulin; Z79.4 - intermediate designer (current) use of insulin (4) DVT prophylaxis Current Visit: No Status: Acute Assessment and plan: With subcutaneous heparin (5) Dyslipidemia Current Visit: Yes Status: Chronic Assessment and plan: Continue Lipitor (6) Hypothyroidism Current Visit: Yes Status: Chronic Assessment and plan: On levothyroxine. Patient has normal TSH, free T3 and free T4 levels Qualifiers: Hypothyroidism type: unspecified Qualified Code(s): E03.9 - Hypothyroidism , unspecified (7) Sepsis Current Visit: Yes Status: Resolved Assessment and plan: Sepsis seems to be resolving. Patient's tachycardia is chronic and she has been tachycardic even during her last hospitalization here. Qualifiers: Sepsis type: Escherichia coli Qualified Code(s): A41.51 - Sepsis due to Escherichia coli [E. coli] - Subjective Interval history: Patient is doing much better today. Awake and alert. Shortness of breath is improving. Lower extremity swelling has resolved. No chest pain. No palpitations. No other complaints at this time. Patient has not had any fever or chills overnight. She does continue to have low blood pressure and tachycardia. - Constitutional Vitals: Temp Pulse Resp BP Pulse Ox 98.3 F 117 21 87/54 98 08/31/17 15:38 08/31/17 15:38 08/31/17 15:38 08/31/17 15:38 08/31/17 15:38 General appearance: Present: cooperative, A&O X 3, pleasant, no acute distress, answers questions appropriately - Respiratory Respiratory exam: Present: CTAB. Absent: accessory muscle use, rales, rhonchi, wheezes - Cardiovascular Cardiovascular exam: Present: RRR, +S1, +S2. Absent: diastolic murmur, gallop, rubs, systolic murmur - GI/Abdominal GI/Abdominal exam: Present: normal bowel sounds, soft, no peritoneal signs. Absent: distended, tenderness - Extremities Exam Extremities exam: Present: warm, radial pulses palpable and symmetrical. Absent : calf tenderness, cyanotic, pedal edema - Neurological Exam Neurological exam: Present: alert, oriented X3, no focal deficits. Absent: facial droop, speech deficit Internal Medicine: Result - Labs CBC & Chem 7: 09/01/17 05:04 09/01/17 05:04 - VTE Documentation of Mechanical Device: Graduated compression elastic hosiery Consult Discharge Plan - Plan Instructions: Heart Failure (DC), Urinary Tract Infection in Women (DC), Hypothyroidism (DC) Referrals: Ole Faulkner DO [Partnered Physician] - (in 1-2 weeks) Angel Jimenez DO [Primary Care Provider] - (in 1 week) Prescriptions: Cefuroxime Axetil [Cefuroxime] 250 mg PO BID #10 tablet Furosemide [Lasix] 20 mg PO BID #60 tablet Metoprolol XL (24 HR) Succ [Toprol Xl] 12.5 mg PO DAILY #30 tab.er.24h
[2017-08-31] MEDS: Metoprolol XL (24 HR) Succ 25 MG TAB.ER.24H PO SCH (17:32)
[2017-08-31] MEDS: Insulin DETEMIR 100 UNIT/ML X5UNITS SQ SCH (22:24)
[2017-08-31] MEDS: Topiramate 25 MG TABLET PO SCH (22:25)
[2017-09-01 05:31] LABS: Basophils % 0.3 %; Eosinophils % 0.3 %; Hematocrit 36.8 % (35.3-44.9); Hemoglobin 11.7 g/dL (11.5-15.4); Immature Granulocytes % 0.3 % (0-4); Lymphocytes # 1.6 K/mcL (0.6-4.6); Lymphocytes % 40.2 %; Mean Corpuscular HGB Conc 31.8 g/dL (31.6-35.5); Mean Corpuscular Hemoglobin 29.9 pg (28.0-33.3); Mean Corpuscular Volume 94.1 fL (83.0-100.0); Mean Platelet Volume 11.2 fL (9.4-12.4); Monocytes # 0.3 K/mcL (0.0-1.3); Monocytes % 8.2 %; Nucleated Red Blood Cells 0.5 /100 WBC (0); Platelet Count 132 K/mcL (140-400); Red Blood Count 3.91 M/mcL (3.82-4.97); Red Cell Distribution Width 13.4 % (11.5-14.5); Segmented Neutrophils % 50.7 %
[2017-09-01] MEDS: *HR* Heparin 5,000 UNIT/ML VIAL SQ SCH (05:36)
[2017-09-01 05:46] LABS: BUN/Creatinine Ratio 27 (6-26); Blood Urea Nitrogen 19 mg/dL (6-20); Carbon Dioxide 23 mEq/L (23-29); Chloride 107 mEq/L (98-107); Glucose 172 mg/dL (70-105); Osmolality,Calculated 288 (280-300); Potassium 4.8 mEq/L (3.5-5.1); Sodium 136 mEq/L (136-145); eGFR For African Americans > 60 (> 60); eGFR For Non-African Americans > 60 (> 60)
[2017-09-01] MEDS: Insulin LISPRO 300 UNITS/3 ML VIAL SQ SCH ×2 (08:09→12:17)
[2017-09-01] MEDS: Furosemide 20 MG TABLET PO SCH (08:11)
[2017-09-01] MEDS: Spironolactone 25 MG TABLET PO SCH (08:12)
[2017-09-01] MEDS: Pregabalin 75 MG CAPSULE PO SCH (08:13)
[2017-09-01] MEDS: (Exemestane [Aromasin] 25 MG) PO SCH (08:15)
[2017-09-01] MEDS: Nicotine 21 MG PATCH.TD24 TD SCH (08:15)
[2017-09-01] MEDS: cefTRIAXone 1,000 MG in Water for inj. (sterile) 20 ML 10 ML IVPB SCH (08:16)
[2017-09-01] MEDS: Metoprolol XL (24 HR) Succ 25 MG TAB.ER.24H PO SCH (08:17)
[2017-09-01 11:11] VITALS: BP 100/71
--- NOTE | 2017-09-01 11:41 | Discharge Summary ---
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 coli] - Discharge Medications Prescriptions: Cefuroxime Axetil [Cefuroxime] 250 mg PO BID #10 tablet Furosemide [Lasix] 20 mg PO BID #60 tablet Metoprolol XL (24 HR) Succ [Toprol Xl] 12.5 mg PO DAILY #30 tab.er.24h Home Medications: Albuterol Sulfate [Albuterol Inhaler] 2 puff IH Q4H PRN 03/21/15 [History] Cholecalciferol (Vitamin D3) [Optimal D3] 50,000 unit PO WE 03/21/15 [History] Ipratropium/Albuterol Sulfate [Combivent Respimat Inhal [place]] 2 puff IH DAILY 03/21/15 [History] Loratadine [Claritin] 10 mg PO DAILY 03/21/15 [History] Nitroglycerin [Nitrostat] 0.4 mg SL Q5M PRN 03/21/15 [History] Sertraline [Zoloft] 50 mg PO DAILY 03/21/15 [History] Albuterol Neb [Proventil Neb] 2.5 mg IH Q6H PRN 03/30/16 [History] Topiramate [Topamax] 50 mg PO HS 03/30/16 [History] Budesonide/Formoterol 160/4.5 [Symbicort 160/4.5] 2 puff IH BIDR 08/06/16 [ History] Clopidogrel [Plavix] 75 mg PO DAILY 08/06/16 [History] EPINEPHrine [Epipen] 0.3 mg IM ONCE PRN 08/06/16 [History] Pregabalin [Lyrica] 150 mg PO BID 08/06/16 [History] Cyclobenzaprine HCl 10 mg PO TID PRN #30 tablet 08/08/16 [Rx] Promethazine [Phenergan] 12.5 mg PO Q6HR PRN #20 tablet 08/08/16 [Rx] Exemestane [Aromasin] 25 mg PO DAILY #30 tablet 06/03/17 [Rx] Alogliptin Benzoate [Alogliptin] 25 mg PO DAILY 07/05/17 [History] Lidocaine Patch [Lidoderm 5% patch] 1 each TP DAILY 07/05/17 [History] Metformin HCl [Metformin HCl ER] 500 mg PO BID 07/05/17 [History] Nortriptyline HCl 75 mg PO HS 07/05/17 [History] Atorvastatin [Lipitor] 40 mg PO HS #30 tablet 07/09/17 [Rx] Ivabradine HCl [Corlanor] 5 mg PO BID #60 tablet 07/09/17 [Rx] Lisinopril [Zestril] 2.5 mg PO DAILY #30 tablet 07/17/17 [Rx] Spironolactone [Aldactone] 12.5 mg PO DAILY #30 tablet 07/17/17 [Rx] Insulin Glargine,Hum.rec.anlog [[place] Solostar] 80 units SQ HS 08/26/17 [ History] Insulin LISPRO [Humalog Kwikpen U-100] 0 unit SQ TIDWM 08/26/17 [History] Cefuroxime Axetil [Cefuroxime] 250 mg PO BID #10 tablet 09/01/17 [Rx] Furosemide [Lasix] 20 mg PO BID #60 tablet 09/01/17 [Rx] Metoprolol XL (24 HR) Succ [Toprol Xl] 12.5 mg PO DAILY #30 tab.er.24h 09/01/17 [Rx] Levothyroxine [Synthroid] 50 mcg PO QAM #30 tablet 09/02/17 [Rx] Allergies/Adverse Reactions: 3 Allergy/AdvReac Type Severity Reaction Status Date / Time aspirin Allergy Hives Verified 08/26/17 17:13 Penicillins [PCN] Allergy Hives Verified 08/26/17 17:13 Sulfa (Sulfonamide Allergy Hives Verified 08/26/17 17:13 Antibiotics) venom-honey bee Allergy Anaphylaxis Verified 08/26/17 17:13 [bee venom (honey bee)] Date of admission: 08/30/17 15:17 Primary care physician: Angel Jimenez DO Discharging clinician: Afsaneh Paulson Anticipated date of discharge: 09/01/17 - Patient Status Disposition: Home Health Service Condition: Good Functional capacity at discharge: uses cane/walker Overall status at discharge: patient is progressing back to baseline - Discharge Instructions Instructions: Cefuroxime (By mouth), Metoprolol (By mouth), Furosemide (By mouth), Heart Failure (DC), How to Stop Smoking (DC), Urinary Tract Infection in Women (DC), Hypothyroidism (DC), Diabetes Mellitus Type 2 in Adults (DC), Chronic Obstructive Pulmonary Disease (DC) Follow Up With: Ole Faulkner DO [Partnered Physician] - (in 1-2 weeks) Angel Jimenez DO [Primary Care Provider] - 09/06/17 4:00 pm (in 1 week) - Diet and Activity Activity: increase activity as tolerated Diet: low fat, low cholesterol, low salt diet, other (fluid restirction to 1.5 L /day) Hospital course: Ms. Rivera is a 57 year old female patient with history of congestive heart failure, COPD, diabetes mellitus type 2 was hospitalized here for acute exacerbation of CHF. She was started on treatment for this with intravenous Lasix with significant improvement in her symptoms. She was also diagnosed with sepsis from urinary tract infection. Patient's urine culture was positive for Escherichia coli and she has been receiving IV antibiotics for this. Her blood cultures have been negative. She was evaluated by physical therapy and was not recommended any rehabilitation needs. She does have home health which she will continue to receive. At this time, patient is clinically stable to be discharged home. She will complete antibiotic course with cefuroxime. She will also be on Lasix 20 mg twice daily. - Time Spent with Patient Total time spent providing and/or coordinating discharge services: Greater than 30 minutes (32 min) - Constitutional Vitals: Temp Pulse Resp BP Pulse Ox 98.7 F 118 20 100/71 94 09/01/17 11:10 09/01/17 11:10 09/01/17 11:10 09/01/17 11:10 09/01/17 11:10 General appearance: Present: cooperative, A&O X 3, pleasant, no acute distress, answers questions appropriately - Respiratory Respiratory exam: Present: CTAB. Absent: accessory muscle use, rales, rhonchi, wheezes - Cardiovascular Cardiovascular exam: Present: RRR, +S1, +S2. Absent: diastolic murmur, gallop, rubs, systolic murmur - GI/Abdominal GI/Abdominal exam: Present: normal bowel sounds, soft, no peritoneal signs. Absent: distended, tenderness - Extremities Exam Extremities exam: Present: warm, radial pulses palpable and symmetrical. Absent : calf tenderness, cyanotic, pedal edema - Neurological Exam Neurological exam: Present: alert, CN II-XII intact, oriented X3, no focal deficits. Absent: facial droop, speech deficit - VTE Documentation of Mechanical Device: Graduated compression elastic hosiery
--- NOTE | 2017-09-01 11:53 | Physician Discharge Referral ---
Home Health/Hosp Referral Info Transfer to: Home Health Provider in Charge Post Discharge: PCP - Diagnosis (1) Acute on chronic systolic CHF (congestive heart failure) Priority: Primary Status: Acute (2) Acute cystitis with positive culture Priority: Secondary Status: Acute (3) Diabetes mellitus Priority: Secondary Status: Chronic (4) DVT prophylaxis Priority: Secondary Status: Acute (5) Dyslipidemia Priority: Secondary Status: Chronic (6) Hypothyroidism Priority: Secondary Status: Chronic (7) Sepsis Priority: Secondary Status: Resolved - Respiratory Orders Oxygen / L per min (2) Smoking Cessation: Smoking cessation has been advised. For more information, call the [place] Tobacco Quit Line at 2-295-QPRN-NOW. - Diet/Nutrition Diet/Nutrition Orders: Cardiac (Diet restriction to 1.5 L per day) - Activity Activity Orders: Walker - Services Needed Following services are medically necessary services: Nursing, Physical Therapy, Occupational Therapy - Transfer Medications Prescriptions: Cefuroxime Axetil [Cefuroxime] 250 mg PO BID #10 tablet Furosemide [Lasix] 20 mg PO BID #60 tablet Metoprolol XL (24 HR) Succ [Toprol Xl] 12.5 mg PO DAILY #30 tab.er.24h Home Medications: Albuterol Sulfate [Albuterol Inhaler] 2 puff IH Q4H PRN 03/21/15 [History] Cholecalciferol (Vitamin D3) [Optimal D3] 50,000 unit PO WE 03/21/15 [History] Ipratropium/Albuterol Sulfate [Combivent Respimat Inhal [place]] 2 puff IH DAILY 03/21/15 [History] Loratadine [Claritin] 10 mg PO DAILY 03/21/15 [History] Nitroglycerin [Nitrostat] 0.4 mg SL Q5M PRN 03/21/15 [History] Sertraline [Zoloft] 50 mg PO DAILY 03/21/15 [History] Albuterol Neb [Proventil Neb] 2.5 mg IH Q6H PRN 03/30/16 [History] Topiramate [Topamax] 50 mg PO HS 03/30/16 [History] Budesonide/Formoterol 160/4.5 [Symbicort 160/4.5] 2 puff IH BIDR 08/06/16 [ History] Clopidogrel [Plavix] 75 mg PO DAILY 08/06/16 [History] EPINEPHrine [Epipen] 0.3 mg IM ONCE PRN 08/06/16 [History] Pregabalin [Lyrica] 150 mg PO BID 08/06/16 [History] Cyclobenzaprine HCl 10 mg PO TID PRN #30 tablet 08/08/16 [Rx] Promethazine [Phenergan] 12.5 mg PO Q6HR PRN #20 tablet 08/08/16 [Rx] Exemestane [Aromasin] 25 mg PO DAILY #30 tablet 06/03/17 [Rx] Alogliptin Benzoate [Alogliptin] 25 mg PO DAILY 07/05/17 [History] Levothyroxine [Synthroid] 50 mcg PO QAM 07/05/17 [History] Lidocaine Patch [Lidoderm 5% patch] 1 each TP DAILY 07/05/17 [History] Metformin HCl [Metformin HCl ER] 500 mg PO BID 07/05/17 [History] Nortriptyline HCl 75 mg PO HS 07/05/17 [History] Atorvastatin [Lipitor] 40 mg PO HS #30 tablet 07/09/17 [Rx] Ivabradine HCl [Corlanor] 5 mg PO BID #60 tablet 07/09/17 [Rx] Lisinopril [Zestril] 2.5 mg PO DAILY #30 tablet 07/17/17 [Rx] Spironolactone [Aldactone] 12.5 mg PO DAILY #30 tablet 07/17/17 [Rx] Insulin Glargine,Hum.rec.anlog [[place] Solostar] 80 units SQ HS 08/26/17 [ History] Insulin LISPRO [Humalog Kwikpen U-100] 0 unit SQ TIDWM 08/26/17 [History] Cefuroxime Axetil [Cefuroxime] 250 mg PO BID #10 tablet 09/01/17 [Rx] Furosemide [Lasix] 20 mg PO BID #60 tablet 09/01/17 [Rx] Metoprolol XL (24 HR) Succ [Toprol Xl] 12.5 mg PO DAILY #30 tab.er.24h 09/01/17 [Rx] Allergies/Adverse Reactions: 3 Allergy/AdvReac Type Severity Reaction Status Date / Time aspirin Allergy Hives Verified 08/26/17 17:13 Penicillins [PCN] Allergy Hives Verified 08/26/17 17:13 Sulfa (Sulfonamide Allergy Hives Verified 08/26/17 17:13 Antibiotics) venom-honey bee Allergy Anaphylaxis Verified 08/26/17 17:13 [bee venom (honey bee)] Certification: Further, I certify that my clinical findings support that this patient is homebound (i.e. absences from home require considerable and taxing effort and are for medical reasons or [employer]on services or infrequently or short duration when for other reasons) because: Homebound Reason: Patient requires assistance of a person or device to safely leave home Attestation: My signature below is to certify that this patient is under my care and that I, or nurse practitioner, or a physician's assistant professor of philosophy working with me, has a face-to -face encounter with this patient.
== END 2017-09-01 13:00 | disposition home health service (06) | DRG 720 ==
LOC: EMEROO 17:11 → 3BNU 17:11 → SUATTDRO 20:44 → 3BNU 21:07
PROVIDERS: ADMIT Hospitalist; ATTEND Internal Medicine

== ENCOUNTER 2019-10-02 15:24 | Observation (INO) ==
[2019-10-02 16:18] LABS: Prothrombin Time 11.9 Seconds (9.4-12.1)
[2019-10-02 16:20] LABS: Basophils % 0.5 %; Eosinophils % 0.8 %; Hematocrit 37.5 % (35.3-44.9); Immature Granulocytes % 0.3 % (0-4); Lymphocytes # 1.5 K/mcL (0.6-4.6); Mean Corpuscular HGB Conc 34.7 g/dL (31.6-35.5); Mean Corpuscular Hemoglobin 31.9 pg (28.0-33.3); Mean Corpuscular Volume 92.1 fL (83.0-100.0); Mean Platelet Volume 12.5 fL (9.4-12.4); Monocytes # 0.2 K/mcL (0.0-1.3); Neutrophils # 2.1 K/mcL (1.6-8.9); Platelet Count 106 K/mcL (140-400); Red Blood Count 4.07 M/mcL (3.82-4.97); Red Cell Distribution Width 12.9 % (11.5-14.5); Segmented Neutrophils % 54.4 %; White Blood Count 3.8 K/mcL (4.3-11.1)
[2019-10-02 16:21] LABS: Activated Partial Thrombo Time 54.8 Seconds (26.0-36.0)
[2019-10-02 16:40] LABS: BUN/Creatinine Ratio 31 (6-26); Blood Urea Nitrogen 76 mg/dL (8-23); Calcium 9.9 mg/dL (8.6-10.3); Carbon Dioxide 21 mEq/L (23-29); Chloride 97 mEq/L (98-107); Glucose 328 mg/dL (70-105); Osmolality,Calculated 309 (280-300); Potassium 5.2 mEq/L (3.5-5.1); Sodium 132 mEq/L (136-145); Troponin I < 0.03 ng/mL (< 0.04); eGFR For African Americans 24 (> 60); eGFR For Non-African Americans 20 (> 60)
[2019-10-02] MEDS ORDERED: Calcium Gluconate 1,000 MG/10 ML VIAL IVP STA (17:25)
[2019-10-02] MEDS: Calcium Gluconate 1gm/50mL 1 GM/50 ML BAG IVPB SCH ×2 (17:51→19:18)
[2019-10-02] MEDS ORDERED: Ondansetron 4 MG/2 ML VIAL IVP PRN (18:07)
[2019-10-02] MEDS ORDERED: Naloxone 0.4 MG/ML INJ IVP PRN (18:07)
[2019-10-02] MEDS ORDERED: Insulin Human Regular 10 UNIT in 0.9 % Sodium Chloride 10 ML IV ONE (18:23)
[2019-10-02] MEDS ORDERED: D5% in Water 1,000 ML IVC PRN (18:37)
[2019-10-02] MEDS ORDERED: Dextrose Gel 15 GM/37.5 ML TUBE PO PRN ×2 (18:37)
[2019-10-02] MEDS ORDERED: *HR* Dextrose 50 % in Water (Syg) 50 ML SYRINGE IVP PRN (18:37)
[2019-10-02] MEDS ORDERED: Ipratropium/Albuterol Neb 3 ML IH PRN (18:37)
[2019-10-02] MEDS ORDERED: Nitroglycerin 0.4 MG TAB.SUBL SL PRN (18:49)
[2019-10-02] MEDS ORDERED: Insulin LISPRO 300 UNITS/3 ML VIAL SQ SCH (21:00)
[2019-10-02] MEDS: Insulin LISPRO 300 UNITS/3 ML VIAL SQ SCH (21:07)
[2019-10-02 22:26] LABS: Calcium 9.9 mg/dL (8.6-10.3); Potassium 4.7 mEq/L (3.5-5.1)
[2019-10-03] MEDS ORDERED: Insulin Human Regular 10 UNIT in 0.9 % Sodium Chloride 10 ML IV ONE ×2 (01:24→03:06)
[2019-10-03 03:59] LABS: Basophils % 0.5 %; Hematocrit 32.5 % (35.3-44.9); Immature Granulocytes % 0.3 % (0-4); Red Cell Distribution Width 13.1 % (11.5-14.5); White Blood Count 3.9 K/mcL (4.3-11.1)
[2019-10-03 04:01] LABS: Hemoglobin 11.2 g/dL (11.5-15.4); Immature Platelets 9.6 % (1.1-6.1); Lymphocytes # 1.6 K/mcL (0.6-4.6); Mean Corpuscular HGB Conc 34.5 g/dL (31.6-35.5); Mean Corpuscular Hemoglobin 31.9 pg (28.0-33.3); Mean Corpuscular Volume 92.6 fL (83.0-100.0); Mean Platelet Volume 12.5 fL (9.4-12.4); Monocytes # 0.3 K/mcL (0.0-1.3); Monocytes % 7.5 %; Neutrophils # 1.9 K/mcL (1.6-8.9); Red Blood Count 3.51 M/mcL (3.82-4.97); Segmented Neutrophils % 48.7 %
[2019-10-03 04:03] LABS: Platelet Count 88 K/mcL (140-400)
[2019-10-03 04:17] LABS: Calcium 9.6 mg/dL (8.6-10.3); Chol/HDL Ratio 6.2 (0-4.9); Cholesterol 124 mg/dL (< 200); HDL Cholesterol 20 mg/dL (40-59); Potassium 5.3 mEq/L (3.5-5.1); Triglycerides 607 mg/dL (< 150)
[2019-10-03 04:31] LABS: Large Platelets Present (Not Present); Platelet Estimate Slight Decrease (Normal)
[2019-10-03] MEDS ORDERED: *HR* Heparin 5,000 UNIT/ML VIAL SQ SCH (06:00)
[2019-10-03] MEDS: Insulin LISPRO 300 UNITS/3 ML VIAL SQ SCH ×4 (08:42→21:19)
[2019-10-03] MEDS ORDERED: Insulin DETEMIR 100 UNIT/ML X5UNITS SQ SCH ×2 (09:00)
[2019-10-03 09:13] LABS: Bilirubin,Urine Negative (Negative); Blood,Urine Negative (Negative); Clarity,Urine Clear (Clear); Color,Urine Yellow (Yellow); Glucose,Urine (UA) 500 mg/dL (Normal); Ketones,Urine Negative (Negative); Leukocyte Esterase,Urine Small (Negative); Nitrite,Urine Positive (Negative); PH,Urine 5.5 pH Units (5.0-8.0); Protein,Urine Negative (Neg-Trace); Specific Gravity,Urine 1.019 (1.010-1.025); Urobilinogen,Urine Normal (Normal)
[2019-10-03 09:16] LABS: Bacteria,Urine Many per hpf (None-Few); Hyaline Casts,Urine None Seen per lpf (None-Few); RBC,Urine 0-3 per hpf (0-3); Squamous Epithelial Cell,Urine Many per lpf (None-Few)
[2019-10-03] MEDS ORDERED: 0.9 % Sodium Chloride 1,000 ML IVC SCH (11:30)
[2019-10-03 11:54] LABS: Creatinine,Urine 132 mg/dL; Microalbumin,Urine < 7 mg/L; Sodium, Urine 14.9 mEq/L
[2019-10-03] MEDS ORDERED: Perflutren Lipid Microsphere 1.3 ML in 0.9 % Sodium Chloride 8.7 ML IVP ONE (13:09)
[2019-10-03 14:42] LABS: Calcium 9.6 mg/dL (8.6-10.3); Potassium 4.8 mEq/L (3.5-5.1)
[2019-10-03] MEDS ORDERED: EPINEPHrine 1 MG/ML VIAL IM PRN (16:07)
[2019-10-03] MEDS: Metoprolol XL (24 HR) Succ 25 MG TAB.ER.24H PO SCH (16:21)
[2019-10-03] MEDS: *HR* Insulin Regular U-500 500 UNIT/ML SQ SCH (17:03)
[2019-10-03] MEDS: Topiramate 100 MG TABLET PO SCH (21:18)
[2019-10-03] MEDS ORDERED: levoFLOXacin 500 MG/100 ML 500 MG/100 ML BAG IVPB SCH (23:00)
[2019-10-04 07:57] LABS: Albumin 4.1 g/dL (3.5-5.7); Calcium 9.3 mg/dL (8.6-10.3)
[2019-10-04] MEDS: Insulin LISPRO 300 UNITS/3 ML VIAL SQ SCH ×4 (08:22→20:42)
[2019-10-04] MEDS: *HR* Insulin Regular U-500 500 UNIT/ML SQ SCH ×2 (08:29→20:15)
[2019-10-04] MEDS: Metoprolol XL (24 HR) Succ 25 MG TAB.ER.24H PO SCH (08:31)
[2019-10-04] MEDS: Loratadine 10 MG TABLET PO SCH (08:31)
[2019-10-04] MEDS: Cyanocobalamin (B-12) 1,000 MCG TABLET PO SCH (08:31)
[2019-10-04] MEDS: (Exemestane [Aromasin] 25 MG) PO SCH (08:32)
[2019-10-04] MEDS: Topiramate 100 MG TABLET PO SCH (20:42)
[2019-10-05 05:45] LABS: Red Cell Distribution Width 13.2 % (11.5-14.5)
[2019-10-05 05:47] LABS: Basophils % 0.7 %; Hematocrit 34.3 % (35.3-44.9); Hemoglobin 11.4 g/dL (11.5-15.4); Immature Platelets 8.7 % (1.1-6.1); Lymphocytes % 48.3 %; Mean Corpuscular HGB Conc 33.2 g/dL (31.6-35.5); Mean Corpuscular Hemoglobin 31.5 pg (28.0-33.3); Mean Corpuscular Volume 94.8 fL (83.0-100.0); Mean Platelet Volume 12.3 fL (9.4-12.4); Monocytes # 0.2 K/mcL (0.0-1.3); Monocytes % 7.7 %; Neutrophils # 1.3 K/mcL (1.6-8.9); Red Blood Count 3.62 M/mcL (3.82-4.97); Segmented Neutrophils % 42.3 %
[2019-10-05 05:49] LABS: Lymphocytes # 1.5 K/mcL (0.6-4.6); Platelet Count 80 K/mcL (140-400)
[2019-10-05 06:14] LABS: Calcium 9.5 mg/dL (8.6-10.3); Potassium 4.7 mEq/L (3.5-5.1)
[2019-10-05] MEDS ORDERED: Regadenoson 0.4 MG/5 ML SYRINGE IVP ONE (06:16)
[2019-10-05] MEDS: *HR* Insulin Regular U-500 500 UNIT/ML SQ SCH (09:57)
[2019-10-05] MEDS: Insulin LISPRO 300 UNITS/3 ML VIAL SQ SCH ×2 (09:57→13:00)
[2019-10-05] MEDS: Metoprolol XL (24 HR) Succ 25 MG TAB.ER.24H PO SCH (10:12)
[2019-10-05] MEDS: Loratadine 10 MG TABLET PO SCH (10:12)
[2019-10-05] MEDS: Cyanocobalamin (B-12) 1,000 MCG TABLET PO SCH (10:12)
[2019-10-05] MEDS: (Exemestane [Aromasin] 25 MG) PO SCH (10:13)
[2019-10-05 11:44] VITALS: BP 118/74
== END 2019-10-05 14:18 | disposition home or self-care (01) ==
LOC: 3BNU 15:24 → EMEROOARM 15:24 → SUATTDRO 20:20 → 3BNU 20:57
PROVIDERS: ADMIT Student in an Organized Health Care Education/Training Program; ATTEND Family Medicine

== ENCOUNTER 2020-08-19 13:49 | Observation (INO) ==
[2020-08-19] MEDS ORDERED: 0.9 % Sodium Chloride 1,000 ML IVC ONE (14:09)
[2020-08-19] MEDS ORDERED: Cefepime HCl 2,000 MG in 0.9 % Sodium Chloride Mini Bag 100 ML IVPB STA (14:32)
[2020-08-19] MEDS ORDERED: Morphine Sulfate 2 MG/ML SYRINGE IVP ONE (15:18)
[2020-08-19] MEDS ORDERED: Ondansetron 4 MG/2 ML VIAL IVP ONE (15:18)
[2020-08-19 16:40] LABS: VBG HCO3 20 mEq/L (21-27); VBG PCO2 40 mmHg (41-51); VBG PH 7.31 pH Units (7.32-7.42); VBG PO2 44 mmHg (25-50)
[2020-08-19 17:15] LABS: Alanine Aminotransferase 16 Units/L (7-52); Albumin 4.2 g/dL (3.5-5.7); Albumin/Globulin Ratio 1.4 (1.1-2.2); Alkaline Phosphatase 84 Units/L (34-104); Aspartate Amino Transferase 20 Units/L (13-39); BUN/Creatinine Ratio 20 (6-26); Bilirubin,Total 0.8 mg/dL (0.3-1.0); Blood Urea Nitrogen 25 mg/dL (8-23); Calcium 9.3 mg/dL (8.6-10.3); Carbon Dioxide 20 mEq/L (23-29); Chloride 101 mEq/L (98-107); Glucose 624 mg/dL (70-105); Magnesium 1.9 mg/dL (1.6-2.6); Osmolality,Calculated 308 (280-300); Phosphorous 3.2 mg/dL (2.7-4.5); Potassium 4.6 mEq/L (3.5-5.1); Sodium 132 mEq/L (136-145); Total Protein 7.2 g/dL (6.4-8.9); Troponin I < 0.03 ng/mL (< 0.04); eGFR For African Americans 53 (> 60); eGFR For Non-African Americans 43 (> 60)
[2020-08-19] MEDS ORDERED: Insulin Human Regular 10 UNIT in 0.9 % Sodium Chloride 10 ML IV ONE (17:43)
[2020-08-19] MEDS ORDERED: Insulin Human Regular 100 UNIT in 0.9 % Sodium Chloride 100 ML IVC SCH (17:45)
[2020-08-19] MEDS ORDERED: *HR* HYDROcodone/Acet 5/325 mg TABLET PO PRN (17:49)
[2020-08-19] MEDS ORDERED: *HR* OxyCODONE Immed Rel 5 MG TABLET PO PRN (17:49)
[2020-08-19] MEDS ORDERED: Ondansetron 4 MG/2 ML VIAL IVP PRN (17:49)
[2020-08-19] MEDS ORDERED: Naloxone 0.4 MG/ML INJ IVP PRN (17:49)
[2020-08-19] MEDS ORDERED: *HR* Dextrose 50 % in Water (Vial) 50 ML VIAL IVP PRN (17:52)
[2020-08-19] MEDS ORDERED: D5% in Water 1,000 ML IVC PRN (17:52)
[2020-08-19] MEDS ORDERED: Dextrose Gel 15 GM/37.5 ML TUBE PO PRN ×2 (17:52)
[2020-08-19 17:57] LABS: Basophils % 0.2 %; Hematocrit 38.6 % (35.3-44.9); Hemoglobin 12.7 g/dL (11.5-15.4); Immature Granulocytes % 0.4 % (0-4); Lymphocytes # 1.1 K/mcL (0.6-4.6); Lymphocytes % 24.9 %; Mean Corpuscular HGB Conc 32.9 g/dL (31.6-35.5); Mean Corpuscular Hemoglobin 31.5 pg (28.0-33.3); Mean Corpuscular Volume 95.8 fL (83.0-100.0); Mean Platelet Volume 12.2 fL (9.4-12.4); Monocytes # 0.2 K/mcL (0.0-1.3); Monocytes % 3.5 %; Neutrophils # 3.2 K/mcL (1.6-8.9); Platelet Count 74 K/mcL (140-400); Red Blood Count 4.03 M/mcL (3.82-4.97); Red Cell Distribution Width 13.4 % (11.5-14.5); White Blood Count 4.5 K/mcL (4.3-11.1)
[2020-08-19] MEDS ORDERED: 0.9 % Sodium Chloride 1,000 ML IVC SCH (18:00)
[2020-08-19] MEDS ORDERED: levoFLOXacin 750 MG/150 ML 750 MG/150 ML BAG IVPB SCH ×2 (18:00→19:30)
[2020-08-19 18:12] LABS: Bilirubin,Urine Negative (Negative); Blood,Urine Negative (Negative); Clarity,Urine Clear (Clear); Color,Urine Light-Yellow (Yellow); Glucose,Urine (UA) >=1000 mg/dL (Normal); Ketones,Urine 10 mg/dL (Negative); Leukocyte Esterase,Urine Negative (Negative); Mucus,Urine Few per lpf (None-Few); Nitrite,Urine Negative (Negative); Protein,Urine Trace mg/dL (Neg-Trace); RBC,Urine 0-3 per hpf (0-3); Specific Gravity,Urine > 1.030 (1.010-1.025); Squamous Epithelial Cell,Urine Few per hpf (None-Few); Urobilinogen,Urine Normal (Normal); WBC,Urine 0-3 per hpf (0-3)
[2020-08-19] MEDS ORDERED: Ipratropium/Albuterol Neb 3 ML IH PRN (18:21)
[2020-08-19 18:40] LABS: C-Reactive Protein > 300 mg/L (Less than 10)
[2020-08-19] MEDS ORDERED: Vancomycin 500 MG in 0.9 % Sodium Chloride Mini Bag 100 ML IVPB ONE (20:00)
[2020-08-19] MEDS: *HR* Heparin 5,000 UNIT/ML VIAL SQ SCH (20:33)
[2020-08-19] MEDS: Topiramate 100 MG TABLET PO SCH (20:34)
[2020-08-19] MEDS: Pregabalin 75 MG CAPSULE PO SCH (20:34)
[2020-08-19] MEDS: Insulin LISPRO 300 UNITS/3 ML VIAL SUBQ SCH (20:40)
[2020-08-19 22:47] LABS: BUN/Creatinine Ratio 19 (6-26); Blood Urea Nitrogen 21 mg/dL (8-23); Calcium 8.6 mg/dL (8.6-10.3); Carbon Dioxide 18 mEq/L (23-29); Chloride 107 mEq/L (98-107); Glucose 409 mg/dL (70-105); Osmolality,Calculated 300 (280-300); Potassium 3.8 mEq/L (3.5-5.1); Sodium 135 mEq/L (136-145); eGFR For African Americans > 60 (> 60); eGFR For Non-African Americans 50 (> 60)
[2020-08-20] MEDS: Insulin LISPRO 300 UNITS/3 ML VIAL SUBQ SCH ×5 (00:03→21:28)
[2020-08-20] MEDS: *HR* Heparin 5,000 UNIT/ML VIAL SQ SCH ×3 (06:00→20:15)
[2020-08-20 07:28] LABS: Basophils % 0.6 %; Eosinophils % 0.6 %; Hematocrit 34.3 % (35.3-44.9); Hemoglobin 10.8 g/dL (11.5-15.4); Immature Granulocytes % 0.3 % (0-4); Mean Corpuscular HGB Conc 31.5 g/dL (31.6-35.5); Mean Corpuscular Hemoglobin 30.4 pg (28.0-33.3); Mean Corpuscular Volume 96.6 fL (83.0-100.0); Monocytes # 0.2 K/mcL (0.0-1.3); Monocytes % 7.1 %; Neutrophils # 1.8 K/mcL (1.6-8.9); Platelet Count 70 K/mcL (140-400); Red Blood Count 3.55 M/mcL (3.82-4.97); Red Cell Distribution Width 13.3 % (11.5-14.5); Segmented Neutrophils % 58.4 %; White Blood Count 3.1 K/mcL (4.3-11.1)
[2020-08-20 07:48] LABS: Troponin I < 0.03 ng/mL (< 0.04)
[2020-08-20 07:50] LABS: INR 1.1
[2020-08-20 07:53] LABS: Activated Partial Thrombo Time 26.7 Seconds (26.0-36.0)
[2020-08-20] MEDS: Metoprolol XL (24 HR) Succ 25 MG TAB.ER.24H PO SCH (09:03)
[2020-08-20] MEDS: Loratadine 10 MG TABLET PO SCH (09:03)
[2020-08-20] MEDS: Pregabalin 75 MG CAPSULE PO SCH ×2 (09:03→20:13)
[2020-08-20] MEDS: Cyanocobalamin (B-12) 1,000 MCG TABLET PO SCH (09:03)
[2020-08-20 11:26] LABS: Adenovirus Not Detected (Not Detect); Bordetella Pertussis Not Detected (Not Detect); Chlamydophila pneumoniae Not Detected (Not Detect); Coronavirus 229E Not Detected (Not Detect); Coronavirus HKU1 Not Detected (Not Detect); Coronavirus NL63 Not Detected (Not Detect); Coronavirus OC43 Not Detected (Not Detect); Human Metapneumovirus Not Detected (Not Detect); Human Rhinovirus/Enterovirus Not Detected (Not Detect); Influenza A Subtype 2009 H1 Not Detected (Not Detect); Influenza B Not Detected (Not Detect); Mycoplasma pneumoniae Not Detected (Not Detect); Parainfluenza Virus 1 Not Detected (Not Detect); Parainfluenza Virus 2 Not Detected (Not Detect); Parainfluenza Virus 3 Not Detected (Not Detect); Parainfluenza Virus 4 Not Detected (Not Detect); Respiratory Syncytial Virus Not Detected (Not Detect); SARS-CoV-2 Not Detected (Not Detect)
[2020-08-20] MEDS ORDERED: 0.9 % Sodium Chloride 250 ML ONE (17:49)
[2020-08-20] MEDS ORDERED: Vancomycin 1,000 MG VIAL ONE (17:49)
[2020-08-20] MEDS ORDERED: Vancomycin 1,250 MG/262.5 ML IV.SOLN IVPB SCH (18:00)
[2020-08-20] MEDS ORDERED: levoFLOXacin 750 MG/150 ML 750 MG/150 ML BAG IVPB SCH (20:00)
[2020-08-20] MEDS: Topiramate 100 MG TABLET PO SCH (20:14)
[2020-08-20] MEDS: Insulin DETEMIR 100 UNIT/ML X5UNITS SUBQ SCH (21:29)
[2020-08-21] MEDS ORDERED: Vancomycin 1,000 MG VIAL ONE (05:05)
[2020-08-21] MEDS ORDERED: 0.9 % Sodium Chloride 250 ML ONE (05:05)
[2020-08-21] MEDS: *HR* Heparin 5,000 UNIT/ML VIAL SQ SCH ×3 (05:11→21:02)
[2020-08-21 05:50] LABS: Basophils % 0.3 %; Eosinophils % 1.4 %
[2020-08-21 05:51] LABS: Hematocrit 34.6 % (35.3-44.9); Lymphocytes # 1.4 K/mcL (0.6-4.6); Lymphocytes % 47.4 %; Mean Corpuscular HGB Conc 31.8 g/dL (31.6-35.5); Mean Corpuscular Hemoglobin 30.6 pg (28.0-33.3); Mean Corpuscular Volume 96.4 fL (83.0-100.0); Mean Platelet Volume 12.1 fL (9.4-12.4); Monocytes # 0.1 K/mcL (0.0-1.3); Monocytes % 4.4 %; Neutrophils # 1.4 K/mcL (1.6-8.9); Red Blood Count 3.59 M/mcL (3.82-4.97); Red Cell Distribution Width 13.3 % (11.5-14.5); Segmented Neutrophils % 46.5 %; White Blood Count 2.9 K/mcL (4.3-11.1)
[2020-08-21 05:56] LABS: Platelet Count 77 K/mcL (140-400)
[2020-08-21 06:12] LABS: BUN/Creatinine Ratio 18 (6-26); Blood Urea Nitrogen 16 mg/dL (8-23); Calcium 8.5 mg/dL (8.6-10.3); Carbon Dioxide 20 mEq/L (23-29); Chloride 108 mEq/L (98-107); Glucose 231 mg/dL (70-105); Magnesium 1.8 mg/dL (1.6-2.6); Osmolality,Calculated 291 (280-300); Potassium 3.8 mEq/L (3.5-5.1); Sodium 136 mEq/L (136-145); eGFR For African Americans > 60 (> 60); eGFR For Non-African Americans > 60 (> 60)
[2020-08-21 06:25] LABS: Thyroid Stimulating Hormone 2.769 mcIU/mL (0.340-5.600)
[2020-08-21 07:42] LABS: Estimated Average Glucose 324 mg/dl; Hemoglobin A1C 12.9 %
[2020-08-21] MEDS: Insulin LISPRO 300 UNITS/3 ML VIAL SUBQ SCH ×4 (09:59→21:01)
[2020-08-21] MEDS: Spironolactone 25 MG TABLET PO SCH (10:00)
[2020-08-21] MEDS: Pregabalin 75 MG CAPSULE PO SCH ×2 (10:00→21:02)
[2020-08-21] MEDS: Metoprolol XL (24 HR) Succ 25 MG TAB.ER.24H PO SCH (10:00)
[2020-08-21] MEDS: Topiramate 100 MG TABLET PO SCH ×2 (10:00→21:03)
[2020-08-21] MEDS: Cyanocobalamin (B-12) 1,000 MCG TABLET PO SCH (10:00)
[2020-08-21] MEDS: Loratadine 10 MG TABLET PO SCH (10:00)
[2020-08-21] MEDS: Doxycycline 100 MG in 0.9 % Sodium Chloride Mini Bag 100 ML IVPB SCH (17:43)
[2020-08-21] MEDS: Insulin DETEMIR 100 UNIT/ML X5UNITS SUBQ SCH (21:07)
[2020-08-22 02:07] LABS: Red Cell Distribution Width 13.1 % (11.5-14.5)
[2020-08-22 02:09] LABS: Basophils % 0.4 %; Eosinophils % 0.4 %; Hematocrit 33.9 % (35.3-44.9); Immature Granulocytes % 0.4 % (0-4); Lymphocytes # 1.5 K/mcL (0.6-4.6); Lymphocytes % 53.6 %; Mean Corpuscular HGB Conc 32.4 g/dL (31.6-35.5); Mean Corpuscular Hemoglobin 30.8 pg (28.0-33.3); Mean Platelet Volume 12.5 fL (9.4-12.4); Monocytes # 0.1 K/mcL (0.0-1.3); Neutrophils # 1.1 K/mcL (1.6-8.9); Red Blood Count 3.57 M/mcL (3.82-4.97); Segmented Neutrophils % 40.2 %; White Blood Count 2.8 K/mcL (4.3-11.1)
[2020-08-22 02:12] LABS: Platelet Count 79 K/mcL (140-400)
[2020-08-22 02:26] LABS: BUN/Creatinine Ratio 18 (6-26); Blood Urea Nitrogen 14 mg/dL (8-23); Calcium 8.6 mg/dL (8.6-10.3); Carbon Dioxide 19 mEq/L (23-29); Chloride 108 mEq/L (98-107); Glucose 256 mg/dL (70-105); Magnesium 1.7 mg/dL (1.6-2.6); Osmolality,Calculated 291 (280-300); Potassium 3.5 mEq/L (3.5-5.1); Sodium 136 mEq/L (136-145); eGFR For African Americans > 60 (> 60); eGFR For Non-African Americans > 60 (> 60)
[2020-08-22] MEDS: Doxycycline 100 MG in 0.9 % Sodium Chloride Mini Bag 100 ML IVPB SCH (05:56)
[2020-08-22] MEDS: *HR* Heparin 5,000 UNIT/ML VIAL SQ SCH (05:56)
[2020-08-22 07:11] VITALS: BP 136/74
[2020-08-22] MEDS: Insulin LISPRO 300 UNITS/3 ML VIAL SUBQ SCH (08:10)
[2020-08-22] MEDS: Loratadine 10 MG TABLET PO SCH (08:11)
[2020-08-22] MEDS: Topiramate 100 MG TABLET PO SCH (08:11)
[2020-08-22] MEDS: Pregabalin 75 MG CAPSULE PO SCH (08:11)
[2020-08-22] MEDS: Metoprolol XL (24 HR) Succ 25 MG TAB.ER.24H PO SCH (08:12)
[2020-08-22] MEDS: Spironolactone 25 MG TABLET PO SCH (08:12)
[2020-08-22] MEDS: Cyanocobalamin (B-12) 1,000 MCG TABLET PO SCH (08:12)
== END 2020-08-22 13:55 | disposition home or self-care (01) ==
LOC: EMEROOARM 13:49 → 3ANU 13:49 → SUATTDRO 19:34 → 3ANU 20:02
PROVIDERS: ADMIT Student in an Organized Health Care Education/Training Program; ATTEND Pharmacist

== ENCOUNTER 2021-10-28 12:00 | Inpatient (IN) ==
[2021-10-28] MEDS ORDERED: 0.9 % Sodium Chloride 1,000 ML IV ONE ×2 (12:08→15:37)
[2021-10-28] MEDS ORDERED: Isovue-370 500 ML BOTTLE IVP ONE (12:08)
[2021-10-28 13:14] LABS: Bilirubin,Urine Negative (Negative); Blood,Urine Negative (Negative); Clarity,Urine Turbid (Clear); Color,Urine Yellow (Yellow); Glucose,Urine (UA) >=1000 mg/dL (Normal); Ketones,Urine Negative (Negative); Leukocyte Esterase,Urine Negative (Negative); Mucus,Urine Few per lpf (None-Few); Nitrite,Urine Negative (Negative); Protein,Urine Trace mg/dL (Neg-Trace); Specific Gravity,Urine 1.027 (1.010-1.025); Squamous Epithelial Cell,Urine Moderate per hpf (None-Few); Urobilinogen,Urine Normal (Normal); WBC,Urine 15-30 per hpf (0-3)
[2021-10-28 14:04] LABS: Hematocrit 48.6 % (35.3-44.9); Hemoglobin 16.2 g/dL (11.5-15.4); Immature Platelets 6.2 % (1.1-6.1); Mean Corpuscular HGB Conc 33.3 g/dL (31.6-35.5); Mean Corpuscular Hemoglobin 32.3 pg (28.0-33.3); Red Blood Count 5.01 M/mcL (3.82-4.97); White Blood Count 5.5 K/mcL (4.3-11.1)
[2021-10-28 14:05] LABS: Platelet Count 84 K/mcL (140-400)
[2021-10-28 14:29] LABS: Lymphocytes # 0.9 K/mcL (0.6-4.6); Neutrophils # 4.6 K/mcL (1.6-8.9); Troponin I < 0.03 ng/mL (< 0.04)
[2021-10-28 14:30] LABS: Platelet Estimate Decreased (Normal)
[2021-10-28 15:32] LABS: Alanine Aminotransferase 9 Units/L (7-52); Albumin 4.4 g/dL (3.5-5.7); Albumin/Globulin Ratio 1.6 (1.1-2.2); Alkaline Phosphatase 62 Units/L (34-104); Aspartate Amino Transferase 18 Units/L (13-39); BUN/Creatinine Ratio 18 (6-26); Bilirubin,Total 0.4 mg/dL (0.3-1.0); Blood Urea Nitrogen 41 mg/dL (8-23); Calcium 8.1 mg/dL (8.6-10.3); Chloride 106 mEq/L (98-107); Globulin 2.7 g/dL (2.4-3.5); Glucose 97 mg/dL (70-105); Magnesium 1.9 mg/dL (1.6-2.6); Osmolality,Calculated 286 (280-300); Potassium 3.6 mEq/L (3.5-5.1); Sodium 133 mEq/L (136-145); Total Protein 7.1 g/dL (6.4-8.9); eGFR For African Americans 26 (> 60); eGFR For Non-African Americans 22 (> 60)
[2021-10-28] MEDS ORDERED: Ondansetron ODT 4 MG TAB.RAPDIS SL PRN (17:28)
[2021-10-28] MEDS ORDERED: Naloxone 0.4 MG/ML INJ IVP PRN (17:28)
[2021-10-28] MEDS ORDERED: Ergocalciferol (VIT D2) 50,000 UNIT (1.25MG) CAP PO SCH (17:30)
[2021-10-28 17:37] LABS: Adenovirus Not Detected (Not Detect); Bordetella Pertussis Not Detected (Not Detect); Chlamydophila pneumoniae Not Detected (Not Detect); Coronavirus 229E Not Detected (Not Detect); Coronavirus HKU1 Not Detected (Not Detect); Coronavirus NL63 Not Detected (Not Detect); Coronavirus OC43 Not Detected (Not Detect); Human Metapneumovirus Not Detected (Not Detect); Human Rhinovirus/Enterovirus Not Detected (Not Detect); Influenza A Subtype 2009 H1 Not Detected (Not Detect); Influenza B Not Detected (Not Detect); Mycoplasma pneumoniae Not Detected (Not Detect); Parainfluenza Virus 1 Not Detected (Not Detect); Parainfluenza Virus 2 Not Detected (Not Detect); Parainfluenza Virus 3 Not Detected (Not Detect); Parainfluenza Virus 4 Not Detected (Not Detect); Respiratory Syncytial Virus Not Detected (Not Detect); SARS-CoV-2 Not Detected (Not Detect)
[2021-10-28] MEDS ORDERED: D5% in Water 1,000 ML IVC PRN (17:57)
[2021-10-28] MEDS ORDERED: *HR* Dextrose 50 % in Water (Syg) 50 ML SYRINGE IVP PRN (17:57)
[2021-10-28] MEDS ORDERED: Dextrose 4 GM Chewable Tablets PO PRN ×2 (17:57)
[2021-10-28] MEDS ORDERED: cefTRIAXone 1,000 MG in 0.9 % Sodium Chloride Mini Bag 100 ML IVPB SCH (18:00)
[2021-10-28] MEDS ORDERED: 0.9 % Sodium Chloride 1,000 ML IVC SCH (18:00)
[2021-10-28] MEDS: cefTRIAXone 1,000 MG in 0.9 % Sodium Chloride 10 ML IVP SCH (18:29)
[2021-10-28] MEDS: MetroNIDAZOLE 500 MG/100 ML 500 MG/100 ML BAG IVPB SCH ×2 (18:29→23:29)
[2021-10-28] MEDS: 0.9 % Sodium Chloride 1,000 ML IVC SCH ×2 (18:30→20:30)
[2021-10-28 21:16] LABS: Carbon Dioxide 10 mEq/L (23-29)
[2021-10-28] MEDS: *HR* Heparin 5,000 UNIT/ML VIAL SQ SCH (21:49)
[2021-10-28] MEDS: Topiramate 25 MG TABLET PO SCH (21:49)
[2021-10-28 22:26] LABS: Rotavirus A PCR DETECTED (Not detect)
[2021-10-28 22:27] LABS: Adenovirus F 40/41 PCR Not detected (Not detect); Astrovirus PCR Not detected (Not detect); C.difficile Toxin A/B Gene PCR Not detected (Not detect); Campylobacter by PCR Not detected (Not detect); Cryptosporidium by PCR Not detected (Not detect); Cyclospora cayetanensis PCR Not detected (Not detect); E. coli O157 by PCR Not detected (Not detect); Entamoeba histolytica PCR Not detected (Not detect); Enteroaggregative E.coli(EAEC) Not detected (Not detect); Enteropathogenic E.coli(EPEC) Not detected (Not detect); Enterotoxigenic E.coli (ETEC) Not detected (Not detect); Giardia lamblia PCR Not detected (Not detect); Norovirus GI/GII PCR Not detected (Not detect); Plesiomonas shigelloides PCR Not detected (Not detect); Salmonella PCR Not detected (Not detect); Sapovirus PCR Not detected (Not detect); Shig/EnteroinvasiveE coli EIEC Not detected (Not detect); Shigalike tox-prod E coli STEC Not detected (Not detect); Vibrio PCR Not detected (Not detect); Vibrio cholerae PCR Not detected (Not detect); Yersinia enterocolitica PCR Not detected (Not detect)
[2021-10-29] MEDS: 0.9 % Sodium Chloride 1,000 ML IVC SCH ×4 (01:46→20:11)
[2021-10-29] MEDS: *HR* Heparin 5,000 UNIT/ML VIAL SQ SCH ×3 (05:18→20:16)
[2021-10-29] MEDS: Topiramate 25 MG TABLET PO SCH ×2 (08:32→20:15)
[2021-10-29] MEDS: Cyanocobalamin (B-12) 1,000 MCG TABLET PO SCH (08:36)
[2021-10-29] MEDS: Loratadine 10 MG TABLET PO SCH (08:36)
[2021-10-29] MEDS: Insulin LISPRO 300 UNITS/3 ML VIAL SUBQ SCH ×3 (08:37→19:21)
[2021-10-29] MEDS: cefTRIAXone 1,000 MG in 0.9 % Sodium Chloride 10 ML IVP SCH (08:38)
[2021-10-29] MEDS: MetroNIDAZOLE 500 MG/100 ML 500 MG/100 ML BAG IVPB SCH ×3 (08:38→23:04)
[2021-10-29] MEDS: Metoprolol XL (24 HR) Succ 50 MG TAB.ER.24H PO SCH (08:50)
[2021-10-29] MEDS: Topiramate 100 MG TABLET PO SCH (09:36)
[2021-10-29 10:24] LABS: Red Cell Distribution Width 14.2 % (11.5-14.5)
[2021-10-29 10:26] LABS: Hematocrit 34.8 % (35.3-44.9); Hemoglobin 11.5 g/dL (11.5-15.4); Lymphocytes # 0.9 K/mcL (0.6-4.6); Mean Corpuscular Volume 96.9 fL (83.0-100.0); Red Blood Count 3.59 M/mcL (3.82-4.97); White Blood Count 2.9 K/mcL (4.3-11.1)
[2021-10-29 10:28] LABS: Platelet Count 81 K/mcL (140-400)
[2021-10-29 10:30] LABS: INR 1.1; Prothrombin Time 12.4 Seconds (9.4-12.1)
[2021-10-29 10:57] LABS: BUN/Creatinine Ratio 30 (6-26); Blood Urea Nitrogen 22 mg/dL (8-23); C-Reactive Protein 31 mg/L (Less than 10); Carbon Dioxide 13 mEq/L (23-29); Chloride 116 mEq/L (98-107); Glucose 180 mg/dL (70-105); Magnesium 1.6 mg/dL (1.6-2.6); Osmolality,Calculated 298 (280-300); Potassium 3.1 mEq/L (3.5-5.1); Sodium 140 mEq/L (136-145); eGFR For African Americans > 60 (> 60); eGFR For Non-African Americans > 60 (> 60)
[2021-10-29 11:04] LABS: Monocytes # 0.1 K/mcL (0.0-1.3); Neutrophils # 1.9 K/mcL (1.6-8.9); Platelet Estimate Decreased (Normal)
[2021-10-29] MEDS: Calcium Gluconate 1gm/50mL 1 GM/50 ML BAG IVPB SCH ×2 (12:17→13:35)
[2021-10-29 12:41] LABS: Estimated Average Glucose 352 mg/dl; Hemoglobin A1C 13.9 %
[2021-10-29] MEDS ORDERED: 0.9 % Sodium Chloride 1,000 ML IVC SCH (19:46)
[2021-10-29] MEDS: 0.9 % Sodium Chloride w KCl 40 MEQ/1,000 ML MLS IVC SCH (20:15)
[2021-10-30] MEDS: 0.9 % Sodium Chloride w KCl 40 MEQ/1,000 ML MLS IVC SCH ×3 (06:03→22:28)
[2021-10-30] MEDS: *HR* Heparin 5,000 UNIT/ML VIAL SQ SCH ×3 (06:03→21:03)
[2021-10-30] MEDS: Insulin LISPRO 300 UNITS/3 ML VIAL SUBQ SCH ×3 (07:32→18:18)
[2021-10-30] MEDS: Topiramate 25 MG TABLET PO SCH ×2 (07:33→21:03)
[2021-10-30] MEDS: Loratadine 10 MG TABLET PO SCH (07:33)
[2021-10-30] MEDS: Topiramate 100 MG TABLET PO SCH (07:33)
[2021-10-30] MEDS: Cyanocobalamin (B-12) 1,000 MCG TABLET PO SCH (07:33)
[2021-10-30] MEDS: cefTRIAXone 1,000 MG in 0.9 % Sodium Chloride 10 ML IVP SCH (07:34)
[2021-10-30] MEDS: MetroNIDAZOLE 500 MG/100 ML 500 MG/100 ML BAG IVPB SCH (07:34)
[2021-10-30] MEDS: Metoprolol XL (24 HR) Succ 50 MG TAB.ER.24H PO SCH (07:34)
[2021-10-30 08:21] LABS: Hemoglobin 10.9 g/dL (11.5-15.4); Red Cell Distribution Width 14.2 % (11.5-14.5)
[2021-10-30 08:23] LABS: Hematocrit 32.3 % (35.3-44.9); Immature Platelets 3.4 % (1.1-6.1); Mean Corpuscular HGB Conc 33.7 g/dL (31.6-35.5); Mean Corpuscular Hemoglobin 32.7 pg (28.0-33.3); Mean Platelet Volume 11.1 fL (9.4-12.4); Red Blood Count 3.33 M/mcL (3.82-4.97); White Blood Count 2.7 K/mcL (4.3-11.1)
[2021-10-30 08:32] LABS: Platelet Count 81 K/mcL (140-400)
[2021-10-30 08:39] LABS: BUN/Creatinine Ratio 15 (6-26); Blood Urea Nitrogen 9 mg/dL (8-23); Calcium 6.3 mg/dL (8.6-10.3); Carbon Dioxide 17 mEq/L (23-29); Chloride 116 mEq/L (98-107); Glucose 179 mg/dL (70-105); Osmolality,Calculated 297 (280-300); Potassium 3.3 mEq/L (3.5-5.1); Sodium 142 mEq/L (136-145); eGFR For African Americans > 60 (> 60); eGFR For Non-African Americans > 60 (> 60)
[2021-10-30 08:50] LABS: Lymphocytes # 1.1 K/mcL (0.6-4.6); Monocytes # 0.1 K/mcL (0.0-1.3); Neutrophils # 1.5 K/mcL (1.6-8.9)
[2021-10-30 08:52] LABS: Platelet Estimate Decreased (Normal)
[2021-10-30] MEDS ORDERED: Potassium Chloride Elixir 20 MEQ/15 ML UDC PO ONE (10:03)
[2021-10-30] MEDS ORDERED: Calcium Gluconate 2,000 MG in D5% in Water 100 ML IVPB ONE (10:04)
[2021-10-30] MEDS ORDERED: Prochlorperazine 10 MG/2 ML VIAL IVP ONE (10:06)
[2021-10-30] MEDS: metroNIDAZOLE 500 MG TABLET PO SCH ×2 (14:35→21:03)
[2021-10-31] MEDS: *HR* Heparin 5,000 UNIT/ML VIAL SQ SCH ×3 (04:06→21:25)
[2021-10-31 04:43] LABS: BUN/Creatinine Ratio 11 (6-26); Blood Urea Nitrogen 6 mg/dL (8-23); Calcium 6.6 mg/dL (8.6-10.3); Carbon Dioxide 15 mEq/L (23-29); Chloride 117 mEq/L (98-107); Glucose 161 mg/dL (70-105); Osmolality,Calculated 289 (280-300); Potassium 4.1 mEq/L (3.5-5.1); Sodium 139 mEq/L (136-145); eGFR For African Americans > 60 (> 60); eGFR For Non-African Americans > 60 (> 60)
[2021-10-31 05:18] LABS: Eosinophils % 0.8 %; Hematocrit 32.6 % (35.3-44.9); Hemoglobin 10.9 g/dL (11.5-15.4); Immature Granulocytes % 0.4 % (0-4); Mean Corpuscular HGB Conc 33.4 g/dL (31.6-35.5); Mean Corpuscular Hemoglobin 32.4 pg (28.0-33.3); Red Blood Count 3.36 M/mcL (3.82-4.97); Red Cell Distribution Width 14.1 % (11.5-14.5)
[2021-10-31 05:20] LABS: Basophils % 0.8 %; Immature Platelets 4.2 % (1.1-6.1); Lymphocytes # 1.5 K/mcL (0.6-4.6); Lymphocytes % 61.3 %; Mean Platelet Volume 11.2 fL (9.4-12.4); Monocytes # 0.1 K/mcL (0.0-1.3); Monocytes % 4.4 %; Neutrophils # 0.8 K/mcL (1.6-8.9); Segmented Neutrophils % 32.3 %; White Blood Count 2.5 K/mcL (4.3-11.1)
[2021-10-31 05:21] LABS: Platelet Count 75 K/mcL (140-400)
[2021-10-31 05:38] LABS: Reactive Lymphocytes Present (Not Present)
[2021-10-31 05:39] LABS: Platelet Estimate Decreased (Normal)
[2021-10-31] MEDS: 0.9 % Sodium Chloride w KCl 40 MEQ/1,000 ML MLS IVC SCH ×3 (06:50→21:26)
[2021-10-31] MEDS: Topiramate 25 MG TABLET PO SCH ×2 (08:00→21:24)
[2021-10-31] MEDS: metroNIDAZOLE 500 MG TABLET PO SCH ×3 (08:00→21:24)
[2021-10-31] MEDS: Insulin LISPRO 300 UNITS/3 ML VIAL SUBQ SCH ×3 (08:00→17:36)
[2021-10-31] MEDS: Cyanocobalamin (B-12) 1,000 MCG TABLET PO SCH (08:01)
[2021-10-31] MEDS: Topiramate 100 MG TABLET PO SCH (08:01)
[2021-10-31] MEDS: Metoprolol XL (24 HR) Succ 50 MG TAB.ER.24H PO SCH (08:01)
[2021-10-31] MEDS: Loratadine 10 MG TABLET PO SCH (08:01)
[2021-10-31] MEDS ORDERED: Calcium Gluconate 1gm/50mL 1 GM/50 ML BAG IVPB PRN (08:04)
[2021-10-31] MEDS ORDERED: Calcium Gluconate 2,000 MG in D5% in Water 100 ML IVPB ONE (16:15)
[2021-11-01] MEDS: 0.9 % Sodium Chloride w KCl 40 MEQ/1,000 ML MLS IVC SCH ×3 (01:59→20:10)
[2021-11-01] MEDS: *HR* Heparin 5,000 UNIT/ML VIAL SQ SCH ×3 (06:18→21:45)
[2021-11-01] MEDS: Metoprolol XL (24 HR) Succ 50 MG TAB.ER.24H PO SCH (08:54)
[2021-11-01] MEDS: Cyanocobalamin (B-12) 1,000 MCG TABLET PO SCH (08:55)
[2021-11-01] MEDS: Topiramate 100 MG TABLET PO SCH (08:55)
[2021-11-01] MEDS: Topiramate 25 MG TABLET PO SCH ×2 (08:55→20:10)
[2021-11-01] MEDS: Loratadine 10 MG TABLET PO SCH (08:56)
[2021-11-01] MEDS: metroNIDAZOLE 500 MG TABLET PO SCH (08:56)
[2021-11-01] MEDS: Insulin LISPRO 300 UNITS/3 ML VIAL SUBQ SCH ×3 (08:57→16:53)
[2021-11-01 16:51] LABS: Basophils % 0.3 %; Red Cell Distribution Width 13.4 % (11.5-14.5)
[2021-11-01 16:53] LABS: Eosinophils % 0.6 %; Hematocrit 37.3 % (35.3-44.9); Hemoglobin 12.7 g/dL (11.5-15.4); Immature Platelets 4.8 % (1.1-6.1); Lymphocytes # 1.7 K/mcL (0.6-4.6); Lymphocytes % 50.7 %; Mean Corpuscular Hemoglobin 32.3 pg (28.0-33.3); Mean Corpuscular Volume 94.9 fL (83.0-100.0); Mean Platelet Volume 10.4 fL (9.4-12.4); Monocytes # 0.1 K/mcL (0.0-1.3); Monocytes % 3.5 %; Neutrophils # 1.5 K/mcL (1.6-8.9); Red Blood Count 3.93 M/mcL (3.82-4.97); Segmented Neutrophils % 44.9 %; White Blood Count 3.4 K/mcL (4.3-11.1)
[2021-11-01 16:57] LABS: Platelet Count 79 K/mcL (140-400)
[2021-11-01 17:09] LABS: BUN/Creatinine Ratio 11 (6-26); Blood Urea Nitrogen 7 mg/dL (8-23); Calcium 7.2 mg/dL (8.6-10.3); Carbon Dioxide 14 mEq/L (23-29); Chloride 112 mEq/L (98-107); Glucose 189 mg/dL (70-105); Osmolality,Calculated 283 (280-300); Potassium 4.4 mEq/L (3.5-5.1); Sodium 135 mEq/L (136-145); eGFR For African Americans > 60 (> 60); eGFR For Non-African Americans > 60 (> 60)
[2021-11-01 17:21] LABS: Platelet Estimate Decreased (Normal); Reactive Lymphocytes Present (Not Present)
[2021-11-02 03:51] LABS: Hemoglobin 12.4 g/dL (11.5-15.4); Neutrophils # 1.2 K/mcL (1.6-8.9); White Blood Count 2.9 K/mcL (4.3-11.1)
[2021-11-02 03:53] LABS: Hematocrit 36.7 % (35.3-44.9); Immature Platelets 5.7 % (1.1-6.1); Lymphocytes # 1.5 K/mcL (0.6-4.6); Mean Corpuscular HGB Conc 33.8 g/dL (31.6-35.5); Mean Corpuscular Hemoglobin 32.3 pg (28.0-33.3); Mean Corpuscular Volume 95.6 fL (83.0-100.0); Mean Platelet Volume 11.1 fL (9.4-12.4); Monocytes # 0.1 K/mcL (0.0-1.3); Red Blood Count 3.84 M/mcL (3.82-4.97); Red Cell Distribution Width 13.3 % (11.5-14.5)
[2021-11-02 03:55] LABS: Blood Urea Nitrogen 7 mg/dL (8-23); Carbon Dioxide 16 mEq/L (23-29); Chloride 112 mEq/L (98-107); Potassium 4.4 mEq/L (3.5-5.1); Sodium 137 mEq/L (136-145)
[2021-11-02 03:56] LABS: BUN/Creatinine Ratio 12 (6-26); Calcium 7.1 mg/dL (8.6-10.3); Glucose 179 mg/dL (70-105); Osmolality,Calculated 286 (280-300); eGFR For African Americans > 60 (> 60); eGFR For Non-African Americans > 60 (> 60)
[2021-11-02 04:06] LABS: Platelet Count 79 K/mcL (140-400)
[2021-11-02 04:44] LABS: Eosinophils # 0.1 K/mcL (0.0-0.6); Platelet Estimate Decreased (Normal)
[2021-11-02] MEDS: *HR* Heparin 5,000 UNIT/ML VIAL SQ SCH ×3 (05:29→19:43)
[2021-11-02] MEDS: 0.9 % Sodium Chloride w KCl 40 MEQ/1,000 ML MLS IVC SCH (05:30)
[2021-11-02] MEDS: Topiramate 25 MG TABLET PO SCH ×2 (08:29→19:42)
[2021-11-02] MEDS: Loratadine 10 MG TABLET PO SCH (08:29)
[2021-11-02] MEDS: Topiramate 100 MG TABLET PO SCH (08:29)
[2021-11-02] MEDS: Metoprolol XL (24 HR) Succ 50 MG TAB.ER.24H PO SCH (08:29)
[2021-11-02] MEDS: Insulin LISPRO 300 UNITS/3 ML VIAL SUBQ SCH ×3 (08:30→16:49)
[2021-11-02] MEDS: Cyanocobalamin (B-12) 1,000 MCG TABLET PO SCH (08:32)
[2021-11-02] MEDS: Pregabalin 75 MG CAPSULE PO SCH (19:42)
[2021-11-03] MEDS: *HR* Heparin 5,000 UNIT/ML VIAL SQ SCH ×2 (05:21→14:00)
[2021-11-03] MEDS: Insulin LISPRO 300 UNITS/3 ML VIAL SUBQ SCH ×2 (08:13→12:56)
[2021-11-03] MEDS: Cyanocobalamin (B-12) 1,000 MCG TABLET PO SCH (08:48)
[2021-11-03] MEDS: Metoprolol XL (24 HR) Succ 50 MG TAB.ER.24H PO SCH (08:48)
[2021-11-03] MEDS: Pregabalin 75 MG CAPSULE PO SCH (08:48)
[2021-11-03] MEDS: Topiramate 100 MG TABLET PO SCH (08:48)
[2021-11-03] MEDS: Topiramate 25 MG TABLET PO SCH (08:49)
[2021-11-03] MEDS: Loratadine 10 MG TABLET PO SCH (08:49)
[2021-11-03 12:06] VITALS: TEMP 97.4
[2021-11-03 14:48] LABS: Influenza A PCR Negative (Negative); Influenza B PCR Negative (Negative); Resp. Syncytial Virus PCR Negative (Negative)
[2021-11-03 14:50] LABS: SARS-CoV-2 by PCR (In House) Negative (Negative)
[2021-11-03 15:45] VITALS: BP 109/62; PULSE 77; O2SAT 97
== END 2021-11-03 19:14 | DRG 469 ==
LOC: 2NNU 12:00 → EMEROOARM 12:00 → SUATTDRO 17:12 → 2NNU 18:10 → 3ANU 10-31 13:52
PROVIDERS: ADMIT Internal Medicine; ATTEND Student in an Organized Health Care Education/Training Program

== ENCOUNTER 2022-02-16 16:34 | Inpatient (IN) ==
[2022-02-16 17:24] LABS: Immature Granulocytes % 0.4 % (0-4)
[2022-02-16 17:26] LABS: Immature Platelets 11.3 % (1.1-6.1)
[2022-02-16 17:36] LABS: Eosinophils % 0.4 %; Hematocrit 38.2 % (35.3-44.9); Hemoglobin 12.6 g/dL (11.5-15.4); Lymphocytes % 74.3 %; Mean Corpuscular Hemoglobin 34.2 pg (28.0-33.3); Mean Corpuscular Volume 103.8 fL (83.0-100.0); Mean Platelet Volume 12.3 fL (9.4-12.4); Monocytes # 0.2 K/mcL (0.0-1.3); Monocytes % 7.4 %; Neutrophils # 0.5 K/mcL (1.6-8.9); Red Blood Count 3.68 M/mcL (3.82-4.97); Red Cell Distribution Width 14.6 % (11.5-14.5); Segmented Neutrophils % 17.5 %; White Blood Count 2.7 K/mcL (4.3-11.1)
[2022-02-16 17:43] LABS: Albumin 4.4 g/dL (3.5-5.7); Albumin/Globulin Ratio 1.8 (1.1-2.2); Bilirubin,Total 0.5 mg/dL (0.3-1.0); Calcium 9.7 mg/dL (8.6-10.3); Globulin 2.5 g/dL (2.4-3.5); Potassium 3.6 mEq/L (3.5-5.1); Total Protein 6.9 g/dL (6.4-8.9)
[2022-02-16 17:44] LABS: Prothrombin Time 11.2 Seconds (9.4-12.1)
[2022-02-16 17:46] LABS: Activated Partial Thrombo Time 45.1 Seconds (26.0-36.0)
[2022-02-16 17:58] LABS: Platelet Count 41 K/mcL (140-400)
[2022-02-16 18:05] LABS: Microcytosis Present (Not Present); Platelet Estimate Marked Decrease (Normal)
[2022-02-16] MEDS ORDERED: Iopamidol - 370 500 ML MLS IVP ONE (18:36)
[2022-02-16 20:11] LABS: Bilirubin,Urine Negative (Negative); Blood,Urine Negative (Negative); Clarity,Urine Clear (Clear); Color,Urine Light-Yellow (Yellow); Glucose,Urine (UA) >=1000 mg/dL (Normal); Ketones,Urine Negative (Negative); Leukocyte Esterase,Urine Negative (Negative); Nitrite,Urine Negative (Negative); PH,Urine 7.5 pH Units (5.0-8.0); Protein,Urine Negative (Neg-Trace); Specific Gravity,Urine > 1.030 (1.010-1.025); Squamous Epithelial Cell,Urine Few per hpf (None-Few); WBC,Urine 0-3 per hpf (0-3)
[2022-02-16] MEDS ORDERED: Ondansetron ODT 4 MG TAB.RAPDIS SL PRN (20:54)
[2022-02-16] MEDS ORDERED: Naloxone 0.4 MG/ML INJ IVP PRN (20:54)
[2022-02-16] MEDS ORDERED: Dextrose Gel 15 GM/37.5 ML TUBE PO PRN ×2 (21:05)
[2022-02-16] MEDS ORDERED: *HR* Dextrose 50 % in Water (Syg) 50 ML SYRINGE IVP PRN (21:05)
[2022-02-16] MEDS ORDERED: D5% in Water 1,000 ML IVC PRN (21:05)
[2022-02-16] MEDS ORDERED: Perflutren Lipid Microsphere 1.3 ML in 0.9 % Sodium Chloride 8.7 ML IVP PRN (21:10)
[2022-02-16] MEDS ORDERED: Ringers Solution, Lactated 1,000 ML IVC SCH (21:15)
[2022-02-16] MEDS: Melatonin 3 MG TABLET PO PRN (22:48)
[2022-02-17] MEDS: Insulin DETEMIR 100 UNIT/ML X5UNITS SUBQ SCH ×3 (00:57→21:32)
[2022-02-17 04:32] LABS: Hematocrit 33.2 % (35.3-44.9); Immature Platelets 9.7 % (1.1-6.1); Mean Corpuscular HGB Conc 33.1 g/dL (31.6-35.5); Mean Corpuscular Hemoglobin 34.4 pg (28.0-33.3); Mean Corpuscular Volume 103.8 fL (83.0-100.0); Red Cell Distribution Width 14.5 % (11.5-14.5); White Blood Count 1.9 K/mcL (4.3-11.1)
[2022-02-17 04:33] LABS: Lymphocytes # 1.4 K/mcL (0.6-4.6); Platelet Count 34 K/mcL (140-400)
[2022-02-17 05:10] LABS: Hypochromasia Present (Not Present); Neutrophils # 0.5 K/mcL (1.6-8.9); Platelet Estimate Marked Decrease (Normal); Reactive Lymphocytes Present (Not Present)
[2022-02-17 05:21] LABS: Alanine Aminotransferase 10 Units/L (7-52); Albumin 3.7 g/dL (3.5-5.7); Albumin/Globulin Ratio 1.9 (1.1-2.2); Alkaline Phosphatase 50 Units/L (34-104); Aspartate Amino Transferase 11 Units/L (13-39); BUN/Creatinine Ratio 37 (6-26); Bilirubin,Total 0.6 mg/dL (0.3-1.0); Blood Urea Nitrogen 29 mg/dL (8-23); Calcium 8.7 mg/dL (8.6-10.3); Carbon Dioxide 23 mEq/L (23-29); Chloride 107 mEq/L (98-107); Glucose 173 mg/dL (70-105); Magnesium 1.9 mg/dL (1.6-2.6); Osmolality,Calculated 300 (280-300); Phosphorous 3.9 mg/dL (2.7-4.5); Potassium 3.5 mEq/L (3.5-5.1); Sodium 140 mEq/L (136-145); Total Protein 5.7 g/dL (6.4-8.9); eGFR For African Americans > 60 (> 60); eGFR For Non-African Americans > 60 (> 60)
[2022-02-17 05:45] LABS: Folate 8.3 ng/mL (3.0-16.0)
[2022-02-17] MEDS: Pregabalin 50 MG CAPSULE PO SCH ×2 (08:30→21:32)
[2022-02-17] MEDS: Loratadine 10 MG TABLET PO SCH (08:30)
[2022-02-17] MEDS: Insulin LISPRO 300 UNITS/3 ML VIAL SUBQ SCH ×4 (08:30→21:33)
[2022-02-17] MEDS: Cyanocobalamin (B-12) 1,000 MCG TABLET PO SCH (08:31)
[2022-02-17] MEDS: Nicotine 7 MG PATCH.TD24 TD SCH (08:31)
[2022-02-17] MEDS: Topiramate 100 MG TABLET PO SCH (08:31)
[2022-02-17] MEDS ORDERED: Topiramate 25 MG TABLET PO SCH (09:00)
[2022-02-17 14:46] LABS: Calcium 8.7 mg/dL (8.6-10.3)
[2022-02-17] MEDS ORDERED: *HR* HYDROcodone/Acet 7.5/325 mg TABLET PO ONE (22:38)
[2022-02-18 04:28] LABS: Red Cell Distribution Width 14.5 % (11.5-14.5)
[2022-02-18 04:30] LABS: Hematocrit 33.5 % (35.3-44.9); Immature Granulocytes % 0.6 % (0-4); Immature Platelets 8.4 % (1.1-6.1); Lymphocytes # 1.2 K/mcL (0.6-4.6); Lymphocytes % 71.4 %; Mean Corpuscular HGB Conc 32.8 g/dL (31.6-35.5); Mean Corpuscular Hemoglobin 34.5 pg (28.0-33.3); Mean Platelet Volume 11.7 fL (9.4-12.4); Monocytes # 0.1 K/mcL (0.0-1.3); Monocytes % 6.5 %; Neutrophils # 0.4 K/mcL (1.6-8.9); Platelet Count 33 K/mcL (140-400); Red Blood Count 3.19 M/mcL (3.82-4.97); Segmented Neutrophils % 21.5 %; White Blood Count 1.7 K/mcL (4.3-11.1)
[2022-02-18 04:48] LABS: BUN/Creatinine Ratio 30 (6-26); Blood Urea Nitrogen 24 mg/dL (8-23); Calcium 8.5 mg/dL (8.6-10.3); Carbon Dioxide 23 mEq/L (23-29); Chloride 109 mEq/L (98-107); Glucose 159 mg/dL (70-105); Osmolality,Calculated 295 (280-300); Phosphorous 3.1 mg/dL (2.7-4.5); Potassium 3.7 mEq/L (3.5-5.1); Sodium 139 mEq/L (136-145); eGFR For African Americans > 60 (> 60); eGFR For Non-African Americans > 60 (> 60)
[2022-02-18] MEDS: Loratadine 10 MG TABLET PO SCH (08:19)
[2022-02-18] MEDS: Topiramate 100 MG TABLET PO SCH (08:19)
[2022-02-18] MEDS: Cyanocobalamin (B-12) 1,000 MCG TABLET PO SCH (08:19)
[2022-02-18] MEDS: Nicotine 7 MG PATCH.TD24 TD SCH (08:20)
[2022-02-18] MEDS: Pregabalin 50 MG CAPSULE PO SCH ×2 (08:20→21:10)
[2022-02-18] MEDS: Insulin LISPRO 300 UNITS/3 ML VIAL SUBQ SCH ×4 (08:23→21:06)
[2022-02-18] MEDS ORDERED: *HR* FentaNYL (PF) 100 MCG/2 ML VIAL IVP ONE (09:42)
[2022-02-18] MEDS ORDERED: *HR* Midazolam HCl 2 MG/2 ML VIAL IVP ONE (09:42)
[2022-02-18] MEDS ORDERED: Lidocaine Viscous Oral Soln 15 ML SOLUTION MM PRN (10:06)
[2022-02-18] MEDS ORDERED: 0.9 % Sodium Chloride 500 ML IVC ONE (10:06)
[2022-02-18] MEDS: *HR* FentaNYL (PF) 100 MCG/2 ML VIAL IVP PRN ×2 (10:35→10:38)
[2022-02-18] MEDS: *HR* Midazolam HCl 5 MG/5 ML VIAL IVP PRN ×2 (10:35→10:38)
[2022-02-18] MEDS: Insulin DETEMIR 100 UNIT/ML X5UNITS SUBQ SCH ×2 (11:42→21:11)
[2022-02-18] MEDS: Melatonin 3 MG TABLET PO PRN (21:10)
[2022-02-19 03:12] LABS: Eosinophils % 0.6 %; Hemoglobin 10.3 g/dL (11.5-15.4); Immature Granulocytes % 0.6 % (0-4); Red Cell Distribution Width 14.5 % (11.5-14.5)
[2022-02-19 03:14] LABS: Hematocrit 31.2 % (35.3-44.9); Immature Platelets 7.3 % (1.1-6.1); Lymphocytes # 1.3 K/mcL (0.6-4.6); Lymphocytes % 75.1 %; Mean Corpuscular Hemoglobin 35.2 pg (28.0-33.3); Mean Corpuscular Volume 106.5 fL (83.0-100.0); Mean Platelet Volume 11.9 fL (9.4-12.4); Monocytes # 0.1 K/mcL (0.0-1.3); Monocytes % 7.1 %; Neutrophils # 0.3 K/mcL (1.6-8.9); Red Blood Count 2.93 M/mcL (3.82-4.97); Segmented Neutrophils % 16.6 %; White Blood Count 1.7 K/mcL (4.3-11.1)
[2022-02-19 03:21] LABS: Platelet Count 34 K/mcL (140-400)
[2022-02-19 03:22] LABS: BUN/Creatinine Ratio 34 (6-26); Blood Urea Nitrogen 25 mg/dL (8-23); Calcium 8.3 mg/dL (8.6-10.3); Carbon Dioxide 20 mEq/L (23-29); Chloride 109 mEq/L (98-107); Glucose 182 mg/dL (70-105); Osmolality,Calculated 295 (280-300); Phosphorous 2.9 mg/dL (2.7-4.5); Potassium 3.7 mEq/L (3.5-5.1); Sodium 138 mEq/L (136-145); eGFR For African Americans > 60 (> 60); eGFR For Non-African Americans > 60 (> 60)
[2022-02-19 04:56] LABS: Platelet Estimate Marked Decrease (Normal); Reactive Lymphocytes Present (Not Present)
[2022-02-19] MEDS: Cyanocobalamin (B-12) 1,000 MCG TABLET PO SCH (09:04)
[2022-02-19] MEDS: Pregabalin 50 MG CAPSULE PO SCH (09:04)
[2022-02-19] MEDS: Loratadine 10 MG TABLET PO SCH (09:04)
[2022-02-19] MEDS: Nicotine 7 MG PATCH.TD24 TD SCH (09:05)
[2022-02-19] MEDS: Insulin LISPRO 300 UNITS/3 ML VIAL SUBQ SCH ×3 (09:05→18:34)
[2022-02-19] MEDS: Topiramate 100 MG TABLET PO SCH (09:05)
[2022-02-19] MEDS: Insulin DETEMIR 100 UNIT/ML X5UNITS SUBQ SCH (09:07)
[2022-02-19 18:52] VITALS: BP 105/62; PULSE 89; TEMP 98.2; O2SAT 99
[2022-02-20 09:19] LABS: Kappa Qnt Free Light Chains 16.9 mg/L (3.30-19.40); Lambda Qnt Free Light Chains 16.55 mg/L (5.71-26.30)
== END 2022-02-19 19:25 | DRG 45 ==
LOC: EMEROOARM 16:34 → 3BNU 16:34 → SUATTDRO 20:36 → 3BNU 21:37
PROVIDERS: ADMIT Student in an Organized Health Care Education/Training Program; ATTEND Internal Medicine

== ENCOUNTER 2022-04-09 10:51 | Inpatient (IN) ==
[2022-04-09] MEDS ORDERED: 0.9 % Sodium Chloride 1,000 ML IVC ONE (11:33)
[2022-04-09 11:56] LABS: INR 1.6; Prothrombin Time 17.7 Seconds (9.4-12.1)
[2022-04-09 11:58] LABS: Activated Partial Thrombo Time 45.7 Seconds (26.0-36.0)
[2022-04-09 12:10] LABS: Alanine Aminotransferase 4 Units/L (7-52); Albumin 3.1 g/dL (3.5-5.7); Albumin/Globulin Ratio 1.1 (1.1-2.2); Alkaline Phosphatase 51 Units/L (34-104); Aspartate Amino Transferase 7 Units/L (13-39); BUN/Creatinine Ratio 16 (6-26); Bilirubin,Direct 0.3 mg/dL (0.0-0.2); Bilirubin,Indirect 0.7 mg/dL (0.0-1.0); Blood Urea Nitrogen 14 mg/dL (8-23); Calcium 7.7 mg/dL (8.6-10.3); Carbon Dioxide 24 mEq/L (23-29); Chloride 102 mEq/L (98-107); Globulin 2.7 g/dL (2.4-3.5); Glucose 168 mg/dL (70-105); Lipase 10 Units/L (11-82); Osmolality,Calculated 282 (280-300); Potassium 3.6 mEq/L (3.5-5.1); Sodium 134 mEq/L (136-145); Total Protein 5.8 g/dL (6.4-8.9); Troponin I < 0.03 ng/mL (< 0.04)
[2022-04-09 12:15] LABS: Bilirubin,Urine Negative (Negative); Blood,Urine Negative (Negative); Budding Yeast,Urine Moderate per hpf (None Seen); Clarity,Urine Turbid (Clear); Color,Urine Yellow (Yellow); Glucose,Urine (UA) >=1000 mg/dL (Normal); Hyaline Casts,Urine Few per lpf (None Seen); Ketones,Urine Negative (Negative); Leukocyte Esterase,Urine Small (Negative); Mucus,Urine Few per lpf (None-Few); Nitrite,Urine Negative (Negative); Protein,Urine Negative (Neg-Trace); Squamous Epithelial Cell,Urine Moderate per hpf (None-Few)
[2022-04-09 12:29] LABS: Influenza A PCR Negative (Negative); Influenza B PCR Negative (Negative); Resp. Syncytial Virus PCR Negative (Negative)
[2022-04-09 12:39] LABS: SARS-CoV-2 by PCR (In House) Positive (Negative)
[2022-04-09] MEDS ORDERED: Acetaminophen 325 MG TABLET PO PRN (14:22)
[2022-04-09] MEDS ORDERED: *HR* Dextrose 50 % in Water (Syg) 50 ML SYRINGE IVP PRN (14:46)
[2022-04-09] MEDS ORDERED: Dextrose Gel 15 GM/37.5 ML TUBE PO PRN ×2 (14:46)
[2022-04-09] MEDS ORDERED: D5% in Water 1,000 ML IVC PRN (14:46)
[2022-04-09] MEDS ORDERED: Naloxone 0.4 MG/ML INJ IVP PRN (15:04)
[2022-04-09] MEDS ORDERED: Ondansetron 4 MG/2 ML VIAL IVP PRN (15:04)
[2022-04-09] MEDS: Ipratropium 1 PUFF INHALER IH SCH ×2 (15:30→20:02)
[2022-04-09] MEDS: cefTRIAXone 1,000 MG in 0.9 % Sodium Chloride Mini Bag 100 ML IVPB SCH (16:47)
[2022-04-09] MEDS: Insulin LISPRO 300 UNITS/3 ML VIAL SUBQ SCH ×2 (16:48→20:46)
[2022-04-09 17:03] LABS: Basophils % 0.2 %; Hemoglobin 7.2 g/dL (11.5-15.4); Mean Corpuscular Volume 99.1 fL (83.0-100.0)
[2022-04-09 17:04] LABS: Eosinophils # 0.1 K/mcL (0.0-0.6); Eosinophils % 1.9 %; Hematocrit 22.8 % (35.3-44.9); Immature Platelets 24.6 % (1.1-6.1); Lymphocytes # 1.8 K/mcL (0.6-4.6); Mean Corpuscular HGB Conc 31.6 g/dL (31.6-35.5); Mean Corpuscular Hemoglobin 31.3 pg (28.0-33.3); Neutrophils # 0.9 K/mcL (1.6-8.9); Nucleated Red Blood Cells 6.5 /100 WBC (0); Red Cell Distribution Width 16.6 % (11.5-14.5); White Blood Count 6.2 K/mcL (4.3-11.1)
[2022-04-09 17:18] LABS: Anisocytosis 1+ (Not Present); Poikilocytosis 1+ (Not Present); Polychromasia 1+ (Not Present); Reactive Lymphocytes Present (Not Present); Smudge Cells Present (Not Present)
[2022-04-09 17:19] LABS: Platelet Estimate Decreased (Normal)
[2022-04-09 17:21] LABS: Platelet Count 40 K/mcL (140-400)
[2022-04-09 17:23] LABS: Lymphocytes % 28.8 %; Monocytes % 48.1 %
[2022-04-09] MEDS: Pregabalin 50 MG CAPSULE PO SCH (20:44)
[2022-04-09] MEDS: Topiramate 25 MG TABLET PO SCH (20:46)
[2022-04-09] MEDS ORDERED: Topiramate 25 MG TABLET PO SCH ×2 (21:00)
[2022-04-10] MEDS: Ipratropium 1 PUFF INHALER IH SCH ×7 (00:30→23:45)
[2022-04-10] MEDS: Insulin LISPRO 300 UNITS/3 ML VIAL SUBQ SCH ×4 (08:37→20:42)
[2022-04-10] MEDS: Topiramate 25 MG TABLET PO SCH ×2 (08:38→20:31)
[2022-04-10] MEDS: Pregabalin 50 MG CAPSULE PO SCH ×2 (08:38→20:32)
[2022-04-10] MEDS: Cyanocobalamin (B-12) 1,000 MCG TABLET PO SCH (08:38)
[2022-04-10] MEDS: Topiramate 100 MG TABLET PO SCH (08:39)
[2022-04-10] MEDS: Loratadine 10 MG TABLET PO SCH (08:39)
[2022-04-10 12:20] LABS: Mean Corpuscular HGB Conc 31.2 g/dL (31.6-35.5); Mean Corpuscular Hemoglobin 31.2 pg (28.0-33.3)
[2022-04-10 12:22] LABS: Eosinophils # 0.1 K/mcL (0.0-0.6); Hematocrit 21.5 % (35.3-44.9); Hemoglobin 6.7 g/dL (11.5-15.4); Nucleated Red Blood Cells 6.2 /100 WBC (0); Red Blood Count 2.15 M/mcL (3.82-4.97); Red Cell Distribution Width 16.8 % (11.5-14.5); White Blood Count 6.7 K/mcL (4.3-11.1)
[2022-04-10 12:24] LABS: Platelet Count 35 K/mcL (140-400)
[2022-04-10 12:37] LABS: Albumin/Globulin Ratio 1.2 (1.1-2.2); Bilirubin,Total 0.9 mg/dL (0.3-1.0); Calcium 7.7 mg/dL (8.6-10.3); Globulin 2.6 g/dL (2.4-3.5); Total Protein 5.6 g/dL (6.4-8.9)
[2022-04-10] MEDS ORDERED: 0.9 % Sodium Chloride 250 ML IVC SCH (12:45)
[2022-04-10 13:43] LABS: Basophils # 0.1 K/mcL (0.0-0.2); Monocytes # 1.5 K/mcL (0.0-1.3); Neutrophils # 0.4 K/mcL (1.6-8.9); Platelet Estimate Decreased (Normal)
[2022-04-10] MEDS: cefTRIAXone 1,000 MG in 0.9 % Sodium Chloride Mini Bag 100 ML IVPB SCH (17:23)
[2022-04-11 02:51] LABS: Hematocrit 24.3 % (35.3-44.9); Hemoglobin 7.4 g/dL (11.5-15.4); Immature Platelets 19.7 % (1.1-6.1); Mean Corpuscular HGB Conc 30.5 g/dL (31.6-35.5); Mean Corpuscular Hemoglobin 30.5 pg (28.0-33.3); Nucleated Red Blood Cells 7.6 /100 WBC (0); Red Blood Count 2.43 M/mcL (3.82-4.97); Red Cell Distribution Width 18.3 % (11.5-14.5); White Blood Count 6.6 K/mcL (4.3-11.1)
[2022-04-11 02:57] LABS: Platelet Count 34 K/mcL (140-400)
[2022-04-11 03:08] LABS: BUN/Creatinine Ratio 18 (6-26); Blood Urea Nitrogen 13 mg/dL (8-23); Calcium 7.4 mg/dL (8.6-10.3); Carbon Dioxide 19 mEq/L (23-29); Chloride 107 mEq/L (98-107); Glucose 166 mg/dL (70-105); Osmolality,Calculated 282 (280-300); Potassium 3.9 mEq/L (3.5-5.1); Sodium 134 mEq/L (136-145)
[2022-04-11 03:22] LABS: Basophils # 0.1 K/mcL (0.0-0.2)
[2022-04-11 03:25] LABS: Eosinophils # 0.1 K/mcL (0.0-0.6); Lymphocytes # 2.8 K/mcL (0.6-4.6); Monocytes # 1.6 K/mcL (0.0-1.3); Neutrophils # 2.1 K/mcL (1.6-8.9); Platelet Estimate Decreased (Normal)
[2022-04-11] MEDS: Ipratropium 1 PUFF INHALER IH SCH ×6 (04:32→23:17)
[2022-04-11] MEDS: Insulin LISPRO 300 UNITS/3 ML VIAL SUBQ SCH ×4 (08:41→22:57)
[2022-04-11] MEDS: Pregabalin 50 MG CAPSULE PO SCH ×2 (08:41→23:06)
[2022-04-11] MEDS: Topiramate 25 MG TABLET PO SCH ×2 (08:42→23:06)
[2022-04-11] MEDS: Loratadine 10 MG TABLET PO SCH (08:42)
[2022-04-11] MEDS: Topiramate 100 MG TABLET PO SCH (08:42)
[2022-04-11] MEDS: Cyanocobalamin (B-12) 1,000 MCG TABLET PO SCH (08:42)
[2022-04-11] MEDS: Nitrofurantoin (BID) 100 MG CAPSULE PO SCH (17:17)
[2022-04-12] MEDS: Ipratropium 1 PUFF INHALER IH SCH ×6 (04:04→23:44)
[2022-04-12 06:41] LABS: Basophils % 0.2 %; Monocytes % 49.5 %; Red Blood Count 2.31 M/mcL (3.82-4.97)
[2022-04-12 06:43] LABS: Eosinophils # 0.2 K/mcL (0.0-0.6); Eosinophils % 2.6 %; Hematocrit 22.9 % (35.3-44.9); Immature Granulocytes % 6.7 % (0-4); Immature Platelets 20.8 % (1.1-6.1); Lymphocytes # 1.6 K/mcL (0.6-4.6); Lymphocytes % 26.8 %; Mean Corpuscular HGB Conc 30.6 g/dL (31.6-35.5); Mean Corpuscular Hemoglobin 30.3 pg (28.0-33.3); Mean Corpuscular Volume 99.1 fL (83.0-100.0); Monocytes # 2.9 K/mcL (0.0-1.3); Neutrophils # 0.8 K/mcL (1.6-8.9); Nucleated Red Blood Cells 8.8 /100 WBC (0); Red Cell Distribution Width 17.7 % (11.5-14.5); Segmented Neutrophils % 14.2 %; White Blood Count 5.8 K/mcL (4.3-11.1)
[2022-04-12 06:46] LABS: Platelet Count 33 K/mcL (140-400)
[2022-04-12 07:02] LABS: BUN/Creatinine Ratio 22 (6-26); Blood Urea Nitrogen 15 mg/dL (8-23); Calcium 7.7 mg/dL (8.6-10.3); Carbon Dioxide 19 mEq/L (23-29); Chloride 106 mEq/L (98-107); Glucose 203 mg/dL (70-105); Osmolality,Calculated 283 (280-300); Potassium 4.1 mEq/L (3.5-5.1); Sodium 133 mEq/L (136-145)
[2022-04-12 07:09] LABS: Anisocytosis 1+ (Not Present); Polychromasia 1+ (Not Present); Reactive Lymphocytes Present (Not Present)
[2022-04-12 07:10] LABS: Platelet Estimate Decreased (Normal)
[2022-04-12] MEDS: Topiramate 100 MG TABLET PO SCH (09:15)
[2022-04-12] MEDS: Pregabalin 50 MG CAPSULE PO SCH ×2 (09:15→22:22)
[2022-04-12] MEDS: Cyanocobalamin (B-12) 1,000 MCG TABLET PO SCH (09:15)
[2022-04-12] MEDS: Insulin LISPRO 300 UNITS/3 ML VIAL SUBQ SCH ×4 (09:15→22:24)
[2022-04-12] MEDS: Nitrofurantoin (BID) 100 MG CAPSULE PO SCH ×2 (09:15→20:05)
[2022-04-12] MEDS: Topiramate 25 MG TABLET PO SCH ×2 (09:16→22:23)
[2022-04-12] MEDS: Loratadine 10 MG TABLET PO SCH (09:16)
[2022-04-13] MEDS: Ipratropium 1 PUFF INHALER IH SCH ×6 (04:20→23:52)
[2022-04-13 05:45] LABS: Basophils % 0.2 %; Eosinophils # 0.2 K/mcL (0.0-0.6); Eosinophils % 2.7 %; Hematocrit 22.3 % (35.3-44.9); Hemoglobin 6.8 g/dL (11.5-15.4); Immature Granulocytes % 7.5 % (0-4); Immature Platelets 23.1 % (1.1-6.1); Lymphocytes # 1.8 K/mcL (0.6-4.6); Lymphocytes % 30.8 %; Mean Corpuscular HGB Conc 30.5 g/dL (31.6-35.5); Mean Corpuscular Hemoglobin 30.4 pg (28.0-33.3); Mean Corpuscular Volume 99.6 fL (83.0-100.0); Monocytes % 46.7 %; Neutrophils # 0.7 K/mcL (1.6-8.9); Nucleated Red Blood Cells 8.3 /100 WBC (0); Red Blood Count 2.24 M/mcL (3.82-4.97); Red Cell Distribution Width 17.4 % (11.5-14.5); Segmented Neutrophils % 12.1 %; White Blood Count 5.9 K/mcL (4.3-11.1)
[2022-04-13 05:55] LABS: Monocytes # 2.8 K/mcL (0.0-1.3)
[2022-04-13 05:56] LABS: Platelet Count 30 K/mcL (140-400)
[2022-04-13 06:15] LABS: BUN/Creatinine Ratio 22 (6-26); Blood Urea Nitrogen 16 mg/dL (8-23); Calcium 7.9 mg/dL (8.6-10.3); Carbon Dioxide 18 mEq/L (23-29); Chloride 105 mEq/L (98-107); Glucose 269 mg/dL (70-105); Osmolality,Calculated 285 (280-300); Potassium 4.1 mEq/L (3.5-5.1); Sodium 132 mEq/L (136-145)
[2022-04-13 06:35] LABS: Anisocytosis 1+ (Not Present); Hypochromasia Present (Not Present); Microcytosis Present (Not Present); Platelet Estimate Marked Decrease (Normal); Reactive Lymphocytes Present (Not Present)
[2022-04-13 06:36] LABS: Polychromasia 1+ (Not Present)
[2022-04-13] MEDS ORDERED: 0.9 % Sodium Chloride 250 ML IVC SCH (07:30)
[2022-04-13] MEDS: Insulin LISPRO 300 UNITS/3 ML VIAL SUBQ SCH ×4 (08:31→21:49)
[2022-04-13] MEDS: Cyanocobalamin (B-12) 1,000 MCG TABLET PO SCH (08:32)
[2022-04-13] MEDS: Nitrofurantoin (BID) 100 MG CAPSULE PO SCH ×2 (08:32→16:52)
[2022-04-13] MEDS: Pregabalin 50 MG CAPSULE PO SCH ×2 (08:32→21:47)
[2022-04-13] MEDS: Loratadine 10 MG TABLET PO SCH (08:32)
[2022-04-13] MEDS: Topiramate 25 MG TABLET PO SCH ×2 (08:32→21:46)
[2022-04-13] MEDS: Topiramate 100 MG TABLET PO SCH (08:32)
[2022-04-13] MEDS ORDERED: 0.9 % Sodium Chloride 250 ML ONE (11:42)
[2022-04-13 14:09] LABS: Hematocrit 25.9 % (35.3-44.9); Hemoglobin 8.1 g/dL (11.5-15.4)
[2022-04-14] MEDS: Ipratropium 1 PUFF INHALER IH SCH ×6 (04:29→23:01)
[2022-04-14] MEDS: Loratadine 10 MG TABLET PO SCH (08:53)
[2022-04-14] MEDS: Nitrofurantoin (BID) 100 MG CAPSULE PO SCH ×2 (08:53→17:49)
[2022-04-14] MEDS: Topiramate 25 MG TABLET PO SCH ×2 (08:53→22:20)
[2022-04-14] MEDS: Pregabalin 50 MG CAPSULE PO SCH ×2 (08:53→22:20)
[2022-04-14] MEDS: Cyanocobalamin (B-12) 1,000 MCG TABLET PO SCH (08:54)
[2022-04-14] MEDS: Insulin LISPRO 300 UNITS/3 ML VIAL SUBQ SCH ×4 (09:02→22:44)
[2022-04-14] MEDS: Topiramate 100 MG TABLET PO SCH (09:14)
[2022-04-14] MEDS ORDERED: Morphine Sulfate 2 MG/ML SYRINGE IVP PRN (12:32)
[2022-04-14] MEDS ORDERED: Morphine Sulfate Immed Rel 15 MG TABLET PO PRN (12:45)
[2022-04-14] MEDS ORDERED: *HR* HYDROmorphone (PF) 1 MG/ML SYRINGE IVP PRN (13:50)
[2022-04-14] MEDS: *HR* OxyCODONE/APAP 5/325 TABLET PO PRN (15:13)
[2022-04-15] MEDS: Ipratropium 1 PUFF INHALER IH SCH ×4 (04:17→16:40)
[2022-04-15] MEDS: Topiramate 25 MG TABLET PO SCH (09:58)
[2022-04-15] MEDS: Pregabalin 50 MG CAPSULE PO SCH (09:58)
[2022-04-15] MEDS: Nitrofurantoin (BID) 100 MG CAPSULE PO SCH ×2 (09:58→17:07)
[2022-04-15] MEDS: *HR* OxyCODONE/APAP 5/325 TABLET PO PRN ×2 (09:58→17:07)
[2022-04-15] MEDS: Topiramate 100 MG TABLET PO SCH (09:59)
[2022-04-15] MEDS: Cyanocobalamin (B-12) 1,000 MCG TABLET PO SCH (09:59)
[2022-04-15] MEDS: Loratadine 10 MG TABLET PO SCH (09:59)
[2022-04-15] MEDS: Insulin LISPRO 300 UNITS/3 ML VIAL SUBQ SCH ×3 (09:59→17:10)
[2022-04-15 17:19] VITALS: BP 137/78; PULSE 104; TEMP 98.8; O2SAT 97
== END 2022-04-15 18:49 | disposition hospice, inpatient (51) | DRG 137 ==
LOC: 2ANU 10:51 → EMEROOARM 10:51 → SUATTDRO 14:48 → 2ANU 15:49 → SUATTDRO 04-13 10:04
PROVIDERS: ADMIT Internal Medicine; ATTEND Registered Nurse